=== PATIENT | male | born 1955 | race Caucasian/White ===

== ENCOUNTER → 2016-07-23 | Outpatient (CLI) | payer MEDICARE, BC ==
[2016-07-15 13:25] VITALS: BMI 35.9
[2016-07-23 11:18] VITALS: BP 139/81; PULSE 76; RESP 16; TEMP 97.8
--- NOTE | 2016-07-23 11:35 | P.HPIM ---
History of Present Illness H&P Date: 07/23/16 Chief Complaint: low back pain and leg pain This is a 61-year-old patient referred by Dr. Kohler's office for chronic pain in low back with radiation to both legs, with low back of a dull and achy quality and numbness/tingling in bilateral lower extremities all the way to toes. Pain is rated 9/10 today, goes down to 7/10 with medications. Patient has history of three back surgeries but pain worsened in last six months with twinge in his right lower extremity and then pain in his low back. Patient has a history of rheumatoid arthritis and gets Remicade infusions and methotrexate. He has been taking medications from senior mechanical project engineer Dr. Mascorro including [place] 7.5/325 #90, Flexeril, Neurontin (started recently), medications with some relief. Patient denies adverse drug effects from medications. Patient also denies new-onset weakness, bowel/bladder incontinence, or any other signs or symptoms of cauda equina syndrome. There are no signs of acute intoxication, and no indications of medication diversion or overuse. Patient notes that pain worsens significantly with lying down, and improves with lying on right side, sitting, and medication. Patient has used several types of medications for pain, including NSAIDS, OPIOIDS, TRAMADOL, ANTIDEPRESSANTS, and BENZODIAZEPINES. Patient HAS had surgery in his low back, specifically a decompressive laminectomy. Patient HAS/HAS NOT had injections previously. Patient HAS/HAS NOT had physical therapy recently. In addition to above, 13-point review of systems is also negative for chest pain , shortness of breath, changes in vision, changes in hearing, new onset weakness , abdominal pain, diarrhea, extreme fatigue, malaise, fever, skin changes, homicidal or suicidal ideation, or bowel or bladder incontinence. Vital Signs: Reviewed in EMR Gen: WDWN, AAOx3, NAD HEENT: NCAT, EOMI, hearing grossly normal Pulm: resp unlabored Abd: soft, NT, ND Neck: supple, trachea midline ROM in flexion lumbar spine: reduced ROM in extension lumbar spine: reduced Lumbar paravertebral tenderness: ++ Facet loading: ++ bilateral, R > L SI joint tenderness: neg Jordin's test: + bilateral, R > L Straight leg raise: neg bilateral Lower extremity: decreased hip flexion/extension and knee flexion/extension secondary to pain Neuro: CN II-XII grossly intact, decreased sensation to pinprick bilateral lower extremities, with greater loss on right side Past Medical History Past Medical History: Asthma, Rheumatoid Arthritis (RA) Additional Past Medical History / Comment(s): GLAUCOMA, PAIN LOWER LEFT BACK History of Any Multi-Drug Resistant Organisms: None Reported Past Surgical History: Appendectomy, Back Surgery, Cholecystectomy, Orthopedic Surgery Additional Past Surgical History / Comment(s): RT ROTATOR CUFF/DISC SURG X3/ TITANIUM PLATE IN NECK /left rotator cuff repair may 2015, arthroscopy rt knee Past Anesthesia/Blood Transfusion Reactions: No Reported Reaction Past Psychological History: No Psychological Hx Reported Smoking Status: Former smoker Past Alcohol Use History: Rare Additional Past Alcohol Use History / Comment(s): smoker 3 years quit 1974 1 pack/wk Past Drug Use History: None Reported - Past Family History Mother Family Medical History: No Reported History Medications and Allergies Home Medications Medication Instructions Recorded Confirmed Type Methotrexate Sodium [Methotrexate] 12.5 mg PO MO 11/11/13 07/15/16 History Folic Acid 1 mg PO DAILY 11/12/13 07/15/16 History Timolol 0.5% Ophth Soln [Timoptic] 1 drop BOTH EYES BID 11/12/13 07/15/16 History inFLIXimab [Remicade] 500 mg IVPB Q42D 04/29/14 07/15/16 History Albuterol Inhaler [Ventolin Hfa 1 - 2 puff INHALATION Q6HR PRN 12/22/15 History Inhaler] Cyclobenzaprine [Flexeril] 10 mg PO BID 02/09/16 07/15/16 History Ibuprofen [Motrin] 800 mg PO Q8HR PRN 02/09/16 07/15/16 History Furosemide [Lasix] 20 mg PO DAILY PRN 03/25/16 07/15/16 History Gabapentin [Neurontin] 100 mg PO DAILY 06/28/16 07/15/16 History Terbinafine [LamISIL] 250 mg PO DAILY 06/28/16 07/15/16 History Gabapentin [Neurontin] 100 mg PO DAILY 07/23/16 07/23/16 History Allergies Allergy/AdvReac Type Severity Reaction Status Date / Time cephalexin monohydrate Allergy Rash/Hives Verified 07/23/16 10:51 [From Keflex] Results Comments: Computed tomography scan of lumbar spine without contrast dated 05/29/2016 demonstrates decompressive laminectomy changes the L2-L3, L3-L4, L4-L5, and L5- S1 levels. There is severe degenerative disc disease at the L2 through S1 levels with vacuum disc phenomenon. There are also moderate to severe circumferential disc bulges at all these levels as well with effacement of the thecal sac at all levels. At the L1-L2 level there is a circumferential disc bulge greatest posteriorly with the focal posterior central component as well as herniation and resultant spinal stenosis. Assessment and Plan (1) Lumbar postlaminectomy syndrome Status: Chronic (2) Lumbar disc herniation Status: Chronic (3) Lumbar degenerative disc disease Status: Chronic (4) Lumbar spinal stenosis Status: Acute (5) Spondylosis without myelopathy or radiculopathy, lumbar region Status: Acute Plan: 1. Explanation: Opioid and psychological risk scores were reviewed. Diagnoses , prognoses, and multiple treatment options including but not limited to physical therapy, interventional therapies, adjuvant medical therapies, narcotic medication therapies, and surgery were discussed with the patient and all questions were answered to the patient's satisfaction. 2. Opioid agreement: no opioids prescribed today 3. Counseling: The patient was counseled extensively on BODY MASS INDEX, EXERCISE. Specifically, the patient was instructed regarding the importance of weight loss, and exercise in the context of both chronic pain and overall health. 4. Procedures: bilateral lumbar MBB, can consider caudal BREONNA with Racz if little relief 5. Consultations: none 6. Investigations: none 7. Medications: none prescribed, told patient that Neurontin can be increased as 300 TID is a small dose 8. Disposition: f/u for procedure as scheduled PQRS measures: 1-Patient's medications are documented in the chart. 2-Tobacco use is negative 3-Patient has not had a pneumococcal vaccine. 4-Advanced care planning discussed, patient unable to give. 5-Opioid contract NOT signed with the patient as no opioids prescribed. 6-Pain positive, follow-up visit or procedure scheduled 7-Patient's blood pressure measured and documented, and patient will follow up with the primary care due to hypertension. 8-Patient's weight was measured, and body mass index ABOVE the normal limits, and counseling was done. Patient instructed to follow up with PCP. 9-Patient WAS NOT identified as an unhealthy alcohol user. Time with Patient: Greater than 30
== END | disposition home or self-care (01) ==
LOC: PNWHC3 10:45
PROVIDERS: ATTEND Anesthesiology
DX: M96.1 Postlaminectomy syndrome, not elsewhere classified (principal); M51.26 Other intervertebral disc displacement, lumbar region; M51.36 Other intervertebral disc degeneration, lumbar region; M48.06 Spinal stenosis, lumbar region; Z87.891 Personal history of nicotine dependence; Z79.899 Other long term (current) drug therapy; Z88.1 Allergy status to other antibiotic agents; I10 Essential (primary) hypertension; J45.909 Unspecified asthma, uncomplicated; M06.9 Rheumatoid arthritis, unspecified; H40.9 Unspecified glaucoma
CPT/HCPCS: 99211

== ENCOUNTER 2016-07-26 12:50 | Emergency (ER) | payer MEDICARE, BC ==
[2016-07-26 13:14] VITALS: TEMP 98.3
--- NOTE | 2016-07-26 13:48 | ED ---
Fall HPI - General Chief Complaint: Fall Stated Complaint: Fall Time Seen by Provider: 07/26/16 13:16 Source: patient, RN notes reviewed Mode of arrival: wheelchair - History of Present Illness Initial Comments: Patient is a 61-year-old male presents to the emergency room for evaluation of left fifth digit dislocation. Patient states he was walking down the steps, tripped over a she caught himself with both of his hands. Patient states he looked down his left pinky did not look right. Patient states he's having mild pain.Patient states he is having some tingling on the tip of his fifth finger. Patient does state that when he fell he did hit the right side of his face. Patient denies loss of consciousness or pain. Patient denies headache or dizziness. Patient also states he noticed a laceration on his pinky finger as well. Patient states his last tetanus vaccine was 3 years ago. - Related Data Home Medications Medication Instructions Recorded Confirmed Methotrexate Sodium [Methotrexate] 12.5 mg PO MO 11/11/13 07/26/16 Folic Acid 1 mg PO DAILY 11/12/13 07/26/16 Timolol 0.5% Ophth Soln [Timoptic] 1 drop BOTH EYES BID 11/12/13 07/26/16 inFLIXimab [Remicade] 500 mg IVPB Q42D 04/29/14 07/26/16 Albuterol Inhaler [Ventolin Hfa 1 - 2 puff INHALATION Q6HR PRN 12/22/15 07/26/16 Inhaler] Cyclobenzaprine [Flexeril] 10 mg PO BID 02/09/16 07/26/16 Ibuprofen [Motrin] 800 mg PO Q8HR PRN 02/09/16 07/26/16 Furosemide [Lasix] 20 mg PO DAILY 03/25/16 07/26/16 Gabapentin [Neurontin] 100 mg PO DAILY 06/28/16 07/26/16 HYDROcodone/APAP 7.5-325MG [[place] 1 - 2 tab PO Q6HR PRN 07/26/16 07/26/16 7.5] Previous Rx's Medication Instructions Recorded Clindamycin HCl [Cleocin] 300 mg PO Q8H 7 Days 07/26/16 HYDROcodone/APAP 5-325MG [[place] 1 tab PO Q6HR PRN #12 tab 01/20/17 5-325] Ibuprofen [Motrin] 600 mg PO Q6HR PRN #20 tab 07/26/16 Allergies Allergy/AdvReac Type Severity Reaction Status Date / Time cephalexin monohydrate Allergy Rash/Hives Verified 07/26/16 13:24 [From Keflex] Review of Systems ROS Statement: Those systems with pertinent positive or pertinent negative responses have been documented in the HPI. ROS Other: All systems not noted in ROS Statement are negative. Past Medical History Past Medical History: Asthma, Rheumatoid Arthritis (RA) Additional Past Medical History / Comment(s): GLAUCOMA History of Any Multi-Drug Resistant Organisms: None Reported Past Surgical History: Appendectomy, Back Surgery, Cholecystectomy, Orthopedic Surgery Additional Past Surgical History / Comment(s): RT ROTATOR CUFF/DISC SURG X3/ TITANIUM PLATE IN NECK /left rotator cuff repair may 2015, arthroscopy rt knee Past Anesthesia/Blood Transfusion Reactions: No Reported Reaction Past Psychological History: No Psychological Hx Reported Smoking Status: Former smoker Past Alcohol Use History: Rare Past Drug Use History: None Reported General Exam - General Exam Comments Initial Comments: Sitting in exam room in no acute distress. Limitations: no limitations General appearance: alert, in no apparent distress Head exam: Present: atraumatic, normocephalic, normal inspection Eye exam: Present: normal appearance ENT exam: Present: normal exam Neck exam: Present: normal inspection Respiratory exam: Present: normal lung sounds bilaterally. Absent: respiratory distress Cardiovascular Exam: Present: regular rate, normal rhythm, normal heart sounds Extremities exam: Present: normal inspection Left Hand Wrist exam: Present: laceration (1cm laceration on the posterior middle phalanx of the fifth digit), deformity (Deformity of the PIP joint of the fifth digit). Absent: normal inspection, full ROM Back exam: Present: normal inspection Neurological exam: Present: alert, oriented X3, CN II-XII intact, normal gait Psychiatric exam: Present: normal affect, normal mood Course Vital Signs 07/26/16 07/26/16 13:10 15:55 Temperature 98.3 F Pulse Rate 94 89 Respiratory 18 20 Rate Blood Pressure 128/72 129/79 O2 Sat by Pulse 96 96 Oximetry Procedures - Nerve Block Consent Obtained: verbal consent Local Anesthetic Used: Lidocaine 1% Amount of anesthesia used: 5 Nerve Blocks: digital (left fifth digit) Procedure Successful: Yes Complications: none Patient Tolerated Procedure: well, no complications Medical Decision Making - Medical Decision Making Patient is 61-year-old male presents to the emergency room for evaluation of left fifth digit dislocation and laceration. Patient appears to have an open fracture. Patient will be started on antibiotics. Case discussed with on-call orthopedic Shad DEL RIO. Orthopedic Shad DEL RIO evaluated patient, reduced dislocation and sutured the laceration. Patient was placed in an ulnar gutter splint. Patient was started on PO antibiotics and advised to follow-up in the office next week. Patient states he understands everything that was discussed with him. Return parameters discussed. Case discussed with Dr. Morales. Patient declined any pain medications while he was here. - Radiology Data Radiology results: report reviewed, image reviewed Disposition Clinical Impression: Open dislocation of finger, Finger laceration Disposition: HOME SELF-CARE Condition: Good Instructions: Finger Dislocation (ED), Laceration (ED) Additional Instructions: Take antibiotics as directed. Take ibuprofen as needed for pain. Take [place] as needed for severe pain. Please follow-up with electronic warfare specialist for reevaluation. If any new symptom arises, symptoms worsen or fever develops, return to ER as soon as possible. Prescriptions: HYDROcodone/APAP 5-325MG [[place] 5-325] 1 tab PO Q6HR PRN #12 tab PRN Reason: Pain Ibuprofen [Motrin] 600 mg PO Q6HR PRN #20 tab PRN Reason: Pain Clindamycin HCl [Cleocin] 300 mg PO Q8H 7 Days Referrals: Noel Liao DO [Primary Care Provider] - 1-2 days Alhaji Diana MD [STAFF PHYSICIAN] - 1-2 days Time of Disposition: 16:01
[2016-07-26] MEDS ORDERED: AMPICILLIN-SULBACTAM 3 GM in SODIUM CHLORIDE 0.9% 100 ML IVPB STA (13:56)
--- NOTE | 2016-07-26 14:07 | XR ---
Fifth digit left hand HISTORY: Trauma and pain 3 views of the fifth digit of the left hand There is a posterior fracture dislocation at the proximal interphalangeal joint of the fifth digit of the left hand. Small fracture fragments are noted at the volar aspect of the distal dislocated segme nt. See present in the soft tissues. Bandage apposition. Osteoarthritic change present in the first d igit. Question ligamentous injury to the second third and fourth digits, there is some questionable h yperextension at the proximal interphalangeal joints of the digits. IMPRESSION: Findings described above, fracture or dislocation fifth digit
--- NOTE | 2016-07-26 15:45 | P.CNOR ---
History of Present Illness - [facility] Consult date: 07/26/16 History of present illness: This is a 61-year-old male who was seen today and examined in the ER Richelle Welch. Patient reported this afternoon after falling at home. Patient describes walking up some steps when he tripped, falling onto his left upper extremity. Patient noticed that his pinkie looked funny after he got up, he also noticed a laceration on the inside of his left pinky. He immediately report to the hospital, imaging test were done which demonstrated a dislocated PIP joint of the fifth digit. There was questions regarding a open dislocation of the fifth digit on the left hand, I was contacted by the emergency room physician railway yard assistant. I was able to review the images and discuss the case my attending Dr. Diana. It was determined that we would relocate the finger in the emergency room after proper anesthesia and prepping. I then reported to the Emergency room to discuss the case further with the patient and his . Patient denies any other problems involving the left upper extremity, including hand wrist, elbow, shoulder. He admits to be previous carpal tunnel surgery on the left side many years ago. Patient denies hitting his head during this occasion. Patient has a rather healthy 61-year-old gentleman with no significant medical history. Patient denies headaches, lightheadedness, chest pain, shortness of breath, fever chills. Review of Systems Constitutional: Reports as per HPI Past Medical History Past Medical History: Asthma, Rheumatoid Arthritis (RA) Additional Past Medical History / Comment(s): GLAUCOMA History of Any Multi-Drug Resistant Organisms: None Reported Past Surgical History: Appendectomy, Back Surgery, Cholecystectomy, Orthopedic Surgery Additional Past Surgical History / Comment(s): RT ROTATOR CUFF/DISC SURG X3/ TITANIUM PLATE IN NECK /left rotator cuff repair may 2015, arthroscopy rt knee Past Anesthesia/Blood Transfusion Reactions: No Reported Reaction Past Psychological History: No Psychological Hx Reported Smoking Status: Former smoker Past Alcohol Use History: Rare Past Drug Use History: None Reported Medications and Allergies Home Medications Medication Instructions Recorded Confirmed Type Methotrexate Sodium [Methotrexate] 12.5 mg PO MO 11/11/13 07/26/16 History Folic Acid 1 mg PO DAILY 11/12/13 07/26/16 History Timolol 0.5% Ophth Soln [Timoptic] 1 drop BOTH EYES BID 11/12/13 07/26/16 History inFLIXimab [Remicade] 500 mg IVPB Q42D 04/29/14 07/26/16 History Albuterol Inhaler [Ventolin Hfa 1 - 2 puff INHALATION Q6HR PRN 12/22/15 History Inhaler] Cyclobenzaprine [Flexeril] 10 mg PO BID 02/09/16 07/26/16 History Ibuprofen [Motrin] 800 mg PO Q8HR PRN 02/09/16 07/26/16 History Furosemide [Lasix] 20 mg PO DAILY 03/25/16 07/26/16 History Gabapentin [Neurontin] 100 mg PO DAILY 06/28/16 07/26/16 History HYDROcodone/APAP 7.5-325MG [[place] 1 - 2 tab PO Q6HR PRN 07/26/16 07/26/16 History 7.5] Allergies Allergy/AdvReac Type Severity Reaction Status Date / Time cephalexin monohydrate Allergy Rash/Hives Verified 07/26/16 13:24 [From Keflex] Physical Examination Left upper extremity: Obvious deformity present of the left fifth digit. There is a laceration noted on the medial aspects at the PIP joint of the left fifth digit. I was able to visualize bone through the laceration, likely the proximal phalanx. No other abnormalities present throughout the left hand and wrist Patient had already been given a digital block by the emergency room staff, so sensation throughout the left fifth digit is altered. He was able to move the finger at the MCP joint Patient was able to move all the remaining fingers and no difficulty. Extension and flexion are present at the wrist Radial pulses 2+ Results - Diagnostic results Wrist/Hand x-ray: report reviewed, image reviewed Assessment and Plan Plan: Imaging: Initial images of the left hand demonstrated a posterior dislocation of the fifth PIP joint of the left hand. No other acute fractures or dislocations are present Postreduction films were then taken, this demonstrated a relocated left fifth PIP joint Assessment: 1. Open dislocation of the PIP joint left fifth digit 2. Laceration digit 2. Status post relocation PIP joint left fifth digit and laceration repair Plan: 1. I did discuss the case with the patient and his at bedside today, we will like to proceed with a relocation and laceration repair at bedside today. Anesthesia has already been done by the emergency room staff. The patient and are in good understanding and would like to proceed. See procedure note for further detail 2. Utilize ulnar gutter splint, fifth digit will remain in flexion at the PIP joint at all times 3. Pain control 4. Wound care was discussed with patient 5. Oral antibiotics will be given for outpatient use 6. Patient will follow-up in the outpatient setting in 2 weeks for recheck of hand Time with Patient: Less than 30
--- NOTE | 2016-07-26 15:55 | XR ---
Third digit left hand HISTORY: Post reduction 2 views of the fifth digit of the left hand correlated to previous exam same date earlier time There is interval reduction. Fracture fragments present about the proximal interphalangeal joint. The re is overlying dressing. Underlying arthropathy changes present. IMPRESSION: Interval reduction. Additional findings above.
[2016-07-26 15:56] VITALS: BP 129/79; PULSE 89; RESP 20
--- NOTE | 2016-07-26 15:56 | P.PCN ---
Date of Procedure: 07/26/16 Preoperative Diagnosis: Open dislocation left PIP joint of fifth digit Postoperative Diagnosis: Relocation PIP joint of left fifth digit and laceration repair Procedure(s) Performed: Relocation left PIP joint fifth digit and laceration repair Implants: None Anesthesia: regional Surgeon: Prince Kraft Estimated Blood Loss (ml): 5 Pathology: none sent Condition: stable Disposition: same day Indications for Procedure: This is a 61-year-old male who fell today at home landing on his left hand. He was noted to have a open dislocation involving the PIP joint of the left fifth digit. Description of Procedure: The risk and benefits of the procedure were discussed with the patient is today at bedside, they are in good understanding would like to proceed. Risks to include but not exclude infection, blood loss, neurovascular injury, and adequate reduction of joint, pain and stiffness, need for subsequent procedures. After local anesthesia was provided by the emergency room physician assistant at surgery, I used 245 mL of normal saline to clean the wound. I then used about 10 mL of hydrogen peroxide. I was able to visualize bony structure on the medial laceration of the fifth digit, this is likely the proximal phalanx. Simple reduction maneuver was then done to relocate the PIP joint. I then placed #3 3-0 nylon sutures along the medial laceration, which measured about 1 cm. I then bandaged the laceration and placed the patient in an ulnar gutter splint with a orthoglass material and Joe bandage. Postreduction films were then taken which showed an adequate reduction of the PIP joint at the fifth digit of left hand. Patient will continue to utilize ulnar gutter splint at this time, he'll be discharged home on oral medication and antibiotics. He was instructed to follow -up in the outpatient setting next week
== END 2016-07-26 16:11 | disposition home or self-care (01) ==
LOC: EC 12:50
DX: S62.607B Fracture of unspecified phalanx of left little finger, initial encounter for open fracture (principal); W01.0XXA Fall on same level from slipping, tripping and stumbling without subsequent striking against object, initial encounter; M06.9 Rheumatoid arthritis, unspecified; H40.9 Unspecified glaucoma; Z87.891 Personal history of nicotine dependence; Z79.899 Other long term (current) drug therapy; Z88.1 Allergy status to other antibiotic agents; Y93.01 Activity, walking, marching and hiking
CPT/HCPCS: 73140; 26742; 99284; 96365; J0295

== ENCOUNTER → 2016-08-09 | Outpatient (CLI) | payer MEDICARE, BC ==
[~2016-08-09] MED LIST: SODIUM CHLORIDE 0.9% 250 ML in EMPTY BAG 1 BAG IV PRN; SODIUM CHLORIDE 0.9% 500 ML in EMPTY BAG 1 BAG IV PRN; diphenhydrAMINE 50 MG/ML 1 ML VIAL IVP ONE; methylPREDNISolone SOD SUCCI 125 MG/2 ML VIAL IV ONE
[2016-08-09 07:54] VITALS: RESP 16; TEMP 97.8
[2016-08-09 08:51] VITALS: BP 139/80; PULSE 72
== END | disposition home or self-care (01) ==
LOC: PROCWHC3 07:08
PROVIDERS: ATTEND Internal Medicine Rheumatology
DX: M06.89 Other specified rheumatoid arthritis, multiple sites (principal)
CPT/HCPCS: 96361; 96375; 96413; 96415; J2930; J1745

== ENCOUNTER → 2016-08-14 | Outpatient (CLI) | payer MEDICARE, BC ==
--- NOTE | 2016-08-14 15:31 | BD ---
EXAMINATION TYPE: MG DEXA axial skeleton. DATE OF EXAM: 08/14/2016 9:17 AM CLINICAL HISTORY: 61-year-old male osteoporosis Height: 69.5 Weight: 250 FRAX RISK QUESTIONS: Alcohol (3 or more units per day): no Family History (Parent hip fracture): no Glucocorticoids (More than 3mos): occasionally a rescue inhaler (Ex: prednisone, prednisolone, methylprednisolone, dexamethasone, and hydrocortisone). History of Fracture in Adulthood: fingers Secondary Osteoporosis: 1. Type 1 Diabetes: no 2. Hyperthyroidism: no 3. Menopause before 45: n/a 4. Malnutrition: no 5. Chronic liver disease: no Rheumatoid Arthritis: yes Current Tobacco Use: no RISK FACTORS HISTORY OF: History of Fracture: yes, fingers When: several weeks ago Surgery to Spine: yes When: about 1999 Other Fractures since Age 51: yes, fingers When: several weeks ago Family History of Osteoporosis: no Smoke tobacco: not now Drink Alcohol: very very rarely Active: somewhat Diet low in dairy products/other sources of calcium: no Postmenopausal woman: n/a Take estrogen and/or progesterone medications: n/a Lost more than 2 inches in height since high school: no Frequent falls: no Poor Health: no Hyperparathyroidism: no Adrenal Insufficiency: no MEDICATIONS: Prednisone or other steroids: rescue inhaler only occasionally as needed Thyroid Medications: no Osteoporosis Medications: no Additional Medications: meds for Rheumatoid arthritis Additional History: diagnosed with rheumatoid arthritis age 40, also one leg has been decreasing in l ength through the years EXAM MEASUREMENTS: Bone mineral densitometry was performed using the VIR[employer] System. Bone mineral density as measured about the Lumbar spine is: ----- L1-L4(G/cm2): 1.066 T Score Values are as follows: ----- L2: -0.9 ----- L3: -1.9 ----- L4: -0.8 ----- L1-L4: -1.0 Bone mineral density has: Decreased -6.5% since study of: 08/06/2006 Bone mineral density about the R hip (g/cm2): 0.873 Bone mineral density about the L hip (g/cm2): 0.974 T Score values are as follows: -----R Neck: -1.2 -----L Neck: -0.5 -----R Intertrochanter: 0.1 -----L Intertrochanter: 0.5 Bone mineral density has: Increased 7.3% since study of: 08/06/2006 IMPRESSION: Normal bone mineral density as indicated by Z score values in the lumbar spine and both hips. Note th at the Z score values are bordering on a low value within the L3 vertebral body (Z score -1.9). NOTE: T-SCORE=SD OF THE YOUNG ADULT MEAN.
== END | disposition home or self-care (01) ==
LOC: RADBDWWP 08:43
PROVIDERS: ATTEND Internal Medicine Rheumatology
DX: M81.0 Age-related osteoporosis without current pathological fracture (principal); M06.9 Rheumatoid arthritis, unspecified; Z98.890 Other specified postprocedural states
CPT/HCPCS: 77080

== ENCOUNTER 2016-09-10 06:16 | Day surgery (SDC) | payer MEDICARE, BC ==
[2016-09-06 09:21] VITALS: BMI 35.9
[2016-09-10 07:01] VITALS: RESP 16; TEMP 98.3
[2016-09-10] MEDS ORDERED: LACTATED RINGERS 1,000 ML IV ONE (07:01)
[2016-09-10] MEDS ORDERED: MIDAZOLAM 2 MG/2 ML VIAL ONE (07:06)
[2016-09-10] MEDS ORDERED: fentaNYL (PF) 50 MCG/ML 2 ML AMP ONE (07:06)
[2016-09-10] MEDS ORDERED: BUPIVACAINE (PF) 0.5% 30 ML VIAL ONE (07:06)
[2016-09-10] MEDS ORDERED: TRIAMCINOLONE ACETONIDE 40 MG/ML 1 ML VIAL ONE (07:06)
[2016-09-10] MEDS ORDERED: LACTATED RINGERS 1,000 ML IV SCH (07:15)
[2016-09-10] MEDS ORDERED: IV FLUID CONTINUATION 1,000 ML IV ONE ×2 (07:40)
[2016-09-10 07:58] VITALS: BP 130/72; PULSE 76
--- NOTE | 2016-09-10 09:18 | FL ---
EXAMINATION TYPE: FL guided pain mgmt... statistic DATE OF EXAM: 09/10/2016 7:37 AM HISTORY: Flouroscopy time 38 seconds of fluoroscopy provided. IMPRESSION: 1. Fluoroscopy time.
--- NOTE | 2016-09-10 10:34 | P.PCN ---
Date of Procedure: 09/10/16 Surgeon: Frankie Figueroa Pathology: none sent Condition: stable Disposition: PACU Description of Procedure: PREOPERATIVE DIAGNOSIS: L3-L4, L4-L5, and L5-S1 spondylosis without myelopathy and facet arthropathy; lumbar PLPS POSTOPERATIVE DIAGNOSIS: L3-L4, L4-L5, and L5-S1 spondylosis without myelopathy and facet arthropathy; lumbar PLPS PROCEDURE DESCRIPTION: Patient presents for L3, L4 and L5 diagnostic medial branch blocks under fluoroscopic guidance. The procedure is performed using fluoroscopic guidance during needle placement to assure proper position and maximize safety. ANESTHESIA: Local with 1% lidocaine; conscious sedation EBL: Minimal PROCEDURE INDICATION: Patient with PLPS and lumbar facet arthropathy signs and symptoms, here for diagnostic medial branch block #1. Pt does not take any blood thinning medications. PROCEDURE DESCRIPTION: The patient was seen and identified in the preoperative area. Risks, benefits, complications, and alternatives were discussed with the patient (including but not limited to incomplete pain relief, bleeding, infection, nerve damage, and allergies to medications), the patient agreed to proceed with the procedure and signed the consent after all questions were answered. Patient was taken to the OR and time out was completed to verify proper patient, position, laterality of pain, and allergies. Pt was placed in the prone position and a pillow was placed under the abdomen to reduce lumbar lordosis. The lumbosacral area was prepped and draped in the usual sterile fashion. Using oblique fluoroscopy, the eye of the "Alireza dog" of right L4 vertebral body, which corresponds to the path of the medial branch originating from the level above, which is L3 in this case, was identified. Subsequently, a 22-gauge 3.5-inch spinal needle was inserted under fluoroscopic guidance toward the eye of the "Alireza dog" of the right L4 vertebral body, corresponding to the junction of the superior articular process and the transverse process of the pedicle of the same level. After needle tip confirmation on lateral view and after negative aspiration for CSF and blood and without paresthesias, 1 mL of a 6 ml solution of 0.5% preservative-free bupivacaine and 40 mg Kenalog was injected. Subsequently the needle was withdrawn intact and the same procedure was repeated for the right L4, right L5, left L3, left L4, and left L5 medial branches which together with right L3 medial branch correspond to the sensory innervation of the bilateral L3-L4, L4-L5, and L5-S1 facet joints. Needle was withdrawn intact after each injection. At the end of the procedure, the skin was cleansed and bandages were applied. COMPLICATIONS: None. DISPOSITION/PLAN: The patient taken to the recovery area after the procedure in a stable condition for observation. Patient was reexamined prior to discharge and there were no issues. Patient was discharged home, accompanied by an adult, after meeting discharged criteria. Discharge instructions were give to the patient by the staff. Patient was specifically instructed not to drive today and to rest for the rest of the day. If he gets relief, we will repeat this procedure in 4- 6 weeks.
== END 2016-09-10 08:12 | disposition home or self-care (01) ==
LOC: ORPAIN 06:16
PROVIDERS: ATTEND Anesthesiology
DX: G89.29 Other chronic pain (principal); M47.817 Spondylosis without myelopathy or radiculopathy, lumbosacral region; M46.96 Unspecified inflammatory spondylopathy, lumbar region; M96.1 Postlaminectomy syndrome, not elsewhere classified; Z88.1 Allergy status to other antibiotic agents; Z79.1 Long term (current) use of non-steroidal anti-inflammatories (NSAID); Z79.891 Long term (current) use of opiate analgesic; Z79.899 Other long term (current) drug therapy
CPT/HCPCS: 99152; 64493; 64494; 64495; J2250; J3301; J3010

== ENCOUNTER → 2016-09-23 | Outpatient (CLI) | payer MEDICARE, BC ==
[~2016-09-23] MED LIST changes: +diphenhydrAMINE 50 MG/ML 1 ML VIAL IVP NR; -diphenhydrAMINE 50 MG/ML 1 ML VIAL IVP ONE; -methylPREDNISolone SOD SUCCI 125 MG/2 ML VIAL IV ONE; +methylPREDNISolone SOD SUCCI 125 MG/2 ML VIAL IVP NR
[2016-09-23 07:27] VITALS: TEMP 98.5
[2016-09-23 09:20] VITALS: BP 142/73; PULSE 62; RESP 18
== END | disposition home or self-care (01) ==
LOC: PROCWHC3 07:06
PROVIDERS: ATTEND Internal Medicine Rheumatology
DX: M06.89 Other specified rheumatoid arthritis, multiple sites (principal); M06.9 Rheumatoid arthritis, unspecified
CPT/HCPCS: 96375; 96413; 96415; J2930; J1745; 96361

== ENCOUNTER 2016-09-24 09:00 | Day surgery (SDC) | payer MEDICARE, BC ==
[2016-09-20 15:39] VITALS: BMI 35.3
[~2016-09-24 09:00] MED LIST changes: +LACTATED RINGERS 1,000 ML IV SCH; -SODIUM CHLORIDE 0.9% 250 ML in EMPTY BAG 1 BAG IV PRN; -SODIUM CHLORIDE 0.9% 500 ML in EMPTY BAG 1 BAG IV PRN; -diphenhydrAMINE 50 MG/ML 1 ML VIAL IVP NR; -methylPREDNISolone SOD SUCCI 125 MG/2 ML VIAL IVP NR
[2016-09-24 09:32] VITALS: TEMP 97.8
[2016-09-24] MEDS ORDERED: fentaNYL (PF) 50 MCG/ML 2 ML AMP ONE (10:10)
[2016-09-24] MEDS ORDERED: TRIAMCINOLONE ACETONIDE 40 MG/ML 1 ML VIAL ONE (10:10)
[2016-09-24] MEDS ORDERED: BUPIVACAINE (PF) 0.5% 30 ML VIAL ONE (10:10)
[2016-09-24] MEDS ORDERED: MIDAZOLAM 2 MG/2 ML VIAL ONE (10:10)
--- NOTE | 2016-09-24 10:37 | P.PCN ---
Date of Procedure: 09/24/16 Procedure(s) Performed: PREOPERATIVE DIAGNOSIS : 1- Lumbar spondylosis with Facet Arthropathy without myelopathy . 2-failed back surgery syndrome lumbar area POSTOPERATIVE DIAGNOSIS: 1- Lumbar spondylosis with Facet Arthropathy without myelopathy . 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 EBL: Minimal COMPLICATION: None. IV FLUIDS: 100 mL of normal saline. PROCEDURE INDICATION: Chronic low back pain secondary to Facet arthropathy unresponsive to conservative treatment. PROCEDURE DESCRIPTION: the patient was seen and identified in the preop holding area , risks and benefits and possible complications of the procedure and alternative were discussed with the patient, and the patient agreed to proceed with the procedure and signed the consent IV was started and vital signs monitored during the procedure and fluoroscopy was used to maximize the benefit and accuracy of the needle placement, and sedation was given to decrease patient anxiety, patient was taken to the procedure room and placed in prone position vital signs monitored in the back prepped with chlorhexidine X3 then under strict sterile technique using a right oblique fluoroscopy ,the junction of the transverse process and the superior articulating process of the right L3- 4 , L4- 5, and L5-S1 vertebra which corresponding to the fluoroscopy image of the eye of the Alireza dog on the block side for the medial branches and subsequently , after local infiltration of skin and subcu tissuies with lidocaine 1% one mL at each level ,then 22- gauge Quincke-type needles , 3 needle was used , each one of them placed at the junction of the base of the transverse process and the superior articular process at the appropriate level, and the needle was advanced until the periosteum contacted, needle placement confirmed with AP oblique and lateral view and after appropriate needle placement confirmed, and after negative aspiration for heme and CSF and there was no paresthesia 1-1/2 mL of Marcaine 0.5% mixed with 40 mg Kenalog , then half mL injected at each level after negative aspiration the needle subsequently removed and the same procedure repeated for the left side at left side at L3-4, L4- 5 and L5-S1 levels. At the end of the procedure and the needles removed and a bandage applied after the skin was cleaned the cleaning solution patient taken to recovery room in stable condition and monitors in the recovery room for 20-30 minutes and discharged home in stable condition after discharge criteria met and patient will follow up with the pain clinic in 2-4 weeks
[2016-09-24] MEDS ORDERED: LACTATED RINGERS 1,000 ML IV ONE ×2 (10:40)
[2016-09-24 10:47] VITALS: RESP 18
--- NOTE | 2016-09-24 10:48 | FL ---
EXAMINATION TYPE: FL guided pain mgmt statistic DATE OF EXAM: 09/24/2016 10:41 AM HISTORY: Flouroscopy time 22 seconds of fluoroscopy provided. IMPRESSION: 1. Fluoroscopy time.
[2016-09-24 11:01] VITALS: BP 135/85; PULSE 78
[2016-09-24] MEDS ORDERED: IV FLUID CONTINUATION 1,000 ML IV ONE (11:05)
== END 2016-09-24 11:16 | disposition home or self-care (01) ==
LOC: ORPAIN 09:00
PROVIDERS: ATTEND Specialist
DX: G89.29 Other chronic pain (principal); M47.816 Spondylosis without myelopathy or radiculopathy, lumbar region; M46.96 Unspecified inflammatory spondylopathy, lumbar region; M96.1 Postlaminectomy syndrome, not elsewhere classified; Z88.1 Allergy status to other antibiotic agents
CPT/HCPCS: 64493; 64494; 64495; 99152; J2250; J3301; J3010

== ENCOUNTER 2016-10-29 06:21 | Day surgery (SDC) | payer MEDICARE, BC ==
[2016-10-25 16:14] VITALS: BMI 35.0
[2016-10-29 06:46] VITALS: TEMP 97.4
[2016-10-29] MEDS ORDERED: LACTATED RINGERS 1,000 ML IV ONE ×2 (06:57)
[2016-10-29] MEDS ORDERED: fentaNYL (PF) 50 MCG/ML 2 ML AMP ONE (07:15)
[2016-10-29] MEDS ORDERED: TRIAMCINOLONE ACETONIDE 40 MG/ML 1 ML VIAL ONE (07:15)
[2016-10-29] MEDS ORDERED: MIDAZOLAM 2 MG/2 ML VIAL ONE (07:15)
[2016-10-29] MEDS ORDERED: LACTATED RINGERS 1,000 ML IV SCH (07:15)
[2016-10-29 07:57] VITALS: RESP 20
[2016-10-29 08:16] VITALS: BP 134/93; PULSE 68
[2016-10-29] MEDS ORDERED: IV FLUID CONTINUATION 1,000 ML IV ONE (08:16)
--- NOTE | 2016-10-29 09:09 | FL ---
EXAMINATION TYPE: FL guided pain mgmt statistic DATE OF EXAM: 10/29/2016 7:46 AM HISTORY: Fluoroscopy time 29 seconds of fluoroscopy provided. IMPRESSION: 1. Fluoroscopy time.
--- NOTE | 2016-10-29 09:43 | P.PCN ---
Date of Procedure: 10/29/16 Surgeon: Frankie Figueroa Pathology: none sent Condition: stable Disposition: PACU Description of Procedure: PREOPERATIVE DIAGNOSIS: Lumbar spondylosis without myelopathy and facet arthropathy POSTOPERATIVE DIAGNOSIS: Lumbar spondylosis without myelopathy and facet arthropathy PROCEDURES: Left Radiofrequency thermocoagulation, L3, L4, and L5 medial branch , with fluoroscopic guidance. ANESTHESIA: 1% lidocaine plain; Conscious sedation with versed/fentanyl EBL: Minimal PROCEDURE INDICATION: The patient with low back pain secondary to lumbar arthropathy who had more than 50% relief of pain with previous diagnostic lumbar medial branch block with bupivacaine. Patient presents for RFA today; no use of blood thinners. PROCEDURE DESCRIPTION / TECHNIQUE: The patient was seen and identified in the preoperative area. Risks, benefits, complications, and alternatives were discussed with the patient (including but not limited to incomplete pain relief , bleeding, infection, nerve damage, and allergies to medications), the patient agreed to proceed with the procedure and signed the consent after all questions were answered. Patient was taken to the OR and time out was completed to verify proper patient , position, laterality of pain, and allergies. Pt was placed in the prone position. IV was started. Vital signs remained stable throughout the procedure. A pillow was placed under the patients chest to decrease lordosis. The lumbosacral area was prepped and draped in the usual sterile fashion. Vital signs were closely monitored during the procedure. Conscious sedation was used during the procedure to decrease patients anxiety. Using AP and then oblique fluoroscopy, the eye of the Alireza dog corresponding to the connection between the superior and transverse articular processes of left L4, L5 and top of the sacrum were identified, marked, and localized with 1% lidocaine. Subsequently, a 20 gauge, 100-mm radiofrequency cannula with a 10-mm active tip was advanced guided by fluoroscopy to each of the eyes of the Alireza dog at left L3, L4, and L5 medial branches. Each site then underwent sensory testing at 50 Hz and 0 to 1 volt and motor testing at 2 Hz and 0 to 3 volt with local stimulation, but no radicular symptoms down the legs. Thereafter the left L3, L4, and L5 medial branch sites underwent radiofrequency thermocoagulation at 80 degrees Celsius for 90 seconds after injecting 0.5 ml of PF lidocaine 1%. After thermocoagulation, 1 ml of the block solution containing Kenalog 40 mg and 2 mL of preservative-free normal saline was injected at the left L3, L4, and L5 medial branch levels after negative aspiration of CSF and blood and with no paresthesias. Cannulas were retracted while injecting lidocaine 1% until the needles were removed. At the end of the procedure, the skin was cleansed and bandages were applied. COMPLICATIONS: No acute complications. DISPOSITION / PLANS: The patient was placed in a supine position and transferred to the recovery area in a stable condition for observation and was discharged from the recovery room after meeting discharge criteria. Home discharge instructions given to the patient by the staff. The patient was reexamined prior to discharge. The patient will schedule a right lumbar RFA in 2 -4 weeks.
== END 2016-10-29 08:21 | disposition home or self-care (01) ==
LOC: ORPAIN 06:21
PROVIDERS: ATTEND Anesthesiology
DX: M46.96 Unspecified inflammatory spondylopathy, lumbar region (principal); M47.816 Spondylosis without myelopathy or radiculopathy, lumbar region; Z88.1 Allergy status to other antibiotic agents; Z98.1 Arthrodesis status
CPT/HCPCS: 64635; 64636 ×2; 99152; J2250; J3301; J3010

== ENCOUNTER → 2016-11-04 | Outpatient (CLI) | payer MEDICARE, BC ==
[~2016-11-04] MED LIST changes: -LACTATED RINGERS 1,000 ML IV SCH; +SODIUM CHLORIDE 0.9% 250 ML in EMPTY BAG 1 BAG IV PRN; +SODIUM CHLORIDE 0.9% 500 ML in EMPTY BAG 1 BAG IV PRN; +diphenhydrAMINE 50 MG/ML 1 ML VIAL IVP ONE; +methylPREDNISolone SOD SUCCI 125 MG/2 ML VIAL IV ONE
[2016-11-04 07:40] VITALS: TEMP 97.9
[2016-11-04 08:14] LABS: Basophils % (A) 0 %; CH 35.3; CHCM 34.6; Eosinophils % (A) 1 %; HCT 35.6 % (39.0-53.0); HGB 12.1 gm/dL (13.0-17.5); Luc # (Auto) 0.26; Luc % (Auto) 3; Lymphocytes % (A) 34 %; MCH 34.9 pg (25.0-35.0); MCV 102.7 fL (80.0-100.0); Macrocytosis Slight; Mean Platelet Volume 6.4; Monocytes # (A) 0.6 k/uL (0-1.0); Monocytes % (A) 7 %; Neutrophils # (A) 4.8 k/uL (1.3-7.7); Neutrophils % (A) 55 %; RBC 3.47 m/uL (4.30-5.90); RDW 15.1 % (11.5-15.5); WBC 8.7 k/uL (3.8-10.6)
[2016-11-04 08:56] LABS: ALT 34 U/L (21-72); AST 22 U/L (17-59); C Reactive Protein 8.8 mg/L (<10.0); Non-African American GFR(MDRD) >60 (>60 ml/min/1.73 sqM)
[2016-11-04 09:55] VITALS: BP 138/83; PULSE 65; RESP 20
[2016-11-04 12:07] LABS: Erythrocyte Sedimentation Rate 37 mm/hr (0-15)
== END | disposition home or self-care (01) ==
LOC: PROCWHC3 07:02
PROVIDERS: ATTEND Internal Medicine Rheumatology
DX: M06.89 Other specified rheumatoid arthritis, multiple sites (principal)
CPT/HCPCS: 85652; 82565; 84450; 84460; 85025; 86140; 96375; 96413; 96415; 36415; J2930; J1745

== ENCOUNTER 2016-12-05 06:23 | Day surgery (SDC) | payer MEDICARE, BC ==
[2016-11-29 12:23] VITALS: BMI 35.0
[2016-12-05 07:15] VITALS: RESP 16; TEMP 97.6
[2016-12-05] MEDS ORDERED: LACTATED RINGERS 1,000 ML IV ONE (07:21)
[2016-12-05] MEDS ORDERED: LACTATED RINGERS 1,000 ML IV SCH (07:45)
[2016-12-05] MEDS ORDERED: TRIAMCINOLONE ACETONIDE 40 MG/ML 1 ML VIAL ONE (07:54)
[2016-12-05] MEDS ORDERED: fentaNYL (PF) 50 MCG/ML 2 ML AMP ONE (07:54)
[2016-12-05] MEDS ORDERED: MIDAZOLAM 2 MG/2 ML VIAL ONE (07:54)
--- NOTE | 2016-12-05 08:39 | P.PCN ---
Date of Procedure: 12/05/16 Preoperative Diagnosis: Postoperative Diagnosis: Procedure(s) Performed: Implants: Surgeon: Frankie Figueroa Pathology: none sent Condition: stable Disposition: PACU Indications for Procedure: Operative Findings: Description of Procedure: PREOPERATIVE DIAGNOSIS: Lumbar spondylosis without myelopathy and facet arthropathy POSTOPERATIVE DIAGNOSIS: Lumbar spondylosis without myelopathy and facet arthropathy PROCEDURES: Right Radiofrequency thermocoagulation, L3, L4, and L5 medial branch , with fluoroscopic guidance. ANESTHESIA: 1% lidocaine plain; Conscious sedation with versed/fentanyl EBL: Minimal PROCEDURE INDICATION: The patient with low back pain secondary to lumbar arthropathy who had more than 50% relief of pain with previous diagnostic lumbar medial branch block with bupivacaine. Patient presents for RFA today; no use of blood thinners. Good relief from left lumbar RFA last visit. PROCEDURE DESCRIPTION / TECHNIQUE: The patient was seen and identified in the preoperative area. Risks, benefits, complications, and alternatives were discussed with the patient (including but not limited to incomplete pain relief , bleeding, infection, nerve damage, and allergies to medications), the patient agreed to proceed with the procedure and signed the consent after all questions were answered. Patient was taken to the OR and time out was completed to verify proper patient , position, laterality of pain, and allergies. Pt was placed in the prone position. IV was started. Vital signs remained stable throughout the procedure. A pillow was placed under the patients chest to decrease lordosis. The lumbosacral area was prepped and draped in the usual sterile fashion. Vital signs were closely monitored during the procedure. Conscious sedation was used during the procedure to decrease patients anxiety. Using AP and then oblique fluoroscopy, the eye of the Alireza dog corresponding to the connection between the superior and transverse articular processes of right L4, L5 and top of the sacrum were identified, marked, and localized with 1% lidocaine. Subsequently, a 20 gauge, 100-mm radiofrequency cannula with a 10-mm active tip was advanced guided by fluoroscopy to each of the eyes of the Alireza dog at right L3, L4, and L5 medial branches. Each site then underwent sensory testing at 50 Hz and 0 to 1 volt and motor testing at 2 Hz and 0 to 3 volt with local stimulation, but no radicular symptoms down the legs. Thereafter the right L3, L4, and L5 medial branch sites underwent radiofrequency thermocoagulation at 80 degrees Celsius for 90 seconds after injecting 0.5 ml of PF lidocaine 1%. After thermocoagulation, 1 ml of the block solution containing Kenalog 40 mg and 2 mL of preservative-free normal saline was injected at the right L3, L4, and L5 medial branch levels after negative aspiration of CSF and blood and with no paresthesias. Cannulas were retracted while injecting lidocaine 1% until the needles were removed. At the end of the procedure, the skin was cleansed and bandages were applied. COMPLICATIONS: No acute complications. DISPOSITION / PLANS: The patient was placed in a supine position and transferred to the recovery area in a stable condition for observation and was discharged from the recovery room after meeting discharge criteria. Home discharge instructions given to the patient by the staff. The patient was reexamined prior to discharge. The patient will schedule a follow-up in the clinic in 4-6 weeks.
[2016-12-05 08:49] VITALS: BP 133/82; PULSE 73
[2016-12-05] MEDS ORDERED: IV FLUID CONTINUATION 1,000 ML IV ONE (09:09)
--- NOTE | 2016-12-05 09:29 | FL ---
FLUOROSCOPY 12 seconds of fluoroscopy time were utilized during radiofrequency ablation in the right lumbar regio n. 3 images document the procedure.
== END 2016-12-05 09:09 | disposition home or self-care (01) ==
LOC: ORPAIN 06:23
PROVIDERS: ATTEND Anesthesiology
DX: G89.29 Other chronic pain (principal); M47.816 Spondylosis without myelopathy or radiculopathy, lumbar region; M46.96 Unspecified inflammatory spondylopathy, lumbar region; M06.9 Rheumatoid arthritis, unspecified; Z79.891 Long term (current) use of opiate analgesic; Z79.899 Other long term (current) drug therapy; Z88.1 Allergy status to other antibiotic agents
CPT/HCPCS: 64635; 64636 ×2; 99152; J2250; J3301; J3010

== ENCOUNTER → 2016-12-16 | Outpatient (CLI) | payer MEDICARE, BC ==
[2016-12-16 07:50] VITALS: RESP 16; TEMP 97.7
[2016-12-16 09:21] VITALS: BP 115/66; PULSE 68
== END ==
LOC: PROCWHC3 07:25
PROVIDERS: ATTEND Internal Medicine Rheumatology
DX: Z51.11 Encounter for antineoplastic chemotherapy (principal); M06.89 Other specified rheumatoid arthritis, multiple sites
CPT/HCPCS: 96375; 96413; 96415; J2930; J1745

== ENCOUNTER 2017-01-13 06:46 | Observation (INO) | payer MEDICARE, BC ==
[2017-01-13] MEDS ORDERED: SODIUM CHLORIDE 0.9% 500 ML IV ONE (07:22)
[2017-01-13 08:08] LABS: Basophils % (A) 0 %; CH 37.1; CHCM 36.2; Eosinophils # (A) 0.1 k/uL (0-0.7); Eosinophils % (A) 2 %; HCT 35.9 % (39.0-53.0); HDW 3.48; HGB 12.5 gm/dL (13.0-17.5); Luc # (Auto) 0.24; Luc % (Auto) 4; Lymphocytes # (A) 2.3 k/uL (1.0-4.8); Lymphocytes % (A) 34 %; MCH 35.9 pg (25.0-35.0); MCHC 34.7 g/dL (31.0-37.0); MCV 103.3 fL (80.0-100.0); Macrocytosis Slight; Mean Platelet Volume 7.7; Monocytes # (A) 0.7 k/uL (0-1.0); Monocytes % (A) 11 %; Neutrophils # (A) 3.3 k/uL (1.3-7.7); Neutrophils % (A) 50 %; Poikilocytosis Slight; RBC 3.48 m/uL (4.30-5.90); RDW 14.6 % (11.5-15.5); WBC 6.7 k/uL (3.8-10.6); WBC (Perox) 6.58
[2017-01-13 08:16] LABS: Prothrombin Time 10.1 sec (9.0-12.0)
[2017-01-13 08:18] LABS: ALT 32 U/L (21-72); AST 26 U/L (17-59); Alkaline Phosphatase 80 U/L (38-126); Anion Gap 10 mmol/L; Blood Urea Nitrogen 14 mg/dL (9-20); Calcium 8.9 mg/dL (8.4-10.2); Carbon Dioxide 26 mmol/L (22-30); Chloride 108 mmol/L (98-107); Glucose 95 mg/dL (74-99); Magnesium 2.1 mg/dL (1.6-2.3); Non-African American GFR(MDRD) >60 (>60 ml/min/1.73 sqM); Sodium 144 mmol/L (137-145); Total Bilirubin 0.9 mg/dL (0.2-1.3); Total Protein 7.3 g/dL (6.3-8.2)
--- NOTE | 2017-01-13 08:31 | XR ---
EXAMINATION TYPE: XR chest 2V DATE OF EXAM: 01/13/2017 COMPARISON: Prior chest x-ray 04/10/2014 HISTORY: Chest pain TECHNIQUE: Frontal and lateral views of the chest are obtained. FINDINGS: There is no focal air space opacity, pleural effusion, or pneumothorax seen. The cardiac silhouette size is stable. There are overlying cardiac leads. Postop changes are noted in the cervi zeenat spine. The patient is rotated. The osseous structures are intact. IMPRESSION: No acute cardiopulmonary process.
[2017-01-13 08:33] LABS: Creatine Kinase 104 U/L (55-170)
[2017-01-13 08:46] LABS: Creatine Kinase MB 2.2 ng/mL (0.0-2.4); Troponin I <0.012 ng/mL (0.000-0.034)
[2017-01-13] MEDS ORDERED: ASPIRIN 325 MG TAB PO STA (09:28)
[2017-01-13] MEDS ORDERED: ACETAMINOPHEN TAB 325 MG TAB PO PRN (10:01)
[2017-01-13] MEDS ORDERED: ONDANSETRON 4 MG/2 ML VIAL IVP PRN (10:01)
[2017-01-13] MEDS ORDERED: NALOXONE 0.4 MG/ML 1 ML VIAL IV PRN (10:01)
--- NOTE | 2017-01-13 10:01 | ED ---
General Adult HPI - General Chief complaint: Chest Pain Stated complaint: Dizzy, Chest pain Time Seen by Provider: 01/13/17 07:03 Source: patient, RN notes reviewed Mode of arrival: wheelchair Limitations: no limitations - History of Present Illness Initial comments: 61-year-old male presenting with near syncope and chest pain. 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 Pain is just did not radiate. It was associated with some nausea but no vomiting. Patient denies cough, denies shortness of breath. Pain is currently resolved. Patient states he feels thickly normal. There is no associated palpitations. Patient did have a stress test proximal 0.3 years ago which was normal according to the patient. He has past medical history of rheumatoid arthritis. Patient also reports some dysuria and hematuria approximately one week ago. Is also currently resolved. - Related Data Home Medications Medication Instructions Recorded Confirmed Methotrexate Sodium [Methotrexate] 12.5 mg PO MO 11/11/13 01/13/17 Folic Acid 1 mg PO DAILY 11/12/13 01/13/17 Timolol 0.5% Ophth Soln [Timoptic] 1 drop BOTH EYES BID 11/12/13 01/13/17 Albuterol Inhaler [Ventolin Hfa 1 - 2 puff INHALATION RT-Q6H PRN 12/22/15 Inhaler] Ibuprofen [Motrin] 800 mg PO Q8HR PRN 02/09/16 01/13/17 Furosemide [Lasix] 20 mg PO DAILY 03/25/16 01/13/17 HYDROcodone/APAP 7.5-325MG [Holley 1 - 2 tab PO Q6HR PRN 07/26/16 01/13/17 7.5] Azithromycin [Zithromax Z-pack] See Taper PO DIRECTED 01/13/17 01/13/17 Allergies Allergy/AdvReac Type Severity Reaction Status Date / Time cephalexin monohydrate Allergy Rash/Hives Verified 01/13/17 08:23 [From [employer]] Review of Systems ROS Statement: Those systems with pertinent positive or pertinent negative responses have been documented in the HPI. ROS Other: All systems not noted in ROS Statement are negative. Respiratory: Denies: cough Cardiovascular: Reports: chest pain. Denies: palpitations Gastrointestinal: Reports: nausea. Denies: abdominal pain, vomiting Past Medical History Past Medical History: Asthma, Rheumatoid Arthritis (RA) Additional Past Medical History / Comment(s): GLAUCOMA History of Any Multi-Drug Resistant Organisms: None Reported Past Surgical History: Appendectomy, Back Surgery, Cholecystectomy, Orthopedic Surgery Additional Past Surgical History / Comment(s): RT ROTATOR CUFF/DISC SURG X3/ TITANIUM PLATE IN NECK /left rotator cuff repair may 2015 Past Anesthesia/Blood Transfusion Reactions: No Reported Reaction Past Psychological History: No Psychological Hx Reported Smoking Status: Former smoker Past Alcohol Use History: None Reported Past Drug Use History: None Reported - Past Family History Mother Family Medical History: No Reported History General Exam Limitations: no limitations General appearance: alert, in no apparent distress Head exam: Present: atraumatic, normocephalic Eye exam: Present: normal appearance, PERRL ENT exam: Present: normal exam, mucous membranes moist Neck exam: Present: full ROM. Absent: tenderness Respiratory exam: Present: normal lung sounds bilaterally. Absent: respiratory distress, wheezes Cardiovascular Exam: Present: regular rate, normal rhythm GI/Abdominal exam: Present: soft. Absent: distended, tenderness, guarding Extremities exam: Present: normal capillary refill. Absent: pedal edema Back exam: Present: normal inspection, full ROM Neurological exam: Present: alert, oriented X3 Psychiatric exam: Present: normal affect, normal mood Skin exam: Present: warm, dry. Absent: diaphoretic Course Vital Signs 01/13/17 01/13/17 01/13/17 06:55 07:38 08:00 Temperature 97 F L Pulse Rate 85 72 66 Pulse Rate [ Sitting] Pulse Rate [ Standing] Pulse Rate [ Supine] Respiratory 18 16 16 Rate Blood Pressure 127/93 138/78 117/76 Blood Pressure [Sitting] Blood Pressure [Standing] Blood Pressure [Supine] O2 Sat by Pulse 97 95 97 Oximetry 01/13/17 09:21 Temperature Pulse Rate Pulse Rate [ 61 Sitting] Pulse Rate [ 71 Standing] Pulse Rate [ 62 Supine] Respiratory Rate Blood Pressure Blood Pressure 143/87 [Sitting] Blood Pressure 143/83 [Standing] Blood Pressure 142/86 [Supine] O2 Sat by Pulse Oximetry - Reevaluation(s) Reevaluation #1: 01/13/17 10:12 Patient is reevaluated, he remains asymptomatic. No complaints at this time. EKG Findings - EKG Comments: EKG Findings:: EKG shows normal sinus rhythm with a ventricular rate of 70, ND interval 172, QRS duration is 86. QTC is 408. There is no ST segment elevation or depression, no T-wave abnormalities. No signs of ischemia. Medical Decision Making - Medical Decision Making 7-year-old male presenting with near syncopal episode and chest pain. Symptoms are resolved at the time of evaluation. Workup including CBC, electrolytes and cardiac enzymes all unremarkable. Chest x-ray shows no acute processes. EKG is normal sinus rhythm with no signs of ischemia. Orthostatic vital signs are normal. Case is discussed with the patient's primary care physician who be brought in for telemetry, serial cardiac enzymes and cardiology evaluation. - Lab Data Result diagrams: 01/13/17 07:57 01/13/17 07:57 Lab Results 01/13/17 01/13/17 01/13/17 Range/Units 07:57 07:57 07:57 WBC 6.7 (3.8-10.6) k/uL RBC 3.48 L (4.30-5.90) m/uL Hgb 12.5 L (13.0-17.5) gm/dL Hct 35.9 L (39.0-53.0) % MCV 103.3 H (80.0-100.0) fL MCH 35.9 H (25.0-35.0) pg MCHC 34.7 (31.0-37.0) g/dL RDW 14.6 (11.5-15.5) % Plt Count 139 L (150-450) k/uL Neutrophils % 50 % Lymphocytes % 34 % Monocytes % 11 % Eosinophils % 2 % Basophils % 0 % Neutrophils # 3.3 (1.3-7.7) k/uL Lymphocytes # 2.3 (1.0-4.8) k/uL Monocytes # 0.7 (0-1.0) k/uL Eosinophils # 0.1 (0-0.7) k/uL Basophils # 0.0 (0-0.2) k/uL Poikilocytosis Slight Macrocytosis Slight PT (9.0-12.0) sec INR (<1.1) APTT (22.0-30.0) sec D-Dimer (<0.60) mg/L FEU Sodium 144 (137-145) mmol/L Potassium 4.0 (3.5-5.1) mmol/L Chloride 108 H (98-107) mmol/L Carbon Dioxide 26 (22-30) mmol/L Anion Gap 10 mmol/L BUN 14 (9-20) mg/dL Creatinine 0.73 (0.66-1.25) mg/dL Est GFR (MDRD) Af Amer >60 (>60 ml/min/1.73 sqM) Est GFR (MDRD) Non-Af >60 (>60 ml/min/1.73 sqM) Glucose 95 (74-99) mg/dL Calcium 8.9 (8.4-10.2) mg/dL Magnesium 2.1 (1.6-2.3) mg/dL Total Bilirubin 0.9 (0.2-1.3) mg/dL AST 26 (17-59) U/L ALT 32 (21-72) U/L Alkaline Phosphatase 80 (38-126) U/L Total Creatine Kinase 104 (55-170) U/L CK-MB (CK-2) 2.2 (0.0-2.4) ng/mL CK-MB (CK-2) Rel Index 2.1 Troponin I <0.012 (0.000-0.034) ng/mL NT-Pro-B Natriuret Pep pg/mL Total Protein 7.3 (6.3-8.2) g/dL Albumin 4.0 (3.5-5.0) g/dL 01/13/17 01/13/17 Range/Units 07:57 07:57 WBC (3.8-10.6) k/uL RBC (4.30-5.90) m/uL Hgb (13.0-17.5) gm/dL Hct (39.0-53.0) % MCV (80.0-100.0) fL MCH (25.0-35.0) pg MCHC (31.0-37.0) g/dL RDW (11.5-15.5) % Plt Count (150-450) k/uL Neutrophils % % Lymphocytes % % Monocytes % % Eosinophils % % Basophils % % Neutrophils # (1.3-7.7) k/uL Lymphocytes # (1.0-4.8) k/uL Monocytes # (0-1.0) k/uL Eosinophils # (0-0.7) k/uL Basophils # (0-0.2) k/uL Poikilocytosis Macrocytosis PT 10.1 (9.0-12.0) sec INR 1.0 (<1.1) APTT 25.0 (22.0-30.0) sec D-Dimer 0.49 (<0.60) mg/L FEU Sodium (137-145) mmol/L Potassium (3.5-5.1) mmol/L Chloride (98-107) mmol/L Carbon Dioxide (22-30) mmol/L Anion Gap mmol/L BUN (9-20) mg/dL Creatinine (0.66-1.25) mg/dL Est GFR (MDRD) Af Amer (>60 ml/min/1.73 sqM) Est GFR (MDRD) Non-Af (>60 ml/min/1.73 sqM) Glucose (74-99) mg/dL Calcium (8.4-10.2) mg/dL Magnesium (1.6-2.3) mg/dL Total Bilirubin (0.2-1.3) mg/dL AST (17-59) U/L ALT (21-72) U/L Alkaline Phosphatase (38-126) U/L Total Creatine Kinase (55-170) U/L CK-MB (CK-2) (0.0-2.4) ng/mL CK-MB (CK-2) Rel Index Troponin I (0.000-0.034) ng/mL NT-Pro-B Natriuret Pep 149 pg/mL Total Protein (6.3-8.2) g/dL Albumin (3.5-5.0) g/dL Disposition Clinical Impression: Chest pain, Syncope Disposition: ADMITTED IP TO THIS HOSP Referrals: Noel Liao DO [Primary Care Provider] - 1-2 days Decision to Admit Reason: Admit from EC Decision Date: 01/13/17 Decision Time: 09:30
[2017-01-13 10:59] LABS: Appearance,Urine Clear (Clear); Bilirubin,Urine Negative (Negative); Glucose,Urine (UA) Negative (Negative); Ketones,Urine Negative (Negative); Leukocyte Esterase,Urine Negative (Negative); Nitrite,Urine Negative (Negative); PH, Urine 6.5 (5.0-8.0); Protein,Urine Negative (Negative); Specific Gravity,Urine 1.009 (1.001-1.035); UA Billing (MACRO vs. MICRO) CHEM; Urobilinogen,Urine <2.0 mg/dL (<2.0)
[2017-01-13 15:06] LABS: Creatine Kinase 90 U/L (55-170)
[2017-01-13 15:19] LABS: Creatine Kinase MB 2.1 ng/mL (0.0-2.4); Troponin I <0.012 ng/mL (0.000-0.034)
[2017-01-13] MEDS ORDERED: IBUPROFEN 800 MG TAB PO PRN (19:26)
[2017-01-13] MEDS ORDERED: AZITHROMYCIN 250 MG TAB PO SCH (20:00)
[2017-01-13 20:47] LABS: Creatine Kinase 91 U/L (55-170)
[2017-01-13] MEDS: TIMOLOL 0.5% OPHTH DROPS 5 ML BTL BOTH EYES SCH (20:49)
[2017-01-13 20:59] LABS: Creatine Kinase MB 1.8 ng/mL (0.0-2.4); Troponin I <0.012 ng/mL (0.000-0.034)
[2017-01-13] MEDS ORDERED: METHOTREXATE SODIUM 2.5 MG TAB PO SCH (21:00)
[2017-01-14] MEDS: ALBUTEROL NEBULIZED 2.5 MG/3 ML INHALATION PRN ×2 (03:32→21:09)
[2017-01-14] MEDS: HYDROcodone/APAP 7.5-325MG 1 EACH TAB PO PRN ×2 (03:50→23:21)
[2017-01-14] MEDS ORDERED: REGADENOSON 0.4 MG/5 ML SYRINGE IV ONE (06:00)
[2017-01-14] MEDS ORDERED: AMINOPHYLLINE 500 MG/20 ML VIAL IV PRN (06:00)
[2017-01-14] MEDS ORDERED: FUROSEMIDE 20 MG TAB PO SCH (09:00)
--- NOTE | 2017-01-14 09:52 | ECHOF ---
Referral Reason:cp MEASUREMENTS -------- HEIGHT: 177.8 cm WEIGHT: 113.4 kg BP: 148/96 RVIDd: 3.3 cm (< 3.3) IVSd: 1.2 cm (0.6 - 1.1) LVIDd: 3.8 cm (3.9 - 5.3) LVPWd: 1.3 cm (0.6 - 1.1) IVSs: 1.6 cm LVIDs: 2.8 cm LVPWs: 1.6 cm LA Diam: 3.3 cm (2.7 - 3.8) LAESV Index (A-L): 14.06 ml/m Ao Diam: 3.2 cm (2.0 - 3.7) AV Cusp: 2.2 cm (1.5 - 2.6) MV EXCURSION: 15.618 mm (> 18.000) MV EF SLOPE: 48 mm/s (70 - 150) EPSS: 0.3 cm MV E Mukund: 0.85 m/s MV DecT: 202 ms MV A Mukund: 0.77 m/s MV E/A Ratio: 1.11 FINDINGS -------- Sinus rhythm. This was a technically adequate study. The left ventricular size is normal. There is mild concentric left ventricular hypertrophy. Overall left ventricular systolic function is normal with, an EF between 55 - 60 %. The right ventricle is mildly enlarged. Normal LA size by volume 22+/-6 ml/m2. The right atrium is normal in size. The aortic valve was not well visualized. The mitral valve is normal. Mild mitral regurgitation is present. The tricuspid valve appears structurally normal. The pulmonic valve was not well visualized. There is no pulmonic regurgitation present. The aortic root size is normal. There is no pericardial effusion. CONCLUSIONS -------- 1. Sinus rhythm. 2. The pulmonic valve was not well visualized. 3. There is no pulmonic regurgitation present. 4. The aortic root size is normal. 5. There is no pericardial effusion. 6. This was a technically adequate study. 7. There is mild concentric left ventricular hypertrophy. 8. Overall left ventricular systolic function is normal with, an EF between 55 - 60 %. 9. The right ventricle is mildly enlarged. 10. Normal LA size by volume 22+/-6 ml/m2. 11. The aortic valve was not well visualized. 12. The mitral valve is normal. 13. The tricuspid valve appears structurally normal. SENIOR SCIENCE CONSULTANT: Nimco Leung RDCS
[2017-01-14] MEDS: TIMOLOL 0.5% OPHTH DROPS 5 ML BTL BOTH EYES SCH ×2 (11:17→20:20)
--- NOTE | 2017-01-14 11:28 | NM ---
EXAMINATION TYPE: NM stress lexiscan cardiolite DATE OF EXAM: 01/14/2017 COMPARISON: NONE HISTORY: Chest pain TECHNIQUE: After the intravenous administration of 10.8 mCi Tc 99m Sestamibi - Cardiolite resting SP ECT images acquired 45 minutes post injection. The patient received 0.4mg Lexiscan, 27.1 mCi Tc 99m Sestamibi - Stress images obtained [address] injection FINDINGS: Review of stress and rest SPECT images demonstrates decreased radiopharmaceutical uptake along the an terior wall of the left ventricle on stress images as compared to rest images. Gated analysis shows normal wall motion with an estimated left ventricular ejection fraction of 68 %. IMPRESSION: Findings compatible with a pharmacologically induced left ventricular myocardial ischemia. Consider e chocardiography correlation for elevated ejection fraction.
--- NOTE | 2017-01-14 11:33 | CONS ---
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 He came into the hospital with an episode of what he describes as a sensation of light- headedness when he bent down to potato picker some trash. He first had pain in his back then felt a sharp pain in his chest and he felt dizzy, but did not quite pass out. He did not have any chest discomfort to suggest angina. He is known to have history of degenerative disease of the spine involving the cervical and lumbar spines as well. He has no chest pain or shortness of breath. He is resting comfortably without symptoms. He had a stress Cardiolite scan, Lexiscan scan in 2010 and a dobutamine echo in 2014, which was normal. He is asymptomatic at the time of my evaluation. His 2 sets of troponins are normal. The EKG revealed sinus mechanism, no acute changes. Past medical history is remarkable for bronchial asthma, rheumatoid arthritis, glaucoma. He is status post appendectomy, back surgery, orthopedic surgery, cholecystectomy and rotator cuff operation. ALLERGIES: He is allergic to CEPHALEXIN, KEFLEX. MEDICATIONS: He on [place], Zithromax, Timolol, inhaler, methotrexate, albuterol inhaler and ibuprofen. On examination, blood pressure is 138/70, pulse rate 74 per minute and regular. HEENT: Unremarkable. Fundus was not examined by me. Neck is supple. No JVD. I do not hear any carotid bruit. There is no thyromegaly. Heart exam reveals S1, S2 heard normally without any significant murmur, rub or gallop. Lungs are clear. Abdomen is soft, nontender. Lower extremities reveal diminished pulses. Central nervous system is normal. EKG revealed sinus mechanism, no acute changes. IMPRESSION: 1. Atypical back and chest pain. 2. History of rheumatoid arthritis. 3. Hypertension. 4. History of a negative dobutamine echo in 2014. RECOMMENDATIONS: I am recommending that we will perform an echocardiogram and Lexiscan stress test and continue his current medical regimen, but will add Lopressor 12.5 mg daily and see how he does. He will have a stress test and echo performed tomorrow, but if he has any symptoms I will consider intervention. I discussed my thoughts in detail with the patient. Thank you very much for the consult. SADIE
--- NOTE | 2017-01-14 11:53 | P.STRESS ---
- Stress Test Note Stress Test Results/Findings: Exam Performed: NM stress lexiscan cardiolite Exam Date: 01/14/17 Height: 5 ft 10 in Weight: 113.398 kg Protocol: Stage: N/A Duration of Exercise: 3:00 Resting Heart Rate: 67 Resting Blood Pressure: 169/97 Maximum Achieved Heart Rate: 98 Maximum Achieved Blood Pressure: 190/78 85% PMHR: 136 100% PMHR: 160 METS: N/A Technologist Comment: Stress Test Results/Findings: Baseline rhythm is sinus mechanism. Normal axis and intervals. Patient received injection of Lexiscan, EKG changes shows no acute changes. Cardiolite was injected per protocol. Impression: 1. Nondiagnostic EKG stress test. 2. Nuclear images will be reported separately.
[2017-01-14] MEDS: FOLIC ACID 1 MG TAB PO SCH (12:46)
--- NOTE | 2017-01-14 15:10 | PN ---
This gentleman has history of rheumatoid arthritis, hypertension, hyperlipidemia , came in with chest discomfort, seemed atypical, also had mild hypertension. I am recommending that we continue current medication including beta elyssa, increase activity and he will have a Lexiscan stress test and echocardiogram and once these tests are normal, he can be discharged and I will see him in the office. He has not had any recurrence of pain and he has not had any elevation of enzymes. Plan is to increase activity. Lexiscan stress test done. Echo today and discharge if normal. SADIE
[2017-01-14] MEDS ORDERED: ATORVASTATIN 80 MG TAB PO STA (15:40)
[2017-01-14] MEDS ORDERED: SODIUM CHLORIDE 0.9% 1,000 ML in EMPTY BAG 1 BAG IV ONE (15:40)
[2017-01-14] MEDS ORDERED: ALPRAZolam 0.5 MG TAB PO PRN (15:40)
[2017-01-14] MEDS ORDERED: ALPRAZolam 0.25 MG TAB PO PRN (15:40)
[2017-01-14] MEDS ORDERED: ASPIRIN 325 MG TAB PO STA (15:40)
[2017-01-14] MEDS ORDERED: NITROGLYCERIN SL TABS 0.4 MG TAB SUBLINGUAL PRN (15:40)
[2017-01-15] MEDS: TIMOLOL 0.5% OPHTH DROPS 5 ML BTL BOTH EYES SCH (06:57)
[2017-01-15] MEDS: ALBUTEROL NEBULIZED 2.5 MG/3 ML INHALATION PRN (07:36)
[2017-01-15] MEDS ORDERED: LIDOCAINE 2% INJ 20 MG/ML (20 ML MDV) ONE (07:43)
[2017-01-15] MEDS ORDERED: diphenhydrAMINE 50 MG/ML 1 ML VIAL ONE (08:34)
[2017-01-15] MEDS ORDERED: MIDAZOLAM 2 MG/2 ML VIAL ONE (08:34)
[2017-01-15] MEDS ORDERED: LIDOCAINE 2% INJ 20 MG/ML SQ ONE ×2 (08:59→09:00)
[2017-01-15] MEDS ORDERED: METOPROLOL TARTRATE 12.5 MG TAB PO SCH (09:00)
[2017-01-15] MEDS ORDERED: MIDAZOLAM 2 MG/2 ML VIAL IV ONE (09:00)
[2017-01-15] MEDS ORDERED: diphenhydrAMINE 50 MG/ML 1 ML VIAL IVP ONE (09:00)
[2017-01-15] MEDS ORDERED: NITROGLYCERIN SL TABS 0.4 MG TAB SUBLINGUAL ONE ×2 (09:17)
[2017-01-15] MEDS ORDERED: IOHEXOL 350 MG/ML 100 ML BOTTLE INJ ONE (09:18)
[2017-01-15] MEDS ORDERED: SODIUM CHLORIDE 0.9% 1,000 ML IV ONE (09:19)
[2017-01-15] MEDS ORDERED: RX INFO: IV CONTRAST WAS GIVEN 1 EACH MISC MISCELLANE PRN (09:30)
[2017-01-15] MEDS ORDERED: SODIUM CHLORIDE 0.9% 1,000 ML IV SCH (09:30)
--- NOTE | 2017-01-15 10:14 | PN ---
This is a 61-year-old gentleman who came into the hospital yesterday and because of presentation with chest pain and risk factors, I recommended a stress test. Lexiscan stress test suggest antral wall reversible defect suggestive of ischemia and therefore, I am recommending coronary angiography. The rationale, risks, benefits and options were carefully explained to the patient. He understands all details and wishes to proceed with the procedure. I will perform coronary angiography and if indicated PCI tomorrow. Patient understands and wishes to proceed with the procedure. SADIE
[2017-01-15] MEDS: FOLIC ACID 1 MG TAB PO SCH (12:52)
[2017-01-15 16:15] VITALS: BP 145/74; PULSE 72; RESP 18; TEMP 97.8
--- NOTE | 2017-01-15 16:54 | PN ---
Mr. Garrett is stable, doing well. He had abnormal stress test and is going to go for a cardiac cath. Risks, benefits and options and ratioinale ewere discussed. Vital signs were stable. S1, S2 heard normally. Lungs are clear. Abdomen and lower extremities exam is unchanged. MTDD
--- NOTE | 2017-01-16 00:20 | CC ---
DATE OF PROCEDURE: 01/15/2017 PROCEDURE: Left heart catheterization and coronary angiography. PERFORMED BY: Dr. Bal Sanchez CLINICAL INFORMATION: Mr. Eder Garrett is a 61-year-old gentleman with a history of rheumatoid arthritis, hypertension, hypercholesterolemia, who came into the hospital with an episode of chest pain, had an abnormal stress test, was advised cardiac catheterization. Risks, benefits, options and rationale were explained to the patient and his family. PROCEDURE NOTE: Under local anesthesia and strict aseptic precautions, a 6 Frisian introducer was placed in the right femoral artery. Using standard Judkin catheters, I performed coronary angiography, and a pigtail catheter was used to check LV pressures. LV gram was not performed. The sheath was taken out and Angioseal device used to secure hemostasis. He was sent to the room in stable condition. CARDIAC CATHETERIZATION FINDINGS The left ventricular end-diastolic pressure was 12 mmHg without any gradient across the aortic valve. CORONARY ANGIOGRAPHY FINDINGS RIGHT CORONARY ARTERY: Large dominant vessel gives off a large acute marginal branch, distally bifurcates into PDA and PLV, both of which supply a sizeable amount of myocardium. There is no significant disease in the RCA system, which is a dominant system. LEFT MAIN CORONARY ARTERY: Short, patent, disease-free vessel that trifurcates into LAD, circumflex and ramus intermedius. Left main is free of significant disease. LEFT ANTERIOR DESCENDING CORONARY ARTERY: Good-caliber vessels that extends along the anterior wall, gives off a small septal branch, then there is a smooth 35% to 40% narrowing, after which the caliber of the vessel improves. There is calcification of a mild degree. It gives off 2 more diagonal branches, then another septal branch and runs all the way to the apex, supplying a sizeable amount of myocardium. Technically mid LAD after a small septal branch has a smooth 35% to 40% narrowing with some calcification which is not critical but moderate. RAMUS INTERMEDIUS: This is a fair-caliber vessel that immediately bifurcates into 2 branches, runs laterally, supplies a fair amount of myocardium, has minor irregularities, but no significant disease is noted. LEFT POSTERIOR CIRCUMFLEX CORONARY ARTERY: Technically a non-dominant vessel, gives off a left ( ) circumflex branch and then runs laterally, supplying a limited amount of myocardium. No significant disease is noted in the circumflex. LEFT VENTRICULOGRAM: This was not performed. FINAL IMPRESSION: This patient has a right-dominant system. No significant disease in the RCA. LAD has a 35% smooth narrowing in the mid portion after a small septal branch with calcification. The ramus intermedius as well as circumflex are free of significant disease and filling pressures are normal. LV gram was not performed. RECOMMENDATIONS: Findings were discussed with the patient and family. I am recommending aggressive medical therapy with risk factor modification, including good blood pressure control. Findings were discussed at length with the patient as well as his and two sisters. Patient will be discharged later on today if he remains stable. I will see him in the office in the next 3 to 4 days. This patient received moderate conscious sedation for a total duration of 30 minutes. He was given Benadryl and Versed for moderate conscious sedation. SADIE
[2017-01-16] MEDS ORDERED: ATORVASTATIN 40 MG TAB PO SCH (09:00)
[2017-01-16] MEDS ORDERED: ASPIRIN 81 MG CHEW PO SCH (09:00)
== END 2017-01-15 17:52 | disposition home or self-care (01) ==
LOC: EC 06:46 → 3OBS 10:07
PROVIDERS: ADMIT Family Medicine; ATTEND Family Medicine
DX: I25.10 Atherosclerotic heart disease of native coronary artery without angina pectoris (principal); R94.39 Abnormal result of other cardiovascular function study; M06.9 Rheumatoid arthritis, unspecified; I10 Essential (primary) hypertension; R55 Syncope and collapse; J45.909 Unspecified asthma, uncomplicated; H40.9 Unspecified glaucoma; M50.30 Other cervical disc degeneration, unspecified cervical region; M51.36 Other intervertebral disc degeneration, lumbar region; R42 Dizziness and giddiness; M54.9 Dorsalgia, unspecified; E78.5 Hyperlipidemia, unspecified; Z79.899 Other long term (current) drug therapy; Z88.1 Allergy status to other antibiotic agents; Z87.891 Personal history of nicotine dependence
CPT/HCPCS: 99152; 99153; 99285 ×2; 96361 ×2; 96375; 96376 ×3; 36415; 94640 ×3; 93005; 93017; 93306; 93458; 85379; 83880; 80053; 82550; 82553; 83735; 84484; 85025; 85610; 85730; 81003; 71020; 78452; G0378 ×3; C1760; C1894; C1769 ×2; A9500; J2001; J2250; J1200; Q9967; J2785

== ENCOUNTER → 2017-01-22 | Outpatient (CLI) | payer MEDICARE, BC ==
[2017-01-22 14:10] VITALS: BP 158/83; PULSE 78; RESP 18; TEMP 98
--- NOTE | 2017-01-22 14:19 | P.PN ---
Progress Note - Text Patient returns for followup for chronic back pain without significant radiation. Patient recently underwent bilateral lumbar RFA, which has provided excellent relief for interval since procedures. Patient gets [facility] medications for pain from PCP with good relief. Patient denies adverse drug effects from medications. Today, pt denies new-onset weakness, bowel/bladder incontinence, or any other signs or symptoms of cauda equina syndrome. There are no signs of acute intoxication, and no indications of medication diversion or overuse. In addition to above, 13-point review of systems is also negative for chest pain , shortness of breath, changes in vision, changes in hearing, new onset weakness , abdominal pain, diarrhea, extreme fatigue, malaise, fever, skin changes, homicidal or suicidal ideation, or bowel or bladder incontinence. Vital Signs: Reviewed in EMR Gen: WDWN, AAOx3, NAD, uses cane for walking HEENT: NCAT, EOMI, hearing grossly normal Pulm: resp unlabored Abd: soft, NT, ND Neck: supple, trachea midline ROM in flexion lumbar spine: reduced ROM in extension lumbar spine: reduced Lumbar paravertebral tenderness: + Facet loading: + bilateral, R > L SI joint tenderness: + R > L Jordin's test: neg Straight leg raise: neg Lower extremity: decreased ROM dorsiflexion/plantarflexion strength, hip flexion/extension, and knee flexion/extension secondary to pain Neuro: CN II-XII grossly intact, muscle strength lower extremities PRESERVED Imaging: Reviewed in EMR Assessment: 1. lumbar spondylosis without myelopathy 2. RA 3. chronic pain syndrome Plan: 1. Explanation: Opioid and psychological risk scores were reviewed. Diagnoses , prognoses, and multiple treatment options including but not limited to physical therapy, interventional therapies, adjuvant medical therapies, narcotic medication therapies, and surgery were discussed with the patient and all questions were answered to the patient's satisfaction. 2. Opioid agreement: no opioids prescribed today 3. Counseling: The patient was counseled extensively on BODY MASS INDEX, EXERCISE. Specifically, the patient was instructed regarding the importance of weight control, and exercise in the context of both chronic pain and overall health. 4. Procedures: none for now 5. Consultations: None 6. Investigations: None 7. Medications: none prescribed 8. Disposition: f/u as needed, patient can call to schedule next lumbar RFA when pain returns PQRS measures: 1-Patient's medications are documented in the chart. 2-Tobacco use is negative 3-Patient has not had a pneumococcal vaccine. 4-Advanced care planning discussed, patient unable to give. 5-Opioid contract NOT signed with the patient. 6-Pain positive, follow-up visit or procedure scheduled 7-Patient's blood pressure measured and documented, and patient will follow up with the primary care due to hypertension. 8-Patient's weight was measured, and body mass index ABOVE the normal limits, and counseling was done. Patient instructed to follow up with PCP. 9-Patient WAS NOT identified as an unhealthy alcohol user.
== END | disposition home or self-care (01) ==
LOC: PNWHC3 13:40
PROVIDERS: ATTEND Anesthesiology
DX: M47.816 Spondylosis without myelopathy or radiculopathy, lumbar region (principal); M06.9 Rheumatoid arthritis, unspecified; G89.4 Chronic pain syndrome
CPT/HCPCS: 99211

== ENCOUNTER → 2017-01-27 | Outpatient (CLI) | payer MEDICARE, BC ==
[2017-01-27 07:27] VITALS: TEMP 98.2
[2017-01-27 09:17] VITALS: BP 131/68; PULSE 57; RESP 16
[2017-01-27 11:46] LABS: C Reactive Protein 10.4 mg/L (<10.0)
== END | disposition home or self-care (01) ==
LOC: PROCWHC3 07:01
PROVIDERS: ATTEND Internal Medicine Rheumatology
DX: M06.89 Other specified rheumatoid arthritis, multiple sites (principal)
CPT/HCPCS: 84450; 84460; 86140; 96375; 96413; 96415; 36415; J2930; J1745

== ENCOUNTER → 2017-02-13 | Outpatient (CLI) | payer MEDICARE, BC ==
[2017-02-13 07:28] LABS: Anion Gap 10 mmol/L; Blood Urea Nitrogen 14 mg/dL (9-20); Calcium 9.1 mg/dL (8.4-10.2); Carbon Dioxide 29 mmol/L (22-30); Chloride 104 mmol/L (98-107); Glucose 93 mg/dL (74-99); Non-African American GFR(MDRD) >60 (>60 ml/min/1.73 sqM); Potassium 4.1 mmol/L (3.5-5.1); Sodium 143 mmol/L (137-145)
== END | disposition home or self-care (01) ==
LOC: LABWHC1 07:00
PROVIDERS: ATTEND Nurse Practitioner Adult Health
DX: I10 Essential (primary) hypertension (principal); R60.0 Localized edema
CPT/HCPCS: 36415; 80048

== ENCOUNTER → 2017-03-17 | Outpatient (CLI) | payer MEDICARE, BC ==
[~2017-03-17] MED LIST changes: +INFLIXIMAB-DYYB 500 MG in SODIUM CHLORIDE 0.9% 250 ML IV ONE; -SODIUM CHLORIDE 0.9% 250 ML in EMPTY BAG 1 BAG IV PRN
[2017-03-17 07:32] VITALS: RESP 18; TEMP 98.2
[2017-03-17 08:03] LABS: Basophils % (A) 1 %; CH 35.5; Eosinophils # (A) 0.1 k/uL (0-0.7); Eosinophils % (A) 2 %; HCT 32.7 % (39.0-53.0); HDW 3.45; Luc # (Auto) 0.18; Luc % (Auto) 3; Lymphocytes # (A) 2.3 k/uL (1.0-4.8); Lymphocytes % (A) 35 %; MCH 34.3 pg (25.0-35.0); MCHC 33.6 g/dL (31.0-37.0); Macrocytosis Slight; Mean Platelet Volume 7.2; Monocytes # (A) 0.6 k/uL (0-1.0); Monocytes % (A) 9 %; Neutrophils # (A) 3.4 k/uL (1.3-7.7); Neutrophils % (A) 51 %; Poikilocytosis Slight; RDW 14.9 % (11.5-15.5); WBC 6.6 k/uL (3.8-10.6); WBC (Perox) 6.69
[2017-03-17 08:29] LABS: ALT 33 U/L (21-72); AST 25 U/L (17-59); Non-African American GFR(MDRD) >60 (>60 ml/min/1.73 sqM)
[2017-03-17 09:05] VITALS: BP 103/62; PULSE 49
[2017-03-17 10:47] LABS: C Reactive Protein 11.5 mg/L (<10.0)
[2017-03-17 11:05] LABS: Erythrocyte Sedimentation Rate 33 mm/hr (0-15)
== END | disposition home or self-care (01) ==
LOC: PROCWHC3 07:07
PROVIDERS: ATTEND Internal Medicine Rheumatology
DX: Z51.11 Encounter for antineoplastic chemotherapy (principal); M06.89 Other specified rheumatoid arthritis, multiple sites
CPT/HCPCS: 85652; 82565; 84450; 84460; 85025; 86140; 96375; 96413; 96415; 36415; J2930; Q5102

== ENCOUNTER → 2017-03-25 | Outpatient (CLI) | payer MEDICARE, BC ==
[2017-03-25 11:39] VITALS: BP 117/73; PULSE 69; RESP 18; TEMP 97.9
--- NOTE | 2017-03-25 11:49 | P.PN ---
Progress Note - Text Patient returns for followup for chronic back pain without significant radiation. Patient recently underwent bilateral lumbar RFA, which has provided excellent relief but pain is beginning to return, and particularly so in low back and hip area. Patient gets [facility] medications for pain from PCP with good relief. Patient denies adverse drug effects from medications. Today, pt denies new-onset weakness, bowel/bladder incontinence, or any other signs or symptoms of cauda equina syndrome. There are no signs of acute intoxication, and no indications of medication diversion or overuse. In addition to above, 13-point review of systems is also negative for chest pain , shortness of breath, changes in vision, changes in hearing, new onset weakness , abdominal pain, diarrhea, extreme fatigue, malaise, fever, skin changes, homicidal or suicidal ideation, or bowel or bladder incontinence. Vital Signs: Reviewed in EMR Gen: WDWN, AAOx3, NAD, uses cane for walking HEENT: NCAT, EOMI, hearing grossly normal Pulm: resp unlabored Abd: soft, NT, ND Neck: supple, trachea midline ROM in flexion lumbar spine: reduced ROM in extension lumbar spine: reduced Lumbar paravertebral tenderness: + Facet loading: + bilateral SI joint tenderness: + bilateral, R > L Jordin's test: + R > L Straight leg raise: neg Lower extremity: decreased ROM dorsiflexion/plantarflexion strength, hip flexion/extension, and knee flexion/extension secondary to pain Neuro: CN II-XII grossly intact, muscle strength lower extremities PRESERVED Imaging: Reviewed in EMR Assessment: 1. lumbar spondylosis without myelopathy 2. RA 3. chronic pain syndrome 4. SIJ dysfunction Plan: 1. Explanation: Opioid and psychological risk scores were reviewed. Diagnoses , prognoses, and multiple treatment options including but not limited to physical therapy, interventional therapies, adjuvant medical therapies, narcotic medication therapies, and surgery were discussed with the patient and all questions were answered to the patient's satisfaction. 2. Opioid agreement: no opioids prescribed today 3. Counseling: The patient was counseled extensively on BODY MASS INDEX, EXERCISE. Specifically, the patient was instructed regarding the importance of weight control, and exercise in the context of both chronic pain and overall health. 4. Procedures: bilateral SIJ injection 5. Consultations: None 6. Investigations: None 7. Medications: none prescribed 8. Disposition: f/u for procedure as scheduled PQRS measures: 1-Patient's medications are documented in the chart. 2-Tobacco use is negative 3-Patient has not had a pneumococcal vaccine. 4-Advanced care planning discussed, patient unable to give. 5-Opioid contract NOT signed with the patient. 6-Pain positive, follow-up visit or procedure scheduled 7-Patient's blood pressure measured and documented, and patient will follow up with the primary care due to hypertension. 8-Patient's weight was measured, and body mass index ABOVE the normal limits, and counseling was done. Patient instructed to follow up with PCP. 9-Patient WAS NOT identified as an unhealthy alcohol user.
== END ==
LOC: PNWHC3 11:22
PROVIDERS: ATTEND Anesthesiology
DX: M47.816 Spondylosis without myelopathy or radiculopathy, lumbar region (principal); M53.3 Sacrococcygeal disorders, not elsewhere classified; M06.9 Rheumatoid arthritis, unspecified; Z79.891 Long term (current) use of opiate analgesic
CPT/HCPCS: 99211

== ENCOUNTER 2017-03-31 07:52 | Day surgery (SDC) | payer MEDICARE, BC ==
[2017-03-28 09:01] VITALS: BMI 34.2
[2017-03-31 08:08] VITALS: RESP 18; TEMP 98.2
[2017-03-31] MEDS ORDERED: LACTATED RINGERS 1,000 ML IV ONE (08:15)
[2017-03-31] MEDS ORDERED: LIDOCAINE 1% 20 ML VIAL (10MG/ML) FOR IV START INTRADERMA ONE (08:15)
[2017-03-31] MEDS ORDERED: LACTATED RINGERS 1,000 ML IV SCH (08:30)
--- NOTE | 2017-03-31 09:03 | P.PCN ---
Date of Procedure: 03/31/17 Surgeon: Frankie Figueroa Pathology: none sent Condition: stable Disposition: PACU Description of Procedure: PREOPERATIVE DIAGNOSIS: 1-Bilateral sacroiliitis. 2 Lumbar DDD POSTOPERATIVE DIAGNOSIS:. 1-Bilateral sacroiliitis. 2 Lumbar DDD PROCEDURES: Bilateral Sacroiliac joint steroid injection with fluoroscopic guidance ANESTHESIA: Local with 1% lidocaine; conscious sedation EBL: Minimal. PROCEDURE INDICATIONS: This patient with a history of low back pain secondary to sacroiliitis and lumbar DDD unresponsive to conservative management. No use of blood thinners except ASA 81 mg (stopped six days ago). PROCEDURE DESCRIPTION: The patient was seen and identified in the preoperative area. Risks, benefits, complications, and alternatives were discussed with the patient (including but not limited to incomplete pain relief, bleeding, infection, nerve damage, and allergies to medications), the patient agreed to proceed with the procedure and signed the consent after all questions were answered. Patient was taken to the OR and time out was completed to verify proper patient , position, laterality of pain, and allergies. Pt was placed in the prone position and a pillow was placed under the abdomen to reduce lumbar lordosis. The lumbosacral area was prepped and draped in the usual sterile fashion. Critical pause was taken. Vital signs were closely monitored during the procedure. The fluoroscopic camera was placed in contralateral oblique view and right sacroiliiac joint lower pole was identified. After local infiltration with 1% lidocaine 2 ml, Subsequently, a 22-gauge 3.5 inch spinal needle was introduced into the posteroinferior aspect of the right sacroiliac joint under direct fluoroscopic visualization. Subsequently, 3 ml of a solution of a total of 6 ml solution containing total 4 mL of 0.5% preservative-free bupivacaine mixed with 40 mg of Kenalog was injected after negative aspiration for CSF, blood, and air and negative for paresthesia. The entire procedure was repeated on the left side as above. Needle was withdrawn intact. Skin was cleansed, and bandages were applied. COMPLICATIONS: None. COMMENTS: DISPOSITION / PLANS: The patient was placed in a supine position and transferred to the recovery area in a stable condition for observation and was discharged from the recovery room after meeting discharge criteria. Home discharge instructions given to the patient by the staff. The patient was reexamined prior to discharge. The patient will schedule a follow up procedure in 6-8 weeks.
[2017-03-31 09:24] VITALS: BP 123/57; PULSE 64
[2017-03-31] MEDS ORDERED: IV FLUID CONTINUATION 1,000 ML IV ONE (09:24)
--- NOTE | 2017-03-31 11:37 | FL ---
EXAMINATION TYPE: FL guidance operating room DATE OF EXAM: 03/31/2017 HISTORY: Flouroscopy time 25 seconds of fluoroscopy provided. IMPRESSION: 1. Fluoroscopy time.
== END 2017-03-31 09:40 | disposition home or self-care (01) ==
LOC: ORPAIN 07:52
PROVIDERS: ATTEND Anesthesiology
DX: M46.1 Sacroiliitis, not elsewhere classified (principal); M51.36 Other intervertebral disc degeneration, lumbar region; M47.816 Spondylosis without myelopathy or radiculopathy, lumbar region; M06.9 Rheumatoid arthritis, unspecified; G89.4 Chronic pain syndrome; Z88.1 Allergy status to other antibiotic agents
CPT/HCPCS: J2250; J3301; Q9965; J3010; G0260; 99152

== ENCOUNTER → 2017-05-28 | Outpatient (CLI) | payer MEDICARE, BC ==
[2017-05-28 13:15] VITALS: BP 146/80; PULSE 79; RESP 18
--- NOTE | 2017-05-28 13:34 | P.PN ---
Progress Note - Text Progress Note Date: 05/28/17 This is a 7-year-old male with history of lower back pain with radiation to the right lower extremity down to the right foot. The patient states that when he sits or stands for too long he feels numbness in his right leg. He denies any bowel or bladder dysfunction. He gets Remicade infusion for treatment for his carotid arthritis. He also has mild hypertension. 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 He is morbidly obese alert oriented 3 in no apparent distress. He has antalgic gait. The patient uses [facility] from time to time This Pain and He Gets That from His Primary Care Physician. He does not show any drug-seeking behavior and he denies any suicidal thoughts. He did have sacroiliac joint steroid injection and also RFA on the lumbar medial branches however the cause of his pain that radiates down his right leg I think he might benefit from getting caudal epidural steroid injection with lysis of adhesions. For now we will hold off on these injections but if his pain starts to get out control he then will call us and we'll schedule him for caudal epidural steroid injection at that point.
== END | disposition home or self-care (01) ==
LOC: PNWHC3 12:37
PROVIDERS: ATTEND Anesthesiology
DX: M54.5 Low back pain (principal)
CPT/HCPCS: 99211

== ENCOUNTER 2017-06-16 07:50 | Day surgery (SDC) | payer MEDICARE, BC ==
[2017-06-12 15:32] VITALS: BMI 34.2
[~2017-06-16 07:50] MED LIST changes: -INFLIXIMAB-DYYB 500 MG in SODIUM CHLORIDE 0.9% 250 ML IV ONE; +LACTATED RINGERS 1,000 ML IV SCH; -SODIUM CHLORIDE 0.9% 500 ML in EMPTY BAG 1 BAG IV PRN; -diphenhydrAMINE 50 MG/ML 1 ML VIAL IVP ONE; -methylPREDNISolone SOD SUCCI 125 MG/2 ML VIAL IV ONE
[2017-06-16 08:29] VITALS: RESP 18; TEMP 97.9
[2017-06-16] MEDS ORDERED: LIDOCAINE 1% 20 ML VIAL (10MG/ML) FOR IV START INTRADERMA ONE (08:31)
[2017-06-16] MEDS ORDERED: IV FLUID CONTINUATION 1,000 ML IV ONE (09:31)
--- NOTE | 2017-06-16 09:34 | FL ---
EXAMINATION TYPE: FL guided pain mgmt statistic DATE OF EXAM: 06/16/2017 HISTORY: Flouroscopy time 19 seconds of fluoroscopy provided. IMPRESSION: 1. Fluoroscopy time.
[2017-06-16 09:42] VITALS: BP 123/67; PULSE 61
--- NOTE | 2017-06-16 09:51 | P.PCN ---
Date of Procedure: 06/16/17 Surgeon: Frankie Figueroa Pathology: none sent Condition: stable Disposition: PACU Description of Procedure: PREOP DIAGNOSIS: Lumbar postlaminectomy syndrome POSTOP DIAGNOSIS: Lumbar postlaminectomy syndrome PROCEDURE: Caudal epidural steroid injection with epidurolysis and epidurogram under fluoroscopic guidance ANESTHESIA: Local with 1% lidocaine; conscious sedation EBL: Minimal. PROCEDURE INDICATION: The patient with post-laminectomy syndrome with low back pain and radiculopathy radiating down in both legs, here for a caudal epidural steroid injection with epidurolysis, #3 in series. Patient does not use any blood thinning medications. PROCEDURE DESCRIPTION: The patient was seen and identified in the preoperative area. Risks, benefits, complications, and alternatives were discussed with the patient including but not limited to bleeding, infection, nerve damage, incomplete pain relief, and allergic reactions to medications. The patient agreed to proceed with the procedure and signed the consent after all questions were answered. IV was started, and vital signs were stable. Patient was taken to the OR and time out was completed to verify proper patient , procedure, laterality of pain, and allergies. The patient was placed in the prone position on procedure table and a pillow was placed under the abdomen to reduce lumbar lordosis. The lumbosacral area was prepped and draped in the usual sterile fashion. Critical pause was taken. Vital signs were closely monitored during the procedure. Fluoroscopic camera was placed in the lateral view and the anterior-posterior plates of the sacrum were identified with infiltration of the area overlying the sacral hiatus with 1% lidocaine .A 16 gauge RK epidural needle was used to advance through the sacral hiatus into the caudal epidural space. Omnipaque 300 dye 2cc was injected and the position of the needle was verified to be in the midline. A Racz catheter was introduced into the epidural space and was advanced towards the L5-S1 interspace under direct fluoroscopic guidance. Multiple passes were made with the catheter for lysis of epidural adhesions. Decadron 20 mg with 3ml of preservative free Lidocaine 1% and 6 ml of preservative free normal saline was injected slowly. Additional spread was seen to L4 under fluoroscopy. The needle and the catheter were withdrawn intact. EPIDUROGRAM: Omnipaque 300 dye 2 ml was injected with spread of the dye into the caudal epidural space and with spread cutoff at L4 prior to epidurolysis. Post epidurolysis dye 2 ml was injected and spread was seen to top of L4.There was further spread of the solution together with the dye above the L4. COMPLICATIONS: None. DISPOSITION / PLANS: The patient was placed in a supine position and transferred to the recovery area in a stable condition for observation and was discharged from the recovery room after meeting discharge criteria. Home discharge instructions given to the patient by the staff. The patient was reexamined prior to discharge and there were no issues. The patient will schedule a follow up in the clinic in 2-4 weeks.
--- NOTE | 2017-07-01 09:53 | CDI ---
Outpatient Documentation Clarification Form Date: 07/01/17 CDS/[facility] Maker Name: Kavitha Chavez Phone: If you have question, contact Kari Brown Side Seam Tender at M-F 8:30 am to 6pm. Patient Name: Eder Garrett Admit Date: 06/16/17 Discharge Date: 06/16/17 ATTENTION: The Clinical Documentation Specialists (CDI) and [facility] Coding Staff appreciate your assistance in clarifying documentation. Please respond to the clarification below the line at the bottom and electronically sign. The CDI & [facility] Coding staff will review the response and follow-up if needed. Please note: Queries are made part of the Legal Health Record. If you have any questions, please contact the author of this message via ITS or call the Side Seam Tender. Dr. Figueroa Please provide an updated H&P or comments on the current H&P (progress note) to meet the following guidelines. Also, please provide clarification of the statement on the current H&P: "Her gets Remicade infusion for treatment of his carotid arthritis." H&P Exams performed within 30 days prior to admission may be used if the following requirements are met: Physician writes an update note which is written on or attached to the H&P. The words re-examined the patient must be present. Required by [facility]. The H&P and any updates/assessments must be included in the medical record within 24 hrs of admission, but prior to surgery or other procedures whichever comes first. Thank you for your assistance. MTDD
--- NOTE | 2017-07-08 09:55 | P.PN ---
Progress Note - Text Progress Note Date: 06/16/17 Previous clinic note from 05/28/17 was reviewed, patient was re-examined, and there are no relevant changes to H&P prior to procedure today. In addition, there is one clarification, namely that patient does receive Remicade infusions for rheumatoid arthritis.
== END 2017-06-16 10:07 | disposition home or self-care (01) ==
LOC: ORPAIN 07:50
PROVIDERS: ATTEND Anesthesiology
DX: M96.1 Postlaminectomy syndrome, not elsewhere classified (principal); M54.16 Radiculopathy, lumbar region; I10 Essential (primary) hypertension; M06.9 Rheumatoid arthritis, unspecified; E66.01 Morbid (severe) obesity due to excess calories; Z68.34 Body mass index [BMI] 34.0-34.9, adult; Z88.1 Allergy status to other antibiotic agents; Z79.899 Other long term (current) drug therapy
CPT/HCPCS: 62264; J2250; J1100; Q9965; J3010; C1894; 99152

== ENCOUNTER 2017-07-24 00:58 | Emergency (ER) | payer MEDICARE, BC ==
[2017-07-24 01:05] VITALS: BP 156/81; PULSE 84; RESP 18; TEMP 98
--- NOTE | 2017-07-24 01:13 | ED ---
General Adult HPI - General Chief complaint: Abdominal Pain Stated complaint: rt rib pain Time Seen by Provider: 07/24/17 01:06 Source: patient, RN notes reviewed Mode of arrival: ambulatory Limitations: no limitations - History of Present Illness Initial comments: 62-year-old male presents emergency department she went right rib pain. Patient states he had an injury yesterday morning. He states that he was leaving to more intense and states that he forgot his cough he was on the opposite seat states he leaned over quickly and hit his right lower ribs on the center console. He states he had some discomfort but he had no issues getting around the pain seemed to worsen. States he has no abdominal pain denies any nausea, vomiting, fever, chills, bruising, diarrhea, constipation, melena or hematochezia. Patient states he does take normally take pain medications but has not been taking it because he's been trying to stay away from it. Patient states he has pain when he takes a deep inspiration feels pain along his ribs he has complained that he felt short of breath because of the pain. - Related Data Home Medications Medication Instructions Recorded Confirmed Methotrexate Sodium [Methotrexate] 12.5 mg PO Q42D 11/11/13 07/24/17 Timolol 0.5% Ophth Soln [Timoptic 1 drop BOTH EYES BID 11/12/13 07/24/17 0.5% Ophth Soln] Albuterol Inhaler [Ventolin Hfa 1 - 2 puff INHALATION RT-Q6H PRN 12/22/15 Inhaler] HYDROcodone/APAP 7.5-325MG [[place] 2 tab PO Q6HR PRN 07/26/16 07/24/17 7.5-325] Furosemide [Lasix] 20 mg PO DAILY 01/27/17 07/24/17 Metoprolol Tartrate [Lopressor] 25 mg PO DAILY 01/27/17 07/24/17 Losartan-Hctz 50-12.5 mg [Hyzaar 1 each PO DAILY 03/17/17 07/24/17 50-12.5] Ibuprofen [Motrin] 800 mg PO DAILY PRN 03/25/17 07/24/17 Infliximab-Dyyb [Inflectra] 500 mg IV DIRECTED 06/20/17 07/24/17 Previous Rx's Medication Instructions Recorded Aspirin 81 mg PO DAILY #90 01/15/17 Atorvastatin [Lipitor] 40 mg PO DAILY #90 tab 01/15/17 Folic Acid 1 mg PO 1200 tab 01/15/17 Allergies Allergy/AdvReac Type Severity Reaction Status Date / Time cephalexin monohydrate Allergy Rash/Hives Verified 07/24/17 01:04 [From [employer]] Review of Systems ROS Statement: Those systems with pertinent positive or pertinent negative responses have been documented in the HPI. ROS Other: All systems not noted in ROS Statement are negative. Past Medical History Past Medical History: Asthma, Rheumatoid Arthritis (RA) Additional Past Medical History / Comment(s): GLAUCOMA History of Any Multi-Drug Resistant Organisms: None Reported Past Surgical History: Appendectomy, Back Surgery, Cholecystectomy, Orthopedic Surgery Additional Past Surgical History / Comment(s): RT ROTATOR CUFF/DISC SURG X3/ TITANIUM PLATE IN NECK /left rotator cuff repair may 2015 Past Anesthesia/Blood Transfusion Reactions: No Reported Reaction Past Psychological History: No Psychological Hx Reported Smoking Status: Never smoker Past Alcohol Use History: Rare Past Drug Use History: None Reported - Past Family History Mother Family Medical History: No Reported History Father Family Medical History: Coronary Artery Disease (CAD) Additional Family Medical History / Comment(s): FATHER HAD 3 VESSEL CABG-HAD POST OP INFECTION AND PNEUMONIA AND AT THE AGE OF 80YRS. General Exam Limitations: no limitations General appearance: alert, in no apparent distress Head exam: Present: atraumatic, normocephalic, normal inspection Neck exam: Present: full ROM Respiratory exam: Present: normal lung sounds bilaterally, chest wall tenderness (Monitor right anterior to lateral mid to lower ribs). Absent: respiratory distress, wheezes, rales, rhonchi, stridor Cardiovascular Exam: Present: regular rate, normal rhythm, normal heart sounds. Absent: systolic murmur, diastolic murmur, rubs, gallop, clicks GI/Abdominal exam: Present: soft, normal bowel sounds, other (Old midline surgical scar noted). Absent: distended, tenderness, guarding, rebound, rigid Back exam: Present: full ROM. Absent: tenderness, CVA tenderness (R), CVA tenderness (L), paraspinal tenderness, vertebral tenderness Skin exam: Present: warm, dry, intact, normal color. Absent: rash Course Vital Signs 07/24/17 01:01 Temperature 98 F Pulse Rate 84 Respiratory 18 Rate Blood Pressure 156/81 O2 Sat by Pulse 100 Oximetry Medical Decision Making - Medical Decision Making 62-year-old male present emergency Department chief complaint of right rib pain. Patient had a known injury reproducible pain. Chest x-ray, rib series shows no pneumothorax or notable rib fracture we discussed this is rib contusion versus a nondisplaced unnoticed rib fracture. Patient takes pain medication at home advised to take this as directed, we discussed deep inspiration to limit chances of pneumonia and return for any worsening symptoms. Disposition Clinical Impression: Contusion of rib on right side Disposition: HOME SELF-CARE Condition: Stable Instructions: Rib Contusion (ED) Additional Instructions: Please return to the Emergency Department if symptoms worsen or any other concerns. Referrals: Noel Liao DO [Primary Care Provider] - 1-2 days Time of Disposition: 01:51
--- NOTE | 2017-07-24 01:34 | XR ---
EXAMINATION TYPE: XR ribs RT w pa chest xray DATE OF EXAM: 07/24/2017 COMPARISON: NONE HISTORY: Pain TECHNIQUE: 6 views FINDINGS: Heart is normal. Lungs are clear of consolidation. There is no sign of pleural effusion or pneumothorax. There is no sign of a rib fracture. IMPRESSION: Negative right rib exam. No active cardiopulmonary disease.
== END 2017-07-24 01:58 | disposition home or self-care (01) ==
LOC: EC 00:58
DX: S20.211A Contusion of right front wall of thorax, initial encounter (principal); R06.02 Shortness of breath; Z79.899 Other long term (current) drug therapy; Z88.1 Allergy status to other antibiotic agents; W22.8XXA Striking against or struck by other objects, initial encounter
CPT/HCPCS: 99284

== ENCOUNTER → 2017-07-28 | Outpatient (CLI) | payer MEDICARE, BC ==
[2017-07-28 13:44] VITALS: BP 160/83; PULSE 81; RESP 18
--- NOTE | 2017-07-28 18:43 | P.PN ---
Subjective Progress Note Date: 07/28/17 This is follow-up visit for this patient with a history of severe and chronic low back pain secondary to lumbar failed back surgery syndrome, lumbar facet arthropathy,sacroi ileitis ,we have done radiofrequency ablation of the median branch in october 2016 , then later on May and June 2017 done caudal epidural steroid injection with lysis of epidural adhesions and we done bilateral sacroiliac joint steroid injection patient currently on magnesium oxide 400 mg daily , and he is getting good [place] prescription from his primary care Patient denies any side effects of the medication, denies excessive drowsiness or sleepiness, denies suicidal ideation, and reports that the current pain medication is NOT helping To control the pain and improve activity of daily living . Patient denies any motor or sensory deficit, denies change in bowel movement or urination, patient denies any fever or night sweats and that his pain currently increased and he is complaining of numbness and tingling in his lower extremities the right side more than the left side, he had MRI done recently but we don't have any report Objective - Vital Signs Vital signs: Vital Signs Temp Pulse 81 07/28/17 13:32 Resp 18 07/28/17 13:32 BP 160/83 07/28/17 13:32 Pulse Ox 94 L 07/28/17 13:32 Intake & Output 07/27/17 07/28/17 07/28/17 18:59 06:59 18:59 Weight 113.398 kg - Exam Physical Examinations : 1-Constitutiona : Cooperative , not in acute distress . 2-HEENT : nech ; supple , no Lymphadenopathy , normal thyroid size . eyes : no ptosis , no icterus, no photophobia . ENT : normal of hearing , normal oropharynx , no Thrush . 3- Respiratory : Chest clear to auscultations Bilaterally , no wheezing , no Rhonchi . 4- Cardiovascular : regular rate and rhythem , S1 , S2 , no S3 , no S4. 5- Gastrointestinal : abdomen soft no tenderness , bowel sounds positive all four quadrents , no organomegally . 6- Genitourinary : Defferred . 7- neurologic : Cranial nerve II to XII intact , no focal neurological deffecit . 8-psychatric : alert , oriented X 3 , appropriate affect , intact judgment and insight . 9-Lymphatic : no Lymphadenopathy . 10- musculoskeltal : , Lumber spine = normal moter stegnth lower extremities ,thigh and legs .4/5 deep tendon reflexes : normal Knee Jerk , normal ankle Jerk . lumber facet Loading Test positive strait leg raising test positive at 30 degree Right , positve at 30 degree Left Fabere test positive Right and positive Left Sever tenderness over the Sacroiliac joint on the Right , and Left side Assessment and Plan Plan: Assessment and plan= chronic low back pain secondary to sacroiliitis , lumbar spondylosis with lumbar facet arthropathy , failed back surgery syndrome and lumbar area New MRI done for the lumbar spine with have any report, I will refill the magnesium oxide 400 mg daily dispense 30 with 1 refill and patient could benefit from the Neurontin 100 mg 3 times a day, because patient complaining of severe numbness and tingling sensation in his lower extremity, we'll review the MRI report available next visit patient will follow up in the pain clinic in 2- 3 weeks, to discuss the results of the MRI finding Time with Patient: Less than 30
== END | disposition home or self-care (01) ==
LOC: PNWHC3 13:26
PROVIDERS: ATTEND Specialist
DX: G89.29 Other chronic pain (principal); M54.5 Low back pain; M43.06 Spondylolysis, lumbar region; M46.86 Other specified inflammatory spondylopathies, lumbar region; M46.1 Sacroiliitis, not elsewhere classified; M96.1 Postlaminectomy syndrome, not elsewhere classified; Z79.899 Other long term (current) drug therapy
CPT/HCPCS: 99211

== ENCOUNTER → 2017-08-04 | Outpatient (CLI) | payer MEDICARE, BC ==
[~2017-08-04] MED LIST changes: +INFLIXIMAB-DYYB 500 MG in SODIUM CHLORIDE 0.9% 250 ML IV ONE; -LACTATED RINGERS 1,000 ML IV SCH; +SODIUM CHLORIDE 0.9% 500 ML in EMPTY BAG 1 BAG IV PRN; +diphenhydrAMINE 25 MG CAP PO ONE; +methylPREDNISolone SOD SUCCI 125 MG/2 ML VIAL IV ONE
[2017-08-04 07:38] VITALS: TEMP 98.2
[2017-08-04 09:28] VITALS: BP 116/55; PULSE 64; RESP 20
== END | disposition home or self-care (01) ==
LOC: PROCWHC3 07:11
PROVIDERS: ATTEND Internal Medicine Rheumatology
DX: M06.89 Other specified rheumatoid arthritis, multiple sites (principal)
CPT/HCPCS: 96375; 96413; 96415; 36415; J2930; Q5102

== ENCOUNTER 2017-08-11 18:11 | Emergency (ER) | payer MEDICARE, BC ==
[2017-08-11] MEDS ORDERED: IPRATROPIUM-ALBUTEROL 3 ML NEB INHALATION STA (19:52)
[2017-08-11] MEDS ORDERED: SODIUM CHLORIDE 0.9% 1,000 ML IV STA (19:52)
[2017-08-11] MEDS ORDERED: ACETAMINOPHEN TAB 500 MG TAB PO STA (19:54)
[2017-08-11] MEDS ORDERED: ONDANSETRON 4 MG/2 ML VIAL IVP STA (19:54)
[2017-08-11] MEDS ORDERED: PANTOPRAZOLE 40 MG/10 ML VIAL IVP STA (19:56)
[2017-08-11 20:28] LABS: Appearance,Urine Clear (Clear); Bilirubin,Urine Negative (Negative); Blood,Urine Negative (Negative); Color,Urine Yellow; Glucose,Urine (UA) Negative (Negative); Ketones,Urine Negative (Negative); Leukocyte Esterase,Urine Negative (Negative); Nitrite,Urine Negative (Negative); Protein,Urine Trace (Negative); Specific Gravity,Urine 1.013 (1.001-1.035); Urobilinogen,Urine <2.0 mg/dL (<2.0)
[2017-08-11 20:29] LABS: HCT 36.8 % (39.0-53.0); HGB 12.5 gm/dL (13.0-17.5); MCH 34.9 pg (25.0-35.0); MCHC 34.1 g/dL (31.0-37.0); MCV 102.3 fL (80.0-100.0); Macrocytosis Slight; Mean Platelet Volume 7.3; Platelet Count 174 k/uL (150-450); Poikilocytosis Slight; RDW 13.9 % (11.5-15.5); WBC 6.5 k/uL (3.8-10.6)
[2017-08-11 20:39] LABS: ALT 35 U/L (21-72); AST 32 U/L (17-59); Albumin 4.4 g/dL (3.5-5.0); Alkaline Phosphatase 123 U/L (38-126); Amylase 46 U/L (30-110); Anion Gap 12 mmol/L; Blood Urea Nitrogen 16 mg/dL (9-20); Calcium 9.4 mg/dL (8.4-10.2); Carbon Dioxide 29 mmol/L (22-30); Chloride 96 mmol/L (98-107); Glucose 113 mg/dL (74-99); Lipase 89 U/L (23-300); Partial Thromboplastin Time 26.6 sec (22.0-30.0); Potassium 3.6 mmol/L (3.5-5.1); Prothrombin Time 9.9 sec (9.0-12.0); Sodium 137 mmol/L (137-145); Total Protein 7.9 g/dL (6.3-8.2)
--- NOTE | 2017-08-11 20:46 | XR ---
EXAMINATION TYPE: XR abdomen 2V DATE OF EXAM: 08/11/2017 8:40 PM CLINICAL HISTORY: Right-sided abdominal pain and hematemesis. TECHNIQUE: Upright and supine images of the abdomen were obtained. COMPARISON: None. FINDINGS: Scattered gas is seen in non-distended small bowel loops. Gas and fecal material is seen in non-distended colon. There is no visceromegaly, pneumoperitoneum, or abnormal calcification apprecia carmina. Cholecystectomy clips are seen within the right upper quadrant. The lung bases are clear and the osseous structures are intact. Extensive degenerative changes are noted of the lumbosacral spine. Si ngle surgical clip is seen above the left pubic symphysis. Bilateral femoral acetabular arthropathy i s mild. IMPRESSION: Nonobstructive bowel gas pattern. No evidence of pneumoperitoneum.
--- NOTE | 2017-08-11 20:47 | XR ---
EXAMINATION TYPE: XR chest 2V DATE OF EXAM: 08/11/2017 COMPARISON: 07/24/2017 HISTORY: Right-sided rib pain after fall one week ago TECHNIQUE: Frontal and lateral views of the chest are obtained. FINDINGS: There is no focal air space opacity, pleural effusion, or pneumothorax seen. The cardiac silhouette size is within normal limits. No displaced rib fracture is identified. Partial visualizati on of a cervical fusion device is seen. IMPRESSION: No acute cardiopulmonary process. No displaced rib fractures are seen.
[2017-08-11 20:49] LABS: Creatine Kinase 63 U/L (55-170)
[2017-08-11 21:02] LABS: Basophils # (M) 0.07 k/uL (0-0.2); Creatine Kinase MB 0.7 ng/mL (0.0-2.4); Lymphocytes # (M) 2.02 k/uL (1.0-4.8); Monocytes # (M) 1.76 k/uL (0-1.0); Neutrophils # (M) 2.67 k/uL (1.3-7.7); Neutrophils % (M) 41 %; Nucleated Red Blood Cells 0 /100 WBC (0-0); Total Cells Counted 100; Troponin I <0.012 ng/mL (0.000-0.034)
--- NOTE | 2017-08-11 22:02 | ED ---
General Adult HPI - General Chief complaint: GI Bleed Stated complaint: Cough Time Seen by Provider: 08/11/17 19:45 Source: patient, family Mode of arrival: ambulatory Limitations: no limitations - History of Present Illness Initial comments: This 62-year-old male presents with a complaint of some cough as well as some difficulty in breathing. This is been present for the past 3 days. He also has had some nausea and vomited twice. He states that he vomited fairly rigorously the first time and then had some blood in his vomit on the second time. He states that there is a moderate amount of blood present. He's had some mild midepigastric abdominal pain. He does present with a fever as well. He denies any chest pain. He denies any previous similar incidents. He denies any urinary symptomatology. The abdominal pain is minimal. No other complaints or modifying factors. - Related Data Home Medications Medication Instructions Recorded Confirmed Methotrexate Sodium [Methotrexate] 12.5 mg PO MO 11/11/13 08/11/17 Timolol 0.5% Ophth Soln [Timoptic 1 drop BOTH EYES BID 11/12/13 08/11/17 0.5% Ophth Soln] Albuterol Inhaler [Ventolin Hfa 1 - 2 puff INHALATION RT-Q6H PRN 12/22/15 Inhaler] HYDROcodone/APAP 7.5-325MG [[place] 2 tab PO Q6HR PRN 07/26/16 08/11/17 7.5-325] Metoprolol Tartrate [Lopressor] 25 mg PO DAILY 01/27/17 08/11/17 Losartan-Hctz 50-12.5 mg [Hyzaar 1 tab PO DAILY 03/17/17 08/11/17 50-12.5] Cyclobenzaprine [Flexeril] 10 mg PO BID 08/11/17 08/11/17 Folic Acid 1 mg PO DAILY 08/11/17 08/11/17 Furosemide [Lasix] 40 mg PO DAILY 08/11/17 08/11/17 Gabapentin [Neurontin] 300 mg PO TID 08/11/17 08/11/17 Magnesium Oxide [Magox 400] 400 mg PO HS 08/11/17 08/11/17 Potassium Chloride [Klor-Con 10] 10 meq PO DAILY 08/11/17 08/11/17 Previous Rx's Medication Instructions Recorded Aspirin 81 mg PO DAILY #90 01/15/17 Atorvastatin [Lipitor] 40 mg PO DAILY #90 tab 01/15/17 Azithromycin [Zithromax Z-pack] 0 mg PO DIRECTED #6 tab 08/11/17 Omeprazole [PriLOSEC] 40 mg PO DAILY #30 capsule. 08/11/17 Ondansetron [Zofran ODT] 8 mg PO Q8HR PRN #12 tab 08/11/17 Allergies Allergy/AdvReac Type Severity Reaction Status Date / Time cephalexin monohydrate Allergy Rash/Hives Verified 08/11/17 20:14 [From [facility]] Review of Systems ROS Statement: Those systems with pertinent positive or pertinent negative responses have been documented in the HPI. ROS Other: All systems not noted in ROS Statement are negative. Past Medical History Past Medical History: Asthma, Rheumatoid Arthritis (RA) Additional Past Medical History / Comment(s): GLAUCOMA History of Any Multi-Drug Resistant Organisms: None Reported Past Surgical History: Appendectomy, Back Surgery, Cholecystectomy, Orthopedic Surgery Additional Past Surgical History / Comment(s): RT ROTATOR CUFF/DISC SURG X3/ TITANIUM PLATE IN NECK /left rotator cuff repair may 2015 Past Anesthesia/Blood Transfusion Reactions: No Reported Reaction Past Psychological History: No Psychological Hx Reported Smoking Status: Never smoker Past Alcohol Use History: None Reported Past Drug Use History: None Reported - Past Family History Mother Family Medical History: No Reported History Father Family Medical History: Coronary Artery Disease (CAD) Additional Family Medical History / Comment(s): FATHER HAD 3 VESSEL CABG-HAD POST OP INFECTION AND PNEUMONIA AND AT THE AGE OF 80YRS. General Exam - General Exam Comments Initial Comments: GENERAL: The patient is well nourished and well hydrated. VITAL SIGNS: Heart rate, blood pressure, respiratory rate reviewed as recorded in nurse's notes. EYES: Pupils are round and reactive. Extraocular movements are intact. No conjunctival / lid redness or swelling. ENT: No external evidence of injury, swelling, or ecchymosis. Airway is patent. Throat is clear. NECK: Nontender. No swelling or evidence of injury. No subcutaneous emphysema. Trachea is midline. No thyroid mass. HEART: Regular rate and rhythm. Good peripheral pulses. LUNGS/CHEST: Breath sounds clear and equal bilaterally. No rales, rhonchi, or wheezes. No ecchymosis, subcutaneous emphysema, or tenderness. ABDOMEN: There is minimal tenderness in the midepigastric region. No palpable masses or organomegaly. No peritoneal signs. No abdominal wall swelling or ecchymosis. EXTREMITIES: No extremity tenderness. Normal muscle tone and function. No thoracolumbar tenderness. NEUROLOGIC: Sensation is grossly intact. Cranial nerve exam reveals face is symmetrical, tongue is midline, speech is clear. SKIN: No abrasions or ecchymosis is noted. No induration or masses noted. PSYCHIATRIC: Alert and oriented. Appropriate behavior and judgment. Limitations: no limitations Course Vital Signs 08/11/17 08/11/17 08/11/17 19:29 20:51 21:03 Temperature 101.8 F H Pulse Rate 92 86 88 Respiratory 20 Rate Blood Pressure 105/60 O2 Sat by Pulse 95 Oximetry Medical Decision Making - Medical Decision Making The patient was seen and examined. All diagnostics were reviewed. The patient had a EKG done which shows a normal sinus rhythm at a rate of 79. There is no acute ST-T wave changes identified. The TN intervals 172, QRS duration is 86, and the QTC intervals 454. The EKG does not show any acute ST-T wave changes noted. The patient also had acute abdominal series and chest x-ray which does not show any acute processes. The laboratory shows a mild anemia with hemoglobin of 12.5 but this is compared to previous labs from January 2017 and the hemoglobin is 12.5 at that time as well. The remainder of the labs are all essentially within normal limits. It is felt as though he likely does have a Trista-Carlson tear causing the hematemesis. He does receive some IV fluids as well as some Zofran. He also receives some Protonix intravenously. He is feeling improved on recheck. It is also felt as though he likely does have a bronchitis and will be treated for this. It is felt as though he stable for discharge and leaves in no identifiable distress. - Lab Data Result diagrams: 08/11/17 20:05 08/11/17 20:05 Lab Results 08/11/17 08/11/17 08/11/17 Range/Units 20:05 20:05 20:05 WBC 6.5 (3.8-10.6) k/uL RBC 3.60 L (4.30-5.90) m/uL Hgb 12.5 L (13.0-17.5) gm/dL Hct 36.8 L (39.0-53.0) % MCV 102.3 H (80.0-100.0) fL MCH 34.9 (25.0-35.0) pg MCHC 34.1 (31.0-37.0) g/dL RDW 13.9 (11.5-15.5) % Plt Count 174 (150-450) k/uL Neutrophils % (Manual) 41 % Lymphocytes % (Manual) 31 % Monocytes % (Manual) 27 % Basophils % (Manual) 1 % Neutrophils # (Manual) 2.67 (1.3-7.7) k/uL Lymphocytes # (Manual) 2.02 (1.0-4.8) k/uL Monocytes # (Manual) 1.76 H (0-1.0) k/uL Basophils # (Manual) 0.07 (0-0.2) k/uL Nucleated RBCs 0 (0-0) /100 WBC Manual Slide Review Performed Poikilocytosis Slight Macrocytosis Slight PT (9.0-12.0) sec INR (<1.2) APTT (22.0-30.0) sec Sodium 137 (137-145) mmol/L Potassium 3.6 (3.5-5.1) mmol/L Chloride 96 L (98-107) mmol/L Carbon Dioxide 29 (22-30) mmol/L Anion Gap 12 mmol/L BUN 16 (9-20) mg/dL Creatinine 1.10 (0.66-1.25) mg/dL Est GFR (MDRD) Af Amer >60 (>60 ml/min/1.73 sqM) Est GFR (MDRD) Non-Af >60 (>60 ml/min/1.73 sqM) Glucose 113 H (74-99) mg/dL Calcium 9.4 (8.4-10.2) mg/dL Total Bilirubin 1.0 (0.2-1.3) mg/dL AST 32 (17-59) U/L ALT 35 (21-72) U/L Alkaline Phosphatase 123 (38-126) U/L Total Creatine Kinase 63 (55-170) U/L CK-MB (CK-2) 0.7 (0.0-2.4) ng/mL CK-MB (CK-2) Rel Index 1.1 Troponin I <0.012 (0.000-0.034) ng/mL NT-Pro-B Natriuret Pep pg/mL Total Protein 7.9 (6.3-8.2) g/dL Albumin 4.4 (3.5-5.0) g/dL Amylase 46 (30-110) U/L Lipase 89 (23-300) U/L Urine Color Urine Appearance (Clear) Urine pH (5.0-8.0) Ur Specific [place] (1.001-1.035) Urine Protein (Negative) Urine Glucose (UA) (Negative) Urine Ketones (Negative) Urine Blood (Negative) Urine Nitrite (Negative) Urine Bilirubin (Negative) Urine Urobilinogen (<2.0) mg/dL Ur Leukocyte Esterase (Negative) Influenza Type A RNA (Not Detectd) Influenza Type B (PCR) (Not Detectd) 08/11/17 08/11/17 08/11/17 Range/Units 20:05 20:05 20:05 WBC (3.8-10.6) k/uL RBC (4.30-5.90) m/uL Hgb (13.0-17.5) gm/dL Hct (39.0-53.0) % MCV (80.0-100.0) fL MCH (25.0-35.0) pg MCHC (31.0-37.0) g/dL RDW (11.5-15.5) % Plt Count (150-450) k/uL Neutrophils % (Manual) % Lymphocytes % (Manual) % Monocytes % (Manual) % Basophils % (Manual) % Neutrophils # (Manual) (1.3-7.7) k/uL Lymphocytes # (Manual) (1.0-4.8) k/uL Monocytes # (Manual) (0-1.0) k/uL Basophils # (Manual) (0-0.2) k/uL Nucleated RBCs (0-0) /100 WBC Manual Slide Review Poikilocytosis Macrocytosis PT 9.9 (9.0-12.0) sec INR 1.0 (<1.2) APTT 26.6 (22.0-30.0) sec Sodium (137-145) mmol/L Potassium (3.5-5.1) mmol/L Chloride (98-107) mmol/L Carbon Dioxide (22-30) mmol/L Anion Gap mmol/L BUN (9-20) mg/dL Creatinine (0.66-1.25) mg/dL Est GFR (MDRD) Af Amer (>60 ml/min/1.73 sqM) Est GFR (MDRD) Non-Af (>60 ml/min/1.73 sqM) Glucose (74-99) mg/dL Calcium (8.4-10.2) mg/dL Total Bilirubin (0.2-1.3) mg/dL AST (17-59) U/L ALT (21-72) U/L Alkaline Phosphatase (38-126) U/L Total Creatine Kinase (55-170) U/L CK-MB (CK-2) (0.0-2.4) ng/mL CK-MB (CK-2) Rel Index Troponin I (0.000-0.034) ng/mL NT-Pro-B Natriuret Pep 150 pg/mL Total Protein (6.3-8.2) g/dL Albumin (3.5-5.0) g/dL Amylase (30-110) U/L Lipase (23-300) U/L Urine Color Yellow Urine Appearance Clear (Clear) Urine pH 6.0 (5.0-8.0) Ur Specific [place] 1.013 (1.001-1.035) Urine Protein Trace H (Negative) Urine Glucose (UA) Negative (Negative) Urine Ketones Negative (Negative) Urine Blood Negative (Negative) Urine Nitrite Negative (Negative) Urine Bilirubin Negative (Negative) Urine Urobilinogen <2.0 (<2.0) mg/dL Ur Leukocyte Esterase Negative (Negative) Influenza Type A RNA (Not Detectd) Influenza Type B (PCR) (Not Detectd) 08/11/17 Range/Units 20:05 WBC (3.8-10.6) k/uL RBC (4.30-5.90) m/uL Hgb (13.0-17.5) gm/dL Hct (39.0-53.0) % MCV (80.0-100.0) fL MCH (25.0-35.0) pg MCHC (31.0-37.0) g/dL RDW (11.5-15.5) % Plt Count (150-450) k/uL Neutrophils % (Manual) % Lymphocytes % (Manual) % Monocytes % (Manual) % Basophils % (Manual) % Neutrophils # (Manual) (1.3-7.7) k/uL Lymphocytes # (Manual) (1.0-4.8) k/uL Monocytes # (Manual) (0-1.0) k/uL Basophils # (Manual) (0-0.2) k/uL Nucleated RBCs (0-0) /100 WBC Manual Slide Review Poikilocytosis Macrocytosis PT (9.0-12.0) sec INR (<1.2) APTT (22.0-30.0) sec Sodium (137-145) mmol/L Potassium (3.5-5.1) mmol/L Chloride (98-107) mmol/L Carbon Dioxide (22-30) mmol/L Anion Gap mmol/L BUN (9-20) mg/dL Creatinine (0.66-1.25) mg/dL Est GFR (MDRD) Af Amer (>60 ml/min/1.73 sqM) Est GFR (MDRD) Non-Af (>60 ml/min/1.73 sqM) Glucose (74-99) mg/dL Calcium (8.4-10.2) mg/dL Total Bilirubin (0.2-1.3) mg/dL AST (17-59) U/L ALT (21-72) U/L Alkaline Phosphatase (38-126) U/L Total Creatine Kinase (55-170) U/L CK-MB (CK-2) (0.0-2.4) ng/mL CK-MB (CK-2) Rel Index Troponin I (0.000-0.034) ng/mL NT-Pro-B Natriuret Pep pg/mL Total Protein (6.3-8.2) g/dL Albumin (3.5-5.0) g/dL Amylase (30-110) U/L Lipase (23-300) U/L Urine Color Urine Appearance (Clear) Urine pH (5.0-8.0) Ur Specific [place] (1.001-1.035) Urine Protein (Negative) Urine Glucose (UA) (Negative) Urine Ketones (Negative) Urine Blood (Negative) Urine Nitrite (Negative) Urine Bilirubin (Negative) Urine Urobilinogen (<2.0) mg/dL Ur Leukocyte Esterase (Negative) Influenza Type A RNA Not Detected (Not Detectd) Influenza Type B (PCR) Not Detected (Not Detectd) Disposition Clinical Impression: Trista-Carlson tear, Hematochezia, Gastritis, Bronchitis, Fever, Nausea & vomiting, Abdominal pain Disposition: HOME SELF-CARE Condition: Fair Instructions: Gastritis (ED), Acute Nausea and Vomiting (ED), Acute Abdominal Pain (ED), Trista-Carlson Syndrome (ED), Acute Bronchitis (ED) Additional Instructions: Please take Tylenol if needed for any fevers or chills. Please continue with her home albuterol inhaler as well as a cough medication. Prescriptions: Azithromycin [Zithromax Z-pack] 0 mg PO DIRECTED #6 tab Omeprazole [PriLOSEC] 40 mg PO DAILY #30 capsule. Ondansetron [Zofran ODT] 8 mg PO Q8HR PRN #12 tab PRN Reason: Nausea Referrals: Noel Liao DO [Primary Care Provider] - 1-2 days Time of Disposition: 22:12
[2017-08-11 22:26] VITALS: BP 117/75; PULSE 72; RESP 16; TEMP 98.8
== END 2017-08-11 22:26 | disposition home or self-care (01) ==
LOC: EC 18:11
DX: K29.70 Gastritis, unspecified, without bleeding (principal); K22.6 Gastro-esophageal laceration-hemorrhage syndrome; J40 Bronchitis, not specified as acute or chronic; Z90.49 Acquired absence of other specified parts of digestive tract; Z79.899 Other long term (current) drug therapy; Z88.1 Allergy status to other antibiotic agents
CPT/HCPCS: 36415; 94640; 93005; 83880; 80053; 82150; 82550; 82553; 83690; 84484; 85025; 85610; 85730; 81003; 87040; 87086; 87502; 71046; 74019; 99285; 96374; 96375; 96361; J2405; C9113

== ENCOUNTER → 2017-08-21 | Outpatient (CLI) | payer MEDICARE, BC ==
[2017-08-21 12:10] VITALS: BP 136/87; PULSE 70; RESP 16; TEMP 97.8
--- NOTE | 2017-08-21 12:44 | P.PN ---
Subjective Progress Note Date: 08/21/17 This is follow-up visit for this patient with a history of severe and chronic low back pain secondary to lumbar degenerative disc diseases , lumbar spondylosis with facet arthropathy, And he had lumbar laminectomy surgery done several years ago ,we have done interventional pain management procedure , he continued to have severe low back Patient denies any side effects of the medication, denies excessive drowsiness or sleepiness, denies suicidal ideation, and reports that the current pain medication is NOT helping To control the pain, and improve activity of daily living Patient denies any motor or sensory deficit , patient denies any fever or night sweats, denies any change in the bowel movements or urination Physical Examinations : 1-Constitutiona : Cooperative , not in acute distress . 2-HEENT : nech ; supple , no Lymphadenopathy , no Thyromegaly , normal thyroid size . eyes : no ptosis , no icterus, no photophobia . ENT : normal of hearing , normal oropharynx , no Thrush . 3- Respiratory : Chest clear to auscultations Bilaterally , no wheezing , no Rhonchi . 4- Cardiovascular : regular rate and rhythem , S1 , S2 , no S3 , no S4. 5- Gastrointestinal : abdomen soft no tenderness , bowel sounds positive all four quadrents , no organomegally . 6- Genitourinary : Defferred . 7- neurologic : Cranial nerve II to XII intact , no focal neurological deffecit . 8-psychatric : alert , oriented X 3 , appropriate affect , intact judgment and insight . 9-Lymphatic : no Lymphadenopathy . 10- musculoskeltal : exams of the cervical spine = motor strength normal bilateral upper extremities facet loading test cervical area positive. exams of the Lumber spine = motor strength lower extremities ,thigh and legs .5/5 deep tendon reflexes : normal Knee Jerk , normal ankle Jerk . lumber facet Loading Test positive strait leg raising test positive at 30 degree , RT ,LT , Fabere test positive RT and positive LT . Range of motion: Range of motion in flexion of the lumbar spine 30 degrees Range of motion range of motion of extension of the lumbar spine 10 Sever tenderness over the Sacroiliac joint on the Right , and Left side MRI of the lumbar spine done and fascial diagnostic= showed lumbar spinal stenosis and epidural fibrosis and multilevel lumbar facet arthropathy Assessment and plan = Chronic low back pain secondary to lumbar degenerative disc disease , lumbar spondylosis with facet arthropathy without myelopathy , lumbar spinal stenosis Postlaminectomy pain syndrome , Patient given prescription refill for Neurontin and magnesium oxide Plan he will follow-up with Dr. Kohler for evaluation Objective - Vital Signs Vital signs: Vital Signs Temp 97.8 F 08/21/17 12:07 Pulse 70 08/21/17 12:07 Resp 16 08/21/17 12:07 BP 136/87 08/21/17 12:07 Pulse Ox 97 08/21/17 12:07 Intake & Output 08/20/17 08/21/17 08/21/17 18:59 06:59 18:59 Weight 114.305 kg
== END | disposition home or self-care (01) ==
LOC: PNWHC3 11:28
PROVIDERS: ATTEND Specialist
DX: G89.29 Other chronic pain (principal); M54.5 Low back pain; M48.061 Spinal stenosis, lumbar region without neurogenic claudication; M51.36 Other intervertebral disc degeneration, lumbar region; M96.1 Postlaminectomy syndrome, not elsewhere classified; M47.816 Spondylosis without myelopathy or radiculopathy, lumbar region; M46.86 Other specified inflammatory spondylopathies, lumbar region; Z98.1 Arthrodesis status; Z79.899 Other long term (current) drug therapy; Z76.0 Encounter for issue of repeat prescription
CPT/HCPCS: 99211

== ENCOUNTER → 2017-09-15 | Outpatient (CLI) | payer MEDICARE, BC ==
[2017-09-15 07:42] VITALS: TEMP 98.2
[2017-09-15 09:33] VITALS: BP 108/60; PULSE 68; RESP 14
== END | disposition home or self-care (01) ==
LOC: PROCWHC3 07:15
PROVIDERS: ATTEND Internal Medicine Rheumatology
DX: M06.89 Other specified rheumatoid arthritis, multiple sites (principal)
CPT/HCPCS: 96375; 96413; 96415; J2930; Q5102

== ENCOUNTER → 2017-12-24 | Outpatient (CLI) | payer MEDICARE, BC ==
[2017-12-24 12:26] VITALS: BP 145/84; PULSE 70; RESP 20
--- NOTE | 2017-12-24 13:23 | P.PAINPG ---
Subjective Progress Note Date: 12/24/17 This is a very pleasant 62-year-old gentleman with a history of intractable low back pain. He recently underwent his fourth or spine surgery. This was a fusion from L3 to S1. He had a complication after surgery in which she was unable to use his legs. We'll was supposed to be a 4 day admission turn into a rehabilitation admission for nearly one month after surgery. He is now at home and doing rehabilitation exercises at home. He reports his pain is quite bad in his back. He previously was on Percocet every 4 hours which was helpful for him. He is now taking Tofte every 8 hours and says that he has substantial pain in between his doses of Tofte. He cannot take any anti-inflammatory medications due to their concerns regarding his healing of his fusion. Objective - Vital Signs Vital signs: Vital Signs Temp Pulse 70 12/24/17 12:18 Resp 20 12/24/17 12:18 BP 145/84 12/24/17 12:18 Pulse Ox 70 L 12/24/17 12:18 Intake & Output 12/23/17 12/24/17 12/24/17 18:59 06:59 18:59 Weight 111.13 kg - Exam General: The patient is alert and oriented. Patient is not sedateded Patient answers all question appropriately. Cardiac: Heart is regular in rate and rhythm Respiratory: Clear to auscultation. No audible wheezes. Abdomen: Soft nontender nondistended. Lower extremities: Strength is normal on the left, decreased strength with quadriceps function on the right. Sensation is normal bilaterally. Reflexes are preserved and symmetric bilaterally. Straight leg raise is negative bilaterally. Evidence of vascular insufficiency is present bilaterally in the lower extremities. Assessment and Plan (1) Lumbar spinal stenosis Narrative/Plan: Plan of Care 1. Medications: Patient will continue to take Tofte 10/325 at his previous dosage. He will alternate this with Tylenol 500 mg. This will keep his daily dose of Tylenol at less than 3 g daily. I have reviewed the patient's MAPS report and it reveals expected results. Patient has signed an opiate agreement as well as opiate consent for treatment in our clinic. They understand the risks and benefits of opiate medications. They are aware of the potential for addiction. 2. Interventions: no Interventions are indicated this time. 3. Referrals: None 4. Testing: None 5. Psychological: None Current Visit: No Status: Acute Code(s): M48.06 - SPINAL STENOSIS, LUMBAR REGION * DO NOT USE * SNOMED Code(s): 08573900 (2) Spondylosis without myelopathy or radiculopathy, lumbar region Current Visit: No Status: Acute Code(s): M47.816 - SPONDYLOSIS W/O MYELOPATHY OR RADICULOPATHY, LUMBAR REGION SNOMED Code(s): 47433708 (3) Lumbar degenerative disc disease Current Visit: No Status: Chronic Code(s): M51.36 - OTHER INTERVERTEBRAL DISC DEGENERATION, LUMBAR REGION SNOMED Code(s): 45398337 (4) Lumbar disc herniation Current Visit: No Status: Chronic Code(s): M51.26 - OTHER INTERVERTEBRAL DISC DISPLACEMENT, LUMBAR REGION SNOMED Code(s): 216723588 PQRS Measure Charge Sheet Measure #130: Documentation of Current Meds in Medical Chart: Patient's medications documented in chart Measure #226: Tobacco Use: Screen & Cessation Intervention: Pt not a tobacco user Measure #111: Pneumonia Vaccination: Pneumococcal vaccine NOT administered or previously given Measure #47: Advance Care Plan: Advance care planning discussed & documented, pt chose/unable to give Measure #412: Opioid Treatment Agreement: Documented signed opioid trtmnt agreemnt min once during opioid trtmnt Measure #408: Opioid Therapy Follow-up Evaluation: Patient had f/u eval minimum every 3 months during opioid therapy Measure #317: Preventitive Care & Scrn High Bld Press & F/U: Normal blood pressure, f/u not required Measure #128: Body Mass Index (BMI) Screening & Follow-up: BMI documented ABOVE normal parameters - f/u documented Measure #131: Pain Assessment & Follow-up: Pain positive & plan documented Measure #431: Unhealthy Alcohol Use Preventative Care & Scrn: Patient not identified as an unhealthy alcohol user PQRS Narrative: Smoking Status Never smoker Do You Want the Pneumonia Yes Vaccine AT THIS TIME? Blood Pressure 145/84 Pain Intensity [Right Lower 7 Back] Scale Used Numeric (1 - 10) Hx Alcohol Use (MH) No Home Medications: Ambulatory Orders Methotrexate Sodium [Methotrexate] 12.5 mg PO MO 11/11/13 Timolol 0.5% Ophth Soln [Timoptic 0.5% Ophth Soln] 1 drop BOTH EYES BID Albuterol Inhaler [Ventolin Hfa Inhaler] 1 - 2 puff INHALATION RT-Q6H PRN HYDROcodone/APAP 7.5-325MG [Tofte 7.5-325] 2 tab PO Q6HR PRN 07/26/16 Aspirin 81 mg PO DAILY #90 01/15/17 Atorvastatin [Lipitor] 40 mg PO DAILY #90 tab 01/15/17 Metoprolol Tartrate [Lopressor] 25 mg PO DAILY 01/27/17 Losartan-Hctz 50-12.5 mg [Hyzaar 50-12.5] 1 tab PO DAILY 03/17/17 Cyclobenzaprine [Flexeril] 10 mg PO BID 08/11/17 Folic Acid 1 mg PO DAILY 08/11/17 Furosemide [Lasix] 40 mg PO DAILY 08/11/17 Omeprazole [PriLOSEC] 40 mg PO DAILY #30 capsule. 08/11/17 Ondansetron [Zofran ODT] 8 mg PO Q8HR PRN #12 tab 08/11/17 Potassium Chloride [Klor-Con 10] 10 meq PO DAILY 08/11/17 Gabapentin [Neurontin] 300 mg PO TID #90 cap 08/21/17 Magnesium Oxide [Magox 400] 400 mg PO HS #30 tablet 08/21/17 HYDROcodone/APAP 10-325MG [Tofte 10-325] 1 tab PO Q8HR PRN 3 Days #90 tab HYDROcodone/APAP 10-325MG [Tofte 10-325] 1 tab PO Q8HR PRN 3 Days #90 tab Controlled Substance Measures - Controlled Substance Measures Is patient prescribed a controlled substance at discharge?: Yes When asked, does pt state using other controlled substances?: No If prescribed controlled substance>3 days was MAPS reviewed?: Yes If Rx opioid, was Start Talking consent form obtained?: Yes If opioid is for acute pain is fill amount 7 days or less?: No Was information provided regarding opioid addiction?: Yes
--- NOTE | 2017-12-24 13:36 | P.PAINPG ---
Subjective Progress Note Date: 12/24/17 Principal diagnosis: Bilateral sacroiliitis This is a very pleasant 62-year-old man with a history of bilateral sacroiliac pain. He is undergone bilateral sacroiliac joint injections and these afforded him very good relief of his lower back pain. The pain was reduced greater than 50% for over a week. He presents today requesting further instruction how to manage his pain as his symptoms have returned in the previous character and distribution. He denies any lumbar radicular symptoms at this time. He denies any weakness. He denies bowel or bladder dysfunction. Objective - Vital Signs Vital signs: Vital Signs Temp Pulse 70 12/24/17 12:18 Resp 20 12/24/17 12:18 BP 145/84 12/24/17 12:18 Pulse Ox 70 L 12/24/17 12:18 Intake & Output 12/23/17 12/24/17 12/24/17 18:59 06:59 18:59 Weight 111.13 kg - Exam General: The patient is alert and oriented. Patient is not sedateded . Patient answers all question appropriately. Cardiac: Heart is regular in rate and rhythm Respiratory: Clear to auscultation. No audible wheezes. Abdomen: Soft nontender nondistended. Lower extremities: Strength is normal bilaterally. Sensation is normal bilaterally. Reflexes are preserved and symmetric bilaterally. Straight leg raise is negative bilaterally. He does walk with an antalgic gait. He is tender to palpation over his sacroiliac joints bilaterally. Pedro Luis's maneuver is positive bilaterally. Assessment and Plan (1) Lumbar spinal stenosis Current Visit: No Status: Acute Code(s): M48.06 - SPINAL STENOSIS, LUMBAR REGION * DO NOT USE * SNOMED Code(s): 73273613 (2) Spondylosis without myelopathy or radiculopathy, lumbar region Current Visit: No Status: Acute Code(s): M47.816 - SPONDYLOSIS W/O MYELOPATHY OR RADICULOPATHY, LUMBAR REGION SNOMED Code(s): 70388453 (3) Lumbar degenerative disc disease Current Visit: No Status: Chronic Code(s): M51.36 - OTHER INTERVERTEBRAL DISC DEGENERATION, LUMBAR REGION SNOMED Code(s): 40589174 (4) Lumbar disc herniation Current Visit: No Status: Chronic Code(s): M51.26 - OTHER INTERVERTEBRAL DISC DISPLACEMENT, LUMBAR REGION SNOMED Code(s): 271321691 (5) Sacroiliac joint pain Narrative/Plan: Plan of Care 1. Medications: Patient is currently being prescribed medications by his primary care physician. He should continue on those medications as instructed by his physician. I have reviewed the patient's MAPS report and it reveals expected results. Patient has signed an opiate agreement as well as opiate consent for treatment in our clinic. They understand the risks and benefits of opiate medications. They are aware of the potential for addiction. 2. Interventions: I believe the patient would benefit from radiofrequency ablation of the lateral sacral branches at S1, S2 and S3. This should be done bilaterally. 3. Referrals: None 4. Testing: None 5. Psychological: No referrals were given at this appointment. Current Visit: Yes Status: Acute Code(s): M53.3 - SACROCOCCYGEAL DISORDERS, NOT ELSEWHERE CLASSIFIED SNOMED Code(s): 069364594 (6) Sacroiliac joint disease Current Visit: Yes Status: Acute Code(s): M53.3 - SACROCOCCYGEAL DISORDERS, NOT ELSEWHERE CLASSIFIED SNOMED Code(s): 790425166 PQRS Measure Charge Sheet Measure #226: Tobacco Use: Screen & Cessation Intervention: Pt screened for tobacco use AND intervention given Measure #111: Pneumonia Vaccination: Pneumococcal vaccine NOT administered or previously given Measure #47: Advance Care Plan: Advance care planning discussed & documented, pt chose/unable to give Measure #412: Opioid Treatment Agreement: Documented signed opioid trtmnt agreemnt min once during opioid trtmnt Measure #408: Opioid Therapy Follow-up Evaluation: Patient had f/u eval minimum every 3 months during opioid therapy Measure #317: Preventitive Care & Scrn High Bld Press & F/U: Normal blood pressure, f/u not required Measure #128: Body Mass Index (BMI) Screening & Follow-up: BMI documented within normal parameters Measure #131: Pain Assessment & Follow-up: Pain positive & plan documented Measure #431: Unhealthy Alcohol Use Preventative Care & Scrn: Patient not identified as an unhealthy alcohol user PQRS Narrative: Smoking Status Never smoker Do You Want the Pneumonia Yes Vaccine AT THIS TIME? Blood Pressure 145/84 Pain Intensity [Right Lower 7 Back] Scale Used Numeric (1 - 10) Hx Alcohol Use (MH) No Home Medications: Ambulatory Orders Methotrexate Sodium [Methotrexate] 12.5 mg PO MO 11/11/13 Timolol 0.5% Ophth Soln [Timoptic 0.5% Ophth Soln] 1 drop BOTH EYES BID Albuterol Inhaler [Ventolin Hfa Inhaler] 1 - 2 puff INHALATION RT-Q6H PRN HYDROcodone/APAP 7.5-325MG [[place] 7.5-325] 2 tab PO Q6HR PRN 07/26/16 Aspirin 81 mg PO DAILY #90 01/15/17 Atorvastatin [Lipitor] 40 mg PO DAILY #90 tab 01/15/17 Metoprolol Tartrate [Lopressor] 25 mg PO DAILY 01/27/17 Losartan-Hctz 50-12.5 mg [Hyzaar 50-12.5] 1 tab PO DAILY 03/17/17 Cyclobenzaprine [Flexeril] 10 mg PO BID 08/11/17 Folic Acid 1 mg PO DAILY 08/11/17 Furosemide [Lasix] 40 mg PO DAILY 08/11/17 Omeprazole [PriLOSEC] 40 mg PO DAILY #30 capsule. 08/11/17 Ondansetron [Zofran ODT] 8 mg PO Q8HR PRN #12 tab 08/11/17 Potassium Chloride [Klor-Con 10] 10 meq PO DAILY 08/11/17 Gabapentin [Neurontin] 300 mg PO TID #90 cap 08/21/17 Magnesium Oxide [Magox 400] 400 mg PO HS #30 tablet 08/21/17 HYDROcodone/APAP 10-325MG [[place] 10-325] 1 tab PO Q8HR PRN 3 Days #90 tab HYDROcodone/APAP 10-325MG [[place] 10-325] 1 tab PO Q8HR PRN 3 Days #90 tab Controlled Substance Measures - Controlled Substance Measures Is patient prescribed a controlled substance at discharge?: No
== END | disposition home or self-care (01) ==
LOC: PNWHC3 12:02
PROVIDERS: ATTEND Pain Medicine Pain Medicine
DX: M48.061 Spinal stenosis, lumbar region without neurogenic claudication (principal); M51.26 Other intervertebral disc displacement, lumbar region; M51.36 Other intervertebral disc degeneration, lumbar region; M47.816 Spondylosis without myelopathy or radiculopathy, lumbar region; M46.1 Sacroiliitis, not elsewhere classified; M53.3 Sacrococcygeal disorders, not elsewhere classified; Z79.899 Other long term (current) drug therapy; Z79.891 Long term (current) use of opiate analgesic; Z79.82 Long term (current) use of aspirin
CPT/HCPCS: 99211

== ENCOUNTER → 2018-02-18 | Outpatient (CLI) | payer MEDICARE, BC ==
[2018-02-18 13:21] VITALS: BP 137/81; PULSE 69; RESP 20
--- NOTE | 2018-02-18 14:09 | P.PAINPG ---
Subjective Progress Note Date: 02/18/18 This is follow-up visit for this patient with a history of severe and chronic low back pain secondary to , lumbar spondylosis with facet arthropathy, post laminectomy pain syndrome lumbar area, October 2017 patient had another fusion surgery, and he continued to have severe low back pain, currently is wheelchair bound, and he is having some cellulitis in his lower extremity We have done interventional pain management June 2017, Patients currently on norco 10/325 every 8 hours , Neurontin 300 mg 3 times a day and Flexeril 10 mg twice a day Patient denies any side effects of the medication, denies excessive drowsiness or sleepiness, denies suicidal ideation, and reports that the current pain medication is helping to control the pain , he reported his pain level increased since the last surgery especially he cannot use his rheumatid arthritis medications Humira (the neurosurgeon doesn't want to start on it until the bone healed completely, and his currently having flareup of rheumatoid arthritis is having upper and lower extremity pain ,secondary to rheumatoid arthritis Patient denies any motor or sensory deficit , patient denies any fever or night sweats, denies any change in the bowel movements or urination Physical Examinations : 1-Constitutional : Cooperative , not in acute distress . 2-HEENT : nech ; supple , no Lymphadenopathy , no Thyromegaly , normal thyroid size . eyes : no ptosis , no icterus, no photophobia . ENT : normal of hearing , normal oropharynx , no Thrush . 3- Respiratory : Chest clear to auscultations Bilaterally , no wheezing , no Rhonchi . 4- Cardiovascular : regular rate and rhythem , S1 , S2 , no S3 , no S4. 5- Gastrointestinal : abdomen soft no tenderness , bowel sounds positive all four quadrents , no organomegally . 6- Genitourinary : Defferred . 7- neurologic: Cranial nerve II to XII intact , no focal neurological deffecit . 8- Psychatric: alert , oriented X 3 , appropriate affect , intact judgment and insight . 9- Lymphatic : no Lymphadenopathy . 10- Musculoskeltal : . exams of the Lumber spine =motor strength lower extremities ,thigh and legs .5/5 deep tendon reflexes : normal Knee Jerk , normal ankle Jerk . lumber facet Loading Test positive strait leg raising test positive at 30 degree , RT ,LT , Fabere test positive RT and positive LT . 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 The patient was counseled about risk of opioid use, psychological risk associated with opioids and was orally counseled to not overuse , divert,or sell dictations to take medications as prescribed only , and to restore medication in safe location , the patient counseled against driving while using narcotic medications , and also not to use alcohol or any illicit recreational drugs, patient's verbalized understanding that the lack of compliance will result in failure to renew narcotic prescription and possible discharge from the clinic - diagnoses, prognosis, and treatment options including but not limited to physical therapy, surgical interventions, interventional therapies , and medication management including narcotics and adjuvant medication were discussed with the patient and all the questions answered Will increase [place] to 10/325 every 6 hours dispensed 120 with one refill , continue Neurontin 300 mg 3 times a day dispensed 90 with 1 refill, and flexor tendon Gram-positive dispensed 60 with 1 refill , patient will follow up with his primary care regarding the cellulitis in his right lower extremity, I explained to the patient that the increase [place] tablets from 90-120 would be temporary until it starts on his rheumatid arthritis medication, then once he started on Humira we can cut back on [place] again MAPS reviewed and it was appropriate Objective - Vital Signs Vital signs: Vital Signs Temp Pulse 69 02/18/18 13:14 Resp 20 02/18/18 13:14 BP 137/81 02/18/18 13:14 Pulse Ox 95 02/18/18 13:14 Intake & Output 02/17/18 02/18/18 02/18/18 18:59 06:59 18:59 Weight 111.13 kg PQRS Measure Charge Sheet Measure #130: Documentation of Current Meds in Medical Chart: Patient's medications documented in chart Measure #226: Tobacco Use: Screen & Cessation Intervention: Pt not a tobacco user Measure #111: Pneumonia Vaccination: Pneumococcal vaccine administered or previously received Measure #47: Advance Care Plan: Advance care planning discussed & documented, pt chose/unable to give Measure #412: Opioid Treatment Agreement: Documented signed opioid trtmnt agreemnt min once during opioid trtmnt Measure #408: Opioid Therapy Follow-up Evaluation: Patient had f/u eval minimum every 3 months during opioid therapy Measure #317: Preventitive Care & Scrn High Bld Press & F/U: Normal blood pressure, f/u not required Measure #128: Body Mass Index (BMI) Screening & Follow-up: BMI documented ABOVE normal parameters - f/u documented Measure #131: Pain Assessment & Follow-up: Pain positive & plan documented, Follow-up scheduled Measure #431: Unhealthy Alcohol Use Preventative Care & Scrn: Patient not identified as an unhealthy alcohol user PQRS Narrative: Smoking Status Never smoker Do You Want the Pneumonia Yes Vaccine AT THIS TIME? Blood Pressure 137/81 Pain Intensity [Generalized] 7 Scale Used Numeric (1 - 10) Hx Alcohol Use (MH) No Home Medications: Ambulatory Orders Methotrexate Sodium [Methotrexate] 12.5 mg PO MO 11/11/13 Timolol 0.5% Ophth Soln [Timoptic 0.5% Ophth Soln] 1 drop BOTH EYES BID Albuterol Inhaler [Ventolin Hfa Inhaler] 1 - 2 puff INHALATION RT-Q6H PRN Aspirin 81 mg PO DAILY #90 01/15/17 Atorvastatin [Lipitor] 40 mg PO DAILY #90 tab 01/15/17 Metoprolol Tartrate [Lopressor] 25 mg PO DAILY 01/27/17 Losartan-Hctz 50-12.5 mg [Hyzaar 50-12.5] 1 tab PO DAILY 03/17/17 Folic Acid 1 mg PO DAILY 08/11/17 Furosemide [Lasix] 40 mg PO DAILY 08/11/17 Omeprazole [PriLOSEC] 40 mg PO DAILY #30 capsule. 08/11/17 Ondansetron [Zofran ODT] 8 mg PO Q8HR PRN #12 tab 08/11/17 Potassium Chloride [Klor-Con 10] 10 meq PO DAILY 08/11/17 Magnesium Oxide [Magox 400] 400 mg PO HS #30 tablet 08/21/17 Cyclobenzaprine [Flexeril] 10 mg PO BID #60 tab 02/18/18 Gabapentin [Neurontin] 300 mg PO TID #90 cap 02/18/18 HYDROcodone/APAP 10-325MG [[place] 10-325] 1 tab PO Q6HR PRN 30 Days #120 tab HYDROcodone/APAP 10-325MG [[place] 10-325] 1 tab PO Q6HR PRN 30 Days #120 tab Controlled Substance Measures - Controlled Substance Measures Is patient prescribed a controlled substance at discharge?: Yes When asked, does pt state using other controlled substances?: No If prescribed controlled substance>3 days was MAPS reviewed?: Yes If Rx opioid, was Start Talking consent form obtained?: Yes If opioid is for acute pain is fill amount 7 days or less?: No Was information provided regarding opioid addiction?: Yes
== END | disposition home or self-care (01) ==
LOC: PNWHC3 12:52
PROVIDERS: ATTEND Specialist
DX: G89.29 Other chronic pain (principal); M54.5 Low back pain; M47.816 Spondylosis without myelopathy or radiculopathy, lumbar region; M46.86 Other specified inflammatory spondylopathies, lumbar region; M96.1 Postlaminectomy syndrome, not elsewhere classified; Z98.1 Arthrodesis status; Z79.891 Long term (current) use of opiate analgesic; Z79.899 Other long term (current) drug therapy
CPT/HCPCS: 99211

== ENCOUNTER → 2018-04-15 | Outpatient (CLI) | payer MEDICARE, BC ==
[2018-04-15 12:19] VITALS: RESP 18
--- NOTE | 2018-04-15 12:22 | P.PAINPG ---
Subjective Progress Note Date: 04/15/18 This is follow-up visit for this patient with a history of severe and chronic low back pain secondary to , lumbar spondylosis with facet arthropathy, post laminectomy pain syndrome lumbar area, October 2017 patient had another fusion surgery, and he continued to have severe low back pain, currently he is ambulating using cane, and the cellulitis in his lower extremity improved with antibiotics, patient is supposed to be started on Humira to treat his rheumatid arthritis, but it was not started by his manager battery because the neurosurgeon recommended delay treatment with a Humira , because the neurosurgeon concerned about the fusion in the lumbar spine, and he wanted to be started only after he is sure that the bone is healing appropriately We have done interventional pain management June 2017, Patients currently on norco 10/325 every 8 hours , Neurontin 300 mg 3 times a day and Flexeril 10 mg twice a day Patient denies any side effects of the medication, denies excessive drowsiness or sleepiness, denies suicidal ideation, and reports that the current pain medication is helping to control the pain , he reported his pain level increased since the last surgery especially he cannot use his rheumatid arthritis medications Humira (the neurosurgeon doesn't want to start on it until the bone healed completely, and his currently having flareup of rheumatoid arthritis is having upper and lower extremity pain ,secondary to rheumatoid arthritis Patient denies any motor or sensory deficit , patient denies any fever or night sweats, denies any change in the bowel movements or urination Physical Examinations : 1-Constitutional : Cooperative , not in acute distress . 2-HEENT : nech ; supple , no Lymphadenopathy , no Thyromegaly , normal thyroid size . eyes : no ptosis , no icterus, no photophobia . ENT : normal of hearing , normal oropharynx , no Thrush . 3- Respiratory : Chest clear to auscultations Bilaterally , no wheezing , no Rhonchi . 4- Cardiovascular : regular rate and rhythem , S1 , S2 , no S3 , no S4. 5- Gastrointestinal : abdomen soft no tenderness , bowel sounds positive all four quadrents , no organomegally . 6- Genitourinary : Defferred . 7- neurologic: Cranial nerve II to XII intact , no focal neurological deffecit . 8- Psychatric: alert , oriented X 3 , appropriate affect , intact judgment and insight . 9- Lymphatic : no Lymphadenopathy . 10- Musculoskeltal : . exams of the Lumber spine =motor strength lower extremities ,thigh and legs .5/5 deep tendon reflexes : normal Knee Jerk , normal ankle Jerk . lumber facet Loading Test positive strait leg raising test positive at 30 degree , RT ,LT , Fabere test positive RT and positive LT . Range of motion: Range of motion in flexion of the lumbar spine 30 degrees Range of motion range of motion of extension of the lumbar spine 10 Sever tenderness over the Sacroiliac joint on the Right , and Left side Assessment and plan = Chronic low back pain secondary to lumbar spondylosis with facet arthropathy, status post lumbar fusion surgery lumbar area chronic and current use of high-risk medication (Opioids). The patient was counseled about risk of opioid use, psychological risk associated with opioids and was orally counseled to not overuse , divert,or sell dictations to take medications as prescribed only , and to restore medication in safe location , the patient counseled against driving while using narcotic medications , and also not to use alcohol or any illicit recreational drugs, patient's verbalized understanding that the lack of compliance will result in failure to renew narcotic prescription and possible discharge from the clinic - diagnoses, prognosis, and treatment options including but not limited to physical therapy, surgical interventions, interventional therapies , and medication management including narcotics and adjuvant medication were discussed with the patient and all the questions answered Will increase [place] to 10/325 every 6 hours dispensed 120 with one refill , continue Neurontin 300 mg 3 times a day dispensed 90 with 1 refill, and flexor tendon Gram-positive dispensed 60 with 1 refill , patient will follow up with his primary care regarding the cellulitis in his right lower extremity, I explained to the patient that the increase [place] tablets from 90-120 would be temporary until it starts on his rheumatid arthritis medication, then once he started on Humira we can cut back on [place] again MAPS reviewed and it was appropriate , next visit we will do urine drug screen Objective - Vital Signs Vital signs: Intake & Output 04/14/18 04/15/18 04/15/18 18:59 06:59 18:59 Weight 109.769 kg PQRS Measure Charge Sheet Measure #130: Documentation of Current Meds in Medical Chart: Patient's medications documented in chart Measure #226: Tobacco Use: Screen & Cessation Intervention: Pt not a tobacco user Measure #111: Pneumonia Vaccination: Pneumococcal vaccine NOT administered or previously given Measure #47: Advance Care Plan: Advance care planning discussed & documented, pt chose/unable to give Measure #412: Opioid Treatment Agreement: Documented signed opioid trtmnt agreemnt min once during opioid trtmnt Measure #408: Opioid Therapy Follow-up Evaluation: Patient had f/u eval minimum every 3 months during opioid therapy Measure #317: Preventitive Care & Scrn High Bld Press & F/U: Pre-hypertensive or hypertensive BP documented, pt will f/u with PCP Measure #128: Body Mass Index (BMI) Screening & Follow-up: BMI documented ABOVE normal parameters - f/u documented Measure #131: Pain Assessment & Follow-up: Pain positive & plan documented, Follow-up scheduled Measure #431: Unhealthy Alcohol Use Preventative Care & Scrn: Patient not identified as an unhealthy alcohol user PQRS Narrative: Smoking Status Never smoker Hx Alcohol Use (MH) No Home Medications: Ambulatory Orders Timolol 0.5% Ophth Soln [Timoptic 0.5% Ophth Soln] 1 drop BOTH EYES BID Albuterol Inhaler [Ventolin Hfa Inhaler] 1 - 2 puff INHALATION RT-Q6H PRN Atorvastatin [Lipitor] 40 mg PO DAILY #90 tab 01/15/17 Metoprolol Tartrate [Lopressor] 25 mg PO DAILY 01/27/17 Losartan-Hctz 50-12.5 mg [Hyzaar 50-12.5] 1 tab PO DAILY 03/17/17 Furosemide [Lasix] 40 mg PO DAILY 08/11/17 Omeprazole [PriLOSEC] 40 mg PO DAILY #30 capsule. 08/11/17 Ondansetron [Zofran ODT] 8 mg PO Q8HR PRN #12 tab 08/11/17 Potassium Chloride [Klor-Con 10] 10 meq PO DAILY 08/11/17 Gabapentin [Neurontin] 300 mg PO TID #90 cap 02/18/18 HYDROcodone/APAP 10-325MG [[place] 10-325] 1 tab PO Q6HR PRN 30 Days #120 tab Controlled Substance Measures - Controlled Substance Measures Is patient prescribed a controlled substance at discharge?: Yes When asked, does pt state using other controlled substances?: No If prescribed controlled substance>3 days was MAPS reviewed?: Yes If Rx opioid, was Start Talking consent form obtained?: Yes If opioid is for acute pain is fill amount 7 days or less?: No Was information provided regarding opioid addiction?: Yes
[2018-04-15 12:32] VITALS: BP 139/67; PULSE 71
== END ==
LOC: PNWHC3 11:53
PROVIDERS: ATTEND Specialist
DX: G89.29 Other chronic pain (principal); M47.816 Spondylosis without myelopathy or radiculopathy, lumbar region; M46.96 Unspecified inflammatory spondylopathy, lumbar region; Z98.890 Other specified postprocedural states; Z79.891 Long term (current) use of opiate analgesic; Z79.899 Other long term (current) drug therapy
CPT/HCPCS: 99211

== ENCOUNTER → 2018-05-07 | Outpatient (CLI) | payer MEDICARE, BC ==
--- NOTE | 2018-05-07 15:32 | XR ---
EXAM TYPE: LUMBAR SPINE X RAY SERIES COMPARISON: NONE HISTORY: Post surgery TECHNIQUE: 3 views are submitted. FINDINGS: Postsurgical changes are seen involving the lower lumbosacral spine. There is a minimal anterolisthes is of L5 on S1. Mild to moderate degenerative disc disease L2-L3. Remaining pedicles are intact. IMPRESSION: 1. Postsurgical changes
--- NOTE | 2018-05-07 17:01 | CT ---
EXAMINATION TYPE: CT lumbar spine wo con DATE OF EXAM: 05/07/2018 COMPARISON: 05/29/2016 HISTORY: f/u lumbar surgery CT DLP: 1654.4 mGycm CONTRAST: None TECHNIQUE: CT of the lumbar spine is performed on a spiral scan at 3 mm thick sections. Reconstructed images are performed in the coronal and sagittal planes. FINDINGS: T10-T11: No focal disc herniation or significant disc bulge is evident. Mild endplate spurr ing may be present. No spinal canal stenosis present. Neural foramen are patent. T11-12: Mild disc bulging is anterior thecal sac contact. No AP spinal canal stenosis present. Facet hypertrophy and vacuum phenomenon is present. T12-L1: No focal disc herniation or significant disc bulge is evident. No spinal canal stenosis is evident. Facet hypertrophy is present. Neural foramen are patent. L1-L2: Broad-based disc bulge has moderate anterior thecal sac compression. Spinal canal stenosis is present measuring 1.0 cm at the superior L2 endplate. Facet hypertrophy is present. L2-L3: Broad-based disc bulge has moderate anterior thecal sac compression. Facet hypertrophy has lat eral canal narrowing. Posterior longitudinal ligament calcification is present. Moderate bilateral fo raminal narrowing is present. L3-L4: Beam hardening artifact limits evaluation to this level. Pedicle screws are present. Laminecto mies been performed. Foramen cannot be well evaluated. Spinal canal has very limited evaluation. Face t hypertrophy and endplate changes suggest some canal narrowing may be present. L4-L5: There is loss of disc height through this level. Obvious disc herniations are identified. Beam hardening artifact from fixation rods limit the evaluation to this level. There is been a prior lami nectomy through here. There is at least Moderate foraminal stenosis evident. L5-S1: Superior L5 endplate changes are present. L5-S1 disc spacers present. Fixation rods and pedicl e screws cause beam hardening artifact limiting the evaluation to this level. Right foraminal narrowi ng appears severe in the sagittal plane. Moderate to severe foraminal narrowing on the left is presen t. There is a subtle kyphosis at the L2 level. IMPRESSION: 1. Postsurgical changes including fixation rods and pedicle screws which causes beam hardening artifa ct limits evaluation through the lower lumbar spine levels. 2. Foraminal stenosis is noted especially L5-S1 are present at multiple levels. 3. Disc bulging and facet hypertrophy are likely contributing to spinal canal narrowing at L1-L2. Wyatt rowing is suspected but cannot be well documented L2-3, L3-4 and possibly L4-5.
== END | disposition home or self-care (01) ==
LOC: RADCTMAIN 14:57
PROVIDERS: ATTEND Neurological Surgery
DX: Z47.89 Encounter for other orthopedic aftercare (principal); M99.73 Connective tissue and disc stenosis of intervertebral foramina of lumbar region; M99.74 Connective tissue and disc stenosis of intervertebral foramina of sacral region; M51.26 Other intervertebral disc displacement, lumbar region; Z98.1 Arthrodesis status
CPT/HCPCS: 72100; 72131

== ENCOUNTER → 2018-06-10 | Outpatient (CLI) | payer MEDICARE, BC ==
[2018-06-10 12:13] VITALS: BP 166/78; PULSE 64; RESP 16
--- NOTE | 2018-06-10 13:24 | P.PAINPG ---
Subjective Progress Note Date: 06/10/18 Principal diagnosis: postlaminectomy syndrome, rheumatoid arthritis this a very pleasant 62-year-old gentleman who presents today for medication management and refill. He reports that he has been doing better since his last appointment. He did at lumbar spine surgery in October of this year. He is seeing his surgeon and the thought is that he is healing well. He is no longer walking with a walker but he is using a cane. He denies bowel or bladder dysfunction. His pain is in his back and radiates into his legs. He also has rheumatologic symptoms in multiple joints. Objective - Vital Signs Vital signs: Vital Signs Temp Pulse 64 06/10/18 12:07 Resp 16 06/10/18 12:07 BP 166/78 06/10/18 12:07 Pulse Ox 98 06/10/18 12:07 Intake & Output 06/09/18 06/10/18 06/10/18 18:59 06:59 18:59 Weight 111.13 kg - Exam General: The patient is alert and oriented. Patient is not sedated Patient answers all question appropriately.He walks with a cane. He has an antalgic gait Cardiac: Heart is regular in rate and rhythm Respiratory: Clear to auscultation. No audible wheezes. Abdomen: Soft nontender nondistended. Lower extremities: Strength is normal bilaterally. Sensation is normal bilaterally. Reflexes are preserved and symmetric bilaterally. Straight leg raise is negative bilaterally.range of motion for back flexion and extension is significantly limited. Assessment and Plan (1) Lumbar post-laminectomy syndrome Narrative/Plan: Plan of Care 1. Medications:I will refill the patient's [place] or him today. I will get also give him one refill prescription. A new urine drug screen was obtained today. I have reviewed the patient's MAPS report and it reveals expected results. Patient has signed an opiate agreement as well as opiate consent for treatment in our clinic. They understand the risks and benefits of opiate medications. They are aware of the potential for addiction. 2. Interventions:none indicated at this time 3. Referrals:none 4. Testing:none 5. Follow-up: patient will continue to follow-up in 2 months. Current Visit: Yes Status: Acute Code(s): M96.1 - POSTLAMINECTOMY SYNDROME, NOT ELSEWHERE CLASSIFIED SNOMED Code(s): 260170583 (2) Rheumatoid arthritis Current Visit: Yes Status: Acute Code(s): M06.9 - RHEUMATOID ARTHRITIS, UNSPECIFIED SNOMED Code(s): 20137735 (3) Lumbar spinal stenosis Current Visit: No Status: Acute Code(s): M48.06 - SPINAL STENOSIS, LUMBAR REGION * DO NOT USE * SNOMED Code(s): 01928931 (4) Sacroiliac joint disease Current Visit: No Status: Acute Code(s): M53.3 - SACROCOCCYGEAL DISORDERS, NOT ELSEWHERE CLASSIFIED SNOMED Code(s): 151930899 (5) Spondylosis without myelopathy or radiculopathy, lumbar region Current Visit: No Status: Acute Code(s): M47.816 - SPONDYLOSIS W/O MYELOPATHY OR RADICULOPATHY, LUMBAR REGION SNOMED Code(s): 86405182 PQRS Measure Charge Sheet Measure #130: Documentation of Current Meds in Medical Chart: Patient's medications documented in chart Measure #226: Tobacco Use: Screen & Cessation Intervention: Pt not a tobacco user Measure #111: Pneumonia Vaccination: Pneumococcal vaccine NOT administered or previously given Measure #47: Advance Care Plan: Advance care planning discussed & documented, pt chose/unable to give Measure #412: Opioid Treatment Agreement: Documented signed opioid trtmnt agreemnt min once during opioid trtmnt Measure #408: Opioid Therapy Follow-up Evaluation: Patient had f/u eval minimum every 3 months during opioid therapy Measure #317: Preventitive Care & Scrn High Bld Press & F/U: Pre-hypertensive or hypertensive BP documented, pt will f/u with PCP Measure #128: Body Mass Index (BMI) Screening & Follow-up: BMI documented ABOVE normal parameters - f/u documented Measure #131: Pain Assessment & Follow-up: Pain positive & plan documented Measure #431: Unhealthy Alcohol Use Preventative Care & Scrn: Patient not identified as an unhealthy alcohol user PQRS Narrative: Smoking Status Never smoker Do You Want the Pneumonia Vaccine Up to Date Vaccine AT THIS TIME? Blood Pressure 166/78 Pain Intensity [Bilateral 5 Lower Back] Scale Used Numeric (1 - 10) Hx Alcohol Use (MH) No Home Medications: Ambulatory Orders Timolol 0.5% Ophth Soln [Timoptic 0.5% Ophth Soln] 1 drop BOTH EYES BID Albuterol Inhaler [Ventolin Hfa Inhaler] 1 - 2 puff INHALATION RT-Q6H PRN Atorvastatin [Lipitor] 40 mg PO DAILY #90 tab 01/15/17 Metoprolol Tartrate [Lopressor] 25 mg PO DAILY 01/27/17 Losartan-Hctz 50-12.5 mg [Hyzaar 50-12.5] 1 tab PO DAILY 03/17/17 Furosemide [Lasix] 40 mg PO DAILY 08/11/17 Omeprazole [PriLOSEC] 40 mg PO DAILY #30 capsule. 08/11/17 Ondansetron [Zofran ODT] 8 mg PO Q8HR PRN #12 tab 08/11/17 Potassium Chloride [Klor-Con 10] 10 meq PO DAILY 08/11/17 Gabapentin [Neurontin] 300 mg PO TID #90 cap 04/15/18 HYDROcodone/APAP 10-325MG [[place] 10-325] 1 tab PO Q6HR PRN 30 Days #120 tab 04/23 HYDROcodone/APAP 10-325MG [[place] 10-325] 1 tab PO Q6HR PRN 30 Days #120 tab 04/23 Controlled Substance Measures - Controlled Substance Measures Is patient prescribed a controlled substance at discharge?: Yes When asked, does pt state using other controlled substances?: No If prescribed controlled substance>3 days was MAPS reviewed?: Yes If Rx opioid, was Start Talking consent form obtained?: Yes If opioid is for acute pain is fill amount 7 days or less?: No
== END | disposition home or self-care (01) ==
LOC: PNWHC3 12:02
PROVIDERS: ATTEND Pain Medicine Pain Medicine
DX: M96.1 Postlaminectomy syndrome, not elsewhere classified (principal); M06.9 Rheumatoid arthritis, unspecified; M48.061 Spinal stenosis, lumbar region without neurogenic claudication; M53.3 Sacrococcygeal disorders, not elsewhere classified; M47.816 Spondylosis without myelopathy or radiculopathy, lumbar region; Z79.899 Other long term (current) drug therapy
CPT/HCPCS: 80307; G0482; G0463; 99211

== ENCOUNTER → 2018-07-08 | Outpatient (CLI) | payer MEDICARE, BC ==
[2018-07-08 19:21] LABS: Hepatitis C IgG Antibody Non-Reactive (Non-Reactive)
== END ==
LOC: LABWHC1 12:29
PROVIDERS: ATTEND Internal Medicine Rheumatology
DX: M06.9 Rheumatoid arthritis, unspecified (principal)
CPT/HCPCS: 36415; 86803; 87340

== ENCOUNTER → 2018-08-05 | Outpatient (CLI) | payer MEDICARE, BC ==
[2018-08-05 13:56] VITALS: BP 135/80; PULSE 67; RESP 16
--- NOTE | 2018-08-05 14:32 | P.PN ---
Subjective Progress Note Date: 08/05/18 This is follow-up visit for this patient with a history of severe and chronic low back pain secondary to , lumbar spondylosis with facet arthropathy, post laminectomy pain syndrome lumbar area, October 2017 patient had another fusion surgery, and he continued to have severe low back pain. We have done interventional pain management June 2017, Patients currently on norco 10/325 every 6 hours , Neurontin 300 mg 3 times a day Patient denies any side effects of the medication, denies excessive drowsiness or sleepiness, denies suicidal ideation, and reports that the current pain medication is helping to control the pain , and his currently having flareup of rheumatoid arthritis is having upper and lower extremity pain ,secondary to rheumatoid arthritis Patient denies any motor or sensory deficit , patient denies any fever or night sweats, denies any change in the bowel movements or urination Physical Examinations : 1-Constitutional : Cooperative , not in acute distress . 2-HEENT : nech ; supple , no Lymphadenopathy , no Thyromegaly , normal thyroid size . eyes : no ptosis , no icterus, no photophobia . ENT : normal of hearing , normal oropharynx , no Thrush . 3- Respiratory : Chest clear to auscultations Bilaterally , no wheezing , no Rhonchi . 4- Cardiovascular : regular rate and rhythem , S1 , S2 , no S3 , no S4. 5- Gastrointestinal : abdomen soft no tenderness , bowel sounds positive all four quadrents , no organomegally . 6- Genitourinary : Defferred . 7- neurologic: Cranial nerve II to XII intact , no focal neurological deffecit . 8- Psychatric: alert , oriented X 3 , appropriate affect , intact judgment and insight . 9- Lymphatic : no Lymphadenopathy . 10- Musculoskeltal : . exams of the Lumber spine = motor strength lower extremities ,thigh and legs .5/5 deep tendon reflexes : normal Knee Jerk , normal ankle Jerk . lumber facet Loading Test positive strait leg raising test positive at 30 degree , RT ,LT , Fabere test positive RT and positive LT . 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 The patient was counseled about risk of opioid use, psychological risk associated with opioids and was orally counseled to not overuse , divert,or sell dictations to take medications as prescribed only , and to restore medication in safe location , the patient counseled against driving while using narcotic medications , and also not to use alcohol or any illicit recreational drugs, patient's verbalized understanding that the lack of compliance will result in failure to renew narcotic prescription and possible discharge from the clinic - diagnoses, prognosis, and treatment options including but not limited to physical therapy, surgical interventions, interventional therapies , and medication management including narcotics and adjuvant medication were discussed with the patient and all the questions answered Will increase [place] to 10/325 every 6 hours dispensed 120 with one refill , continue Neurontin 300 mg 3 times a day dispensed 90 with 1 refile MAPS reviewed and it was appropriate , UDS done 06/10/2018 reviewed and it was okay PQRS Measure Charge Sheet Measure #130: Documentation of Current Meds in Medical Chart: Patient's medications documented in chart Measure #226: Tobacco Use: Screen & Cessation Intervention: Pt not a tobacco user Measure #111: Pneumonia Vaccination: Pneumococcal vaccine administered or previously received Measure #47: Advance Care Plan: Advance care planning discussed & documented, pt chose/unable to give Measure #412: Opioid Treatment Agreement: Documented signed opioid trtmnt agreemnt min once during opioid trtmnt Measure #408: Opioid Therapy Follow-up Evaluation: Patient had f/u eval minimum every 3 months during opioid therapy Measure #317: Preventitive Care & Scrn High Bld Press & F/U: Normal blood pressure, f/u not required Measure #128: Body Mass Index (BMI) Screening & Follow-up: BMI documented ABOVE normal parameters - f/u documented Measure #131: Pain Assessment & Follow-up: Pain positive & plan documented, Follow-up scheduled Measure #431: Unhealthy Alcohol Use Preventative Care & Scrn: Patient not identified as an unhealthy alcohol user PQRS Narrative: - Controlled Substance Measures Is patient prescribed a controlled substance at discharge?: Yes When asked, does pt state using other controlled substances?: No If prescribed controlled substance>3 days was MAPS reviewed?: Yes If Rx opioid, was Start Talking consent form obtained?: Yes If opioid is for acute pain is fill amount 7 days or less?: No Was information provided regarding opioid addiction?: Yes Objective - Vital Signs Vital signs: Vital Signs Temp Pulse 67 08/05/18 13:45 Resp 16 08/05/18 13:45 BP 135/80 08/05/18 13:45 Pulse Ox 98 08/05/18 13:45 Intake & Output 08/04/18 08/05/18 08/05/18 18:59 06:59 18:59 Weight 113.398 kg
== END ==
LOC: PNWHC3 13:07
PROVIDERS: ATTEND Specialist
DX: G89.29 Other chronic pain (principal); M47.816 Spondylosis without myelopathy or radiculopathy, lumbar region; M46.96 Unspecified inflammatory spondylopathy, lumbar region; M96.1 Postlaminectomy syndrome, not elsewhere classified; Z79.891 Long term (current) use of opiate analgesic; Z79.899 Other long term (current) drug therapy
CPT/HCPCS: 99211

== ENCOUNTER → 2018-09-30 | Outpatient (CLI) | payer MEDICARE, BC ==
[2018-09-30 12:13] VITALS: BP 170/83; PULSE 63; RESP 18
--- NOTE | 2018-09-30 12:22 | P.PN ---
Subjective Progress Note Date: 09/30/18 This is a 64-year-old gentleman with chronic neck and lower back pain status post 4 back surgeries and one cervical fusion. The patient's pain has been relatively controlled with a combination of oral opioids and interventional pain procedures. The patient feels weakness in his right leg that did not improve after his last back surgery which was done about one year ago. The patient denies using any tobacco and denies any history of diabetes. Today, pt denies new-onset weakness, bowel/bladder incontinence, or any other signs or symptoms of cauda equina syndrome. There are no signs of acute intoxication, and no indications of medication diversion or overuse. In addition to above, 13-point review of systems is also negative for chest pain, shortness of breath, changes in vision, changes in hearing, new onset weakness, abdominal pain, diarrhea, extreme fatigue, malaise, fever, skin changes, homicidal or suicidal ideation, or bowel or bladder incontinence. Vital Signs: Reviewed in EMR Gen: AAOx3, NAD HEENT: PERRLA,hearing grossly normal Pulm: resp unlabored,CTA Heart:S1,S2, No Mur The patient has antalgic gait and he uses cane for ambulation Neck: supple, trachea midline Neuro exam of the lower extremities: Decreased but symmetrical muscle strength to 4 out of 5 bilaterally. Hyperreactive knee reflexes bilaterally but absent ankle reflexes bilaterally Straight leg raising test: Negative bilaterally Jordin's test: Range of motion of the lumbar spine: Facet loading test: Tenderness in the paravertebral musculature: In the lumbar paravertebral musculature with well-healed scars from previous previous back surgeries Neuro: CN II-XII grossly intact, Imaging: Reviewed in EMR/chart Assessment: Lumbar and cervical postlaminectomy pain syndrome Opioid dependence Plan: 1. Explanation: Opioid and psychological risk scores were reviewed. Diagnoses, prognoses, and multiple treatment options including but not limited to physical therapy, interventional therapies, adjuvant medical therapies, narcotic medication therapies, and surgery were discussed with the patient and all questions were answered to the patient's satisfaction. 2. Opioid agreement: Signed with the patient and the patient is warned not to use opioids while driving or before driving and not to combine opioids with benzodiazepines or alcohol. 3. Counseling: The patient was counseled extensively on SMOKING CESSATION, BODY MASS INDEX, EXERCISE. Specifically, the patient was instructed regarding the importance of smoking cessation, obesity, and exercise in the context of both chronic pain and overall health. 4. Procedures: None at this point 5. Consultations: None 6. Investigations: None 7. Medications: Continue [place] 10 mg 4 times a day and Neurontin 300 mg 3 times a day 8. Disposition: Return to clinic in 8 weeks 9. Maps were reviewed and were appropriate. PQRS measures: 1-Patient's medications are documented in the chart. 2-Tobacco use is negative, counseling given 3-Patient has had a pneumococcal vaccine. 4-Advanced care planning discussed, patient unable to give 5-Opioid contract signed with the patient. 6-Pain positive, follow-up visit or procedure scheduled 7-Patient's blood pressure measured and documented above normal limits. Patient will follow up with his primary care physician. 8-Patient's weight was measured, and body mass index ABOVE the normal limits, and counseling was done. Patient instructed to follow up with PCP. 9-Patient WAS NOT identified as an unhealthy alcohol user. Controlled Substance Measures Is patient prescribed a controlled substance at discharge?: Yes When asked, does pt state using other controlled substances?: No If prescribed controlled substance>3 days was MAPS reviewed?: Yes If Rx opioid, was Start Talking consent form obtained?: Yes If opioid is for acute pain is fill amount 7 days or less?: No Was information provided regarding opioid addiction?: Yes Objective - Vital Signs Vital signs: Vital Signs Temp Pulse 63 09/30/18 12:05 Resp 18 09/30/18 12:05 BP 170/83 09/30/18 12:05 Pulse Ox 97 09/30/18 12:05 Intake & Output 09/29/18 09/30/18 09/30/18 18:59 06:59 18:59 Weight 111.13 kg
== END | disposition home or self-care (01) ==
LOC: PNWHC3 11:44
PROVIDERS: ATTEND Anesthesiology
DX: G89.29 Other chronic pain (principal); M96.1 Postlaminectomy syndrome, not elsewhere classified; Z98.1 Arthrodesis status; Z98.890 Other specified postprocedural states; Z79.891 Long term (current) use of opiate analgesic
CPT/HCPCS: 99211

== ENCOUNTER → 2018-11-13 | Outpatient (CLI) | payer MEDICARE, BC ==
[2018-11-13 08:54] LABS: Basophils % (A) 0 %; Eosinophils # (A) 0.1 k/uL (0-0.7); Eosinophils % (A) 1 %; HCT 33.4 % (39.0-53.0); HGB 11.2 gm/dL (13.0-17.5); Lymphocytes # (A) 2.2 k/uL (1.0-4.8); Lymphocytes % (A) 30 %; MCH 34.6 pg (25.0-35.0); MCHC 33.6 g/dL (31.0-37.0); Macrocytosis Slight; Mean Platelet Volume 7.9; Monocytes # (A) 0.6 k/uL (0-1.0); Monocytes % (A) 8 %; Neutrophils # (A) 4.3 k/uL (1.3-7.7); Neutrophils % (A) 58 %; Platelet Count 134 k/uL (150-450); RBC 3.24 m/uL (4.30-5.90); RDW 14.2 % (11.5-15.5); WBC 7.3 k/uL (3.8-10.6)
[2018-11-13 12:21] LABS: Erythrocyte Sedimentation Rate 39 mm/hr (0-15)
[2018-11-13 19:08] LABS: ALT 26 U/L (10-49); AST 28 U/L (14-35); C Reactive Protein <0.4 mg/dL (0.0-0.8)
== END | disposition home or self-care (01) ==
LOC: LABWHC1 07:59
PROVIDERS: ATTEND Internal Medicine Rheumatology
DX: M06.9 Rheumatoid arthritis, unspecified (principal)
CPT/HCPCS: 36415; 82565; 84450; 84460; 85025; 85652; 86140

== ENCOUNTER → 2018-11-25 | Outpatient (CLI) | payer MEDICARE, BC ==
[2018-11-25 12:30] VITALS: BP 147/87; PULSE 70; RESP 18
--- NOTE | 2018-11-25 12:47 | P.PN ---
Subjective Progress Note Date: 11/25/18 This is follow-up visit for this patient with a history of severe and chronic low back pain secondary to , lumbar spondylosis with facet arthropathy, post laminectomy pain syndrome lumbar area, October 2017 patient had another fusion surgery, and he continued to have severe low back pain. We have done interventional pain management June 2017 radiofrequency ablation of the medial branch lumbar area, Patients currently on norco 10/325 every 6 hours , Neurontin 300 mg 3 times a day Patient denies any side effects of the medication, denies excessive drowsiness or sleepiness, denies suicidal ideation, and reports that the current pain medication is helping to control the pain , and his currently having flareup of rheumatoid arthritis is having upper and lower extremity pain ,secondary to rheumatoid arthritis Patient denies any motor or sensory deficit , patient denies any fever or night sweats, denies any change in the bowel movements or urination Physical Examinations : 1-Constitutional : Cooperative , not in acute distress . 2-HEENT : nech ; supple , no Lymphadenopathy , no Thyromegaly , normal thyroid size . eyes : no ptosis , no icterus, no photophobia . ENT : normal of hearing , normal oropharynx , no Thrush . 3- Respiratory : Chest clear to auscultations Bilaterally , no wheezing , no Rhonchi . 4- Cardiovascular : regular rate and rhythem , S1 , S2 , no S3 , no S4. 5- Gastrointestinal : abdomen soft no tenderness , bowel sounds positive all four quadrents , no organomegally . 6- Genitourinary : Defferred . 7- neurologic: Cranial nerve II to XII intact , no focal neurological deffecit . 8- Psychatric: alert , oriented X 3 , appropriate affect , intact judgment and insight . 9- Lymphatic : no Lymphadenopathy . 10- Musculoskeltal : . exams of the Lumber spine = motor strength lower extremities ,thigh and legs .5/5 deep tendon reflexes : normal Knee Jerk , normal ankle Jerk . lumber facet Loading Test positive strait leg raising test positive at 30 degree , RT ,LT , Fabere test positive RT and positive LT . 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 The patient was counseled about risk of opioid use, psychological risk associated with opioids and was orally counseled to not overuse , divert,or sell dictations to take medications as prescribed only , and to restore medication in safe location , the patient counseled against driving while using narcotic medications, and also not to use alcohol or any illicit recreational drugs, patient's verbalized understanding that the lack of compliance will result in failure to renew narcotic prescription and possible discharge from the clinic - diagnoses, prognosis, and treatment options including but not limited to physical therapy, surgical interventions, interventional therapies , and medication management including narcotics and adjuvant medication were discussed with the patient and all the questions answered Will increase [place] to 10/325 every 6 hours dispensed 120 with one refill , continue Neurontin 300 mg 3 times a day dispensed 90 with 1 refile MAPS reviewed and it was appropriate . Patient could benefit from caudal epidural steroid injection with lysis of epidural adhesions. - PQRS measures = - Patient's medications are documented in the chart. -Tobacco use is negative and counseling.Given. -Patient's has received pneumococcal vaccine. -Advanced care planning discussed, patient not eligible. -Opiate contract signed. -Pain positive and follow-up visit/procedure is scheduled. -Patient's blood pressure measured [147/87 ] , and documented in the record ,and patient will follow up with the primary care. -Patient's weight was measured and body mass index above the normal limits and counseling was done. and patient instructed to follow-up with the primary care physician. -Patient was not identified as an unhealthy alcohol user - Controlled Substance Measures Is patient prescribed a controlled substance at discharge?: Yes When asked, does pt state using other controlled substances?: No If prescribed controlled substance>3 days was MAPS reviewed?: Yes If Rx opioid, was Start Talking consent form obtained?: Yes If opioid is for acute pain is fill amount 7 days or less?: No Was information provided regarding opioid addiction?: Yes Objective - Vital Signs Vital signs: Vital Signs Temp Pulse 70 11/25/18 12:26 Resp 18 11/25/18 12:26 BP 147/87 11/25/18 12:26 Pulse Ox 98 11/25/18 12:26 Intake & Output 11/24/18 11/25/18 11/25/18 18:59 06:59 18:59 Weight 111.13 kg
== END | disposition home or self-care (01) ==
LOC: PNWHC3 12:20
PROVIDERS: ATTEND Specialist
DX: G89.29 Other chronic pain (principal); M96.1 Postlaminectomy syndrome, not elsewhere classified; M47.816 Spondylosis without myelopathy or radiculopathy, lumbar region; M46.86 Other specified inflammatory spondylopathies, lumbar region; F11.20 Opioid dependence, uncomplicated; Z71.89 Other specified counseling; Z79.899 Other long term (current) drug therapy; Z98.1 Arthrodesis status
CPT/HCPCS: 99211

== ENCOUNTER 2018-12-07 08:52 | Day surgery (SDC) | payer MEDICARE, BC ==
[2018-12-03 11:16] VITALS: BMI 34.2
[2018-12-07] MEDS ORDERED: LACTATED RINGERS 1,000 ML IV ONE (09:14)
[2018-12-07 09:21] VITALS: RESP 18; TEMP 97.4
--- NOTE | 2018-12-07 09:36 | P.PCN ---
Date of Procedure: 12/07/18 Description of Procedure: PREOP DIAGNOSIS: Lumbar postlaminectomy syndrome POSTOP DIAGNOSIS: Lumbar postlaminectomy syndrome PROCEDURE: Caudal epidural steroid injection with epidurolysis and epidurogram under fluoroscopic guidance ANESTHESIA: Local with 1% lidocaine 5 ml ; IV sedation with versed and fentanyl PROCEDURE INDICATION: The patient with post-laminectomy syndrome with low back pain and radiculopathy radiating down in both legs, here for a caudal epidural steroid injection with epidurolysis. PROCEDURE DESCRIPTION: The patient was seen and identified in the preoperative area. Risks, benefits, complications, and alternatives were discussed with the patient. The patient agreed to proceed with the procedure and signed the consent. IV was started, and vital signs were stable. Patient was taken to the OR and time out was completed. The patient was placed in the prone position on procedure table and a pillow was placed under the abdomen to reduce lumbar lordosis. The lumbosacral area was prepped and draped in the usual sterile fashion. Vital signs were closely monitored during the procedure. Lateral view and the anterior-posterior plates of the sacrum were identified with infiltration of the area overlying the sacral hiatus with 1% lidocaine. A 17 gauge epidural needle was used to advance through the sacral hiatus into the caudal epidural space. Omnipaque 180 dye 2cc was injected and the position of the needle was verified to be in the midline. A Racz catheter was introduced into the epidural space and was advanced towards the L5-S1 interspace under direct fluoroscopic guidance. Multiple passes were made with the catheter for lysis of epidural adhesions avoiding parasthesia and significant resistance. After epidurolysis was complete, 2cc of contrast dye was again used to evaluate spread of contrast. Contrast was spreading beyond the original level prior to epidurolysis to the level of L3 and L4 After negative aspiration, I injected a solution consisting of 40mg of Depo- Medrol, 1ml of Preservative free normal saline and 3 ML's of 1% lidocaine for a total of 5ml. Additional spread was seen to L3 under fluoroscopy. The needle and the catheter were withdrawn intact. Epidurogram findings: Omnipaque 180 mg dye 2 ml was injected with spread of the dye into the caudal epidural space and with spread cutoff at L5 prior to epidurolysis mostly on the left side. Post epidurolysis dye 2 ml was injected and spread was seen to L3 bilateral COMPLICATIONS: None. DISPOSITION / PLANS: The patient was placed in a supine position and transferred to the recovery area in a stable condition for observation and was discharged from the recovery room after meeting discharge criteria. Home discharge instructions given to the patient by the staff. The patient was reexamined prior to discharge. The patient will schedule a follow up as directed
[2018-12-07 09:55] VITALS: BP 111/66; PULSE 59
--- NOTE | 2018-12-07 10:04 | FL ---
EXAMINATION TYPE: FL guided pain mgmt statistic DATE OF EXAM: 12/07/2018 CLINICAL HISTORY: Low back pain. TECHNIQUE: Fluoroscopy. COMPARISON: None. FINDINGS: Fluoroscopic guidance was provided during pain relief procedure performed by Dr. Arias . A total of 13 seconds of fluoroscopic time was utilized during the procedure and 3 spot images are acquired. Images acquired shows needle localization of the sacrum and lumbar spine. IMPRESSION: As Above.
== END 2018-12-07 10:05 | disposition home or self-care (01) ==
LOC: ORPAIN 08:52
PROVIDERS: ATTEND Hospitalist
DX: G89.29 Other chronic pain (principal); M96.1 Postlaminectomy syndrome, not elsewhere classified
CPT/HCPCS: 62264; J2250; J1030; J3010; Q9966; 99152

== ENCOUNTER → 2019-01-20 | Outpatient (CLI) | payer MEDICARE, BC ==
[2019-01-20 12:48] VITALS: BP 138/84; PULSE 65; RESP 16
--- NOTE | 2019-01-20 19:06 | P.PAINPG ---
Subjective Progress Note Date: 01/20/19 This is follow-up visit for this patient with a history of severe and chronic low back pain secondary to , lumbar spondylosis with facet arthropathy, post laminectomy pain syndrome lumbar area, and he continued to have severe low back pain, currently he is ambulating using cane, patient had similar episode of falling and he had hard time walking We have done caudal Epidural steroid injection with lysis of epidural adhesions Patients currently on norco 10/325 every 6 hours , Neurontin 300 mg 3 times a day . Patient denies any side effects of the medication, denies excessive drowsiness or sleepiness, denies suicidal ideation, and reports that the current pain medication is helping to control the pain , he reported his pain level increased since the last surgery especially he cannot use his rheumatid arthritis medications Humira (the neurosurgeon doesn't want to start on it until the bone healed completely, and his currently having flareup of rheumatoid arthritis is having upper and lower extremity pain ,secondary to rheumatoid arthritis Patient denies any motor or sensory deficit , patient denies any fever or night sweats, denies any change in the bowel movements or urination Assessment and plan = Chronic low back pain secondary to lumbar spondylosis with facet arthro yelena, status post lumbar fusion surgery lumbar area chronic and current use of high-risk medication (Opioids). The patient was counseled about risk of opioid use, psychological risk as sociated with opioids and was orally counseled to not overuse , divert,or sell dictations to take medications as prescribed only , and to restore medication in safe location , the patient counseled against driving while using narcotic medications, and also not to use alcohol or any illicit recreational drugs, patient's verbalized understanding that the lack of compliance will result in failure to renew narcotic prescription and possible discharge from the clinic - diagnoses, prognosis, and treatment options including but not limited to physical therapy, surgical interventions, interventional therapies , and medication management including narcotics and adjuvant medication were discussed with the patient and all the questions answered Will increase [place] to 10/325 every 6 hours dispensed 120 with one refill , continue Neurontin 300 mg 3 times a day dispensed 90 with 1 refill, and flexor tendon Gram-positive dispensed 60 with 1 refill , patient will follow up with his primary care regarding the cellulitis in his right lower extremity, I explained to the patient that the increase [place] tablets from 90-120 would be temporary until it starts on his rheumatid arthritis medication, then once he started on Humira we can cut back on [place] again MAPS reviewed and it was appropriate , next visit we will do urine drug screen Objective - Vital Signs Vital signs: Vital Signs Temp Pulse 65 01/20/19 12:42 Resp 16 01/20/19 12:42 BP 138/84 01/20/19 12:42 Pulse Ox 97 01/20/19 12:42 Intake & Output 01/19/19 01/20/19 01/20/19 18:59 06:59 18:59 Weight 111.13 kg - Exam Physical Examinations : -Constitutiona : Cooperative , not in acute distress . -HEENT : nech : supple , no Lymphadenopathy , normal thyroid size . eyes : no ptosis , no icterus, no photophobia . - neurologic : Cranial nerve II to XII intact , no focal neurological deffecit . -psychatric : alert , oriented X 3 , appropriate affect , intact judgment and insight . -Lymphatic : no Lymphadenopathy . - musculoskeltal : Lumber spine moter stegnth lower extremities ,thigh and legs 5/5 Right side , 5/5 Left side deep tendon reflexes : normal Knee Jerk , normal ankle Jerk positive lumber facet Loading Test Range of motion of the lumbar spine Flexion 30 degrees, extension 10 degrees strait leg raising test , positive at 30 degree Fabere test positive RT and positive LT . Sever tenderness over the Sacroiliac joint on the R and L sides Assessment and Plan Plan: Assessment and plan = Chronic low back pain secondary to lumbar spondylosis with facet arthropathy, failed back surgery syndrome lumbar area chronic and current use of high-risk medication (Opioids). The patient was counseled about risk of opioid use, psychological risk associated with opioids and was orally counseled to not overuse , divert,or sell dictations to take medications as prescribed only , and to restore medication in safe location , the patient counseled against driving while using narcotic medications, and also not to use alcohol or any illicit recreational drugs, patient's verbalized understanding that the lack of compliance will result in failure to renew narcotic prescription and possible discharge from the clinic - diagnoses, prognosis, and treatment options including but not limited to physical therapy, surgical interventions, interventional therapies , and medication management including narcotics and adjuvant medication were discussed with the patient and all the questions answered Will increase [place] to 10/325 every 6 hours dispensed 120 with one refill , continue Neurontin 300 mg 3 times a day dispensed 90 with 1 refil MAPS reviewed and it was appropriate , Interventions= patient could benefit from repeat caudal epidural steroid injection with lysis of epidural adhesions under fluoroscopy guidance Time with Patient: Less than 30 PQRS Measure Charge Sheet Measure #130: Documentation of Current Meds in Medical Chart: Patient's medications documented in chart Measure #226: Tobacco Use: Screen & Cessation Intervention: Pt not a tobacco us er Measure #111: Pneumonia Vaccination: Pneumococcal vaccine administered or previously received Measure #47: Advance Care Plan: Advance care planning discussed & documented, pt chose/unable to give Measure #412: Opioid Treatment Agreement: Documented signed opioid trtmnt agreemnt min once during opioid trtmnt Measure #408: Opioid Therapy Follow-up Evaluation: Patient had f/u eval minimum every 3 months during opioid therapy Measure #317: Preventitive Care & Scrn High Bld Press & F/U: Normal blood pressure, f/u not required Measure #128: Body Mass Index (BMI) Screening & Follow-up: BMI documented ABOVE normal parameters - f/u documented Measure #131: Pain Assessment & Follow-up: Pain positive & plan documented, Follow-up scheduled Measure #431: Unhealthy Alcohol Use Preventative Care & Scrn: Patient not identified as an unhealthy alcohol user PQRS Narrative: Smoking Status Former smoker Narcotic Agreement Date Signed 11/25/18 Blood Pressure 138/84 Pain Intensity [Bilateral 7 Lower Back] Scale Used Numeric (1 - 10) Hx Alcohol Use (MH) No Home Medications: Ambulatory Orders Timolol 0.5% Ophth Soln [Timoptic 0.5% Ophth Soln] 1 drop BOTH EYES BID 11/12/13 Albuterol Inhaler [Ventolin Hfa Inhaler] 1 - 2 puff INHALATION RT-Q6H PRN 12/22/15 Atorvastatin [Lipitor] 40 mg PO DAILY #90 tab 01/15/17 Metoprolol Tartrate [Lopressor] 25 mg PO DAILY 01/27/17 Losartan-Hctz 50-12.5 mg [Hyzaar 50-12.5] 1 tab PO DAILY 03/17/17 Furosemide [Lasix] 40 mg PO DAILY 08/11/17 Omeprazole [PriLOSEC] 40 mg PO DAILY #30 capsule. 08/11/17 Ondansetron [Zofran ODT] 8 mg PO Q8HR PRN #12 tab 08/11/17 Potassium Chloride [Klor-Con 10] 10 meq PO DAILY 08/11/17 HYDROcodone/APAP 10-325MG [[place] 10-325] 1 tab PO Q6HR PRN 30 Days #120 tab 08/05/18 Tofacitinib Citrate [Xeljanz] 11 mg PO DAILY 11/25/18 Aspirin [Adult Low Dose Aspirin EC] 81 mg PO DAILY 12/07/18 Gabapentin [Neurontin] 400 mg PO 01/20/19 Controlled Substance Measures - Controlled Substance Measures Is patient prescribed a controlled substance at discharge?: Yes When asked, does pt state using other controlled substances?: No If prescribed controlled substance>3 days was MAPS reviewed?: Yes If Rx opioid, was Start Talking consent form obtained?: Yes If opioid is for acute pain is fill amount 7 days or less?: No Was information provided regarding opioid addiction?: Yes
== END | disposition home or self-care (01) ==
LOC: PNWHC3 12:32
PROVIDERS: ATTEND Specialist
DX: G89.29 Other chronic pain (principal); M47.816 Spondylosis without myelopathy or radiculopathy, lumbar region; M46.96 Unspecified inflammatory spondylopathy, lumbar region; M96.1 Postlaminectomy syndrome, not elsewhere classified; Z87.891 Personal history of nicotine dependence; Z98.890 Other specified postprocedural states; Z79.891 Long term (current) use of opiate analgesic; Z79.82 Long term (current) use of aspirin; Z79.899 Other long term (current) drug therapy
CPT/HCPCS: 99211

== ENCOUNTER 2019-02-01 06:08 | Day surgery (SDC) | payer MEDICARE, BC ==
[2019-01-28 10:38] VITALS: BMI 34.2
[2019-02-01 06:38] VITALS: RESP 16; TEMP 97.3
[2019-02-01] MEDS ORDERED: LACTATED RINGERS 1,000 ML IV ONE (06:38)
[2019-02-01] MEDS ORDERED: IV FLUID CONTINUATION 1,000 ML IV ONE (07:25)
[2019-02-01 07:43] VITALS: BP 115/46; PULSE 68
--- NOTE | 2019-02-01 08:03 | P.PCN ---
Date of Procedure: 02/01/19 Procedure(s) Performed: Procedure= caudal epidural steroid injection with lysis of epidural adhesions under fluoroscopy guidance. Preoperative diagnosis=1-failed back surgery syndrome lumbar area. 2 lumbar degenerative disc disease 3-lumbar radiculopathy Postoperative diagnosis= same Fluoroscopy was used for the procedure and fluoroscopic images were saved to the patient's chart Anesthesia= IV sedation with Versed and fentanyl , and local infiltration with lidocaine 1% 3 mL for skin and subcutaneous tissue infiltrations. Description of the procedure= procedure risk and benefits discussed with the patient, including but not limited to risk of infection and bleeding and ALLERGIC reaction to the medication and no complete pain relief, paralysis discussed with the patient and the patient agreed with proceeding. patient taken to the operating room, placed in prone position, standard monitors applied, then after induction of anesthesia the lumbar and the caudal Area prepped with chlorhexidine , then under fluoroscopy guidance, local infiltration of the skin and subcutaneous tissue at the caudal hiatus area, then a 17-gauge Touhy needle advanced slowly under fluoroscopy and passed through the cauda hiatus and advanced to the epidural space up to the S3 level. Aspiration revealed no heme, no paresthesia, no cerebrospinal fluid, then Isovue 200 2mls was injected under live fluoroscopy that showed good spread in the epidural space, no intrathecal spread, then 22 cheryl Racz catheter advanced slowly through the needle up to L5 level, and I was able to break the scar tissue by advancing and withdrawing the catheter multiple times. I was unable to advance it further due to scar tissue. Once lysis of adhesion was completed, a mixture of lidocaine 1% 1 mL +5 mL of preservative-free normal saline +80 mg of depomedrol was mixed together , and injected epidurally through the Racz catheter after negative aspiration. Patient tolerated the procedure well without any complication and will follow up with up in the pain clinic in 4 weeks.
--- NOTE | 2019-02-01 09:59 | FL ---
EXAMINATION TYPE: FL guided pain mgmt statistic DATE OF EXAM: 02/01/2019 HISTORY: Flouroscopy time 9 seconds of fluoroscopy provided. IMPRESSION: 1. Fluoroscopy time.
== END 2019-02-01 08:11 | disposition home or self-care (01) ==
LOC: ORPAIN 06:08
PROVIDERS: ATTEND Anesthesiology
DX: M96.1 Postlaminectomy syndrome, not elsewhere classified (principal); M51.16 Intervertebral disc disorders with radiculopathy, lumbar region; G89.29 Other chronic pain; M47.26 Other spondylosis with radiculopathy, lumbar region; Z79.891 Long term (current) use of opiate analgesic; Z79.899 Other long term (current) drug therapy; Z98.1 Arthrodesis status; Z87.891 Personal history of nicotine dependence; Z79.82 Long term (current) use of aspirin
CPT/HCPCS: 62264; J2250; J1030; J3010; Q9966; C1894; 99152

== ENCOUNTER → 2019-03-02 | Outpatient (CLI) | payer MEDICARE, BC ==
[2019-03-02 13:16] VITALS: BP 157/82; PULSE 66; RESP 16
--- NOTE | 2019-03-02 15:53 | P.PAINPG ---
Subjective Progress Note Date: 03/02/19 Mr. Fernandez is a 63-year-old male with failed back surgery syndrome, who presents for follow-up after a Racz catheter for caudal. He states that he did have significant postprocedural pain, however after a few days she did notice a significant relief in pain specifically in his legs. Thus he was first upset about the procedure but at this time is happier. Of note we did previously increase his opiates, our goal was to decrease it once he went on his biologic for rheumatoid arthritis. He has been put on xeljanz recently. Otherwise no new complaints. He continues to have residual right lower extremity weakness. Objective - Vital Signs Vital signs: Vital Signs Temp Pulse 66 03/02/19 13:11 Resp 16 03/02/19 13:11 BP 157/82 03/02/19 13:11 Pulse Ox 96 03/02/19 13:11 Intake & Output 03/01/19 03/02/19 03/02/19 18:59 06:59 18:59 Weight 111.13 kg - Exam Vital Signs: Reviewed in EMR GENERAL: Well appearing, in no acute distress, PSYCH: Mood and affect is appropriate. Awake, alert, and oriented SKIN: Skin color, texture, turgor normal, no rashes or lesions HEENT: Normocephalic, atraumatic. EOM intact CV: No pedal edema RESP: Respirations are unlabored, no audible wheezing GI: Abdomen non-distended MUSCULOSKELETAL: He does have decreased strength in the right lower extremity. Lumbar spine: Some pain to palpation over the lumbar spine and paraspinous muscles. . Extremities: Peripheral joint ROM is full and pain free without obvious instability or laxity in all four extremities. No edema or skin discolorations noted. Gait: Gait is unsteady NEUR: Bilateral upper and lower extremity coordination and muscle stretch reflexes are physiologic. No loss of sensation is noted. Cranial nerves are grossly intact. Assessment and Plan Assessment: Assessment: 1. Failed back syndrome 2. Lumbar spondylosis 3. Chronic opiate use 4. Rheumatoid arthritis Plan: 1. Explanation: Opioid and psychological risk scores were reviewed. Diagnoses, prognoses, and multiple treatment options including but not limited to physical therapy, interventional therapies, adjuvant medical therapies, narcotic medication therapies, and surgery were discussed with the patient and all questions were answered to the patient's satisfaction. 2. Opioid agreement: In place 3. Counseling: The patient was counseled extensively on BODY MASS INDEX, EXERCISE. Specifically, the patient was instructed regarding the importance of weight control, and exercise in the context of both chronic pain and overall health. 4. Procedures: He will have a repeat caudal injection 3 months from his last caudal. 5. Consultations: None 6. Investigations: None 7. Medications: Since he is now on his biologic medication I reduced his [place] dose from 10/325 QID prn to [place] 10/325 TID prn. Gabapentin was also refilled. 8. Disposition: For medication check in 8 weeks and for his Racz procedure. , PQRS Measure Charge Sheet Measure #47: Advance Care Plan: Advance care planning discussed & documented, pt chose/unable to give Measure #412: Opioid Treatment Agreement: Documented signed opioid trtmnt agreemnt min once during opioid trtmnt Measure #408: Opioid Therapy Follow-up Evaluation: Patient had f/u eval minimum every 3 months during opioid therapy Measure #131: Pain Assessment & Follow-up: Pain positive & plan documented, Follow-up scheduled Measure #431: Unhealthy Alcohol Use Preventative Care & Scrn: Patient not identified as an unhealthy alcohol user PQRS Narrative: Smoking Status Former smoker Narcotic Agreement Date Signed 11/25/18 Blood Pressure 157/82 Pain Intensity [Bilateral 8 Lower Back] Scale Used Numeric (1 - 10) Hx Alcohol Use (MH) No Home Medications: Ambulatory Orders Timolol 0.5% Ophth Soln [Timoptic 0.5% Ophth Soln] 1 drop BOTH EYES BID 11/12/13 Albuterol Inhaler [Ventolin Hfa Inhaler] 1 - 2 puff INHALATION RT-Q6H PRN 12/22/15 Atorvastatin [Lipitor] 40 mg PO DAILY #90 tab 01/15/17 Metoprolol Tartrate [Lopressor] 25 mg PO DAILY 01/27/17 Losartan-Hctz 50-12.5 mg [Hyzaar 50-12.5] 1 tab PO DAILY 03/17/17 Furosemide [Lasix] 40 mg PO DAILY 08/11/17 Omeprazole [PriLOSEC] 40 mg PO DAILY #30 capsule. 08/11/17 Ondansetron [Zofran ODT] 8 mg PO Q8HR PRN #12 tab 08/11/17 Potassium Chloride [Klor-Con 10] 10 meq PO DAILY 08/11/17 Tofacitinib Citrate [Xeljanz] 11 mg PO DAILY 11/25/18 Aspirin [Adult Low Dose Aspirin EC] 81 mg PO DAILY 12/07/18 Gabapentin [Neurontin] 400 mg PO TID #90 cap 03/02/19 HYDROcodone/APAP 10-325MG [[place] 10-325] 1 tab PO Q8HR PRN #90 tab 03/02/19 Controlled Substance Measures - Controlled Substance Measures Is patient prescribed a controlled substance at discharge?: Yes When asked, does pt state using other controlled substances?: No If prescribed controlled substance>3 days was MAPS reviewed?: Yes If Rx opioid, was Start Talking consent form obtained?: Yes If opioid is for acute pain is fill amount 7 days or less?: Yes Was information provided regarding opioid addiction?: Yes
== END | disposition home or self-care (01) ==
LOC: PNWHC3 12:55
PROVIDERS: ATTEND Student in an Organized Health Care Education/Training Program
DX: M96.1 Postlaminectomy syndrome, not elsewhere classified (principal); M47.816 Spondylosis without myelopathy or radiculopathy, lumbar region; F11.20 Opioid dependence, uncomplicated; M06.9 Rheumatoid arthritis, unspecified; Z87.891 Personal history of nicotine dependence; Z79.82 Long term (current) use of aspirin; Z79.899 Other long term (current) drug therapy
CPT/HCPCS: 80307; G0482; G0463; 99211

== ENCOUNTER → 2019-03-20 | Outpatient (CLI) | payer MEDICARE, BC ==
[2019-03-20 08:59] LABS: Basophils # (A) 0.1 k/uL (0-0.2); Basophils % (A) 1 %; Eosinophils # (A) 0.1 k/uL (0-0.7); Eosinophils % (A) 1 %; HCT 33.1 % (39.0-53.0); HGB 10.9 gm/dL (13.0-17.5); Lymphocytes # (A) 2.2 k/uL (1.0-4.8); Lymphocytes % (A) 31 %; MCH 33.4 pg (25.0-35.0); MCV 101.4 fL (80.0-100.0); Macrocytosis Slight; Mean Platelet Volume 8.8; Monocytes # (A) 0.5 k/uL (0-1.0); Monocytes % (A) 7 %; Neutrophils % (A) 58 %; Platelet Count 126 k/uL (150-450); RBC 3.27 m/uL (4.30-5.90); RDW 14.3 % (11.5-15.5); WBC 6.9 k/uL (3.8-10.6)
[2019-03-20 10:49] LABS: Erythrocyte Sedimentation Rate 37 mm/hr (0-15)
[2019-03-20 17:23] LABS: ALT 33 U/L (10-49); AST 30 U/L (14-35); African American GFR (CKD) 105.7 (60.0-200.0); C Reactive Protein <0.4 mg/dL (0.0-0.8); Chol/HDL Ratio 2.79; Cholesterol 109 mg/dL (0-200); LDL Cholesterol,Calculated 50.8 mg/dL (0.0-131.0); Non-African American GFR(CKD) 91.2 (60.0-200.0)
== END | disposition home or self-care (01) ==
LOC: LABWHC1 08:34
PROVIDERS: ATTEND Internal Medicine Rheumatology
DX: E78.5 Hyperlipidemia, unspecified (principal); M06.9 Rheumatoid arthritis, unspecified
CPT/HCPCS: 36415; 80061; 82565; 84450; 84460; 85025; 85652; 86140

== ENCOUNTER → 2019-04-27 | Outpatient (CLI) | payer MEDICARE, BC ==
[2019-04-27 12:37] VITALS: BP 137/89; PULSE 69; RESP 16
--- NOTE | 2019-04-28 10:40 | P.PAINPG ---
Subjective Progress Note Date: 04/27/19 This is follow-up visit for this patient with a history of severe and chronic low back pain secondary to , lumbar spondylosis with facet arthropathy, post laminectomy pain syndrome lumbar area, and he continued to have severe low back pain, We have done caudal Epidural steroid injection with lysis of epidural adhesions Patients currently on norco 10/325 every 8 hours , Neurontin 400 mg 3 times a day .(It was increased last visit from 300 mg TID ) Patient denies any side effects of the medication, denies excessive drowsiness or sleepiness, denies suicidal ideation, and reports that the Neurontin 400 mg, caused him to pimples in his forehead, he reported his pain level increased since the last surgery especially he cannot use his rheumatid arthritis medications Humira (the neurosurgeon doesn't want to start on it until the bone healed completely, and his currently having flareup of rheumatoid arthritis is having upper and lower extremity pain ,secondary to rheumatoid arthritis Patient denies any motor or sensory deficit , patient denies any fever or night sweats, denies any change in the bowel movements or urination Objective - Vital Signs Vital signs: Vital Signs Temp Pulse 69 04/27/19 12:29 Resp 16 04/27/19 12:29 BP 137/89 04/27/19 12:29 Pulse Ox 95 04/27/19 12:29 - Exam Physical Examinations : -Constitutional : Cooperative , not in acute distress . -HEENT : nech ; supple , no Lymphadenopathy , no Thyromegaly , normal thyroid size . eyes : no ptosis , no icterus, no photophobia . ENT : normal of hearing , normal oropharynx , no Thrush . . - neurologic: Cranial nerve II to XII intact , no focal neurological deffecit . - Psychatric: alert , oriented X 3 , appropriate affect , intact judgment and insight . - Lymphatic : no Lymphadenopathy . - Musculoskeltal : . exams of the Lumber spine = motor strength lower extremities ,thigh and legs .5/5 deep tendon reflexes : normal Knee Jerk , normal ankle Jerk . lumber facet Loading Test positive strait leg raising test positive at 30 degree , RT ,LT , Fabere test positive RT and positive LT . Range of motion: Range of motion in flexion of the lumbar spine 30 degrees Range of motion range of motion of extension of the lumbar spine 10 Sever tenderness over the Sacroiliac joint on the Right , and Left side Assessment and Plan Plan: Assessment and plan= chronic low back pain secondary to lumbar postlaminectomy pain syndrome , lumbar spondylosis with lumbar facet arthropathy . chronic and current use of high-risk medication (opioids) Patient denies any side effects of the current pain medication and the current treatment/medication helping the patient to do activity of daily living , Diagnoses, prognosis, treatment options, including but not limited to p hysical therapy, medication management, interventional therapies, and surgery, were discussed with the patient All the questions answered The narcotic consent was signed and patient agreed and understood the side effects and complications of opioid treatment. Patient signed the narcotic agreement, and was orally counseled, not to overuse, not to abuse, not to Divert , not tp sell pain medication, and to take it as prescribed only, Patient was counseled not to drive or operate heavy equipment while using narcotic medication, and advised not to use alcohol or any Illicit drugs while using the narcotis. understanding that lack of compliance with any of the above instructions, will likely to cause discharge from, the pain service, not to renew his narcotic prescriptions MAPS Reviwed and it was apropriate . Medication managements= patient reported that he had side effects from the Neurontin 400 mg he did not feel any significant benefit from, for this reason I will change the dose of Neurontin to 300 mg 3 times a day. Continue [place] 10/325 every 6 hours dispense 120 with one refill. Interventions= patient could benefit from caudal epidural steroid injection with lysis of epidural adhesions under fluoroscopy guidance , Time with Patient: Less than 30 PQRS Measure Charge Sheet Measure #130: Documentation of Current Meds in Medical Chart: Patient's medications documented in chart Measure #226: Tobacco Use: Screen & Cessation Intervention: Pt not a tobacco user Measure #111: Pneumonia Vaccination: Pneumococcal vaccine administered or previously received Measure #47: Advance Care Plan: Advance care planning discussed & documented, pt chose/unable to give Measure #412: Opioid Treatment Agreement: Documented signed opioid trtmnt agr eemnt min once during opioid trtmnt Measure #408: Opioid Therapy Follow-up Evaluation: Patient had f/u eval minimum every 3 months during opioid therapy Measure #317: Preventitive Care & Scrn High Bld Press & F/U: Normal blood pressure, f/u not required Measure #128: Body Mass Index (BMI) Screening & Follow-up: BMI documented ABOVE normal parameters - f/u documented Measure #131: Pain Assessment & Follow-up: Pain positive & plan documented, Follow-up scheduled Measure #431: Unhealthy Alcohol Use Preventative Care & Scrn: Patient not identified as an unhealthy alcohol user PQRS Narrative: Smoking Status Former smoker Narcotic Agreement Date Signed 11/25/18 Blood Pressure 137/89 Pain Intensity [Lower Back] 7 Scale Used Numeric (1 - 10) Hx Alcohol Use (MH) No Home Medications: Ambulatory Orders Timolol 0.5% Ophth Soln [Timoptic 0.5% Ophth Soln] 1 drop BOTH EYES BID 11/12/13 Albuterol Inhaler [Ventolin Hfa Inhaler] 1 - 2 puff INHALATION RT-Q6H PRN 12/22/15 Atorvastatin [Lipitor] 40 mg PO DAILY #90 tab 01/15/17 Metoprolol Tartrate [Lopressor] 25 mg PO DAILY 01/27/17 Losartan-Hctz 50-12.5 mg [Hyzaar 50-12.5] 1 tab PO DAILY 03/17/17 Furosemide [Lasix] 40 mg PO DAILY 08/11/17 Omeprazole [PriLOSEC] 40 mg PO DAILY #30 capsule. 08/11/17 Ondansetron [Zofran ODT] 8 mg PO Q8HR PRN #12 tab 08/11/17 Potassium Chloride [Klor-Con 10] 10 meq PO DAILY 08/11/17 Tofacitinib Citrate [Xeljanz] 11 mg PO DAILY 11/25/18 Aspirin [Adult Low Dose Aspirin EC] 81 mg PO DAILY 12/07/18 Gabapentin [Neurontin] 300 mg PO TID #90 cap 04/27/19 HYDROcodone/APAP 10-325MG [[place] 10-325] 1 tab PO Q6HR PRN #120 tab 04/27/19 HYDROcodone/APAP 10-325MG [[place] 10-325] 1 tab PO Q6HR PRN 30 Days #120 tab 04/27/19 Controlled Substance Measures - Controlled Substance Measures Is patient prescribed a controlled substance at discharge?: Yes When asked, does pt state using other controlled substances?: No If prescribed controlled substance>3 days was MAPS reviewed?: Yes If Rx opioid, was Start Talking consent form obtained?: Yes If opioid is for acute pain is fill amount 7 days or less?: No Was information provided regarding opioid addiction?: Yes
== END ==
LOC: PNWHC3 11:52
PROVIDERS: ATTEND Specialist
DX: G89.29 Other chronic pain (principal); M96.1 Postlaminectomy syndrome, not elsewhere classified; M47.816 Spondylosis without myelopathy or radiculopathy, lumbar region; M46.96 Unspecified inflammatory spondylopathy, lumbar region; Z79.891 Long term (current) use of opiate analgesic; Z87.891 Personal history of nicotine dependence; Z79.899 Other long term (current) drug therapy; Z79.82 Long term (current) use of aspirin
CPT/HCPCS: 99211

== ENCOUNTER 2019-05-10 05:59 | Day surgery (SDC) | payer MEDICARE, BC ==
[2019-05-06 09:57] VITALS: BMI 34.2
[2019-05-10] MEDS ORDERED: LACTATED RINGERS 1,000 ML IV SCH (06:08)
[2019-05-10 07:16] VITALS: TEMP 97.3
[2019-05-10] MEDS ORDERED: LIDOCAINE 1% 20 ML VIAL (10MG/ML) FOR IV START INTRADERMA ONE (07:19)
--- NOTE | 2019-05-10 08:43 | P.PCN ---
Date of Procedure: 05/10/19 Procedure(s) Performed: Procedure= caudal epidural steroid injection with lysis of epidural adhesions under fluoroscopy guidance. Preoperative diagnosis=1-failed back surgery syndrome lumbar area. 2 lumbar degenerative disc disease 3-lumbar radiculopathy Postoperative diagnosis= same Fluoroscopy was used for the procedure and fluoroscopic images were saved to the patient's chart Anesthesia= IV sedation with Versed and fentanyl , and local infiltration with lidocaine 1% 3 mL for skin and subcutaneous tissue infiltrations. Sedation time 13 minutes Description of the procedure= procedure risk and benefits discussed with the patient, including but not limited to risk of infection and bleeding and ALLERGIC reaction to the medication and no complete pain relief, paralysis discussed with the patient and the patient agreed with proceeding. The patient was taken to the operating room, placed in prone position, standard monitors applied, then after induction of anesthesia the lumbar and the caudal Area prepped with chlorhexidine , then under fluoroscopy guidance, local infiltration of the skin and subcutaneous tissue at the caudal hiatus area, then a 17-gauge Touhy needle advanced slowly under fluoroscopy and passed through the caudal hiatus and advanced to the epidural space upto the S3 level. Aspiration revealed no heme, no paresthesia, no cerebrospinal fluid, then Isovue 200 2mls was injected under live fluoroscopy that showed good spread in the epidural space, no intrathecal spread, then a 22 cheryl Racz catheter was advanced slowly through the needle up to the 5 level and I was able to break the scar tissue by advancing and withdrawing the catheter multiple times. Once lysis of adhesion was completed, a mixture of lidocaine 1% 1 mL +5 mL of preservative-free normal saline +80 mg of depomedrol was mixed together , and injected epidurally after negative aspiration. Patient tolerated the procedure well without any complication and will follow up with up in the pain clinic in 4 weeks.
[2019-05-10] MEDS ORDERED: IV FLUID CONTINUATION 1,000 ML IV ONE (08:45)
[2019-05-10 09:02] VITALS: BP 121/71; PULSE 64; RESP 17
--- NOTE | 2019-05-12 10:55 | FL ---
Fluoroscopy HISTORY: Pain 8 seconds fluoroscopy time supplied to the referring clinician. 6 intraoperative C-arm images docume nt the procedure. See dictated report from anesthesia.
== END 2019-05-10 09:15 | disposition home or self-care (01) ==
LOC: ORPAIN 05:59
PROVIDERS: ATTEND Anesthesiology
DX: G89.29 Other chronic pain (principal); M96.1 Postlaminectomy syndrome, not elsewhere classified; M51.16 Intervertebral disc disorders with radiculopathy, lumbar region; M47.896 Other spondylosis, lumbar region; Z87.891 Personal history of nicotine dependence; Z79.82 Long term (current) use of aspirin; Z79.899 Other long term (current) drug therapy
CPT/HCPCS: 62264; J2250; J1030; J3010; Q9966; 99152

== ENCOUNTER 2019-06-14 20:27 | Observation (INO) | payer MEDICARE, BC ==
--- NOTE | 2019-06-14 21:13 | ED ---
Skin/Abscess/FB HPI - General Chief complaint: Skin/Abscess/Foreign Body Stated complaint: infection Time Seen by Provider: 06/14/19 21:02 Source: patient, RN notes reviewed, old records reviewed Mode of arrival: ambulatory Limitations: no limitations - History of Present Illness Initial comments: this is a 63-year-old male here for evaluation of significant rash rest uneffaced rash on body worsening rash history of arthritis and anemia modifiers unsure cause of breath and progressive and worsening is his family doctor with no significant improvement in symptoms. Patient is also not fever. No other complaints. No pain or shortness of breath no nausea vomiting or diarrhea. MD complaint: rash -: hour(s) Tetanus Up to Date: yes Location: head, face Severity: moderate Severity scale (1-10): 7 Consistency: constant Improves with: none Worsens with: none Context: none Associated symptoms: fever, chills, rigors Treatments Prior to Arrival: none - Related Data Home Medications Medication Instructions Recorded Confirmed Timolol 0.5% Ophth Soln [Timoptic 1 drop BOTH EYES BID 11/12/13 06/21/19 0.5% Ophth Soln] Albuterol Inhaler [Ventolin Hfa 1 - 2 puff INHALATION RT-Q6H PRN 12/22/15 06/21/19 Inhaler] Potassium Chloride [Klor-Con 10] 10 meq PO DAILY 08/11/17 06/21/19 Aspirin [Adult Low Dose Aspirin EC] 81 mg PO DAILY 12/07/18 06/21/19 Cyclobenzaprine [Flexeril] 10 mg PO BID PRN 06/14/19 06/21/19 Folic Acid 1 mg PO DAILY 06/14/19 06/21/19 Furosemide [Lasix] 40 mg PO DAILY 06/14/19 06/21/19 Hydrochlorothiazide 12.5 mg PO DAILY 06/14/19 06/21/19 Losartan Potassium 50 mg PO DAILY 06/14/19 06/21/19 Magnesium Oxide 400 mg PO DAILY 06/14/19 06/21/19 Methotrexate Sodium [Methotrexate] 12.5 mg PO MO 06/14/19 06/21/19 valACYclovir HCL [Valacyclovir] 1 gm PO DAILY 06/17/19 06/21/19 HYDROcodone/APAP 10-325MG [[place] 1 tab PO Q8H PRN 06/21/19 06/21/19 [id number]] Previous Rx's Medication Instructions Recorded Atorvastatin [Lipitor] 40 mg PO DAILY #90 tab 01/15/17 Gabapentin [Neurontin] 300 mg PO TID #90 cap 04/27/19 Allergies Allergy/AdvReac Type Severity Reaction Status Date / Time cephalexin monohydrate Allergy Rash/Hives Verified 06/21/19 13:30 [From Keflex] Review of Systems ROS Statement: Those systems with pertinent positive or pertinent negative responses have been documented in the HPI. ROS Other: All systems not noted in ROS Statement are negative. Past Medical History Past Medical History: Rheumatoid Arthritis (RA) Additional Past Medical History / Comment(s): GLAUCOMA, BLE, ALSO HAS OPEN SORES TO [facility]LE-[facility] AWARE ON 01/20/19 History of Any Multi-Drug Resistant Organisms: None Reported Past Surgical History: Appendectomy, Back Surgery, Cholecystectomy, Orthopedic Surgery Additional Past Surgical History / Comment(s): RT ROTATOR CUFF/DISC SURG X3/JEMIMA NIUM PLATE IN NECK /left rotator cuff repair may 2015-fusion of S1-4 10/2017, PAIN CLINIC PROCEDURE Past Anesthesia/Blood Transfusion Reactions: No Reported Reaction Past Psychological History: No Psychological Hx Reported Smoking Status: Former smoker Past Alcohol Use History: None Reported Past Drug Use History: None Reported - Past Family History Mother Family Medical History: No Reported History Father Family Medical History: Coronary Artery Disease (CAD) Additional Family Medical History / Comment(s): FATHER HAD 3 VESSEL CABG-HAD POST OP INFECTION AND PNEUMONIA AND AT THE AGE OF 80YRS. General Exam Limitations: no limitations General appearance: alert, in no apparent distress Head exam: Present: atraumatic, normocephalic, normal inspection Eye exam: Present: normal appearance, PERRL, EOMI. Absent: scleral icterus, conjunctival injection, periorbital swelling ENT exam: Present: normal exam, mucous membranes moist Neck exam: Present: normal inspection. Absent: tenderness, meningismus, lymphadenopathy Respiratory exam: Present: normal lung sounds bilaterally. Absent: respiratory distress, wheezes, rales, rhonchi, stridor Cardiovascular Exam: Present: regular rate, normal rhythm, normal heart sounds. Absent: systolic murmur, diastolic murmur, rubs, gallop, clicks GI/Abdominal exam: Present: soft, normal bowel sounds. Absent: distended, tenderness, guarding, rebound, rigid Extremities exam: Present: normal inspection, full ROM, normal capillary refill. Absent: tenderness, pedal edema, joint swelling, calf tenderness Back exam: Present: normal inspection Neurological exam: Present: alert, oriented X3, CN II-XII intact Psychiatric exam: Present: normal affect, normal mood Skin exam: Present: warm, dry, intact, normal color, other (facial rash erythema redness maculopapular rash). Absent: rash Course Vital Signs 06/14/19 06/14/19 06/14/19 20:31 22:52 23:24 Temperature 98.7 F 100.2 F H Pulse Rate 89 83 87 Respiratory 16 18 16 Rate Blood Pressure 176/83 176/98 176/98 O2 Sat by Pulse 95 96 95 Oximetry - Consultations Consultation #1: spoke with Dr. Liao is aware of patient's rash and condition, will admit for observation Medical Decision Making - Medical Decision Making C63 male with rash that has failed as got outpatient treatment will admit for further evaluation. Possible further testing of rash causes - Lab Data Result diagrams: 06/14/19 22:10 06/16/19 05:36 Lab Results 06/14/19 06/14/19 Range/Units 22:10 22:10 WBC 3.5 L (3.8-10.6) k/uL RBC 3.42 L (4.30-5.90) m/uL Hgb 11.9 L (13.0-17.5) gm/dL Hct 33.5 L (39.0-53.0) % MCV 98.0 (80.0-100.0) fL MCH 34.7 (25.0-35.0) pg MCHC 35.4 (31.0-37.0) g/dL RDW 13.5 (11.5-15.5) % Plt Count 82 L (150-450) k/uL Neutrophils % (Manual) 38 % Band Neutrophils % 1 % Lymphocytes % (Manual) 47 % Monocytes % (Manual) 14 % Neutrophils # (Manual) 1.30 (1.3-7.7) k/uL Lymphocytes # (Manual) 1.65 (1.0-4.8) k/uL Monocytes # (Manual) 0.49 (0-1.0) k/uL Nucleated RBCs 0 (0-0) /100 WBC Manual Slide Review Performed Poikilocytosis Slight Sodium 135 L (137-145) mmol/L Potassium 3.5 (3.5-5.1) mmol/L Chloride 96 L (98-107) mmol/L Carbon Dioxide 30 (22-30) mmol/L Anion Gap 9 mmol/L BUN 19 (9-20) mg/dL Creatinine 0.78 (0.66-1.25) mg/dL Est GFR (CKD-EPI)AfAm >90 (>60 ml/min/1.73 sqM) Est GFR (CKD-EPI)NonAf >90 (>60 ml/min/1.73 sqM) Glucose 104 H (74-99) mg/dL Calcium 8.9 (8.4-10.2) mg/dL Phosphorus 3.8 (2.5-4.5) mg/dL Magnesium 1.8 (1.6-2.3) mg/dL Total Bilirubin 1.2 (0.2-1.3) mg/dL AST 54 (17-59) U/L ALT 50 (21-72) U/L Alkaline Phosphatase 108 (38-126) U/L Total Protein 8.2 (6.3-8.2) g/dL Albumin 4.5 (3.5-5.0) g/dL Disposition Clinical Impression: Fever, Rash, Cellulitis Disposition: ADMITTED IP TO THIS [facility] Condition: Stable Is patient prescribed a controlled substance at d/c from ED?: No
[2019-06-14] MEDS ORDERED: DEXAMETHASONE SOD PHOSPHATE 10 MG/ML 1 ML VIAL IV STA (21:30)
[2019-06-14] MEDS ORDERED: SODIUM CHLORIDE 0.9% 500 ML 500 ML IV STA (21:30)
[2019-06-14] MEDS ORDERED: SODIUM CHLORIDE 0.9% 1,000 ML IV STA (21:30)
[2019-06-14] MEDS ORDERED: FAMOTIDINE 20 MG/2 ML VIAL IV STA (21:30)
[2019-06-14 22:26] LABS: HCT 33.5 % (39.0-53.0); HGB 11.9 gm/dL (13.0-17.5); MCH 34.7 pg (25.0-35.0); MCHC 35.4 g/dL (31.0-37.0); Mean Platelet Volume 8.1; Poikilocytosis Slight; RBC 3.42 m/uL (4.30-5.90); RDW 13.5 % (11.5-15.5); WBC 3.5 k/uL (3.8-10.6)
[2019-06-14 22:36] LABS: ALT 50 U/L (21-72); AST 54 U/L (17-59); African American GFR (CKD) >90 (>60 ml/min/1.73 sqM); Albumin 4.5 g/dL (3.5-5.0); Alkaline Phosphatase 108 U/L (38-126); Anion Gap 9 mmol/L; Blood Urea Nitrogen 19 mg/dL (9-20); Calcium 8.9 mg/dL (8.4-10.2); Carbon Dioxide 30 mmol/L (22-30); Chloride 96 mmol/L (98-107); Glucose 104 mg/dL (74-99); Magnesium 1.8 mg/dL (1.6-2.3); Non-African American GFR(CKD) >90 (>60 ml/min/1.73 sqM); Phosphorus 3.8 mg/dL (2.5-4.5); Potassium 3.5 mmol/L (3.5-5.1); Sodium 135 mmol/L (137-145); Total Bilirubin 1.2 mg/dL (0.2-1.3); Total Protein 8.2 g/dL (6.3-8.2)
[2019-06-14 22:49] LABS: Band Neutrophils % 1 %; Lymphocytes # (M) 1.65 k/uL (1.0-4.8); Monocytes # (M) 0.49 k/uL (0-1.0); Neutrophils % (M) 38 %; Nucleated Red Blood Cells 0 /100 WBC (0-0); Total Cells Counted 100
[2019-06-14 22:50] LABS: Platelet Count 82 k/uL (150-450)
[2019-06-14] MEDS ORDERED: VANCOMYCIN IV PER PHARMACY 1 EACH MISC MISCELLANE PRN (23:04)
[2019-06-14] MEDS ORDERED: AMPICILLIN-SULBACTAM 3 GM in SODIUM CHLORIDE 0.9% 100 ML IVPB STA (23:04)
[2019-06-15] MEDS ORDERED: VANCOMYCIN 2,000 MG in SODIUM CHLORIDE 0.9% 500 ML 500 ML IVPB ONE ×2
[2019-06-15] MEDS ORDERED: ALBUTEROL NEBULIZED 2.5 MG/3 ML INHALATION PRN (00:24)
[2019-06-15] MEDS ORDERED: CYCLOBENZAPRINE 10 MG TAB PO PRN (00:24)
[2019-06-15] MEDS: HYDROcodone/APAP 10-325MG 1 EACH TAB PO PRN ×4 (00:39→18:52)
[2019-06-15] MEDS: AMPICILLIN-SULBACTAM 3 GM in SODIUM CHLORIDE 0.9% 100 ML IVPB SCH ×2 (09:06→15:45)
[2019-06-15] MEDS: FOLIC ACID 1 MG TAB PO SCH (09:07)
[2019-06-15] MEDS: HYDROCHLOROTHIAZIDE 12.5 MG CAP PO SCH (09:07)
[2019-06-15] MEDS: ATORVASTATIN 40 MG TAB PO SCH (09:07)
[2019-06-15] MEDS: LOSARTAN 50 MG TAB PO SCH (09:07)
[2019-06-15] MEDS: FUROSEMIDE 40 MG TAB PO SCH (09:07)
[2019-06-15] MEDS: GABAPENTIN 300 MG CAP PO SCH ×3 (09:07→21:06)
[2019-06-15] MEDS: POTASSIUM CHLORIDE ER 10 MEQ TAB.ER.PRT PO SCH (09:07)
[2019-06-15] MEDS: MAGNESIUM OXIDE 400 MG TAB PO SCH (09:07)
[2019-06-15] MEDS: ASPIRIN 81 MG PO SCH (09:07)
[2019-06-15] MEDS: TIMOLOL 0.5% OPHTH DROPS 5 ML BTL BOTH EYES SCH ×2 (09:07→21:01)
[2019-06-15] MEDS: valACYclovir 500 MG TAB PO SCH ×2 (11:05→17:38)
[2019-06-15] MEDS: VANCOMYCIN 2,000 MG in SODIUM CHLORIDE 0.9% 500 ML 500 ML IVPB SCH ×2 (12:14→23:08)
[2019-06-15] MEDS: TOFACITINIB CITRATE 10 MG PO SCH (15:10)
[2019-06-16] MEDS: HYDROcodone/APAP 10-325MG 1 EACH TAB PO PRN ×4 (00:18→17:59)
[2019-06-16] MEDS: valACYclovir 500 MG TAB PO SCH ×2 (02:11→08:38)
[2019-06-16] MEDS: AMPICILLIN-SULBACTAM 3 GM in SODIUM CHLORIDE 0.9% 100 ML IVPB SCH ×3 (02:12→17:07)
[2019-06-16 06:23] LABS: African American GFR (CKD) >90 (>60 ml/min/1.73 sqM); Non-African American GFR(CKD) >90 (>60 ml/min/1.73 sqM)
[2019-06-16] MEDS: MAGNESIUM OXIDE 400 MG TAB PO SCH (08:38)
[2019-06-16] MEDS: POTASSIUM CHLORIDE ER 10 MEQ TAB.ER.PRT PO SCH (08:38)
[2019-06-16] MEDS: HYDROCHLOROTHIAZIDE 12.5 MG CAP PO SCH (08:38)
[2019-06-16] MEDS: ATORVASTATIN 40 MG TAB PO SCH (08:38)
[2019-06-16] MEDS: FUROSEMIDE 40 MG TAB PO SCH (08:38)
[2019-06-16] MEDS: GABAPENTIN 300 MG CAP PO SCH ×2 (08:38→17:09)
[2019-06-16] MEDS: FOLIC ACID 1 MG TAB PO SCH (08:38)
[2019-06-16] MEDS: ASPIRIN 81 MG PO SCH (08:38)
[2019-06-16] MEDS: LOSARTAN 50 MG TAB PO SCH (08:38)
[2019-06-16] MEDS: TIMOLOL 0.5% OPHTH DROPS 5 ML BTL BOTH EYES SCH (08:39)
[2019-06-16] MEDS: TOFACITINIB CITRATE 10 MG PO SCH (12:01)
[2019-06-16] MEDS: VANCOMYCIN 2,000 MG in SODIUM CHLORIDE 0.9% 500 ML 500 ML IVPB SCH (12:15)
--- NOTE | 2019-06-16 14:34 | P.DS ---
Providers Date of admission: 06/14/19 23:03 Expected date of discharge: 06/16/19 Attending physician: Noel Liao Consults: 06/14/19 23:03 Consult Physician Routine Consulting Provider: Tameka Day Consult Reason/Comments: skin lesion Do you want consulting provider notified?: Yes Primary care physician: Noel Liao [facility] Hospital Course: Final Diagnoses: Acute cellulitis, possible shingles, pending dermatology evaluation. Please obtain specifics and full list of final diagnoses from H&P. Patient Condition at Discharge: Stable Plan - Discharge Summary Discharge Rx Participant: Yes New Discharge Prescriptions: Continue Timolol 0.5% Ophth Soln [Timoptic 0.5% Ophth Soln] 1 drop BOTH EYES BID Albuterol Inhaler [Ventolin Hfa Inhaler] 1 - 2 puff INHALATION RT-Q6H PRN PRN Reason: Shortness Of Breath Atorvastatin [Lipitor] 40 mg PO DAILY #90 tab Potassium Chloride [Klor-Con 10] 10 meq PO DAILY Tofacitinib Citrate [Xeljanz] 10 mg PO DAILY Aspirin [Adult Low Dose Aspirin EC] 81 mg PO DAILY Gabapentin [Neurontin] 300 mg PO TID #90 cap HYDROcodone/APAP 10-325MG [[place] 10-325] 1 tab PO Q6HR PRN #120 tab PRN Reason: Pain Hydrochlorothiazide 12.5 mg PO DAILY Methotrexate Sodium [Methotrexate] 12.5 mg PO MO Losartan Potassium 50 mg PO DAILY Folic Acid 1 mg PO DAILY Magnesium Oxide 400 mg PO DAILY Furosemide [Lasix] 40 mg PO DAILY Cyclobenzaprine [Flexeril] 10 mg PO BID PRN PRN Reason: Muscle Spasm Discontinued Amoxicillin 500 mg PO TID Discharge Medication List Timolol 0.5% Ophth Soln [Timoptic 0.5% Ophth Soln] 1 drop BOTH EYES BID 11/12/13 [History] Albuterol Inhaler [Ventolin Hfa Inhaler] 1 - 2 puff INHALATION RT-Q6H PRN 12/22/15 [History] Atorvastatin [Lipitor] 40 mg PO DAILY #90 tab 01/15/17 [Rx] Potassium Chloride [Klor-Con 10] 10 meq PO DAILY 08/11/17 [History] Tofacitinib Citrate [Xeljanz] 10 mg PO DAILY 11/25/18 [History] Aspirin [Adult Low Dose Aspirin EC] 81 mg PO DAILY 12/07/18 [History] Gabapentin [Neurontin] 300 mg PO TID #90 cap 04/27/19 [Rx] HYDROcodone/APAP 10-325MG [[place] 10-325] 1 tab PO Q6HR PRN #120 tab 04/27/19 [Rx] Cyclobenzaprine [Flexeril] 10 mg PO BID PRN 06/14/19 [History] Folic Acid 1 mg PO DAILY 06/14/19 [History] Furosemide [Lasix] 40 mg PO DAILY 06/14/19 [History] Hydrochlorothiazide 12.5 mg PO DAILY 06/14/19 [History] Losartan Potassium 50 mg PO DAILY 06/14/19 [History] Magnesium Oxide 400 mg PO DAILY 06/14/19 [History] Methotrexate Sodium [Methotrexate] 12.5 mg PO MO 06/14/19 [History] Follow up Appointment(s)/Referral(s): Kimmy Day MD [STAFF PHYSICIAN] - 1 Week Noel Liao DO [Primary Care Provider] - 3 Days Activity/Diet/Wound Care/Special Instructions: Pending Final DC recommendations including Antibiotics, and clearance from dermatology.
[2019-06-16 15:47] VITALS: BP 118/57; PULSE 88; RESP 19; TEMP 97.6
--- NOTE | 2019-06-16 15:47 | P.HPIM ---
History of Present Illness H&P Date: 06/16/19 This a pleasant 63-year-old white male who was admitted to the hospital emergency department with acute rash mostly confined to his face and left side of the scalp. Patient has known rheumatoid arthritis who is taken multiple immune modification medications in the past 10 years. He states he's never had a rash like this before since his shingles that he had a few years prior on the right side of his head. Condition feels similar to that. He admits to itching erythema and denies any fever. He denies any nausea vomiting diarrhea constipation. Past Medical History Past Medical History: Rheumatoid Arthritis (RA) Additional Past Medical History / Comment(s): GLAUCOMA, BLE, ALSO HAS OPEN SORES TO [facility] AWARE ON 01/20/19. bumps on back of head, taking antibiotics History of Any Multi-Drug Resistant Organisms: None Reported Past Surgical History: Appendectomy, Back Surgery, Cholecystectomy, Orthopedic Surgery Additional Past Surgical History / Comment(s): RT ROTATOR CUFF/DISC SURG X3/TITANIUM PLATE IN NECK /left rotator cuff repair may 2015-fusion of S1-4 10/2017, PAIN CLINIC PROCEDURE Past Anesthesia/Blood Transfusion Reactions: No Reported Reaction Past Psychological History: No Psychological Hx Reported Additional Psychological History / Comment(s): PT RESIDES WITH HIS SPOUSE. HE HAS A CANE AND MOTORIZED SCOOTER. HE DRIVES. Smoking Status: Former smoker Past Alcohol Use History: None Reported Additional Past Alcohol Use History / Comment(s): STARTED SMOKING AT AGE 17 QUIT AT AGE 20 SMOKED 1/2PPD Past Drug Use History: None Reported - Past Family History Mother Family Medical History: No Reported History Father Family Medical History: Coronary Artery Disease (CAD) Additional Family Medical History / Comment(s): FATHER HAD 3 VESSEL CABG-HAD POST OP INFECTION AND PNEUMONIA AND AT THE AGE OF 80YRS. Medications and Allergies Home Medications Medication Instructions Recorded Confirmed Type Timolol 0.5% Ophth Soln [Timoptic 1 drop BOTH EYES BID 11/12/13 06/14/19 History 0.5% Ophth Soln] Albuterol Inhaler [Ventolin Hfa 1 - 2 puff INHALATION RT-Q6H PRN 12/22/15 History Inhaler] Atorvastatin [Lipitor] 40 mg PO DAILY #90 tab 01/15/17 06/14/19 Rx Potassium Chloride [Klor-Con 10] 10 meq PO DAILY 08/11/17 06/14/19 History Tofacitinib Citrate [Xeljanz] 10 mg PO DAILY 11/25/18 06/14/19 History Aspirin [Adult Low Dose Aspirin EC] 81 mg PO DAILY 12/07/18 06/14/19 History Gabapentin [Neurontin] 300 mg PO TID #90 cap 04/27/19 06/14/19 Rx HYDROcodone/APAP 10-325MG [[place] 1 tab PO Q6HR PRN #120 tab 04/27/19 06/14/19 Rx 10-325] Cyclobenzaprine [Flexeril] 10 mg PO BID PRN 06/14/19 06/14/19 History Folic Acid 1 mg PO DAILY 06/14/19 06/14/19 History Furosemide [Lasix] 40 mg PO DAILY 06/14/19 06/14/19 History Hydrochlorothiazide 12.5 mg PO DAILY 06/14/19 06/14/19 History Losartan Potassium 50 mg PO DAILY 06/14/19 06/14/19 History Magnesium Oxide 400 mg PO DAILY 06/14/19 06/14/19 History Methotrexate Sodium [Methotrexate] 12.5 mg PO MO 06/14/19 06/14/19 History Allergies Allergy/AdvReac Type Severity Reaction Status Date / Time cephalexin monohydrate Allergy Rash/Hives Verified 06/14/19 23:04 [From Keflex] Physical Exam Osteopathic Statement: *. No significant issues noted on an osteopathic structural exam other than those noted in the History and Physical/Consult. Vitals: Vital Signs Temp Pulse Resp BP Pulse Ox 06/16/19 08:00 98 F 69 18 125/76 96 06/16/19 03:35 70 16 06/16/19 00:00 98.1 F 70 16 109/59 98 06/15/19 23:20 70 16 06/15/19 19:43 98 F 68 18 125/62 95 06/15/19 19:25 68 18 06/15/19 18:54 98.0 F 67 16 126/76 98 06/15/19 16:13 18 06/15/19 15:46 97.7 F 69 18 112/59 94 L Intake and Output 06/15/19 06/16/19 06/16/19 22:59 06:59 14:59 Output Total 2 Balance -2 Output: Urine 2 Other: Voiding Method Toilet Toilet Toilet # Voids 1 1 1 GENERAL: This is a -63 year old in no apparent distress at the time of examination. Pleasant and cooperative. HEENT: Head is atraumatic, normocephalic. Pupils are equal, round, and reactive to light. Sclerae anicteric. Conjunctivae are clear. Mucus membranes of the mouth are moist. Neck is supple. RESPIRATORY: Clear to auscultation. No wheezes, rales, or rhonchi. No use of accessory muscles. Patient maintaining oxygen saturation greater than 92%. No chest wall tenderness is noted on palpation or with deep breathing. CARDIOVASCULAR: Regular rate and rhythm. S1 and S2 noted. No systolic or diastolic murmur auscultated. No JVD noted. No S3 or S4 noted. GASTROINTESTINAL: No distention noted. Abdomen soft and round. Normal active bowel sounds auscultated x 4 quadrants. No pain or tenderness noted upon palpation. INTEGUMENTARY: No cyanosis. No jaundice.multiple rashes noted particular on his left scalp parietal area with excoriation blistering rash consistent with shingles herpetic type rash. He also has rash with macular lesions on his face in anterior neck. No cellulitis noted. EXTREMITIES: 2+ peripheral pulses. No evidence of peripheral edema. No calf tenderness noted. NEUROLOGIC: Cranial nerves II-XII intact. PSYCHIATRIC: Awake, alert, and oriented X 3. Appropriate affect. Intact judgement and insight. Results CBC & Chem 7: 06/14/19 22:10 06/16/19 05:36 Labs: Abnormal Lab Results - Last 24 Hours (Table) 06/16/19 Range/Units 05:36 Creatinine 0.65 L (0.66-1.25) mg/dL Microbiology - Last 24 Hours (Table) 06/14/19 22:10 Blood Culture - Preliminary Blood No Growth after 24 hours Thrombosis Risk Factor Assmnt - Choose All That Apply Any of the Below Risk Factors Present?: Yes Each Factor Represents 1 point: Obesity (BMI >25) Other Risk Factors: Yes Each Risk Factor Represents 2 Points: Age 61-74 years Thrombosis Risk Factor Assessment Total Risk Factor Score: 3 Thrombosis Risk Factor Assessment Level: Moderate Risk Assessment and Plan (1) Cellulitis Current Visit: Yes Status: Acute Code(s): L03.90 - CELLULITIS, UNSPECIFIED SNOMED Code(s): 014587997 (2) Fever Current Visit: Yes Status: Acute Code(s): R50.9 - FEVER, UNSPECIFIED SNOMED Code(s): 957325549 (3) Rash Current Visit: Yes Status: Acute Code(s): R21 - RASH AND OTHER NONSPECIFIC SKIN ERUPTION SNOMED Code(s): 788067790 (4) Shingles Current Visit: Yes Status: Acute Code(s): B02.9 - ZOSTER WITHOUT COMPLICATIONS SNOMED Code(s): 8042601 Plan: Plan is to continue medications were added Valtrex 1 g every 8 hours to already 2 IVs for staph protection. We'll hydrate patient will continue to follow patient's rash and asked dermatology for consultation. End
--- NOTE | 2019-06-16 21:52 | CONS ---
CONSULTATION Thank you for asking me to evaluate your patient. He is a 63-year-old male admitted for a rash on the left side of the face and neck and scalp, which we were consulted to evaluate. Patient states the rash has been present for 4 days. He states it is painful at times. The patient states he takes Scotia for back pain and states that the Scotia has helped with the discomfort from the rash. The patient also states he is on methotrexate and Xeljanz and is immunocompromised due to this. PAST MEDICAL HISTORY: Rheumatoid arthritis and glaucoma. PAST SURGICAL HISTORY: Appendectomy, cholecystectomy, multiple orthopedic surgeries. FAMILY MEDICAL HISTORY: Noncontributory. SOCIAL: Former smoker. MEDICATIONS: See chart. ALLERGIES: KEFLEX. PHYSICAL EXAMINATION: On examination, there are multiple erythematous, intact vesicles and crusted papules on the left side of the scalp, a few on the left side of the face, multiple on the left side of the neck, and one papule present on the tip of the nose. ASSESSMENT AND PLAN: DIAGNOSIS: Herpes zoster. TREATMENT: 1. Valtrex 1 gram tablets. Take one pill 3 times a day for 7 days. 2. Fluocinonide ointment. Apply b.i.d. to affected areas on neck. 3. Clobetasol solution. Apply to scalp at bedtime. 4. Due to lesion on nose and positive Mejia's sign, we do recommend an ophthalmology consult. 5. Advised the patient to follow up in our office on 06/18/2019 for a B12 injection. If you have any questions, please call our office at . MMODL / IJN: [id number] /
[2019-06-16] MEDS ORDERED: VANCOMYCIN TROUGH DUE 1 EACH MISC MISCELLANE ONE (23:00)
[2019-06-21] MEDS ORDERED: METHOTREXATE SODIUM 2.5 MG TAB PO SCH (09:00)
== END 2019-06-16 18:32 | disposition home or self-care (01) ==
LOC: EC 20:27 → 1SOBS 23:03
PROVIDERS: ADMIT Family Medicine; ATTEND Family Medicine
DX: B02.9 Zoster without complications (principal); M19.90 Unspecified osteoarthritis, unspecified site; D64.9 Anemia, unspecified; M06.9 Rheumatoid arthritis, unspecified; H40.9 Unspecified glaucoma; M54.9 Dorsalgia, unspecified; E66.9 Obesity, unspecified; Z68.35 Body mass index [BMI] 35.0-35.9, adult; Z79.899 Other long term (current) drug therapy; Z79.82 Long term (current) use of aspirin; Z79.891 Long term (current) use of opiate analgesic; Z88.1 Allergy status to other antibiotic agents; Z90.49 Acquired absence of other specified parts of digestive tract; Z98.890 Other specified postprocedural states; Z87.39 Personal history of other diseases of the musculoskeletal system and connective tissue; Z98.1 Arthrodesis status; Z87.891 Personal history of nicotine dependence; Z86.19 Personal history of other infectious and parasitic diseases; Z82.49 Family history of ischemic heart disease and other diseases of the circulatory system; Z83.1 Family history of other infectious and parasitic diseases; Z82.5 Family history of asthma and other chronic lower respiratory diseases
CPT/HCPCS: 96361 ×2; 96366 ×2; 96367; 96365; 96375; 99284; 36415; 80053; 82565; 83735; 84100; 85025; 87040; G0378 ×3; J3370 ×2; J1100; J0295 ×3; 84450; 84460; 85652; 86140

== ENCOUNTER → 2019-06-14 | Outpatient (CLI) | payer MEDICARE, BC ==
[2019-06-14 08:51] LABS: HCT 33.8 % (39.0-53.0); HGB 11.9 gm/dL (13.0-17.5); MCH 35.3 pg (25.0-35.0); MCHC 35.3 g/dL (31.0-37.0); Mean Platelet Volume 7.4; Poikilocytosis Slight; RBC 3.38 m/uL (4.30-5.90); RDW 13.9 % (11.5-15.5); WBC 3.9 k/uL (3.8-10.6)
[2019-06-14 09:39] LABS: Erythrocyte Sedimentation Rate 31 mm/hr (0-15)
[2019-06-14 10:22] LABS: Lymphocytes # (M) 0.51 k/uL (1.0-4.8); Monocytes # (M) 0.23 k/uL (0-1.0); Neutrophils # (M) 3.16 k/uL (1.3-7.7); Neutrophils % (M) 81 %; Nucleated Red Blood Cells 0 /100 WBC (0-0); Total Cells Counted 100
[2019-06-14 10:24] LABS: Platelet Count 89 k/uL (150-450)
[2019-06-14 10:25] LABS: Anisocytosis (M) Present; Poikilocytosis (M) Present; Polychromasia Present
[2019-06-14 17:52] LABS: African American GFR (CKD) 93.1 (60.0-200.0); C Reactive Protein 2.6 mg/dL (0.0-0.8); Non-African American GFR(CKD) 80.3 (60.0-200.0)
== END | disposition home or self-care (01) ==
LOC: LABWHC1 08:06
PROVIDERS: ATTEND Internal Medicine Rheumatology
DX: M06.9 Rheumatoid arthritis, unspecified (principal)
CPT/HCPCS: 36415; 82565; 84450; 84460; 85025; 85652; 86140

== ENCOUNTER → 2019-06-21 | Outpatient (CLI) | payer MEDICARE, BC ==
[2019-06-21 13:40] VITALS: PULSE 66; RESP 16
[2019-06-21 13:50] VITALS: BP 146/61
--- NOTE | 2019-06-23 15:17 | P.PAINPG ---
Subjective Progress Note Date: 06/21/19 This is follow-up visit for this patient with a history of severe and chronic low back pain secondary to , lumbar spondylosis with facet arthropathy, post laminectomy pain syndrome lumbar area, and he continued to have severe low back pain, pain is rated as 5-8/10. Pain is worse with standing, bending, walking and better with medications, injections. We have done caudal Epidural steroid injection with lysis of epidural adhesions, he reports good benefit from this, lasting about 1.5 months. This was last done in May 2019. Patients currently on norco 10/325 every 8 hours , Neurontin .300 mg 3 times a day (he was tried on Neurontin 400 mg 3 times a day, however he had side effects in the form of blisters on his forehead.) Patient denies any side effects of the medication, denies excessive drowsiness or sleepiness, denies suicidal ideation.of note, he was recently admitted in the hospital for shingles flare. He reports that this is resolved. Patient denies any motor or sensory deficit, patient denies any fever or night sweats, denies any change in the bowel movements or urination Review of systems is negative for chest pain, shortness of breath, new onset weakness, numbness/tingling, abdominal pain, malaise, fever, night sweats, chills, homicidal or suicidal ideation, or bowel or bladder incontinence. Objective Physical exam: Vitals: Reviewed in EMR GENERAL: Well appearing, in no acute distress, cane present by side PSYCH: Mood and affect is appropriate. Awake, alert, and oriented SKIN: Skin color, texture, turgor normal, no rashes or lesions HEENT: Normocephalic, atraumatic. EOM intact CV: No pedal edema RESP: Respirations are unlabored, no audible wheezing GI: Abdomen non-distended MUSCULOSKELETAL: lright leg is weaker than left leg, diffusely 4/5 throughout. lumbar scar is visible. No atrophy or tone abnormalities are noted. Lumbar spine: Straight leg raising in the sitting position is negative for radicular pain. tenderness to palpation over the lumbar spine and paraspinous muscles bilaterally. Extremities: Peripheral joint ROM is full and pain free without obvious instability or laxity in all four extremities. No edema or skin discolorations noted. NEUR: Bilateral lower extremity coordination and muscle stretch reflexes are physiologic and symmetric. Negative clonus bilaterally. No loss of sensation is noted. Assessment and Plan Plan: Assessment and plan= chronic low back pain secondary to lumbar postlaminectomy pain syndrome , lumbar spondylosis with lumbar facet arthropathy . chronic and current use of high-risk medication (opioids) Patient denies any side effects of the current pain medication and the current treatment/medication helping the patient to do activity of daily living , Diagnoses, prognosis, treatment options, including but not limited to physical therapy, medication management, interventional therapies, and surgery, were discussed with the patient All the questions answered The narcotic consent was signed and patient agreed and understood the side effects and complications of opioid treatment. today, we had a lengthy discussion regarding dose reduction of opioids, patient is amenable to this plan. MAPS Reviewed and it was appropriate . Medication managements= refills given for Neurontin 300 mg 3 times a day. [place] 10/325 will be reduced from #1 2o to #100 for the next month and #90 for the following month. we will plan on continuing to wean narcotics. I also gave him prescription for Flexeril 5 mg 3 times a day when necessary for muscle spasms. Interventions= in the future, patient could benefit from repeat caudal epidural steroid injection with lysis of epidural adhesions under fluoroscopy guidance , Time with Patient: Less than 30 PQRS Measure Charge Sheet Measure #130: Documentation of Current Meds in Medical Chart: Patient's medications documented in chart Measure #226: Tobacco Use: Screen & Cessation Intervention: Pt not a tobacco user Measure #111: Pneumonia Vaccination: Pneumococcal vaccine administered or previously received Measure #47: Advance Care Plan: Advance care planning discussed & documented, pt chose/unable to give Measure #412: Opioid Treatment Agreement: Documented signed opioid trtmnt agreemnt min once during opioid trtmnt Measure #408: Opioid Therapy Follow-up Evaluation: Patient had f/u eval minimum every 3 months during opioid therapy Measure #317: Preventitive Care & Scrn High Bld Press & F/U: Normal blood pressure, f/u not required Measure #128: Body Mass Index (BMI) Screening & Follow-up: BMI documented ABOVE normal parameters - f/u documented Measure #131: Pain Assessment & Follow-up: Pain positive & plan documented, Follow-up scheduled Measure #431: Unhealthy Alcohol Use Preventative Care & Scrn: Patient not iden tified as an unhealthy alcohol user Objective - Vital Signs Vital signs: Vital Signs Temp Pulse 66 06/21/19 13:37 Resp 16 06/21/19 13:37 BP 146/61 06/21/19 13:37 Pulse Ox 97 06/21/19 13:37 PQRS Measure Charge Sheet PQRS Narrative: Smoking Status Former smoker Narcotic Agreement Date Signed 11/25/18 Blood Pressure 146/61 Pain Intensity [Lower Back] 8 Scale Used Numeric (1 - 10) Hx Alcohol Use (MH) No Home Medications: Ambulatory Orders Timolol 0.5% Ophth Soln [Timoptic 0.5% Ophth Soln] 1 drop BOTH EYES BID 11/12/13 Albuterol Inhaler [Ventolin Hfa Inhaler] 1 - 2 puff INHALATION RT-Q6H PRN 12/22/15 Atorvastatin [Lipitor] 40 mg PO DAILY #90 tab 01/15/17 Potassium Chloride [Klor-Con 10] 10 meq PO DAILY 08/11/17 Aspirin [Adult Low Dose Aspirin EC] 81 mg PO DAILY 12/07/18 Gabapentin [Neurontin] 300 mg PO TID #90 cap 04/27/19 Cyclobenzaprine [Flexeril] 10 mg PO BID PRN 06/14/19 Folic Acid 1 mg PO DAILY 06/14/19 Furosemide [Lasix] 40 mg PO DAILY 06/14/19 Hydrochlorothiazide 12.5 mg PO DAILY 06/14/19 Losartan Potassium 50 mg PO DAILY 06/14/19 Magnesium Oxide 400 mg PO DAILY 06/14/19 Methotrexate Sodium [Methotrexate] 12.5 mg PO MO 06/14/19 valACYclovir HCL [Valacyclovir] 1 gm PO DAILY 06/17/19 HYDROcodone/APAP 10-325MG [[place] 10-325] 1 tab PO Q8H PRN 06/21/19 Controlled Substance Measures - Controlled Substance Measures Is patient prescribed a controlled substance at discharge?: Yes When asked, does pt state using other controlled substances?: No If prescribed controlled substance>3 days was MAPS reviewed?: Yes If Rx opioid, was Start Talking consent form obtained?: Yes If opioid is for acute pain is fill amount 7 days or less?: No Was information provided regarding opioid addiction?: Yes
== END | disposition home or self-care (01) ==
LOC: PNWHC3 12:32
PROVIDERS: ATTEND Anesthesiology
DX: G89.29 Other chronic pain (principal); M47.816 Spondylosis without myelopathy or radiculopathy, lumbar region; M46.96 Unspecified inflammatory spondylopathy, lumbar region; M96.1 Postlaminectomy syndrome, not elsewhere classified; Z79.899 Other long term (current) drug therapy; Z79.891 Long term (current) use of opiate analgesic; Z87.891 Personal history of nicotine dependence; Z79.82 Long term (current) use of aspirin
CPT/HCPCS: 99211

== ENCOUNTER → 2019-08-16 | Outpatient (CLI) | payer MEDICARE, BC ==
[2019-08-16 11:59] VITALS: BP 143/79; PULSE 64; RESP 16
--- NOTE | 2019-08-16 18:16 | P.PAINPG ---
Subjective Progress Note Date: 08/16/19 This is follow-up visit for this patient with a history of severe and chronic low back pain secondary to , lumbar spondylosis with facet arthropathy, post laminectomy pain syndrome lumbar area, and he continued to have severe low back pain ,Pain is worse with standing, bending, walking and better with medications, previously we have done caudal Epidural steroid injection with lysis of epidural adhesions, he reports good benefit from interventional pain management Patients currently on norco 10/325 every 8 hours , Neurontin .300 mg 3 times a day (he was tried on Neurontin 400 mg 3 times a day, however he had side effects in the form of blisters on his forehead.) Patient denies any side effects of the medication, denies excessive drowsiness or sleepiness, denies suicidal ideation. Patient denies any new onset of motor or sensory deficit, patient denies any fever or night sweats, denies any change in the bowel movements or urination, patient ambulates using a cane, he reported that the intensity of the pain interfering with his quality of life and in the pain increases during the cold weather, and he had a flareup of osteoarthritis and rheumatoid arthritis. Objective - Vital Signs Vital signs: Vital Signs Temp Pulse 64 08/16/19 11:55 Resp 16 08/16/19 11:55 BP 143/79 08/16/19 11:55 Pulse Ox 96 08/16/19 11:55 - Exam Physical Examinations : -Constitutional : Cooperative , not in acute distress . -HEENT : nech ; supple , no Lymphadenopathy , no Thyromegaly , normal thyroid size . eyes : no ptosis , no icterus, no photophobia . ENT : normal of hearing , normal oropharynx , no Thrush . . - neurologic: Cranial nerve II to XII intact , no focal neurological deffecit . - Psychatric: alert , oriented X 3 , appropriate affect , intact judgment and insight . - Lymphati : no Lymphadenopathy . - Musculoskeltal : . exams of the Lumber spine = motor strength lower extremities ,thigh and legs 4-5/5 deep tendon reflexes : normal Knee Jerk , normal ankle Jerk . lumber facet Loading Test positive strait leg raising test positive at 30 degree , RT ,LT , Fabere test positive RT and positive LT . Range of motion: Range of motion in flexion of the lumbar spine 30 degrees Range of motion range of motion of extension of the lumbar spine 10 Sever tenderness over the Sacroiliac joint on the Right , and Left side Assessment and Plan Plan: chronic low back pain secondary to lumbar postlaminectomy pain syndrome , lumbar spondylosis with lumbar facet arthropathy . chronic and current use of high-risk medication (opioids) Patient denies any side effects of the current pain medication and the current treatment/medication helping the patient to do activity of daily living , Diagnoses, prognosis, treatment options, including but not limited to physical therapy, medication management, interventional therapies, and surgery, were discussed with the patient All the questions answered The narcotic consent was signed and patient agreed and understood the side effects and complications of opioid treatment. Patient signed the narcotic agreement, and was orally counseled, not to overuse, not to abuse, not to Divert , not tp sell pain medication, and to take it as prescribed only, Patient was counseled not to drive or operate heavy equipment while using narcotic medication, and advised not to use alcohol or any Illicit drugs while using the narcotis. understanding that lack of compliance with any of the above instructions, will likely to cause discharge from, the pain service, not to renew his narcotic prescriptions MAPS Reviwed and it was apropriate . Medication managements= continue Neurontin 300 mg 3 times a day, continue Flexeril 5 mg 3 times a day, patient reported that he had increased intensity of the pain over the last few weeks, and the current medication is not helping enough to control the pain, any activity exacerbates his pain, and will increase the frequency of [place] 10/325 2 every 6 hours Dispense 120 with one refill, and patient will follow up in the pain clinic in 2 months Time with Patient: Less than 30 PQRS Measure Charge Sheet Measure #130: Documentation of Current Meds in Medical Chart: Patient's medications documented in chart Measure #226: Tobacco Use: Screen & Cessation Intervention: Pt not a tobacco user Measure #111: Pneumonia Vaccination: Pneumococcal vaccine administered or previously received Measure #47: Advance Care Plan: Advance care planning discussed & documented, pt chose/unable to give Measure #412: Opioid Treatment Agreement: Documented signed opioid trtmnt agreemnt min once during opioid trtmnt Measure #408: Opioid Therapy Follow-up Evaluation: Patient had f/u eval minimum every 3 months during opioid therapy Measure #317: Preventitive Care & Scrn High Bld Press & F/U: Pre-hypertensive or hypertensive BP documented, pt will f/u with PCP Measure #128: Body Mass Index (BMI) Screening & Follow-up: BMI documented ABOVE normal parameters - f/u documented Measure #131: Pain Assessment & Follow-up: Pain positive & plan documented, Follow-up scheduled Measure #431: Unhealthy Alcohol Use Preventative Care & Scrn: Patient not identified as an unhealthy alcohol user PQRS Narrative: Smoking Status Former smoker Narcotic Agreement Date Signed 11/25/18 Blood Pressure 143/79 Pain Intensity [Lower Back] 8 Scale Used Numeric (1 - 10) Hx Alcohol Use (MH) No Home Medications: Ambulatory Orders Timolol 0.5% Ophth Soln [Timoptic 0.5% Ophth Soln] 1 drop BOTH EYES BID 11/12/13 Albuterol Inhaler [Ventolin Hfa Inhaler] 2 puff INHALATION RT-Q6H PRN 12/22/15 Aspirin [Adult Low Dose Aspirin EC] 81 mg PO DAILY 12/07/18 Folic Acid 1 mg PO DAILY 06/14/19 Furosemide [Lasix] 40 mg PO DAILY 06/14/19 Hydrochlorothiazide 12.5 mg PO DAILY 06/14/19 Losartan Potassium 50 mg PO DAILY 06/14/19 Methotrexate Sodium [Methotrexate] 4 tab PO MO 06/14/19 Atorvastatin [Lipitor] 40 mg PO DAILY 08/10/19 Tofacitinib Citrate [Xeljanz] 11 mg PO DAILY 08/10/19 Cyclobenzaprine [Flexeril] 5 mg PO TID PRN #90 tab 08/16/19 Gabapentin [Neurontin] 300 mg PO TID #90 cap 08/16/19 HYDROcodone/APAP 10-325MG [[place] 10-325] 1 tab PO Q6H PRN #120 tab 08/16/19 HYDROcodone/APAP 10-325MG [[place] 10-325] 1 tab PO Q6HR PRN 30 Days #120 tab 08/16/19 Controlled Substance Measures - Controlled Substance Measures Is patient prescribed a controlled substance at discharge?: Yes When asked, does pt state using other controlled substances?: No If prescribed controlled substance>3 days was MAPS reviewed?: Yes If Rx opioid, was Start Talking consent form obtained?: Yes If opioid is for acute pain is fill amount 7 days or less?: No Was information provided regarding opioid addiction?: Yes
== END | disposition home or self-care (01) ==
LOC: PNWHC3 11:35
PROVIDERS: ATTEND Specialist
DX: G89.29 Other chronic pain (principal); M96.1 Postlaminectomy syndrome, not elsewhere classified; M47.816 Spondylosis without myelopathy or radiculopathy, lumbar region; M46.96 Unspecified inflammatory spondylopathy, lumbar region; Z87.891 Personal history of nicotine dependence; Z79.82 Long term (current) use of aspirin
CPT/HCPCS: 99211

== ENCOUNTER → 2019-11-15 | Outpatient (CLI) | payer MEDICARE, BC ==
[2019-11-15 09:05] LABS: HCT 32.9 % (39.0-53.0); HGB 10.9 gm/dL (13.0-17.5); MCH 33.9 pg (25.0-35.0); MCV 102.6 fL (80.0-100.0); Macrocytosis Slight; Platelet Count 150 k/uL (150-450); RBC 3.21 m/uL (4.30-5.90); RDW 14.4 % (11.5-15.5); WBC 4.4 k/uL (3.8-10.6)
[2019-11-15 11:21] LABS: Erythrocyte Sedimentation Rate 35 mm/hr (0-15)
[2019-11-15 16:40] LABS: ALT 27 U/L (10-49); AST 34 U/L (14-35); African American GFR (CKD) 110.2 (60.0-200.0); C Reactive Protein <0.4 mg/dL (0.0-0.8); Chol/HDL Ratio 3.15; Cholesterol 104 mg/dL (0-200); LDL Cholesterol,Calculated 47.6 mg/dL (0.0-131.0); Non-African American GFR(CKD) 95.1 (60.0-200.0)
== END | disposition home or self-care (01) ==
LOC: LABWHC1 08:31
PROVIDERS: ATTEND Internal Medicine Rheumatology
DX: E78.5 Hyperlipidemia, unspecified (principal); N40.0 Benign prostatic hyperplasia without lower urinary tract symptoms; M06.9 Rheumatoid arthritis, unspecified
CPT/HCPCS: 36415; 80061; 82565; 84153; 84450; 84460; 85027; 85652; 86140

== ENCOUNTER → 2019-12-01 | Outpatient (CLI) | payer MEDICARE, BC ==
--- NOTE | 2019-12-01 11:48 | P.PAINPG ---
Subjective Progress Note Date: 12/01/19 THIS ENCOUNTER WAS PERFORMED A TELEMEDICINE VISIT VIA SECURE TWO-WAY AUDIO TO MINIMIZE RISK AND TRANSMISSION OF COVID-19. This is follow-up visit for this patient with a history of severe and chronic low back pain secondary to , lumbar spondylosis with facet arthropathy, post laminectomy pain syndrome lumbar area, and he continued to have severe low back pain, radiating to right lower extremity ,associated with numbness in right lower extremity. He also endorses chronic weakness in RLE and states that right leg is shorter than left. Pain rated as 6-8/10, described as jabbing, achy. Pain is worse with standing >5 mins, bending, walking and better with medications, using cane/walker. Previously we have done caudal Epidural steroid injection with lysis of epidural adhesions, he reports good benefit from interventional pain management Patients currently on norco 10/325 every 6 hours , Neurontin .300 mg 3 times a day (he was tried on Neurontin 400 mg 3 times a day, however he had side effects in the form of blisters on his forehead.) and Flexeril 5 mg 3 times a day Patient denies any side effects of the medication, denies excessive drowsiness or sleepiness, denies suicidal ideation. Patient denies any new onset of motor or sensory deficit, patient denies any fever or night sweats, denies any change in the bowel movements or urination, patient ambulates using a cane Review of systems is negative for chest pain, shortness of breath, new onset weakness, numbness/tingling, abdominal pain, malaise, fever, night sweats, chills, homicidal or suicidal ideation, or bowel or bladder incontinence. He does endorse difficulty swallowing and lower extremity swelling, redness- he is going to have this evaluated by PCP Objective Physical exam was unable to be performed due to audio only telemetry visits Assessment and Plan Plan: chronic low back pain secondary to lumbar postlaminectomy pain syndrome , lumbar spondylosis with lumbar facet arthropathy . chronic and current use of high-risk medication (opioids) Patient denies any side effects of the current pain medication and the current treatment/medication helping the patient to do activity of daily living , The narcotic consent was signed and is on file MAPS Reviewed and it was appropriate . Medication managements= continue Neurontin 300 mg 3 times a day #90 with one refill, continue Flexeril 5 mg 3 times a day #90 with one refill, [place] 10/325 2 every 6 hours Dispense 120 with one refill, Procedure: will schedule caudal with lysis of adhesions after evaluation by PCP for lower extremity swelling/ infection. patient will follow up for above mentioned procedure and in the pain clinic in 2 months PQRS Measure Charge Sheet PQRS Narrative: Smoking Status Former smoker Narcotic Agreement Date Signed 11/25/18 Pain Intensity [Lower Back] 7 Hx Alcohol Use () No Home Medications: Ambulatory Orders Timolol 0.5% Ophth Soln [Timoptic 0.5% Ophth Soln] 1 drop BOTH EYES BID 11/12/13 Albuterol Inhaler (Mhu) [Ventolin Hfa Inhaler (Mhu)] 2 puff INHALATION RT-Q6H PRN 12/22/15 Aspirin [Adult Low Dose Aspirin EC] 81 mg PO DAILY 12/07/18 Folic Acid 1 mg PO DAILY 06/14/19 Furosemide [Lasix] 40 mg PO DAILY 06/14/19 Hydrochlorothiazide 12.5 mg PO DAILY 06/14/19 Losartan Potassium 50 mg PO DAILY 06/14/19 Methotrexate Sodium [Methotrexate] 10 mg PO MO 06/14/19 Atorvastatin [Lipitor] 40 mg PO DAILY 08/10/19 Tofacitinib Citrate [Xeljanz] 10 mg PO DAILY 08/10/19 Cyclobenzaprine [Flexeril] 5 mg PO TID PRN #90 tablet 12/01/19 Gabapentin [Neurontin] 300 mg PO TID #90 cap 12/01/19 HYDROcodone/APAP 10-325MG [[place] 10-325] 1 tab PO Q6HR PRN 30 Days #120 tab 12/01/19 HYDROcodone/APAP 10-325MG [[place] 10-325] 1 tab PO Q6HR PRN 30 Days #120 tab 12/01/19 Controlled Substance Measures - Controlled Substance Measures Is patient prescribed a controlled substance at discharge?: Yes When asked, does pt state using other controlled substances?: No If prescribed controlled substance>3 days was MAPS reviewed?: Yes If Rx opioid, was Start Talking consent form obtained?: Yes If opioid is for acute pain is fill amount 7 days or less?: No Was information provided regarding opioid addiction?: Yes
== END | disposition home or self-care (01) ==
LOC: PNWHC3 07:18
PROVIDERS: ATTEND Anesthesiology
DX: Z53.9 Procedure and treatment not carried out, unspecified reason (principal)

== ENCOUNTER → 2020-01-26 | Outpatient (CLI) | payer MEDICARE, BC ==
[2020-01-26 08:11] VITALS: PULSE 69; RESP 20
[2020-01-26 08:13] VITALS: BP 122/81
--- NOTE | 2020-01-26 08:48 | P.PAINPG ---
Subjective Progress Note Date: 01/26/20 This is follow-up visit for this patient with a history of severe and chronic low back pain secondary to , lumbar spondylosis with facet arthropathy, post laminectomy pain syndrome lumbar area, and he continued to have severe low back pain, radiating to right lower extremity ,associated with numbness in right lower extremity. He also endorses chronic weakness in RLE and states that right leg is shorter than left. Pain rated as 8/10, described as a pinching sharp. Pain is worse with standing >5 mins, bending, walking and better with medications, ice. He continues to use cane/walker. Previously we have done caudal Epidural steroid injection with lysis of epidural adhesions, last done in May 2019 he reports good benefit from interventional pain management Patients currently on norco 10/325 every 6 hours , Neurontin 300 mg 3 times a day (he was tried on Neurontin 400 mg 3 times a day, however he had side effects in the form of blisters on his forehead.) and Flexeril 5 mg 3 times a day Patient denies any side effects of the medication, denies excessive drowsiness or sleepiness, denies suicidal ideation. Patient denies any new onset of motor or sensory deficit, patient denies any fever or night sweats, denies any change in the bowel movements or urination, patient ambulates using a cane Review of systems is negative for chest pain, shortness of breath, new onset weakness, numbness/tingling, abdominal pain, malaise, fever, night sweats, chills, homicidal or suicidal ideation, or bowel or bladder incontinence. He does endorse difficulty swallowing approximately once a month, this is alleviated by drinking some water. I counseled him on having this evaluated with a GI specialist if it were to get worse. He does have lower extremity swelling, redness-which is being followed by PCP Objective Physical exam: Vitals: Reviewed in EMR GENERAL: Well appearing, in no acute distress PSYCH: Mood and affect is appropriate. Awake, alert, and oriented SKIN: Skin color, texture, turgor normal, no rashes or lesions HEENT: Normocephalic, atraumatic. EOM intact CV: 1+ pitting pedal edema, slight redness to bilateral lower extremities, small healed sores visible RESP: Respirations are unlabored, no audible wheezing GI: Abdomen non-distended MUSCULOSKELETAL: Right lower extremityin flexion/5, knee extension and flexion 4/5 ankle dorsi and plantar flexion 4/5 Lumbar spine: Lumbar scar visible, well-healed. Straight leg raising in the sitting position is negative for radicular pain. Tenderness to palpation over the lumbar spine and paraspinous muscles. Positive for pain with facet loading and back extension/rotation. Extremities: Peripheral joint ROM is full and pain free without obvious instability or laxity in all four extremities. 1+ pitting pedal edema bilaterally, slight redness to bilateral lower extremities, small healed sores visible Gait: Gait is slow, favors the left side, ambulates with a cane NEUR: Cranial nerves are grossly intact Negative clonus bilaterally. No loss of sensation is noted. Assessment and Plan Plan: chronic low back pain secondary to lumbar postlaminectomy pain syndrome , lumbar spondylosis with lumbar facet arthropathy . chronic and current use of high-risk medication (opioids) Patient denies any side effects of the current pain medication and the current treatment/medication helping the patient to do activity of daily living , The narcotic consent was signed and is on file MAPS Reviewed and it was appropriate . Urine drug screen sent today Medication managements= continue Neurontin 300 mg 3 times a day #90 with one refill, continue Flexeril 5 mg 3 times a day #90 with one refill, [place] 10/325 2 every 6 hours Dispense 120 with one refill, Procedure: None currently Follow-up: in the pain clinic for medication management in 2 months PQRS Measure Charge Sheet Measure #130: Documentation of Current Meds in Medical Chart: Patient's medications documented in chart Measure #226: Tobacco Use: Screen & Cessation Intervention: Pt not a tobacco user Measure #111: Pneumonia Vaccination: Pneumococcal vaccine NOT administered or previously given Measure #47: Advance Care Plan: Advance care planning discussed & documented, pt chose/unable to give Measure #412: Opioid Treatment Agreement: Documented signed opioid trtmnt agreemnt min once during opioid trtmnt Measure #408: Opioid Therapy Follow-up Evaluation: Patient had f/u eval minimum every 3 months during opioid therapy Measure #317: Preventitive Care & Scrn High Bld Press & F/U: Normal blood pressure, f/u not required Measure #128: Body Mass Index (BMI) Screening & Follow-up: BMI documented ABOVE normal parameters - f/u documented Measure #131: Pain Assessment & Follow-up: Pain positive & plan documented, Follow-up scheduled Measure #431: Unhealthy Alcohol Use Preventative Care & Scrn: Patient not identified as an unhealthy alcohol user PQRS Narrative: Smoking Status Former smoker Narcotic Agreement Date Signed 11/25/18 Pain Intensity [Lower Back] 7 Scale Used Numeric (1 - 10) Hx Alcohol Use (MH) No Home Medications: Ambulatory Orders Timolol 0.5% Ophth Soln [Timoptic 0.5% Ophth Soln] 1 drop BOTH EYES BID 11/12/13 Albuterol Inhaler (Mhu) [Ventolin Hfa Inhaler (Mhu)] 2 puff INHALATION RT-Q6H PRN 12/22/15 Aspirin [Adult Low Dose Aspirin EC] 81 mg PO DAILY 12/07/18 Folic Acid 1 mg PO DAILY 06/14/19 Furosemide [Lasix] 40 mg PO DAILY 06/14/19 Hydrochlorothiazide 12.5 mg PO DAILY 06/14/19 Losartan Potassium 50 mg PO DAILY 06/14/19 metHOTREXate sodium [Methotrexate] 10 mg PO MO 06/14/19 Atorvastatin [Lipitor] 40 mg PO DAILY 08/10/19 Tofacitinib Citrate [Xeljanz] 10 mg PO DAILY 08/10/19 Cyclobenzaprine [Flexeril] 5 mg PO TID PRN #90 tablet 12/01/19 Gabapentin [Neurontin] 300 mg PO TID #90 cap 12/01/19 HYDROcodone/APAP 10-325MG [[place] 10-325] 1 tab PO Q6HR PRN 30 Days #120 tab 12/01/19 Controlled Substance Measures - Controlled Substance Measures Is patient prescribed a controlled substance at discharge?: Yes When asked, does pt state using other controlled substances?: No If prescribed controlled substance>3 days was MAPS reviewed?: Yes If Rx opioid, was Start Talking consent form obtained?: Yes If opioid is for acute pain is fill amount 7 days or less?: No Was information provided regarding opioid addiction?: Yes
== END | disposition home or self-care (01) ==
LOC: PNWHC3 07:55
PROVIDERS: ATTEND Anesthesiology
DX: G89.29 Other chronic pain (principal); M47.816 Spondylosis without myelopathy or radiculopathy, lumbar region; M96.1 Postlaminectomy syndrome, not elsewhere classified; Z87.891 Personal history of nicotine dependence; Z79.82 Long term (current) use of aspirin; Z79.899 Other long term (current) drug therapy
CPT/HCPCS: 80307; G0482; G0463; 99211

== ENCOUNTER → 2020-03-08 | Outpatient (CLI) | payer MEDICARE, BC ==
[2020-03-08 09:12] LABS: Basophils % (A) 0 %; Eosinophils # (A) 0.1 k/uL (0-0.7); Eosinophils % (A) 1 %; HCT 36.9 % (39.0-53.0); HGB 12.3 gm/dL (13.0-17.5); Lymphocytes # (A) 1.9 k/uL (1.0-4.8); Lymphocytes % (A) 28 %; MCH 33.5 pg (25.0-35.0); MCHC 33.2 g/dL (31.0-37.0); MCV 100.8 fL (80.0-100.0); Macrocytosis Slight; Mean Platelet Volume 7.3; Monocytes # (A) 0.5 k/uL (0-1.0); Monocytes % (A) 7 %; Neutrophils # (A) 4.1 k/uL (1.3-7.7); Neutrophils % (A) 61 %; Platelet Count 180 k/uL (150-450); RBC 3.66 m/uL (4.30-5.90); RDW 14.5 % (11.5-15.5); WBC 6.7 k/uL (3.8-10.6)
[2020-03-08 17:25] LABS: ALT 26 U/L (10-49); AST 32 U/L (14-35); C Reactive Protein <0.4 mg/dL (0.0-0.8); Non-African American GFR(CKD) 90.6 (60.0-200.0)
[2020-03-08 19:01] LABS: Erythrocyte Sedimentation Rate 45 mm/Hr (0-20)
== END | disposition home or self-care (01) ==
LOC: LABWHC1 08:12
PROVIDERS: ATTEND Internal Medicine Rheumatology
DX: M06.9 Rheumatoid arthritis, unspecified (principal)
CPT/HCPCS: 36415; 82565; 84450; 84460; 85025; 85652; 86140

== ENCOUNTER → 2020-03-22 | Outpatient (CLI) | payer MEDICARE, BC ==
[2020-03-22 08:08] VITALS: BP 153/89; PULSE 73; RESP 18; TEMP 98.4
--- NOTE | 2020-03-22 08:20 | P.PN ---
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 The patient has been treating his pain with a combination of oral opioids and interventional pain procedures. The last time he had a caudal epidural steroid injections with monet is of adhesion was in May 2019 and it did help him significantly for about 4 months. The patient denies any history of diabetes or taking any anticoagulants. He does have chronic swelling in both legs however for the last week he has some redness in the right lower leg above his ankle and increasing pain to touch in the area. Patient denies new-onset weakness, bowel/bladder incontinence, or any other signs or symptoms of cauda equina syndrome. There are no signs of acute intoxication, and no indications of medication diversion or overuse. In addition to above, 13-point review of systems is also negative for chest pain, shortness of breath, changes in vision, changes in hearing, new onset weakness, abdominal pain, diarrhea, extreme fatigue, malaise, fever, skin changes, homicidal or suicidal ideation, or bowel or bladder incontinence. Vital Signs: Reviewed in EMR Gen: AAOx3, NAD HEENT: PERRLA,hearing grossly normal Pulm: resp unlabored Heart: Regular Neck: supple, trachea midline Neuro exam of the lower extremities: Decreased muscle strength in the right lower extremity to 4 out of 5 compared to the left lower extremity for hip flexion, knee flexion-extension. Positive edema in both legs with erythema in the right lower extremity above the ankle with no wheezing. Positive tenderness in the area. Neuro: CN II-XII grossly intact, Imaging: Reviewed in EMR/chart Assessment: Lumbar post okay pain syndrome Morbid obesity Chronic edema in both legs Skin irritation in the right lower extremity with possible superficial skin infection Plan: 1. Explanation: Opioid and psychological risk scores were reviewed. Diagnoses, prognoses, and multiple treatment options including but not limited to physical therapy, interventional therapies, adjuvant medical therapies, narcotic medication therapies, and surgery were discussed with the patient and all questions were answered to the patient's satisfaction. 2. Opioid agreement: Signed with the patient and the patient is warned not to use opioids while driving or before driving and not to combine opioids with benzodiazepines or alcohol. 3. Counseling: The patient was counseled extensively on SMOKING CESSATION, BODY MASS INDEX, EXERCISE. Specifically, the patient was instructed regarding the importance of smoking cessation, obesity, and exercise in the context of both chronic pain and overall health. 4. Procedures: Schedule for caudal epidural steroid injection with lysis of adhesions 3 5. Consultations: I asked the patient to use antibiotic ointment on the right lower extremity a also asked him to see his primary care physician for this problem as soon as possible. 6. Investigations: None 7. Medications: Continue Shorter 10 mg 4 times a day as needed for pain, Flexeril 5 mg 3 times a day, Neurontin 300 mg 3 times a day. 8. Disposition: Return to clinic in 8 weeks' and to the above-mentioned procedure as soon as possible. 9. Maps were reviewed and were appropriate. Controlled Substance Measures Is patient prescribed a controlled substance at discharge?: Yes When asked, does pt state using other controlled substances?: No If prescribed controlled substance>3 days was MAPS reviewed?: Yes If Rx opioid, was Start Talking consent form obtained?: Yes If opioid is for acute pain is fill amount 7 days or less?: No Was information provided regarding opioid addiction?: Yes Objective - Vital Signs Vital signs: Vital Signs Temp 98.4 F 03/22/20 08:05 Pulse 73 03/22/20 08:05 Resp 18 03/22/20 08:05 BP 153/89 03/22/20 08:05 Pulse Ox
== END | disposition home or self-care (01) ==
LOC: PNWHC3 07:55
PROVIDERS: ATTEND Anesthesiology
DX: G89.4 Chronic pain syndrome (principal); R60.0 Localized edema; L98.8 Other specified disorders of the skin and subcutaneous tissue; E66.01 Morbid (severe) obesity due to excess calories; Z79.899 Other long term (current) drug therapy; Z79.891 Long term (current) use of opiate analgesic
CPT/HCPCS: 99211

== ENCOUNTER 2020-04-06 06:08 | Day surgery (SDC) | payer MEDICARE, BC ==
[2020-04-04 16:04] VITALS: BMI 35.5
[~2020-04-06 06:08] MED LIST changes: -INFLIXIMAB-DYYB 500 MG in SODIUM CHLORIDE 0.9% 250 ML IV ONE; +LACTATED RINGERS 1,000 ML IV SCH; -SODIUM CHLORIDE 0.9% 500 ML in EMPTY BAG 1 BAG IV PRN; -diphenhydrAMINE 25 MG CAP PO ONE; -methylPREDNISolone SOD SUCCI 125 MG/2 ML VIAL IV ONE
[2020-04-06 06:31] VITALS: RESP 16; TEMP 99.1
[2020-04-06] MEDS ORDERED: IOPAMIDOL M200 10 ML VIAL ONE (07:03)
[2020-04-06] MEDS ORDERED: SODIUM CHLORIDE 0.9% (PF) 10 ML VIAL ONE (07:03)
[2020-04-06] MEDS ORDERED: fentaNYL (PF) 50 MCG/ML 2 ML AMP ONE (07:03)
[2020-04-06] MEDS ORDERED: MIDAZOLAM 2 MG/2 ML VIAL ONE (07:03)
[2020-04-06] MEDS ORDERED: methylPREDNISolone ACETATE 40 MG/ML 1 ML VIAL ONE (07:03)
--- NOTE | 2020-04-06 07:30 | P.PCN ---
Date of Procedure: 04/06/20 Procedure(s) Performed: PREOP DIAGNOSIS: 1- Lumbar postlaminectomy syndrome. POSTOP DIAGNOSIS:1- Lumbar postlaminectomy syndrome. PROCEDURE: 1-Caudal epidural steroid injection with epidurolysis and epidurogram under fluoroscopic guidance. (Fluoroscopy images available in the radiology Department ) 2-caudal epidurogram. ANESTHESIA: Local with 1% lidocaine 3 ml ,and moderate sedation, with Versed 2 mg and fentanyl 100 g. EBL: Minimal. PROCEDURE INDICATION: The patient with post-laminectomy syndrome with low back pain and radiculopathy radiating down in both legs, here for a caudal epidural steroid injection with epidurolysis. PROCEDURE DESCRIPTION: The patient was seen and identified in the preoperative area. Risks, benefits, complications, and alternatives were discussed with the patient. The patient agreed to proceed with the procedure and signed the consent. IV was started, and vital signs were stable. Patient was taken to the OR and time out was completed. The patient was placed in the prone position on procedure table and a pillow was placed under the abdomen to reduce lumbar lordosis. The lumbosacral area was prepped and draped in the usual sterile fashion. Vital signs were closely monitored during the procedure. lateral view and the anterior-posterior plates of the sacrum were identified with infiltration of the area overlying the sacral hiatus with 1% lidocaine .A 17 gauge RK epidural needle was used to advance through the sacral hiatus into the caudal epidural space. Omnipaque 180 dye. 2cc was injected and the position of the needle was verified to be in the midline. A Racz catheter was introduced into the epidural space and was advanced towards the L5-S1 interspace under direct fluoroscopic guidance. Multiple passes were made with the catheter for lysis of epidural adhesions. Depo-Medrol 80 mg with 3ml of preservative free Lidocaine 1% and 5 ml of preservative free normal saline was injected slowly. Additional spread was seen to L4 under fluoroscopy. The needle and the catheter were withdrawn intact. EPIDUROGRAM: Omnipaque 180 mg dye 2 ml was injected with spread of the dye into the caudal epidural space and with spread cutoff at L5 prior to epidurolysis. Post epidurolysis dye 2 ml was injected and spread was seen to L4-5.There was further spread of the solution together with the dye above the L3 COMPLICATIONS: None. DISPOSITION / PLANS: The patient was placed in a supine position and transferred to the recovery area in a stable condition for observation and was discharged from the recovery room after meeting discharge criteria. Home discharge instructions given to the patient by the staff. The patient was reexamined prior to discharge. The patient will schedule a follow up in the clinic in 2-4 weeks.
[2020-04-06] MEDS ORDERED: IV FLUID CONTINUATION 650 ML IV ONE (07:34)
[2020-04-06 07:38] VITALS: PULSE 63
[2020-04-06 07:48] VITALS: BP 104/68
--- NOTE | 2020-04-06 09:11 | FL ---
EXAMINATION TYPE: FL guided pain mgmt statistic DATE OF EXAM: 04/06/2020 HISTORY: Fluoroscopy time 4 seconds of fluoroscopy provided. IMPRESSION: 1. Fluoroscopy time.
== END 2020-04-06 07:33 | disposition home or self-care (01) ==
LOC: ORPAIN 06:08
PROVIDERS: ATTEND Specialist
DX: M96.1 Postlaminectomy syndrome, not elsewhere classified (principal); Z88.1 Allergy status to other antibiotic agents
CPT/HCPCS: 62264; J2250; J1030; J3010; Q9966; C1894

== ENCOUNTER → 2020-05-17 | Outpatient (CLI) | payer MEDICARE, BC ==
[2020-05-17 08:19] VITALS: BP 164/81; PULSE 81; RESP 16; TEMP 98.3
--- NOTE | 2020-05-17 10:19 | P.PAINPG ---
Subjective Progress Note Date: 05/17/20 This is follow-up visit for this patient with a history of severe and chronic low back pain secondary to , lumbar spondylosis with facet arthropathy, post laminectomy pain syndrome lumbar area, and he continued to have severe low back pain ,Pain is worse with standing, bending, walking and better with medications, previously we have done caudal Epidural steroid injection with lysis of epidural adhesions, he reports good benefit from interventional pain management Patients currently on norco 10/325 every 6 hours , Neurontin .300 mg 3 times a day (he was tried on Neurontin 400 mg 3 times a day, Flexeril 10 mg 3 times a day Patient denies any side effects of the medication, denies excessive drowsiness or sleepiness, denies suicidal ideation. Patient denies any new onset of motor or sensory deficit, patient denies any fever or night sweats, denies any change in the bowel movements or urination, patient ambulates using a cane, he reported that the intensity of the pain interfering with his quality of life and in the pain increases during the cold weather, and he had a flareup of osteoarthritis and rheumatoid arthritis. Objective - Vital Signs Vital signs: Vital Signs Temp 98.3 F 05/17/20 08:12 Pulse 81 05/17/20 08:12 Resp 16 05/17/20 08:12 BP 164/81 05/17/20 08:12 Pulse Ox 97 05/17/20 08:12 - Exam -Constitutional : Cooperative , not in acute distress . -HEENT : nech ; supple , no Lymphadenopathy , no Thyromegaly , normal thyroid size . eyes : no ptosis , no icterus, no photophobia . ENT : normal of hearing , normal oropharynx , no Thrush . . - neurologic: Cranial nerve II to XII intact , no focal neurological deffecit . - Psychatric: alert , oriented X 3 , appropriate affect , intact judgment and insight . - Lymphati : no Lymphadenopathy . - Musculoskeltal : . exams of the Lumber spine = motor strength lower extremities ,thigh and legs 4-5/5 deep tendon reflexes : normal Knee Jerk , normal ankle Jerk . lumber facet Loading Test positive strait leg raising test positive at 30 degree , RT ,LT , Fabere test positive RT and positive LT . Range of motion: Range of motion in flexion of the lumbar spine 30 degrees Range of motion range of motion of extension of the lumbar spine 10 Sever tenderness over the Sacroiliac joint on the Right , and Left side Assessment and Plan Plan: chronic low back pain secondary to lumbar postlaminectomy pain syndrome , lumbar spondylosis with lumbar facet arthropathy . chronic and current use of high-risk medication (opioids) Patient denies any side effects of the current pain medication and the current treatment/medication helping the patient to do activity of daily living , Diagnoses, prognosis, treatment options, including but not limited to physical therapy, medication management, interventional therapies, and surgery, were discussed with the patient All the questions answered The narcotic consent was signed and patient agreed and understood the side effects and complications of opioid treatment. Patient signed the narcotic agreement, and was orally counseled, not to overuse, not to abuse, not to Divert , not tp sell pain medication, and to take it as prescribed only, Patient was counseled not to drive or operate heavy equipment while using narcotic medication, and advised not to use alcohol or any Illicit drugs while using the narcotis. understanding that lack of compliance with any of the above instructions, will likely to cause discharge from, the pain service, not to renew his narcotic prescriptions MAPS Reviwed and it was apropriate . Medication managements= continue Neurontin 300 mg 3 times a day, continue Flexeril 10 mg 3 times a day, patient reported that he had increased intensity of the pain over the last few weeks, and the current medication is not helping enough to control the pain, any activity exacerbates his pain, and will increase the frequency of Smiley 10/325 2 every 6 hours Dispense 120 with one refill, and patient will follow up in the pain clinic in 2 months interventions= patient could benefit from caudal epidural steroid injection with lysis of epidural adhesions under fluoroscopy guidance Time with Patient: Less than 30 PQRS Measure Charge Sheet Measure #130: Documentation of Current Meds in Medical Chart: Patient's medications documented in chart Measure #226: Tobacco Use: Screen & Cessation Intervention: Pt not a tobacco user Measure #111: Pneumonia Vaccination: Pneumococcal vaccine administered or previously received Measure #47: Advance Care Plan: Advance care planning discussed & documented, pt chose/unable to give Measure #412: Opioid Treatment Agreement: Documented signed opioid trtmnt agreemnt min once during opioid trtmnt Measure #408: Opioid Therapy Follow-up Evaluation: Patient had f/u eval minimum every 3 months during opioid therapy Measure #317: Preventitive Care & Scrn High Bld Press & F/U: Normal blood pressure, f/u not required Measure #128: Body Mass Index (BMI) Screening & Follow-up: BMI documented ABOVE normal parameters - f/u documented Measure #131: Pain Assessment & Follow-up: Pain positive & plan documented, Follow-up scheduled Measure #431: Unhealthy Alcohol Use Preventative Care & Scrn: Patient not identified as an unhealthy alcohol user PQRS Narrative: Smoking Status Former smoker Narcotic Agreement Date Signed 01/26/20 Blood Pressure 164/81 Pain Intensity [Bilateral 7 Lower Leg] Scale Used Numeric (1 - 10) Hx Alcohol Use (MH) No Home Medications: Ambulatory Orders Timolol 0.5% Ophth Soln [Timoptic 0.5% Ophth Soln] 1 drop BOTH EYES BID 11/12/13 Folic Acid 1 mg PO DAILY 06/14/19 Hydrochlorothiazide [hydroCHLOROthiazide] 12.5 mg PO DAILY 06/14/19 Losartan Potassium 50 mg PO 1200 06/14/19 metHOTREXate sodium [Methotrexate] 10 mg PO MO 06/14/19 Atorvastatin [Lipitor] 40 mg PO DAILY 08/10/19 Tofacitinib Citrate [Xeljanz] 10 mg PO DAILY 08/10/19 Gabapentin [Neurontin] 300 mg PO TID #90 cap 01/26/20 Albuterol Sulfate [Ventolin HFA] 1 - 2 puff INHALATION Q6H PRN 03/16/20 Aspirin 81 mg PO DAILY 03/16/20 Furosemide [Lasix] 20 mg PO DAILY 03/16/20 Ibuprofen 200 mg PO Q6H PRN 03/16/20 Cyclobenzaprine [Flexeril] 10 mg PO TID PRN #90 tab 05/17/20 HYDROcodone/APAP 10-325MG [Smiley 10-325] 1 tab PO Q6HR PRN 30 Days #120 tab 05/17/20 HYDROcodone/APAP 10-325MG [Smiley 10-325] 1 tab PO Q6HR PRN 30 Days #120 tab 05/17/20 Controlled Substance Measures - Controlled Substance Measures Is patient prescribed a controlled substance at discharge?: Yes
== END | disposition home or self-care (01) ==
LOC: PNWHC3 07:53
PROVIDERS: ATTEND Specialist
DX: M96.1 Postlaminectomy syndrome, not elsewhere classified (principal); M47.816 Spondylosis without myelopathy or radiculopathy, lumbar region; Z79.899 Other long term (current) drug therapy; Z79.82 Long term (current) use of aspirin; Z79.1 Long term (current) use of non-steroidal anti-inflammatories (NSAID)
CPT/HCPCS: 99211

== ENCOUNTER → 2020-05-24 | Outpatient (CLI) | payer MEDICARE, BC ==
--- NOTE | 2020-05-24 15:50 | XR ---
Right knee Limited HISTORY: Trauma and pain 2 views the right knee The joint spaces and alignment are maintained. Precervical lucency along the patella There may be min imal suprapatellar joint effusion. Soft tissue calcifications may be vascular. There is soft tissue s welling. IMPRESSION: No dislocation. Difficult to exclude patellar fracture, additional imaging may be of bene fit, correlate. A Yellow level critical message alert has been initiated for Noel Liao DO via the [employer] Critical Results System on 05/24/2020 3:47 PM. This message alert has been sent to Noel Liao DO vi a the preferences provided by the clinician for the receipt of Radiology Critical Findings. Message I D [id number].
== END | disposition home or self-care (01) ==
LOC: RADXRMAIN 10:03
PROVIDERS: ATTEND Family Medicine
DX: S89.91XA Unspecified injury of right lower leg, initial encounter (principal)

== ENCOUNTER → 2020-06-14 | Outpatient (CLI) | payer MEDICARE, BC ==
[2020-06-14 11:06] LABS: Basophils % (A) 0 %; Eosinophils % (A) 0 %; HCT 33.9 % (39.0-53.0); HGB 11.6 gm/dL (13.0-17.5); Lymphocytes # (A) 0.6 k/uL (1.0-4.8); Lymphocytes % (A) 5 %; MCH 34.6 pg (25.0-35.0); MCHC 34.3 g/dL (31.0-37.0); Macrocytosis Slight; Mean Platelet Volume 7.5; Monocytes # (A) 0.7 k/uL (0-1.0); Monocytes % (A) 5 %; Neutrophils # (A) 10.8 k/uL (1.3-7.7); Neutrophils % (A) 89 %; Platelet Count 194 k/uL (150-450); RBC 3.35 m/uL (4.30-5.90); WBC 12.2 k/uL (3.8-10.6)
[2020-06-14 12:52] LABS: Erythrocyte Sedimentation Rate 56 mm/hr (0-15)
[2020-06-14 18:55] LABS: C Reactive Protein 0.4 mg/dL (0.0-0.8); Non-African American GFR(CKD) 90.6 (60.0-200.0)
== END | disposition home or self-care (01) ==
LOC: LABWHC1 09:42
PROVIDERS: ATTEND Internal Medicine Rheumatology
DX: M06.9 Rheumatoid arthritis, unspecified (principal)
CPT/HCPCS: 36415; 82565; 84450; 84460; 85025; 85652; 86140

== ENCOUNTER → 2020-07-12 | Outpatient (CLI) | payer MEDICARE, BC ==
[2020-07-12 08:19] VITALS: BP 139/78; PULSE 85; RESP 16; TEMP 97.8
--- NOTE | 2020-07-12 08:27 | P.PN ---
Subjective Progress Note Date: 07/12/20 This is a 64-year-old gentleman with history of chronic neck and lower back pain with radiation to the right lower extremity and numbness and tingling in the right leg down to the right foot status post multiple lumbar surgeries and cervical fusion. He also has a history of rheumatoid arthritis. The patient fell on his right knee about 6 weeks ago but there were no fractures however his orthopedic surgeon had to be drain an infusion from his right knee joint. The patient's back and neck pain is under control with a combination of oral opioids and interventional pain procedures. There are no changes since last time we saw the patient in the clinic. He takes [place] 10 mg 3 times a day and Neurontin 300 mg 3 times a day Patient denies new-onset weakness, bowel/bladder incontinence, or any other signs or symptoms of cauda equina syndrome. There are no signs of acute intoxication, and no indications of medication diversion or overuse. In addition to above, 13-point review of systems is also negative for chest pain, shortness of breath, changes in vision, changes in hearing, new onset weakness, abdominal pain, diarrhea, extreme fatigue, malaise, fever, skin changes, homicidal or suicidal ideation, or bowel or bladder incontinence. Vital Signs: Reviewed in EMR Gen: AAOx3, NAD HEENT: PERRLA,hearing grossly normal Pulm: resp unlabored Neck: supple, trachea midline Neuro exam of the lower extremities: Normal muscle strength in the left lower extremity and slightly decreased in the right lower extremity to 4 out of 5 especially for right knee flexion and extension mostly due to his knee pain from the fall. Straight leg raising test: Normal bilaterally Jordin's test: Range of motion of the lumbar spine: Facet loading test: Tenderness in the paravertebral musculature: The lumbar area Neuro: CN II-XII grossly intact, Imaging: Reviewed in EMR/chart Assessment: Lumbar and cervical post surgery pain syndrome Rheumatoid arthritis Obesity Opioid dependence Plan: 1. Explanation: Opioid and psychological risk scores were reviewed. Diagnoses, prognoses, and multiple treatment options including but not limited to physical therapy, interventional therapies, adjuvant medical therapies, narcotic medication therapies, and surgery were discussed with the patient and all questions were answered to the patient's satisfaction. 2. Opioid agreement: Signed with the patient and the patient is warned not to use opioids while driving or before driving and not to combine opioids with benzodiazepines or alcohol. 3. Counseling: The patient was counseled extensively on SMOKING CESSATION, BODY MASS INDEX, EXERCISE. Specifically, the patient was instructed regarding the importance of smoking cessation, obesity, and exercise in the context of both chronic pain and overall health. 4. Procedures: None for now 5. Consultations: None 6. Investigations: None 7. Medications: Continue [place] and Neurontin 8. Disposition: Return to clinic in 8 weeks 9. Maps were reviewed and were appropriate. Controlled Substance Measures Is patient prescribed a controlled substance at discharge?: Yes When asked, does pt state using other controlled substances?: No If prescribed controlled substance>3 days was MAPS reviewed?: Yes If Rx opioid, was Start Talking consent form obtained?: Yes If opioid is for acute pain is fill amount 7 days or less?: No Was information provided regarding opioid addiction?: Yes Objective - Vital Signs Vital signs: Vital Signs Temp 97.8 F 07/12/20 08:09 Pulse 85 07/12/20 08:09 Resp 16 07/12/20 08:09 BP 139/78 07/12/20 08:09 Pulse Ox 98 07/12/20 08:09
== END | disposition home or self-care (01) ==
LOC: PNWHC3 07:58
PROVIDERS: ATTEND Anesthesiology
DX: M96.1 Postlaminectomy syndrome, not elsewhere classified (principal); F11.20 Opioid dependence, uncomplicated; M06.9 Rheumatoid arthritis, unspecified; E66.9 Obesity, unspecified; Z79.891 Long term (current) use of opiate analgesic; Z79.899 Other long term (current) drug therapy
CPT/HCPCS: 80307; G0482; G0463; 99212

== ENCOUNTER 2020-08-01 06:14 | Day surgery (SDC) | payer MEDICARE, BC ==
[2020-07-28 09:08] VITALS: BMI 36.3
[2020-08-01] MEDS ORDERED: LIDOCAINE 1% (10MG/ML) FOR IV START INTRADERMA ONE (06:24)
[2020-08-01 06:32] VITALS: RESP 16; TEMP 97
[2020-08-01] MEDS ORDERED: SODIUM CHLORIDE 0.9% (PF) 10 ML VIAL ONE (07:01)
[2020-08-01] MEDS ORDERED: ROPIVACAINE 5MG/ML 20ML VIAL ONE (07:01)
[2020-08-01] MEDS ORDERED: methylPREDNISolone ACETATE 40 MG/ML 1 ML VIAL ONE (07:01)
[2020-08-01] MEDS ORDERED: fentaNYL (PF) 50 MCG/ML 2 ML AMP ONE (07:01)
[2020-08-01] MEDS ORDERED: MIDAZOLAM 2 MG/2 ML VIAL ONE (07:01)
[2020-08-01] MEDS ORDERED: IV FLUID CONTINUATION 1,000 ML IV ONE (07:32)
--- NOTE | 2020-08-01 07:34 | P.PCN ---
Date of Procedure: 08/01/20 Procedure(s) Performed: PREOP DIAGNOSIS: 1- Lumbar postlaminectomy syndrome. POSTOP DIAGNOSIS:1- Lumbar postlaminectomy syndrome. PROCEDURE: 1-Caudal epidural steroid injection with epidurolysis , under fluoroscopic guidance. (Fluoroscopy images available in the radiology Department ) ANESTHESIA: moderate sedation, with Versed 2 mg and fentanyl 100 g. EBL: Minimal. PROCEDURE INDICATION: The patient with post-laminectomy syndrome with low back pain and radiculopathy radiating down in both legs, here for a caudal epidural steroid injection with epidurolysis. PROCEDURE DESCRIPTION: The patient was seen and identified in the preoperative area. Risks, benefits, complications, and alternatives were discussed with the patient. The patient agreed to proceed with the procedure and signed the consent. IV was started, and vital signs were stable. Patient was taken to the OR and time out was completed. The patient was placed in the prone position on procedure table and a pillow was placed under the abdomen to reduce lumbar lordosis. The lumbosacral area was prepped and draped in the usual sterile fashion. Vital signs were closely monitored during the procedure. lateral view and the anterior-posterior plates of the sacrum were identified with infiltration of the area overlying the sacral hiatus with 1% lidocaine .A 17 gauge RK epidural needle was used to advance through the sacral hiatus into the caudal epidural space . the position of the needle was verified to be in the midline. A Racz catheter was introduced into the epidural space and was advanced towards the L5-S1 interspace under direct fluoroscopic guidance. Multiple passes were made with the catheter for lysis of epidural adhesions. Depo-Medrol 80 mg with 3ml of preservative free ropivacaine 0.5% 3 ml, and preservative free normal saline was injected slowly. The needle and the cathete r were withdrawn intact. COMPLICATIONS: None. DISPOSITION / PLANS: The patient was placed in a supine position and transferred to the recovery area in a stable condition for observation and was discharged from the recovery room after meeting discharge criteria. Home discharge instructions given to the patient by the staff. The patient was reexamined prior to discharge. The patient will schedule a follow up in the clinic in 2-4 weeks.
[2020-08-01 07:43] VITALS: BP 128/80; PULSE 68
--- NOTE | 2020-08-01 08:14 | FL ---
Fluoroscopy HISTORY: Pain 10 seconds fluoroscopy time supplied to the referring clinician. 2 intraoperative C-arm images docum ent the procedure. See dictated report from anesthesia.
== END 2020-08-01 07:58 | disposition home or self-care (01) ==
LOC: ORPAIN 06:14
PROVIDERS: ATTEND Specialist
DX: M96.1 Postlaminectomy syndrome, not elsewhere classified (principal); Z88.1 Allergy status to other antibiotic agents; Z79.82 Long term (current) use of aspirin
CPT/HCPCS: 62264; J2250; J1030; J3010; J2795; C1894; 99152

== ENCOUNTER → 2020-09-06 | Outpatient (CLI) | payer MEDICARE, BC ==
--- NOTE | 2020-09-06 08:22 | P.PAINPG ---
Subjective Progress Note Date: 09/06/20 This is a 65-year-old gentleman with history of chronic neck and lower back pain with radiation to the right lower extremity and numbness and tingling in the right leg down to the right foot status post multiple lumbar surgeries and cervical fusion. He also has a history of rheumatoid arthritis. The patient's back and neck pain is under control with a combination of oral opioids and interventional pain procedures. Most recently had a caudal BREONNA with MATEO with 50% relief for 1 month. He takes [place] 10 mg 3 times a day and Neurontin 300 mg 3 times a day which is helpful and keeping him functional. He is also noticing that he is having worsening swelling in his bilateral lower extremities from the knee down. He also notes some small blisters or open, not causing him much pain but they do hurt when he takes a shower. He says he thinks this is because of his rheumatoid arthritis. Patient denies new-onset weakness, bowel/bladder incontinence, or any other signs or symptoms of cauda equina syndrome. There are no signs of acute intoxication, and no indications of medication diversion or overuse. In addition to above, 13-point review of systems is also negative for chest pain, shortness of breath, changes in vision, changes in hearing, new onset weakness, abdominal pain, diarrhea, extreme fatigue, malaise, fever, skin changes, homicidal or suicidal ideation, or bowel or bladder incontinence. Vital Signs: Reviewed in EMR Gen: AAOx3, NAD HEENT: PERRLA,hearing grossly normal Pulm: resp unlabored Neck: supple, trachea midline Neuro exam of the lower extremities: Normal muscle strength in the left lower extremity and slightly decreased in the right lower extremity to 4 out of 5 especially for right knee flexion and extension mostly due to his knee pain from the fall. Straight leg raising test: Normal bilaterally Jordin's test: negative Range of motion of the lumbar spine: intact Facet loading test: positive bilaterally Tenderness in the paravertebral musculature: The lumbar area BLE have 2+ pitting edema with various open scabs. 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 Explanation: Opioid and psychological risk scores were reviewed. Diagnoses, prognoses, and multiple treatment options including but not limited to physical therapy, interventional therapies, adjuvant medical therapies, narcotic medication therapies, and surgery were discussed with the patient and all questions were answered to the patient's satisfaction. 2. Opioid agreement: Signed with the patient and the patient is warned not to use opioids while driving or before driving and not to combine opioids with benzodiazepines or alcohol. 3. Counseling: The patient was counseled extensively on SMOKING CESSATION, BODY MASS INDEX, EXERCISE. Specifically, the patient was instructed regarding the importance of smoking cessation, obesity, and exercise in the context of both chronic pain and overall health. 4. Procedures: None for now, can repeat caudal BREONNA in the future as needed 5. Consultations: I encouraged him to follow up with his primary care doctor regarding his bilateral lower extremity edema. He is on Lasix 12.5 mg once a day which is a very low dose, he might need this increased or he might need an ankle brachial index study to evaluate circulation in his legs. I encouraged compression stockings and leg elevation as much as he could. 6. Investigations: None 7. Medications: Continue [place] and Neurontin 8. Disposition: Return to clinic in 8 weeks 9. Maps were reviewed and were appropriate. Spent 35 minutes chart reviewing, talking to the patient, and discussing plan of care Controlled Substance Measures Is patient prescribed a controlled substance at discharge?: Yes When asked, does pt state using other controlled substances?: No If prescribed controlled substance>3 days was MAPS reviewed?: Yes If Rx opioid, was Start Talking consent form obtained?: Yes If opioid is for acute pain is fill amount 7 days or less?: No Was information provided regarding opioid addiction?: Yes PQRS Measure Charge Sheet PQRS Narrative: Smoking Status Former smoker Narcotic Agreement Date Signed 01/26/20 Pain Intensity [Lower Back] 6 Hx Alcohol Use (MH) No Home Medications: Ambulatory Orders Timolol 0.5% Ophth Soln [Timoptic 0.5% Ophth Soln] 1 drop BOTH EYES BID 11/12/13 Folic Acid 1 mg PO DAILY 06/14/19 Hydrochlorothiazide [hydroCHLOROthiazide] 12.5 mg PO DAILY 06/14/19 Losartan Potassium 50 mg PO 1200 06/14/19 metHOTREXate sodium [Methotrexate] 10 mg PO MO 06/14/19 Atorvastatin [Lipitor] 40 mg PO DAILY 08/10/19 Tofacitinib Citrate [Xeljanz] 10 mg PO DAILY 08/10/19 Albuterol Sulfate [Ventolin HFA] 1 - 2 puff INHALATION Q6H PRN 03/16/20 Aspirin 81 mg PO DAILY 03/16/20 Furosemide [Lasix] 20 mg PO DAILY 03/16/20 Ibuprofen 200 mg PO Q6H PRN 03/16/20 Cyclobenzaprine [Flexeril] 10 mg PO TID PRN #90 tab 05/17/20 Gabapentin [Neurontin] 300 mg PO TID #90 cap 09/06/20 HYDROcodone/APAP 10-325MG [[place] 10-325] 1 tab PO Q6HR PRN 30 Days #120 tab 09/06/20 HYDROcodone/APAP 10-325MG [[place] 10-325] 1 tab PO Q6HR PRN 30 Days #120 tab 09/06/20 Controlled Substance Measures - Controlled Substance Measures Is patient prescribed a controlled substance at discharge?: Yes When asked, does pt state using other controlled substances?: No If prescribed controlled substance>3 days was MAPS reviewed?: Yes If Rx opioid, was Start Talking consent form obtained?: Yes If opioid is for acute pain is fill amount 7 days or less?: No Was information provided regarding opioid addiction?: Yes
== END ==
CPT/HCPCS: 99211

== ENCOUNTER 2020-09-07 22:35 | Emergency (ER) | payer MEDICARE, BC ==
[2020-09-07 22:42] VITALS: TEMP 97.9
[2020-09-07] MEDS ORDERED: OXYMETAZOLINE 0.05% NASL SPRAY 1 SPRAY BOTTLE NASAL STA (22:53)
--- NOTE | 2020-09-07 23:00 | ED ---
ENT HPI - General Chief complaint: ENT Stated complaint: Nosebleed Time Seen by Provider: 09/07/20 22:45 Source: patient Mode of arrival: ambulatory Limitations: no limitations - History of Present Illness Initial comments: 65-year-old male presents emergency department with a chief complaint nosebleed. Patient reports for the past several days he said intermittent nosebleeds, particularly from the left nostril. Patient reports typically last less than 30 minutes and resolve spontaneously after holding some pressure. States the most recentstarted today approximately 2 hours prior to arrival, again from the left nostril. Patient also reports having some bleeding from the left eyes while during the same period of the epistaxis. He denies any light headedness, dizziness, headache, chest pain or shortness of breath. Denies any blood thinners. He does take 81 mg aspirin daily along with methotrexate for his room with her arthritis. Denies history of coagulopathy. He has an appointment with Dr. Sosa on Friday. - Related Data Home Medications Medication Instructions Recorded Confirmed Timolol 0.5% Ophth Soln [Timoptic 1 drop BOTH EYES BID 11/12/13 08/31/20 0.5% Ophth Soln] Folic Acid 1 mg PO DAILY 06/14/19 08/31/20 Hydrochlorothiazide 12.5 mg PO DAILY 06/14/19 08/31/20 [hydroCHLOROthiazide] Losartan Potassium 50 mg PO 1200 06/14/19 08/31/20 metHOTREXate sodium [Methotrexate] 10 mg PO MO 06/14/19 08/31/20 Atorvastatin [Lipitor] 40 mg PO DAILY 08/10/19 08/31/20 Tofacitinib Citrate [Xeljanz] 10 mg PO DAILY 08/10/19 08/31/20 Albuterol Sulfate [Ventolin HFA] 1 - 2 puff INHALATION Q6H PRN 03/16/20 08/31/20 Aspirin 81 mg PO DAILY 03/16/20 08/31/20 Furosemide [Lasix] 20 mg PO DAILY 03/16/20 08/31/20 Ibuprofen 200 mg PO Q6H PRN 03/16/20 08/31/20 Previous Rx's Medication Instructions Recorded Cyclobenzaprine [Flexeril] 10 mg PO TID PRN #90 tab 05/17/20 Gabapentin [Neurontin] 300 mg PO TID #90 cap 09/06/20 HYDROcodone/APAP 10-325MG [[place] 1 tab PO Q6HR PRN 30 Days #120 tab 09/06/20 10-325] HYDROcodone/APAP 10-325MG [[place] 1 tab PO Q6HR PRN 30 Days #120 tab 09/06/20 10-325] Allergies Allergy/AdvReac Type Severity Reaction Status Date / Time cephalexin monohydrate Allergy Rash/Hives Verified 09/07/20 22:43 [From Keflex] Review of Systems ROS Statement: Those systems with pertinent positive or pertinent negative responses have been documented in the HPI. ROS Other: All systems not noted in ROS Statement are negative. Past Medical History Past Medical History: Asthma, Eye Disorder, Hypertension, Rheumatoid Arthritis (RA) Additional Past Medical History / Comment(s): GLAUCOMA, shingles on back of head and neck 07/15/19, DDD History of Any Multi-Drug Resistant Organisms: None Reported Past Surgical History: Appendectomy, Back Surgery, Cholecystectomy, Orthopedic Surgery Additional Past Surgical History / Comment(s): NATHANAEL ROTATOR CUFF surgery, DISC SURG X3, TITANIUM PLATE IN NECK, fusion of S1, PAIN CLINIC PROCEDURE, arthroscopy rt knee Past Anesthesia/Blood Transfusion Reactions: No Reported Reaction Past Psychological History: No Psychological Hx Reported Smoking Status: Former smoker Past Alcohol Use History: None Reported Past Drug Use History: None Reported - Past Family History Mother Family Medical History: No Reported History Father Family Medical History: Coronary Artery Disease (CAD) Additional Family Medical History / Comment(s): FATHER HAD 3 VESSEL CABG-HAD POST OP INFECTION AND PNEUMONIA AND AT THE AGE OF 80YRS. General Exam Limitations: no limitations General appearance: alert, in no apparent distress Head exam: Present: atraumatic, normocephalic, normal inspection Eye exam: Present: PERRL, EOMI. Absent: normal appearance (Small amount of bleeding noted near the lacrimal duct in the left eye.) Pupils: Present: normal accommodation ENT exam: Present: normal exam, mucous membranes moist, TM's normal bilaterally, normal external ear exam. Absent: normal oropharynx (Residual blood in posterior pharynx. Epistaxis left nostril. No visible source of bleeding detectable in left nostril.) Neck exam: Present: normal inspection, full ROM. Absent: tenderness Respiratory exam: Present: normal lung sounds bilaterally. Absent: respiratory distress, wheezes, rales, rhonchi, stridor Cardiovascular Exam: Present: regular rate, normal rhythm, normal heart sounds Extremities exam: Present: normal inspection, full ROM, normal capillary refill. Absent: tenderness Back exam: Present: normal inspection, full ROM. Absent: tenderness Neurological exam: Present: alert, oriented X3 Psychiatric exam: Present: normal affect, normal mood Skin exam: Present: warm, dry, intact, normal color Course Vital Signs 09/07/20 09/07/20 09/07/20 22:40 23:40 23:43 Temperature 97.9 F Pulse Rate 46 L 96 Respiratory 16 18 Rate Blood Pressure 185/89 141/81 O2 Sat by Pulse 96 98 Oximetry Medical Decision Making - Medical Decision Making 65-year-old male presents to emergency department with chief complaint of a nosebleed. On physical examination, there is a left-sided epistaxis. Unable to detect a source of bleed. There is also some residual blood in the posterior pharynx. He also had a bleed near the left lacrimal duct. I suspect this is secondary to epistaxis. Labs were obtained. CBC reveals mild anemia at 11.2 but this appears to be his baseline. Patient is chronically anemic. CMP unremarkable. Coags within normal limits. Patient was initially bradycardic in triage but the vitals were reassessed and his vitals had improved. Afrin was applied in bilateral nostrils with a nose clamp. Patient was observed for over an hour to emergency department with resolution of his symptoms. Patient has an appointment with Dr. Sosa on Friday. Patient does sleep close to heavy ventilatory area. Patient was advised to apply Vaseline prior to going to bed and in the morning. Also advised to use [place]. Strict return parameters were thoroughly discussed with patient is a nursing agreeable. Case discussed with - Lab Data Result diagrams: 09/07/20 23:02 09/07/20 23: Lab Results 09/07/20 09/07/20 09/07/20 Range/Units 23:02 23:02 23:02 WBC 8.0 (3.8-10.6) k/uL RBC 3.55 L (4.30-5.90) m/uL Hgb 12.3 L (13.0-17.5) gm/dL Hct 35.5 L (39.0-53.0) % MCV 100.0 (80.0-100.0) fL MCH 34.7 (25.0-35.0) pg MCHC 34.7 (31.0-37.0) g/dL RDW 14.5 (11.5-15.5) % Plt Count 189 (150-450) k/uL MPV 7.1 Neutrophils % 67 % Lymphocytes % 21 % Monocytes % 7 % Eosinophils % 3 % Basophils % 0 % Neutrophils # 5.3 (1.3-7.7) k/uL Lymphocytes # 1.7 (1.0-4.8) k/uL Monocytes # 0.5 (0-1.0) k/uL Eosinophils # 0.2 (0-0.7) k/uL Basophils # 0.0 (0-0.2) k/uL Macrocytosis Slight PT 9.8 (9.0-12.0) sec INR 0.9 (<1.2) APTT 23.5 (22.0-30.0) sec Sodium 141 (137-145) mmol/L Potassium 4.2 (3.5-5.1) mmol/L Chloride 100 (98-107) mmol/L Carbon Dioxide 31 H (22-30) mmol/L Anion Gap 10 mmol/L BUN 17 (9-20) mg/dL Creatinine 0.75 (0.66-1.25) mg/dL Est GFR (CKD-EPI)AfAm >90 (>60 ml/min/1.73 sqM) Est GFR (CKD-EPI)NonAf >90 (>60 ml/min/1.73 sqM) Glucose 138 H (74-99) mg/dL Calcium 9.4 (8.4-10.2) mg/dL Total Bilirubin 0.4 (0.2-1.3) mg/dL AST 39 (17-59) U/L ALT 32 (4-49) U/L Alkaline Phosphatase 113 (38-126) U/L Total Protein 8.0 (6.3-8.2) g/dL Albumin 4.6 (3.5-5.0) g/dL Disposition Clinical Impression: Left-sided epistaxis Disposition: HOME SELF-CARE Condition: Stable Instructions (If sedation given, give patient instructions): Nosebleed (ED) Additional Instructions: Please return to the Emergency Department if symptoms worsen or any other concerns. Is patient prescribed a controlled substance at d/c from ED?: No Referrals: Noel Liao DO [Primary Care Provider] - 1-2 days Time of Disposition: 23:54
[2020-09-07 23:26] LABS: ALT 32 U/L (4-49); AST 39 U/L (17-59); African American GFR (CKD) >90 (>60 ml/min/1.73 sqM); Albumin 4.6 g/dL (3.5-5.0); Alkaline Phosphatase 113 U/L (38-126); Anion Gap 10 mmol/L; Blood Urea Nitrogen 17 mg/dL (9-20); Calcium 9.4 mg/dL (8.4-10.2); Carbon Dioxide 31 mmol/L (22-30); Chloride 100 mmol/L (98-107); Glucose 138 mg/dL (74-99); Non-African American GFR(CKD) >90 (>60 ml/min/1.73 sqM); Potassium 4.2 mmol/L (3.5-5.1); Sodium 141 mmol/L (137-145); Total Bilirubin 0.4 mg/dL (0.2-1.3)
[2020-09-07 23:30] LABS: INR 0.9 (<1.2); Partial Thromboplastin Time 23.5 sec (22.0-30.0); Prothrombin Time 9.8 sec (9.0-12.0)
[2020-09-07 23:41] VITALS: PULSE 96; RESP 18
[2020-09-07 23:43] VITALS: BP 141/81
[2020-09-07 23:44] LABS: Basophils % (A) 0 %; Eosinophils # (A) 0.2 k/uL (0-0.7); Eosinophils % (A) 3 %; HCT 35.5 % (39.0-53.0); HGB 12.3 gm/dL (13.0-17.5); Lymphocytes # (A) 1.7 k/uL (1.0-4.8); Lymphocytes % (A) 21 %; MCH 34.7 pg (25.0-35.0); MCHC 34.7 g/dL (31.0-37.0); Macrocytosis Slight; Mean Platelet Volume 7.1; Monocytes # (A) 0.5 k/uL (0-1.0); Monocytes % (A) 7 %; Neutrophils # (A) 5.3 k/uL (1.3-7.7); Neutrophils % (A) 67 %; Platelet Count 189 k/uL (150-450); RBC 3.55 m/uL (4.30-5.90); RDW 14.5 % (11.5-15.5)
== END 2020-09-08 00:15 | disposition home or self-care (01) ==
LOC: EC 22:35
DX: R04.0 Epistaxis (principal); I10 Essential (primary) hypertension; J45.909 Unspecified asthma, uncomplicated; Z79.82 Long term (current) use of aspirin; Z79.899 Other long term (current) drug therapy; Z87.891 Personal history of nicotine dependence
CPT/HCPCS: 36415; 80053; 85025; 85610; 85730; 99283

== ENCOUNTER → 2020-09-14 | Outpatient (CLI) | payer MEDICARE, BC ==
[2020-09-14 20:24] LABS: HCT 32.4 % (39.6-50.0); HGB 10.4 g/dL (13.0-17.0); MCHC 32.1 g/dL (32.0-37.0); MCV 105.9 fL (80.0-97.0); Mean Platelet Volume 10.2 fL (9.5-12.2); Platelet Count 172 X 10*3/uL (140-440); RBC 3.06 X 10*6/uL (4.40-5.60); RDW 13.9 % (11.5-14.5); WBC 4.75 X 10*3/uL (4.50-10.00)
[2020-09-14 20:48] LABS: ALT 34 U/L (10-49); AST 33 U/L (14-35); African American GFR (CKD) 109.4 (60.0-200.0); C Reactive Protein <0.4 mg/dL (0.0-0.8); Non-African American GFR(CKD) 94.4 (60.0-200.0)
[2020-09-14 21:12] LABS: Basophils # (A) 0.01 X 10*3/uL (0.00-0.10); Basophils % (A) 0.2 %; Eosinophils # (A) 0.03 X 10*3/uL (0.04-0.35); Eosinophils % (A) 0.6 %; Lymphocytes # (A) 1.51 X 10*3/uL (0.90-5.00); Lymphocytes % (A) 31.8 %; Monocytes # (A) 0.56 X 10*3/uL (0.20-1.00); Monocytes % (A) 11.8 %; Neutrophils # (A) 2.63 X 10*3/uL (1.80-7.70); Neutrophils % (A) 55.4 %
[2020-09-15 00:16] LABS: Erythrocyte Sedimentation Rate 39 mm/Hr (0-20)
== END | disposition home or self-care (01) ==
LOC: LABWHC1 08:42
PROVIDERS: ATTEND Internal Medicine Rheumatology
DX: J84.10 Pulmonary fibrosis, unspecified (principal); M06.9 Rheumatoid arthritis, unspecified
CPT/HCPCS: 36415; 82565; 84450; 84460; 85025; 85652; 86140

== ENCOUNTER → 2020-11-01 | Outpatient (CLI) | payer MEDICARE, BC ==
[2020-11-01 08:11] VITALS: BP 161/91; PULSE 97; RESP 16; TEMP 98.1
--- NOTE | 2020-11-01 11:57 | P.PN ---
Subjective Progress Note Date: 11/01/20 This is follow-up visit for this patient with a history of severe and chronic low back pain secondary to , lumbar spondylosis with facet arthropathy, post laminectomy pain syndrome lumbar area, and he continued to have severe low back pain ,Pain is worse with standing, bending, walking and better with medications, previously we have done caudal Epidural steroid injection with lysis of epidural adhesions, he reports good benefit from interventional pain management Patients currently on norco 10/325 every 6 hours , Neurontin .300 mg 3 times a day , Flexeril 10 mg 3 times a day Patient denies any side effects of the medication, denies excessive drowsiness or sleepiness, denies suicidal ideation. Patient denies any new onset of motor or sensory deficit, patient denies any fever or night sweats, denies any change in the bowel movements or urination, patient ambulates using a cane, he reported that the intensity of the pain interfering with his quality of life and in the pain increases during the cold weather, and he had a flareup of osteoarthritis and rheumatoid arthritis Physical Examinations : -Constitutiona : Cooperative , not in acute distress . -HEENT : nech : supple , no Lymphadenopathy , normal thyroid size . : eyes : no ptosis , no icterus, no photophobia . - neurologic : Cranial nerve II to XII intact , no focal neurological deffecit . -psychatric : alert , oriented X 3 , appropriate affect , intact judgment and insight . -Lymphatic : no Lymphadenopathy . - musculoskeltal : Lumber spine moter stegnth lower extremities ,thigh and legs 5/5 Right side , 5/5 Left side deep tendon reflexes : normal Knee Jerk , normal ankle Jerk lumber facet Loading Test =positive Right , positive Left Range of motion of the lumbar spine Flexion 30 degrees, extension 10 degrees strait leg raising test = positive at degree Fabere test= positive Right , and positive LT . tenderness over the Sacroiliac joint on the Right , and Left sides Assessment and Plan= chronic low back pain secondary to lumbar postlaminectomy pain syndrome , lumbar spondylosis with lumbar facet arthropathy . chronic and current use of high-risk medication (opioids) Patient denies any side effects of the current pain medication and the current treatment/medication helping the patient to do activity of daily living , Diagnoses, prognosis, treatment options, including but not limited to physical therapy, medication management, interventional therapies, and surgery, were discussed with the patient All the questions answered The narcotic consent was signed and patient agreed and understood the side effects and complications of opioid treatment. Patient signed the narcotic agreement, and was orally counseled, not to overuse, not to abuse, not to Divert , not tp sell pain medication, and to take it as prescribed only, Patient was counseled not to drive or operate heavy equipment while using narcotic medication, and advised not to use alcohol or any Illicit drugs while using the narcotis. understanding that lack of compliance with any of the above instructions, will likely to cause discharge from, the pain service, not to renew his narcotic prescriptions MAPS Reviwed and it was apropriate . Medication managements= continue Neurontin 300 mg 3 times a day, continue Flexeril 10 mg 3 times a day, [place] 10/325 2 every 6 hours Dispense 120 with 1 refill and patient will follow up in the pain clinic in 2 months Time with Patient: Less than 30 - PQRS measures = - Patient's medications are documented in the chart. -Tobacco use is negative and counseling.Given. -Patient's has not received pneumococcal vaccine. -Advanced care planning discussed, patient not eligible. -Opiate contract signed. -Pain positive and follow-up visit/procedure is scheduled. -Patient's blood pressure measured [161/91 ] , and documented in the record ,and patient will follow up with the primary care. -Patient's weight was measured and body mass index [36.5 ] above the normal limits and counseling was done. and patient instructed to follow-up with the primary care physician. -Patient was not identified as an unhealthy alcohol user Objective - Vital Signs Vital signs: Vital Signs Temp 98.1 F 11/01/20 08:08 Pulse 97 11/01/20 08:08 Resp 16 11/01/20 08:08 BP 161/91 11/01/20 08:08 Pulse Ox 98 11/01/20 08:08
== END ==
LOC: PNWHC3 07:53
PROVIDERS: ATTEND Specialist
DX: M96.1 Postlaminectomy syndrome, not elsewhere classified (principal); M47.816 Spondylosis without myelopathy or radiculopathy, lumbar region; G89.29 Other chronic pain; Z79.891 Long term (current) use of opiate analgesic; Z87.891 Personal history of nicotine dependence
CPT/HCPCS: 99211

== ENCOUNTER → 2020-12-27 | Outpatient (CLI) | payer MEDICARE, BC ==
[2020-12-27 08:12] VITALS: BP 171/100; PULSE 81; RESP 18; TEMP 97.8
--- NOTE | 2020-12-27 08:16 | P.PAINPG ---
Subjective Progress Note Date: 12/27/20 This is follow-up visit for this patient with a history of severe and chronic low back pain secondary to , lumbar spondylosis with facet arthropathy, post laminectomy pain syndrome lumbar area, and he continued to have severe low back pain ,Pain is worse with standing, bending, walking and better with medications, previously we have done caudal Epidural steroid injection with lysis of epidural adhesions, he reports good benefit from interventional pain management. He notes that overall he is doing well, he notes transient swelling in his left lower extremity for which uses a compression stocking for. Occasionally he will get a blister on his leg but I educated him to keep these well cleaned as he does not want to have an infection. His blood pressure was a little high today, he notes that's because he has to walk up a lot of stairs to come see us and overall he is compliant with his blood pressure medications. Patients currently on norco 10/325 every 6 hours , Neurontin .300 mg 3 times a day , Flexeril 10 mg 3 times a day Patient denies any side effects of the medication, denies excessive drowsiness or sleepiness, denies suicidal ideation. Patient denies any new onset of motor or sensory deficit, patient denies any fever or night sweats, denies any change in the bowel movements or urination, patient ambulates using a cane, he reported that the intensity of the pain interfering with his quality of life and in the pain increases during the cold weather, and he had a flareup of osteoarthritis and rheumatoid arthritis Physical Examinations : -Constitutiona : Cooperative , not in acute distress . -HEENT : nech : supple , no Lymphadenopathy , normal thyroid size . : eyes : no ptosis , no icterus, no photophobia . - neurologic : Cranial nerve II to XII intact , no focal neurological deffecit . -psychatric : alert , oriented X 3 , appropriate affect , intact judgment and insight . -Lymphatic : no Lymphadenopathy . - musculoskeltal : Lumber spine moter stegnth lower extremities ,thigh and legs 5/5 Right side , 5/5 Left side deep tendon reflexes : normal Knee Jerk , normal ankle Jerk lumber facet Loading Test =positive Right , positive Left Range of motion of the lumbar spine Flexion 30 degrees, extension 10 degrees strait leg raising test = positive at degree Fabere test= positive Right , and positive LT . tenderness over the Sacroiliac joint on the Right , and Left sides Assessment and Plan= chronic low back pain secondary to lumbar postlaminectomy pain syndrome , lumbar spondylosis with lumbar facet arthropathy . chronic and current use of high-risk medication (opioids) Patient denies any side effects of the current pain medication and the current treatment/medication helping the patient to do activity of daily living , Diagnoses, prognosis, treatment options, including but not limited to physical therapy, medication management, interventional therapies, and surgery, were discussed with the patient All the questions answered The narcotic consent was signed and patient agreed and understood the side effects and complications of opioid treatment. Patient signed the narcotic agreement, and was orally counseled, not to overuse, not to abuse, not to Divert , not tp sell pain medication, and to take it as prescribed only, Patient was counseled not to drive or operate heavy equipment while using narcotic medication, and advised not to use alcohol or any Illicit drugs while using the narcotis. understanding that lack of compliance with any of the above instructions, will likely to cause discharge from, the pain service, not to renew his narcotic prescriptions MAPS Reviwed and it was apropriate . Medication managements= continue Neurontin 300 mg 3 times a day, continue Flexeril 10 mg 3 times a day, [place] 10/325 2 every 6 hours Dispense 120 with 1 refill and patient will follow up in the pain clinic in 2 months. Does not need a procedure as of now. I have spent26 minutes on review of the records, review of the imaging available, [id number] interaction with the patient, medication management, follow-up care coordination and record creation. - PQRS measures = - Patient's medications are documented in the chart. -Tobacco use is negative and counseling.Given. -Patient's has not received pneumococcal vaccine. -Advanced care planning discussed, patient not eligible. -Opiate contract signed. -Pain positive and follow-up visit/procedure is scheduled. -Patient's blood pressure measured [161/91 ] , and documented in the record ,and patient will follow up with the primary care. -Patient's weight was measured and body mass index [36.5 ] above the normal limits and counseling was done. and patient instructed to follow-up with the primary care physician. -Patient was not identified as an unhealthy alcohol user PQRS Measure Charge Sheet PQRS Narrative: Smoking Status Former smoker Narcotic Agreement Date Signed 01/26/20 Pain Intensity [Lower Back] 6 Hx Alcohol Use (MH) No Home Medications: Ambulatory Orders Timolol 0.5% Ophth Soln [Timoptic 0.5% Ophth Soln] 1 drop BOTH EYES BID 11/12/13 Folic Acid 1 mg PO DAILY 06/14/19 Hydrochlorothiazide [hydroCHLOROthiazide] 12.5 mg PO DAILY 06/14/19 Losartan Potassium 50 mg PO 1200 06/14/19 metHOTREXate sodium [Methotrexate] 10 mg PO MO 06/14/19 Atorvastatin [Lipitor] 40 mg PO DAILY 08/10/19 Tofacitinib Citrate [Xeljanz] 10 mg PO DAILY 08/10/19 Albuterol Sulfate [Ventolin HFA] 1 - 2 puff INHALATION Q6H PRN 03/16/20 Aspirin 81 mg PO DAILY 03/16/20 Furosemide [Lasix] 20 mg PO DAILY 03/16/20 Ibuprofen 200 mg PO Q6H PRN 03/16/20 Terbinafine [LamISIL] 250 mg PO DAILY 12/22/20 Cyclobenzaprine [Flexeril] 10 mg PO TID PRN #90 tab 12/27/20 Gabapentin [Neurontin] 300 mg PO TID #90 cap 12/27/20 HYDROcodone/APAP 10-325MG [[place] 10-325] 1 tab PO Q6HR PRN 30 Days #120 tab 12/27/20 HYDROcodone/APAP 10-325MG [[place] 10-325] 1 tab PO Q6HR PRN 30 Days #120 tab 12/27/20 Controlled Substance Measures - Controlled Substance Measures Is patient prescribed a controlled substance at discharge?: Yes When asked, does pt state using other controlled substances?: No If prescribed controlled substance>3 days was MAPS reviewed?: Yes If Rx opioid, was Start Talking consent form obtained?: Yes If opioid is for acute pain is fill amount 7 days or less?: No Was information provided regarding opioid addiction?: Yes
== END | disposition home or self-care (01) ==
LOC: PNWHC3 07:57
PROVIDERS: ATTEND Anesthesiology
DX: M47.816 Spondylosis without myelopathy or radiculopathy, lumbar region (principal); M46.96 Unspecified inflammatory spondylopathy, lumbar region; M96.1 Postlaminectomy syndrome, not elsewhere classified; G89.29 Other chronic pain; Z79.891 Long term (current) use of opiate analgesic; Z79.82 Long term (current) use of aspirin; Z79.899 Other long term (current) drug therapy; Z98.890 Other specified postprocedural states; Z87.891 Personal history of nicotine dependence
CPT/HCPCS: 99211

== ENCOUNTER → 2021-01-10 | Outpatient (CLI) | payer MEDICARE, BC ==
[2021-01-10 12:09] LABS: Basophils # (A) 0.02 X 10*3/uL (0.00-0.10); Basophils % (A) 0.3 %; Eosinophils # (A) 0.04 X 10*3/uL (0.04-0.35); Eosinophils % (A) 0.7 %; HCT 34.6 % (39.6-50.0); HGB 11.6 g/dL (13.0-17.0); Lymphocytes # (A) 1.52 X 10*3/uL (0.90-5.00); Lymphocytes % (A) 25.9 %; MCH 33.9 pg (27.0-32.0); MCHC 33.5 g/dL (32.0-37.0); MCV 101.2 fL (80.0-97.0); Mean Platelet Volume 9.8 fL (9.5-12.2); Monocytes # (A) 0.71 X 10*3/uL (0.20-1.00); Monocytes % (A) 12.1 %; Neutrophils # (A) 3.55 X 10*3/uL (1.80-7.70); Neutrophils % (A) 60.5 %; Platelet Count 205 X 10*3/uL (140-440); RBC 3.42 X 10*6/uL (4.40-5.60); RDW 13.7 % (11.5-14.5); WBC 5.87 X 10*3/uL (4.50-10.00)
[2021-01-10 13:47] LABS: Erythrocyte Sedimentation Rate 42 mm/Hr (0-20)
[2021-01-10 14:41] LABS: African American GFR (CKD) 104.2 (60.0-200.0); C Reactive Protein 0.5 mg/dL (0.0-0.8); Non-African American GFR(CKD) 89.9 (60.0-200.0)
== END | disposition home or self-care (01) ==
LOC: LABWHC1 08:14
PROVIDERS: ATTEND Internal Medicine Rheumatology
DX: M06.9 Rheumatoid arthritis, unspecified (principal)
CPT/HCPCS: 36415; 82565; 84450; 84460; 85025; 85652; 86140

== ENCOUNTER → 2021-02-21 | Outpatient (CLI) | payer MEDICARE, BC ==
[2021-02-21 07:37] VITALS: BP 176/93; PULSE 83; RESP 18
--- NOTE | 2021-02-21 07:44 | P.PAINPG ---
Subjective Progress Note Date: 02/21/21 This is follow-up visit for this patient with a history of severe and chronic low back pain secondary to , lumbar spondylosis with facet arthropathy, post laminectomy pain syndrome lumbar area, and he continued to have severe low back pain ,Pain is worse with standing, bending, walking and better with medications, previously we have done caudal Epidural steroid injection with lysis of epidural adhesions, he reports good benefit from interventional pain management. Overall he is doing the same. He still has left lower extremity swelling below the knee with various scabs and lesions of different ages. He does his best to keep leg elevated to help drain the fluid from that area but otherwise has no signs of any infection. No other changes in his health and the medication is helping him. Patients currently on norco 10/325 every 6 hours , Neurontin .300 mg 3 times a day , Flexeril 10 mg 3 times a day Patient denies any side effects of the medication, denies excessive drowsiness or sleepiness, denies suicidal ideation. Patient denies any new onset of motor or sensory deficit, patient denies any fever or night sweats, denies any change in the bowel movements or urination, patient ambulates using a cane, he reported that the intensity of the pain interfering with his quality of life and in the pain increases during the cold weather, and he had a flareup of osteoarthritis and rheumatoid arthritis Physical Examinations : -Constitutiona : Cooperative , not in acute distress . -HEENT : nech : supple , no Lymphadenopathy , normal thyroid size . : eyes : no ptosis , no icterus, no photophobia . - neurologic : Cranial nerve II to XII intact , no focal neurological deffecit . -psychatric : alert , oriented X 3 , appropriate affect , intact judgment and insight . -Lymphatic : no Lymphadenopathy . - musculoskeltal : Lumber spine moter stegnth lower extremities ,thigh and legs 5/5 Right side , 5/5 Left side deep tendon reflexes : normal Knee Jerk , normal ankle Jerk lumber facet Loading Test =positive Right , positive Left Range of motion of the lumbar spine Flexion 30 degrees, extension 10 degrees strait leg raising test = positive at degree Fabere test= positive Right , and positive LT . tenderness over the Sacroiliac joint on the Right , and Left sides L lower extremity: swollen below the knee (pitting edema 2+), erythematous, lesions of various ages, no signs of infection Assessment and Plan= chronic low back pain secondary to lumbar postlaminectomy pain syndrome , lumbar spondylosis with lumbar facet arthropathy . chronic and current use of high-risk medication (opioids) Patient denies any side effects of the current pain medication and the current treatment/medication helping the patient to do activity of daily living , Diagnoses, prognosis, treatment options, including but not limited to physical therapy, medication management, interventional therapies, and surgery, were discussed with the patient All the questions answered The narcotic consent was signed and patient agreed and understood the side effects and complications of opioid treatment. Patient signed the narcotic agreement, and was orally counseled, not to overuse, not to abuse, not to Divert , not tp sell pain medication, and to take it as prescribed only, Patient was counseled not to drive or operate heavy equipment while using narcotic medication, and advised not to use alcohol or any Illicit drugs while using the narcotis. understanding that lack of compliance with any of the above instructions, will likely to cause discharge from, the pain service, not to renew his narcotic prescriptions MAPS Reviwed and it was apropriate . Medication managements= continue Neurontin 300 mg 3 times a day, continue Flexeril 10 mg 3 times a day, [place] 10/325 2 every 6 hours Dispense 120 with 1 refill and patient will follow up in the pain clinic in 2 months. Does not need a procedure as of now. I have spent26 minutes on review of the records, review of the imaging available, [id number] interaction with the patient, medication management, follow-up care coordination and record creation. - PQRS measures = - Patient's medications are documented in the chart. -Tobacco use is negative and counseling.Given. -Patient's has not received pneumococcal vaccine. -Advanced care planning discussed, patient not eligible. -Opiate contract signed. -Pain positive and follow-up visit/procedure is scheduled. -Patient's blood pressure measured [161/91 ] , and documented in the record ,and patient will follow up with the primary care. -Patient's weight was measured and body mass index [36.5 ] above the normal limits and counseling was done. and patient instructed to follow-up with the primary care physician. -Patient was not identified as an unhealthy alcohol user PQRS Measure Charge Sheet PQRS Narrative: Smoking Status Former smoker Narcotic Agreement Date Signed 01/26/20 Pain Intensity [Lower Back] 7 Scale Used Numeric (1 - 10) Hx Alcohol Use (MH) No Home Medications: Ambulatory Orders Timolol 0.5% Ophth Soln [Timoptic 0.5% Ophth Soln] 1 drop BOTH EYES BID 11/12/13 Folic Acid 1 mg PO DAILY 06/14/19 Hydrochlorothiazide [hydroCHLOROthiazide] 12.5 mg PO DAILY 06/14/19 Losartan Potassium 50 mg PO 1200 06/14/19 metHOTREXate sodium [Methotrexate] 10 mg PO MO 06/14/19 Atorvastatin [Lipitor] 40 mg PO DAILY 08/10/19 Tofacitinib Citrate [Xeljanz] 10 mg PO DAILY 08/10/19 Albuterol Sulfate [Ventolin HFA] 1 - 2 puff INHALATION Q6H PRN 03/16/20 Aspirin 81 mg PO DAILY 03/16/20 Furosemide [Lasix] 20 mg PO DAILY 03/16/20 Ibuprofen 200 mg PO Q6H PRN 03/16/20 Terbinafine [LamISIL] 250 mg PO DAILY 12/22/20 Cyclobenzaprine [Flexeril] 10 mg PO TID PRN #90 tab 02/21/21 Gabapentin 300 mg PO TID 30 Days #90 cap 02/21/21 Gabapentin [Neurontin] 300 mg PO TID #90 cap 02/21/21 HYDROcodone/APAP 10-325MG [[place] 10-325] 1 tab PO Q6HR PRN 30 Days #120 tab 02/21/21 HYDROcodone/APAP 10-325MG [[place] 10-325] 1 tab PO Q6HR PRN 30 Days #120 tab 02/21/21 Controlled Substance Measures - Controlled Substance Measures Is patient prescribed a controlled substance at discharge?: Yes When asked, does pt state using other controlled substances?: No If prescribed controlled substance>3 days was MAPS reviewed?: Yes If Rx opioid, was Start Talking consent form obtained?: Yes If opioid is for acute pain is fill amount 7 days or less?: No Was information provided regarding opioid addiction?: No
== END | disposition home or self-care (01) ==
LOC: PNWHC3 07:26
PROVIDERS: ATTEND Anesthesiology
DX: M47.896 Other spondylosis, lumbar region (principal); M46.96 Unspecified inflammatory spondylopathy, lumbar region
CPT/HCPCS: 80307; G0482; G0463; 99212

== ENCOUNTER → 2021-04-18 | Outpatient (CLI) | payer MEDICARE, BC ==
--- NOTE | 2021-04-18 07:50 | P.PN ---
Subjective Progress Note Date: 04/18/21 This is follow-up visit for this patient with a history of severe and chronic low back pain secondary to , lumbar spondylosis with facet arthropathy, post laminectomy pain syndrome lumbar area, and he continued to have severe low back pain ,Pain is worse with standing, bending, walking and better with medications, previously we have done caudal Epidural steroid injection with lysis of epidural adhesions, he reports good benefit from interventional pain management Patients currently on norco 10/325 every 6 hours , Neurontin .300 mg 3 times a day , Flexeril 10 mg 3 times a day Patient denies any side effects of the medication, denies excessive drowsiness or sleepiness, denies suicidal ideation. Patient denies any new onset of motor or sensory deficit, patient denies any fever or night sweats, denies any change in the bowel movements or urination, patient ambulates using a cane, he reported that the intensity of the pain interfering with his quality of life and in the pain increases during the cold weather, and he had a flareup of osteoarthritis and rheumatoid arthritis, she had difficulty ambulating he ambulates using a cane. Physical Examinations : -Constitutiona : Cooperative , not in acute distress . -HEENT : nech : supple , no Lymphadenopathy , normal thyroid size . : eyes : no ptosis , no icterus, no photophobia . - neurologic : Cranial nerve II to XII intact , no focal neurological deffecit . -psychatric : alert , oriented X 3 , appropriate affect , intact judgment and insight . -Lymphatic : no Lymphadenopathy . - musculoskeltal : Lumber spine moter stegnth lower extremities ,thigh and legs 4/5 Right side , 4/5 Left side deep tendon reflexes : normal Knee Jerk , normal ankle Jerk lumber facet Loading Test =positive Right , positive Left Range of motion of the lumbar spine Flexion 30 degrees, extension 10 degrees strait leg raising test = positive at degree Fabere test= positive Right , and positive LT . tenderness over the Sacroiliac joint on the Right , and Left sides Assessment and Plan= chronic low back pain secondary to lumbar postlaminectomy pain syndrome , lumbar spondylosis with lumbar facet arthropathy . chronic and current use of high-risk medication (opioids) Patient denies any side effects of the current pain medication and the current treatment/medication helping the patient to do activity of daily living , Diagnoses, prognosis, treatment options, including but not limited to physical therapy, medication management, interventional therapies, and surgery, were discussed with the patient All the questions answered The narcotic consent was signed and patient agreed and understood the side effects and complications of opioid treatment. Patient signed the narcotic agreement, and was orally counseled, not to overuse, not to abuse, not to Divert , not tp sell pain medication, and to take it as prescribed only, Patient was counseled not to drive or operate heavy equipment while using narcotic medication, and advised not to use alcohol or any Illicit drugs while using the narcotis. understanding that lack of compliance with any of the above instructions, will likely to cause discharge from, the pain service, not to renew his narcotic prescriptions MAPS Reviwed and it was apropriate . Medication managements= continue Neurontin 300 mg 3 times a day, continue Flexeril 10 mg 3 times a day, [place] 10/325 2 every 6 hours Dispense 120 with 1 refill and patient will follow up in the pain clinic in 2 months UDS done last visit ,it was reviwed today ,and it was appropriate Time with Patient: Less than 30 - PQRS measures = - Patient's medications are documented in the chart. -Tobacco use is negative and counseling.Given. -Patient's has not received pneumococcal vaccine. -Advanced care planning discussed, patient not eligible. -Opiate contract signed. -Pain positive and follow-up visit/procedure is scheduled. -Patient's blood pressure measured [169/61 ] , and documented in the record ,and patient will follow up with the primary care. -Patient's weight was measured and body mass index [37 ] above the normal limits and counseling was done. and patient instructed to follow-up with the primary care physician. -Patient was not identified as an unhealthy alcohol user
[2021-04-18 07:52] VITALS: BP 169/61; PULSE 87; RESP 18; TEMP 98.3
== END | disposition home or self-care (01) ==
LOC: PNWHC3 07:24
PROVIDERS: ATTEND Specialist
DX: M47.816 Spondylosis without myelopathy or radiculopathy, lumbar region (principal); M46.96 Unspecified inflammatory spondylopathy, lumbar region
CPT/HCPCS: 99211

== ENCOUNTER → 2021-05-21 | Outpatient (CLI) | payer MEDICARE, BC ==
[2021-05-21 09:16] LABS: Basophils % (A) 0 %; Eosinophils # (A) 0.1 k/uL (0-0.7); Eosinophils % (A) 2 %; HCT 36.6 % (39.0-53.0); HGB 12.4 gm/dL (13.0-17.5); Lymphocytes # (A) 1.5 k/uL (1.0-4.8); Lymphocytes % (A) 28 %; MCH 34.5 pg (25.0-35.0); MCHC 33.9 g/dL (31.0-37.0); MCV 101.8 fL (80.0-100.0); Macrocytosis Slight; Mean Platelet Volume 7.5; Monocytes # (A) 0.5 k/uL (0-1.0); Monocytes % (A) 8 %; Neutrophils # (A) 3.2 k/uL (1.3-7.7); Neutrophils % (A) 59 %; Platelet Count 234 k/uL (150-450); RDW 14.3 % (11.5-15.5); WBC 5.5 k/uL (3.8-10.6)
[2021-05-21 10:14] LABS: ALT 22 U/L (4-49); AST 30 U/L (17-59); African American GFR (CKD) >90 (>60 ml/min/1.73 sqM); C Reactive Protein 1.4 mg/dL (<1.0); Non-African American GFR(CKD) >90 (>60 ml/min/1.73 sqM)
[2021-05-21 10:47] LABS: Erythrocyte Sedimentation Rate 46 mm/hr (0-15)
== END | disposition home or self-care (01) ==
LOC: LAB 08:20
PROVIDERS: ATTEND Internal Medicine Rheumatology
DX: M06.9 Rheumatoid arthritis, unspecified (principal)
CPT/HCPCS: 82565; 84450; 84460; 85025; 85652; 86140

== ENCOUNTER → 2021-06-13 | Outpatient (CLI) | payer MEDICARE, BC ==
[2021-06-13 07:45] VITALS: BP 153/82; PULSE 77; RESP 18; TEMP 98.1
--- NOTE | 2021-06-13 08:10 | P.PN ---
Subjective Progress Note Date: 06/13/21 This is follow-up visit for this patient with a history of severe and chronic low back pain secondary to , lumbar spondylosis with facet arthropathy, post laminectomy pain syndrome lumbar area, and he continued to have severe low back pain ,Pain is worse with standing, bending, walking and better with medications, previously we have done caudal Epidural steroid injection with lysis of epidural adhesions, he reports good benefit from interventional pain management Patients currently on norco 10/325 every 6 hours , Neurontin .300 mg 3 times a day , Flexeril 10 mg 3 times a day Patient denies any side effects of the medication, denies excessive drowsiness or sleepiness, denies suicidal ideation. Patient denies any new onset of motor or sensory deficit, patient denies any fever or night sweats, denies any change in the bowel movements or urination, patient ambulates using a cane, he reported that the intensity of the pain interfering with his quality of life and in the pain increases during the cold weather, and he had a flareup of osteoarthritis and rheumatoid arthritis, she had difficulty ambulating he ambulates using a cane. Physical Examinations : -Constitutiona : Cooperative , not in acute distress . -HEENT : nech : supple , no Lymphadenopathy , normal thyroid size . : eyes : no ptosis , no icterus, no photophobia . - neurologic : Cranial nerve II to XII intact , no focal neurological deffecit . -psychatric : alert , oriented X 3 , appropriate affect , intact judgment and insight . -Lymphatic : no Lymphadenopathy . - musculoskeltal : Lumber spine moter stegnth lower extremities ,thigh and legs 4/5 Right side , 4/5 Left side deep tendon reflexes : normal Knee Jerk , normal ankle Jerk lumber facet Loading Test =positive Right , positive Left Range of motion of the lumbar spine Flexion 30 degrees, extension 10 degrees strait leg raising test = positive at degree Fabere test= positive Right , and positive LT . tenderness over the Sacroiliac joint on the Right , and Left sides Assessment and Plan= chronic low back pain secondary to lumbar postlaminectomy pain syndrome , lumbar spondylosis with lumbar facet arthropathy . chronic and current use of high-risk medication (opioids) Patient denies any side effects of the current pain medication and the current treatment/medication helping the patient to do activity of daily living , Diagnoses, prognosis, treatment options, including but not limited to physical therapy, medication management, interventional therapies, and surgery, were discussed with the patient All the questions answered The narcotic consent was signed and patient agreed and understood the side effects and complications of opioid treatment. Patient signed the narcotic agreement, and was orally counseled, not to overuse, not to abuse, not to Divert , not tp sell pain medication, and to take it as prescribed only, Patient was counseled not to drive or operate heavy equipment while using narcotic medication, and advised not to use alcohol or any Illicit drugs while using the narcotis. understanding that lack of compliance with any of the above instructions, will likely to cause discharge from, the pain service, not to renew his narcotic prescriptions MAPS Reviwed and it was apropriate . Medication managements= continue Neurontin 300 mg 3 times a day, continue Flexeril 10 mg 3 times a day, [place] 10/325 2 every 6 hours Dispense 120 with 1 refill and patient will follow up in the pain clinic in 2 months UDS done previousley ,it was reviwed today ,and it was appropriate Time with Patient: Less than 30 - PQRS measures = - Patient's medications are documented in the chart. -Tobacco use is negative and counseling.Given. -Patient's has not received pneumococcal vaccine. -Advanced care planning discussed, patient not eligible. -Opiate contract signed. -Pain positive and follow-up visit/procedure is scheduled. -Patient's blood pressure measured [153/82 ] , and documented in the record ,and patient will follow up with the primary care. -Patient's weight was measured and body mass index [37 ] above the normal limits and counseling was done. and patient instructed to follow-up with the primary care physician. -Patient was not identified as an unhealthy alcohol user Objective - Vital Signs Vital signs: Vital Signs Temp 98.1 F 06/13/21 07:41 Pulse 77 06/13/21 07:41 Resp 18 06/13/21 07:41 BP 153/82 06/13/21 07:41 Pulse Ox 97 06/13/21 07:41
== END | disposition home or self-care (01) ==
LOC: PNWHC3 07:29
PROVIDERS: ATTEND Specialist
DX: M47.896 Other spondylosis, lumbar region (principal); M46.96 Unspecified inflammatory spondylopathy, lumbar region
CPT/HCPCS: 99211

== ENCOUNTER → 2021-08-08 | Outpatient (CLI) | payer MEDICARE, BC ==
[2021-08-08 08:08] VITALS: BP 156/75; PULSE 90; RESP 18; TEMP 98.1
== END | disposition home or self-care (01) ==
LOC: PNWHC3 07:22
PROVIDERS: ATTEND Physician Assistant Medical
DX: M51.36 Other intervertebral disc degeneration, lumbar region (principal)
CPT/HCPCS: 99211

== ENCOUNTER → 2021-09-14 | Outpatient (CLI) | payer MEDICARE, BC ==
[2021-09-14 14:44] LABS: Basophils # (A) 0.02 X 10*3/uL (0.00-0.10); Basophils % (A) 0.3 %; Eosinophils # (A) 0.06 X 10*3/uL (0.04-0.35); HCT 34.6 % (39.6-50.0); HGB 11.2 g/dL (13.0-17.0); Immature Grans, Automated 0.5 %; Lymphocytes # (A) 1.42 X 10*3/uL (0.90-5.00); Lymphocytes % (A) 24.4 %; MCH 33.8 pg (27.0-32.0); MCHC 32.4 g/dL (32.0-37.0); MCV 104.5 fL (80.0-97.0); Mean Platelet Volume 9.9 fL (9.5-12.2); Monocytes # (A) 0.72 X 10*3/uL (0.20-1.00); Monocytes % (A) 12.4 %; NRBC Per 100 WBC 0 /100 WBCS (0.0-0.0); Neutrophils # (A) 3.56 X 10*3/uL (1.80-7.70); Neutrophils % (A) 61.4 %; Platelet Count 233 X 10*3/uL (140-440); RBC 3.31 X 10*6/uL (4.40-5.60); RDW 13.6 % (11.5-14.5); WBC 5.81 X 10*3/uL (4.50-10.00)
[2021-09-14 15:28] LABS: Erythrocyte Sedimentation Rate 9 mm/Hr (0-20)
[2021-09-14 16:16] LABS: African American GFR (CKD) 108.6 (60.0-200.0); C Reactive Protein 0.3 mg/dL (0.00-0.80); Non-African American GFR(CKD) 93.7 (60.0-200.0)
== END | disposition home or self-care (01) ==
LOC: LABWHC1 08:19
PROVIDERS: ATTEND Internal Medicine Rheumatology
DX: M06.9 Rheumatoid arthritis, unspecified (principal)
CPT/HCPCS: 36415; 82565; 84450; 84460; 85025; 85652; 86140

== ENCOUNTER → 2021-10-03 | Outpatient (CLI) | payer MEDICARE, BC ==
--- NOTE | 2021-10-03 08:03 | P.PN ---
Subjective Progress Note Date: 10/03/21 Principal diagnosis: A 66 yr old male with a history of severe and chronic low back pain secondary to lumbar degenerative disc diseases and lumbar spondylosis with facet arthropathy presents today for medication refills. Pain level is 8 out of 10 in the lower aspect of his lumbar spine, sharp, tight, achy sensation with radiation of pain down the lower extremities, right greater than left. Pain is provoked by standing or walking for 15 minutes or more or bending. Pain is a lleviated with medications, ice, heat, physical therapy years ago, home based stretching regimen, use of a cane for ambulation, laying supine and rest. Patient is currently on [place] 10/325 #120, Neurontin 300mg #90 and Flexeril prn Patient denies any side effects of the medication(s), denies excessive drowsiness or sleepiness, denies suicidal ideation and reports that the current pain medication is helping to control the pain and improve activities of daily living. Patient denies any motor or sensory deficits. Patient denies any fever or night sweats, denies any change in the bowel movements or urination. Physical Examination: -Constitutional: Cooperative. Not in acute distress . -HEENT: Neck is supple. No lymphadenopathy. No thyromegaly. Normal thyroid size. Eyes: No ptosis , no icterus, no photophobia. ENT: No auditory deficits. Normal oropharynx. No Thrush. - Respiratory: Chest clear to auscultations bilaterally. No wheezing. No rhonchi. - Cardiovascular: Regular rate and rhythm. S1 / S2 , no S3 , no S4. - Gastrointestinal: Abdomen soft no tenderness. Bowel sounds positive in all four quadrants. No organomegaly. - Genitourinary: Deferred. - Neurologic: Cranial nerve II to XII intact. No focal neurological deficits. - Psychatric: Alert & oriented x 3. Matching mood & appropriate affect. Judgment and insight intact. - Lymphatic: No Lymphadenopathy. - Musculoskeletal: Cervical spine: Muscle bulk/ tone/ strength in the bilateral upper extremities normal. Facet loading test cervical area positive. Lumbar spine: Motor bulk/ tone/ strength lower extremities , thigh and legs : 5/5 Deep tendon reflexes : Normal Knee Jerk. Normal Ankle Jerk . Vertebral body tenderness to palpation over L4 Lumbar Facet Loading Test positive Straight Leg Raise: positive at 30 degrees right side/ left side Gaenslen's Test positive Sacral spine : Severe tenderness over the Sacroiliac joint: right side / left side Range of motion: Flexion of the lumbar spine <60 degrees Range of motion: Extension of the lumbar spine <20 degrees Gaenslen's Test positive Pedro Luis test: positive right side / left side Assessment and plan: Chronic low back pain secondary to lumbar degenerative disc disease , lumbar spondylosis with facet arthropathy without myelopathy Chronic and current use of high-risk medication (Opioids). The patient was counseled about risk of opioid use, psychological risk associated with opioids and was orally counseled to not overuse , divert or sell medications. Pt is to store medication in a safe location. The patient is counseled against driving while using narcotic medications and also not to use alcohol or any illicit recreational drugs. Patient verbalized understanding that the lack of compliance will result in failure to renew narcotic prescription(s) as well as possible discharge from the clinic Diagnoses, prognosis and treatment options including but not limited to physical therapy, surgical interventions, interventional therapies and medication management including narcotics and adjuvant medication were discussed. All patient questions answered MAPS reviewed and it was appropriate. UDS collected today, 10/03/21 Prescription refill for [place] 10/325 #120, Neurontin 300mg #90 and Flexeril prn with 1 refill. I have spent 31 minutes on patient care today. Dr Stevenson was available by phone for the evaluation of this patient. The time was used to review the medical records including relevant urine studies and Prescription history (MAPs), review of the available imaging, evaluation and examination of the patient, coordination of care with the medical staff and if applicable referring physicians, as well as creation of the medical record PQRS Measure Charge Sheet PQRS Narrative: Smoking Status Former smoker Narcotic Agreement Date Signed 02/21/21 Scale Used Numeric (1 - 10) Hx Alcohol Use (MH) No Home Medications: Ambulatory Orders Timolol 0.5% Ophth Soln [Timoptic 0.5% Ophth Soln] 1 drop BOTH EYES BID 11/12/13 Folic Acid 1 mg PO DAILY 06/14/19 Hydrochlorothiazide [hydroCHLOROthiazide] 12.5 mg PO DAILY 06/14/19 Losartan Potassium 50 mg PO 1200 06/14/19 metHOTREXate sodium [Methotrexate] 10 mg PO MO 06/14/19 Atorvastatin [Lipitor] 40 mg PO DAILY 02/04/20 Tofacitinib Citrate [Xeljanz] 10 mg PO DAILY 08/10/19 Albuterol Sulfate [Ventolin HFA] 1 - 2 puff INHALATION Q6H PRN 03/16/20 Aspirin 81 mg PO DAILY 03/16/20 Furosemide [Lasix] 20 mg PO DAILY 03/16/20 Ibuprofen 200 mg PO Q6H PRN 03/16/20 Terbinafine [LamISIL] 250 mg PO DAILY 12/22/20 Silver Sulfadiazine [SSD 1% Cream] 1 applic TOPICAL DAILY 06/13/21 Cyclobenzaprine [Flexeril] 10 mg PO TID PRN 30 Days #90 tab 10/03/21 Gabapentin [Neurontin] 300 mg PO TID 30 Days #90 cap 10/03/21 HYDROcodone/APAP 10-325MG [[place] 10-325] 1 tab PO Q6HR PRN 30 Days #120 tab 10/03/21 HYDROcodone/APAP 10-325MG [[place] 10-325] 1 tab PO Q6HR PRN 30 Days #120 tab 10/03/21
[2021-10-03 09:15] VITALS: BP 172/81; PULSE 88; RESP 18; TEMP 98.1
== END | disposition home or self-care (01) ==
LOC: PNWHC3 07:26
PROVIDERS: ATTEND Specialist
DX: M47.896 Other spondylosis, lumbar region (principal); M51.36 Other intervertebral disc degeneration, lumbar region
CPT/HCPCS: 80307; G0482; G0463; 99212

== ENCOUNTER → 2021-11-28 | Outpatient (CLI) | payer MEDICARE, BC ==
--- NOTE | 2021-11-28 08:37 | P.PN ---
Subjective Progress Note Date: 11/28/21 A 66 yr old male with a history of severe and chronic low back pain secondary to lumbar degenerative disc diseases and lumbar spondylosis with facet arthropathy presents today for medication refills. Pain level is currently at 6/10 in intensity, dull, achy constant in character with radiation of pain down the LEs occasionally. Pain is provoked by bending, twisting and lifting. Pain is alleviated with medications, topicals, injections, repositioning, home-based stretching regimen, I'll change heat and ice and rest. Interventional pain procedures completed include Caudal BREONNA with lysis Patient is currently on [place] 10/325, Neurontin 300mg, Flexeril prn. Patient denies any side effects of the medication(s), denies excessive drowsiness or sleepiness, denies suicidal ideation and reports that the current pain medication is helping to control the pain and improve activities of daily living. Patient denies any motor or sensory deficits. Patient denies any fever or night sweats, denies any change in the bowel movements or urination. Physical Examination: -Constitutional: Cooperative. Not in acute distress . -HEENT: Neck is supple. No lymphadenopathy. No thyromegaly. Normal thyroid size. Eyes: No ptosis , no icterus, no photophobia. ENT: No auditory deficits. Normal oropharynx. No Thrush. - Respiratory: Chest clear to auscultations bilaterally. No wheezing. No rhonchi. - Cardiovascular: Regular rate and rhythm. S1 / S2 , no S3 , no S4. - Gastrointestinal: Abdomen soft no tenderness. Bowel sounds positive in all four quadrants. No organomegaly. - Genitourinary: Deferred. - Neurologic: Cranial nerve II to XII intact. No focal neurological deficits. - Psychatric: Alert & oriented x 3. Matching mood & appropriate affect. Judgment and insight intact. - Lymphatic: No Lymphadenopathy. - Musculoskeletal: Cervical spine: Muscle bulk/ tone/ strength in the bilateral upper extremities normal Vertebral body tenderness to palpation over Facet loading test positive Thoracic spine Muscle bulk / tone/ strength in the bilateral paraspinal muscles normal Vertebral body tender to palpation over Facet loading test positive Lumbar spine: Motor bulk/ tone/ strength lower extremities , thigh and legs : 5/5 Deep tendon reflexes : Normal Knee Jerk. Normal Ankle Jerk . Vertebral body tenderness to palpation over L5, S1 Lumbar Facet Loading Test positive L4, L5, S1 Straight Leg Raise: positive at 30 degrees right side/ left side Gaenslen's Test positive Sacral spine : Severe tenderness over the Sacroiliac joint: right side / left side Range of motion: Flexion of the lumbar spine <60 degrees Range of motion: Extension of the lumbar spine <20 degrees Gaenslen's Test positive Jordin's Test positive Pedro Luis test: positive right side / left side Thigh Thrust Test Sacral Thrust Test Assessment and plan: Chronic low back pain secondary to lumbar degenerative disc disease , lumbar spondylosis with facet arthropathy without myelopathy Risks, benefits of procedure discussed and pt verbalized understanding. Denies anticoagulant use or medical history of diabetes. UDS from 10/03/21 reviewed and consistent Chronic and current use of high-risk medication (Opioids). The patient was counseled about risk of opioid use, psychological risk associated with opioids and was orally counseled to not overuse , divert or sell medications. Pt is to store medication in a safe location. The patient is counseled against driving while using narcotic medications and also not to use alcohol or any illicit recreational drugs. Patient verbalized understanding that the lack of compliance will result in failure to renew narcotic prescription(s) as well as possible discharge from the clinic Diagnoses, prognosis and treatment options including but not limited to p hysical therapy, surgical interventions, interventional therapies and medication management including narcotics and adjuvant medication were discussed. All patient questions answered MAPS reviewed and it was appropriate. Prescription refill for [place] 10/325mg & Neurontin 300mg #90 and Flexeril prn w refills I have spent 31 minutes on patient care today. Dr Stevenson was available by phone for the evaluation of this patient. The time was used to review the medical records including relevant urine studies and Prescription history (MAPs), review of the available imaging, evaluation and examination of the patient, coordination of care with the medical staff and if applicable referring physicians, as well as creation of the medical record PQRS Measure Charge Sheet PQRS Narrative: Smoking Status Former smoker Narcotic Agreement Date Signed 02/21/21 Hx Alcohol Use (MH) No Home Medications: Ambulatory Orders Timolol 0.5% Ophth Soln [Timoptic 0.5% Ophth Soln] 1 drop BOTH EYES BID 11/12/13 Folic Acid 1 mg PO DAILY 06/14/19 Hydrochlorothiazide [hydroCHLOROthiazide] 12.5 mg PO DAILY 06/14/19 Losartan Potassium 50 mg PO 1200 06/14/19 metHOTREXate sodium [Methotrexate] 10 mg PO MO 06/14/19 Atorvastatin [Lipitor] 40 mg PO DAILY 08/10/19 Tofacitinib Citrate [Xeljanz] 10 mg PO DAILY 08/10/19 Albuterol Sulfate [Ventolin HFA] 1 - 2 puff INHALATION Q6H PRN 03/16/20 Aspirin 81 mg PO DAILY 03/16/20 Furosemide [Lasix] 20 mg PO DAILY 03/16/20 Ibuprofen 200 mg PO Q6H PRN 03/16/20 Terbinafine [LamISIL] 250 mg PO DAILY 12/22/20 Silver Sulfadiazine [SSD 1% Cream] 1 applic TOPICAL DAILY 06/13/21 Cyclobenzaprine [Flexeril] 10 mg PO TID PRN 30 Days #90 tab 10/03/21 Gabapentin [Neurontin] 300 mg PO TID 30 Days #90 cap 10/03/21 HYDROcodone/APAP 10-325MG [[place] 10-325] 1 tab PO Q6HR PRN 30 Days #120 tab 10/03/21 HYDROcodone/APAP 10-325MG [[place] 10-325] 1 tab PO Q6HR PRN 30 Days #120 tab 10/03/21
[2021-11-28 08:42] VITALS: BP 128/74; PULSE 100; RESP 16; TEMP 98.3
== END | disposition home or self-care (01) ==
LOC: PNWHC3 07:59
PROVIDERS: ATTEND Specialist
DX: M47.896 Other spondylosis, lumbar region (principal); M51.36 Other intervertebral disc degeneration, lumbar region
CPT/HCPCS: 99211

== ENCOUNTER → 2022-01-30 | Outpatient (CLI) | payer MEDICARE, BC ==
[2022-01-30 08:54] VITALS: BP 159/94; PULSE 99; RESP 18; TEMP 98.6
--- NOTE | 2022-01-30 08:58 | P.PN ---
Subjective Progress Note Date: 01/30/22 This is 66 yrs old male with a history of severe and chronic low back pain secondary to lumbar degenerative disc diseases ,and lumbar spondylosis with facet arthropathy presents, today for medication refills. Pain level is currently at 6/10 in intensity, dull, achy constant in character with radiation of pain down the LEs occasionally. Pain is provoked by bending, twisting and lifting. Pain is alleviated with medications, topicals, injections, repositioning, home-based stretching regimen, I'll change heat and ice and rest. Interventional pain procedures completed include Caudal BREONNA with lysis Patient is currently on [place] 10/325, every 6 hours PRN, Neurontin 300mg TID , Flexeril 10 mg TID prn. Patient denies any side effects of the medication(s), denies excessive drowsiness or sleepiness, denies suicidal ideation and reports that the current pain medication is helping to control the pain and improve activities of daily living. Patient denies any motor or sensory deficits. Patient denies any fever or night sweats Patient tried physical therapy in the past, has physical therapy done 3 years ago and he is done chiropractics and he continued to do home exercise Objective - Vital Signs Vital signs: Intake & Output 01/29/22 01/30/22 01/30/22 18:59 06:59 18:59 Weight 120.202 kg - Exam Physical Examinations : -Constitutiona : Cooperative , not in acute distress . -HEENT : nech : supple , no Lymphadenopathy , normal thyroid size . : eyes : no ptosis , no icterus, no photophobia . - neurologic : Cranial nerve II to XII intact , no focal neurological deffecit . -psychatric : alert , oriented X 3 , appropriate affect , intact judgment and insight . -Lymphatic : no Lymphadenopathy . - musculoskeltal : Lumber spine moter stegnth lower extremities ,thigh and legs 4/5 Right side , 4/5 Left side deep tendon reflexes : normal Knee Jerk , normal ankle Jerk lumber facet Loading Test =positive Right , positive Left Range of motion of the lumbar spine Flexion 30 degrees, extension 10 degrees strait leg raising test = positive at 30 degree Fabere test= positive Right , and positive LT . tenderness over the Sacroiliac joint on the Right , and Left sides Assessment and Plan Plan: Assessment and plan: Chronic low back pain secondary to lumbar degenerative disc disease , lumbar spondylosis with facet arthropathy without myelopathy Risks, benefits of procedure discussed and pt verbalized understanding. Denies anticoagulant use or medical history of diabetes. UDS from 10/03/21 reviewed and consistent Chronic and current use of high-risk medication (Opioids). The patient was counseled about risk of opioid use, psychological risk associated with opioids and was orally counseled to not overuse , divert or sell medications. Pt is to store medication in a safe location. The patient is counseled against driving while using narcotic medications and also not to use alcohol or any illicit recreational drugs. Patient verbalized understanding that the lack of compliance will result in failure to renew narcotic prescription(s) as well as possible discharge from the clinic Diagnoses, prognosis and treatment options including but not limited to physical therapy, surgical interventions, interventional therapies and medication management including narcotics and adjuvant medication were discussed. All patient questions answered MAPS reviewed and it was appropriate. Prescription refill for [place] 10/325mg QID & Neurontin 300mg #90 ,and Flexeril 10 mg TID prn ,w 1 refills Time with Patient: Less than 30
== END | disposition home or self-care (01) ==
LOC: PNWHC3 08:01
PROVIDERS: ATTEND Specialist
DX: M47.896 Other spondylosis, lumbar region (principal); M51.36 Other intervertebral disc degeneration, lumbar region
CPT/HCPCS: 99211

== ENCOUNTER → 2022-01-30 | Outpatient (CLI) | payer MEDICARE, BC ==
[2022-01-30 14:58] LABS: ALT 26 U/L (10-49); AST 29 U/L (14-35); African American GFR (CKD) 103.5 (60.0-200.0); C Reactive Protein <0.30 mg/dL (0.00-0.80); Non-African American GFR(CKD) 89.3 (60.0-200.0)
[2022-01-30 15:00] LABS: Basophils # (A) 0.01 X 10*3/uL (0.00-0.10); Basophils % (A) 0.1 %; Eosinophils # (A) 0 X 10*3/uL (0.04-0.35); Eosinophils % (A) 0 %; HCT 34.8 % (39.6-50.0); HGB 11.2 g/dL (13.0-17.0); Immature Grans, Automated 0.5 %; MCH 32.6 pg (27.0-32.0); MCHC 32.2 g/dL (32.0-37.0); MCV 101.2 fL (80.0-97.0); Monocytes # (A) 0.83 X 10*3/uL (0.20-1.00); Monocytes % (A) 6.7 %; NRBC Per 100 WBC 0 /100 WBCS (0.0-0.0); Neutrophils # (A) 11.01 X 10*3/uL (1.80-7.70); Neutrophils % (A) 88.7 %; Platelet Count 247 X 10*3/uL (140-440); RBC 3.44 X 10*6/uL (4.40-5.60); RDW 13.6 % (11.5-14.5); WBC 12.41 X 10*3/uL (4.50-10.00)
[2022-01-30 16:32] LABS: Erythrocyte Sedimentation Rate 24 mm/Hr (0-20)
== END | disposition home or self-care (01) ==
LOC: LABWHC1 09:02
PROVIDERS: ATTEND Internal Medicine Rheumatology
DX: M06.9 Rheumatoid arthritis, unspecified (principal)
CPT/HCPCS: 36415; 82565; 84450; 84460; 85025; 85652; 86140

== ENCOUNTER → 2022-02-20 | Outpatient (CLI) | payer MEDICARE, BC ==
--- NOTE | 2022-02-20 13:42 | XR ---
EXAMINATION TYPE: XR chest 2V DATE OF EXAM: 02/20/2022 COMPARISON: 08/11/2017 TECHNIQUE: PA and lateral views submitted. HISTORY: Pain FINDINGS: The lungs are clear and there is no pneumothorax, pleural effusion, or focal pneumonia. Arthropathy of the shoulder postsurgical changes overlying the cervical spine. Pleural-based thickening. Pleural thickening noted. IMPRESSION: 1. No acute process.
== END | disposition home or self-care (01) ==
LOC: RADXRMAIN 13:22
PROVIDERS: ATTEND Nurse Practitioner Family
DX: S29.8XXA Other specified injuries of thorax, initial encounter (principal); X58.XXXA Exposure to other specified factors, initial encounter
CPT/HCPCS: 71046

== ENCOUNTER → 2022-03-27 | Outpatient (CLI) | payer MEDICARE, BC ==
[2022-03-27 08:10] VITALS: BP 136/89; PULSE 82; RESP 18; TEMP 98.3
--- NOTE | 2022-03-27 15:08 | P.PAINPG ---
PQRS Measure Charge Sheet Comment: A 66 yr old male with a history of severe and chronic low back pain secondary to lumbar degenerative disc diseases and lumbar spondylosis with facet arthropathy without myelopathy presents today for medication refills. Pain level is currently at 6/10 in intensity, constant, localized in mid to lower lumbar spine, sharp in character w shooting towards the BLEs. Pain is provoked by PT in [place] past, activity for periods of 15 min or more. Pain is alleviated with heat, ice, sitting on soft surfaces, repositioning and rest. Interventional pain procedures completed include Caudal w lysis x 3. Patient is currently on [place] 10/325 #120, Neurontin 300mg #90 Patient denies any side effects of the medication(s), denies excessive drowsiness or sleepiness, denies suicidal ideation and reports that the current pain medication is helping to control the pain and improve activities of daily living. Patient denies any motor or sensory deficits. Patient denies any fever or night sweats, denies any change in the bowel movements or urination. Physical Examination: -Constitutional: Cooperative. Not in acute distress . - Neurologic: Cranial nerve II to XII intact. No focal neurological deficits. - Psychatric: Alert & oriented x 3. Matching mood & appropriate affect. Judgment and insight intact. - Musculoskeletal: Cervical spine: Muscle bulk/ tone/ strength in the bilateral upper extremities normal Vertebral body tenderness to palpation over Spurling test positive Distraction test positive Facet loading test positive Thoracic spine Muscle bulk / tone/ strength in the bilateral paraspinal muscles normal Vertebral body tender to palpation over Facet loading test positive Lumbar spine: Motor bulk/ tone/ strength lower extremities , thigh and legs : 5/5 Deep tendon reflexes : Normal Knee Jerk. Normal Ankle Jerk . Vertebral body tenderness to palpation over L5 Lumbar Facet Loading Test positive Straight Leg Raise: positive at 30 degrees right side/ left side Gaenslen's Test positive Sacral spine : Severe tenderness over the Sacroiliac joint: right side / left side Range of motion: Flexion of the lumbar spine <60 degrees Range of motion: Extension of the lumbar spine <20 degrees Gaenslen's Test positive Jordin's Test positive Pedro Luis test: positive right side / left side Thigh Thrust Test Sacral Thrust Test Assessment and plan: Chronic low back pain secondary to lumbar degenerative disc disease , lumbar spondylosis with facet arthropathy without myelopathy Chronic and current use of high-risk medication (Opioids). The patient was counseled about risk of opioid use, psychological risk associated with opioids and was orally counseled to not overuse , divert or sell medications. Pt is to store medication in a safe location. The patient is counseled against driving while using narcotic medications and also not to use alcohol or any illicit recreational drugs. Patient verbalized understanding that the lack of compliance will result in failure to renew narcotic prescription(s) as well as possible discharge from the clinic Diagnoses, prognosis and treatment options including but not limited to physical therapy, surgical interventions, interventional therapies and medication management including narcotics and adjuvant medication were discussed. All patient questions answered MAPS reviewed and it was appropriate. UDS collected today 03/27/22 Prescription refill for [place] 10/325 #120, Neurontin 300mg #90 w 1 RF I have spent less than 30 minutes on patient care today. Dr Stevenson was available by phone for the evaluation of this patient. The time was used to review the medical records including relevant urine studies and Prescription history (MAPs), review of the available imaging, evaluation and examination of the patient, coordination of care with the medical staff and if applicable [facility] physicians, as well as creation of the medical record PQRS Narrative: Smoking Status Former smoker Narcotic Agreement Date Signed 02/21/21 Hx Alcohol Use (MH) No Home Medications: Ambulatory Orders Timolol 0.5% Ophth Soln [Timoptic 0.5% Ophth Soln] 1 drop BOTH EYES BID 11/12/13 Folic Acid 1 mg PO DAILY 06/14/19 Losartan Potassium 50 mg PO 1200 06/14/19 hydroCHLOROthiazide 12.5 mg PO DAILY 06/14/19 metHOTREXate sodium [Methotrexate] 10 mg PO MO 06/14/19 Atorvastatin [Lipitor] 40 mg PO DAILY 08/10/19 Tofacitinib Citrate [Xeljanz] 10 mg PO DAILY 08/10/19 Albuterol Sulfate [Ventolin HFA] 1 - 2 puff INHALATION Q6H PRN 03/16/20 Aspirin 81 mg PO DAILY 03/16/20 Furosemide [Lasix] 20 mg PO DAILY 03/16/20 Ibuprofen 200 mg PO Q6H PRN 03/16/20 Terbinafine [LamISIL] 250 mg PO DAILY 12/22/20 Silver Sulfadiazine [SSD 1% Cream] 1 applic TOPICAL DAILY 06/13/21 Cyclobenzaprine [Flexeril] 10 mg PO TID PRN 30 Days #90 tab 01/30/22 Gabapentin [Neurontin] 300 mg PO TID 30 Days #90 cap 01/30/22 HYDROcodone/APAP 10-325MG [[place] 10-325] 1 tab PO Q6HR PRN 30 Days #120 tab 01/30/22 HYDROcodone/APAP 10-325MG [[place] 10-325] 1 tab PO Q6HR PRN 30 Days #120 tab 01/30/22 Controlled Substance Measures - Controlled Substance Measures Is patient prescribed a controlled substance at discharge?: Yes When asked, does pt state using other controlled substances?: No If prescribed controlled substance>3 days was MAPS reviewed?: Yes If Rx opioid, was Start Talking consent form obtained?: Yes Was information provided regarding opioid addiction?: Yes
== END | disposition home or self-care (01) ==
LOC: PNWHC3 07:34
PROVIDERS: ATTEND Specialist
DX: Z51.81 Encounter for therapeutic drug level monitoring (principal); M47.896 Other spondylosis, lumbar region; M51.36 Other intervertebral disc degeneration, lumbar region
CPT/HCPCS: 80307; G0482; G0463; 99212

== ENCOUNTER → 2022-05-22 | Outpatient (CLI) | payer MEDICARE, BC ==
[2022-05-22 07:56] VITALS: BP 156/92; PULSE 72; RESP 16; TEMP 98.2
--- NOTE | 2022-05-22 14:39 | P.PAINPG ---
PQRS Measure Charge Sheet Comment: A 66 yr old male with a history of severe and chronic low back pain secondary to lumbar DDD and spondylosis with facet arthropathy without myelopathy presents today for medication refills. Pain level is currently at 8 /10 in intensity, constant, localized in the lumbar spine, stabbing in character w shooting towards BL hips. Pain is provoked by bending, twisting, climbing steps. Pain is alleviated with PT which he is currently in, home exercise regimen, heat, medications, laying supine, repositioning and rest. Patient is currently on [place], Neurontin Patient denies any side effects of the medication(s), denies excessive drowsiness or sleepiness, denies suicidal ideation and reports that the current pain medication is helping to control the pain and improve activities of daily living. Patient denies any motor or sensory deficits. Patient denies any fever or night sweats, denies any change in the bowel movements or urination. Physical Examination: -Constitutional: Cooperative. Not in acute distress . - Neurologic: Cranial nerve II to XII intact. No focal neurological deficits. - Psychatric: Alert & oriented x 3. Matching mood & appropriate affect. Judgment and insight intact. - Musculoskeletal: Cervical spine: Muscle bulk/ tone/ strength in the bilateral upper extremities normal Vertebral body tenderness to palpation over Spurling test positive Distraction test positive Facet loading test positive Thoracic spine Muscle bulk / tone/ strength in the bilateral paraspinal muscles normal Vertebral body tender to palpation over Facet loading test positive Lumbar spine: Motor bulk/ tone/ strength lower extremities , thigh and legs : 5/5 Deep tendon reflexes : Normal Knee Jerk. Normal Ankle Jerk . Vertebral body tenderness to palpation over L3, L4, L5 Lumbar Facet Loading Test positive Straight Leg Raise: positive at 30 degrees right side/ left side Gaenslen's Test positive Sacral spine : Severe tenderness over the Sacroiliac joint: right side / left side Range of motion: Flexion of the lumbar spine <60 degrees Range of motion: Extension of the lumbar spine <20 degrees Gaenslen's Test positive Pedro Luis test: positive right side / left side Thigh Thrust Test Sacral Thrust Test Assessment and plan: Chronic low back pain secondary to lumbar degenerative disc disease, sp ondylosis with facet arthropathy without myelopathy Chronic and current use of high-risk medication (Opioids). The patient was counseled about risk of opioid use, psychological risk associated with opioids and was orally counseled to not overuse , divert or sell medications. Pt is to store medication in a safe location. The patient is counseled against driving while using narcotic medications and also not to use alcohol or any illicit recreational drugs. Patient verbalized understanding that the lack of compliance will result in failure to renew narcotic prescription(s) as well as possible discharge from the clinic Diagnoses, prognosis and treatment options including but not limited to physical therapy, surgical interventions, interventional therapies and medication management including narcotics and adjuvant medication were discussed. All patient questions answered MAPS reviewed and it was appropriate. Opiate and Narcotic agreement up to date 05/22/22 Prescription refill for [place] 10/325mg #120, Neurontin 300mg #90 w 1 RF I have spent less than 30 minutes on patient care today. Dr Stevenson was available by phone for the evaluation of this patient. The time was used to review the medical records including relevant urine studies and Prescription history (MAPs), review of the available imaging, evaluation and examination of the patient, coordination of care with the medical staff and if applicable referring physicians, as well as creation of the medical record PQRS Narrative: Smoking Status Former smoker Narcotic Agreement Date Signed 02/21/21 Hx Alcohol Use (MH) No Home Medications: Ambulatory Orders Timolol 0.5% Ophth Soln [Timoptic 0.5% Ophth Soln] 1 drop BOTH EYES BID 11/12/13 Folic Acid 1 mg PO DAILY 06/14/19 Losartan Potassium 50 mg PO 1200 06/14/19 hydroCHLOROthiazide 12.5 mg PO DAILY 06/14/19 metHOTREXate sodium [Methotrexate] 10 mg PO MO 06/14/19 Atorvastatin [Lipitor] 40 mg PO DAILY 08/10/19 Tofacitinib Citrate [Xeljanz] 10 mg PO DAILY 08/10/19 Albuterol Sulfate [Ventolin HFA] 1 - 2 puff INHALATION Q6H PRN 03/16/20 Aspirin 81 mg PO DAILY 03/16/20 Furosemide [Lasix] 20 mg PO DAILY 03/16/20 Ibuprofen 200 mg PO Q6H PRN 03/16/20 Terbinafine [LamISIL] 250 mg PO DAILY 12/22/20 Silver Sulfadiazine [SSD 1% Cream] 1 applic TOPICAL DAILY 06/13/21 Cyclobenzaprine [Flexeril] 10 mg PO TID PRN 30 Days #90 tab 03/27/22 Gabapentin [Neurontin] 300 mg PO TID 30 Days #90 cap 05/22/22 HYDROcodone/APAP 10-325MG [[place] 10-325] 1 tab PO Q6HR PRN 30 Days #120 tab 05/22/22 HYDROcodone/APAP 10-325MG [[place] 10-325] 1 tab PO Q6HR PRN 30 Days #120 tab 05/22/22 Controlled Substance Measures - Controlled Substance Measures Is patient prescribed a controlled substance at discharge?: Yes When asked, does pt state using other controlled substances?: No If prescribed controlled substance>3 days was MAPS reviewed?: Yes If Rx opioid, was Start Talking consent form obtained?: Yes Was information provided regarding opioid addiction?: Yes
== END | disposition home or self-care (01) ==
LOC: PNWHC3 07:31
PROVIDERS: ATTEND Specialist
DX: M47.896 Other spondylosis, lumbar region (principal); M51.36 Other intervertebral disc degeneration, lumbar region
CPT/HCPCS: 99211

== ENCOUNTER → 2022-07-17 | Outpatient (CLI) | payer MEDICARE, BC ==
[2022-07-17 14:56] LABS: Basophils # (A) 0.01 X 10*3/uL (0.00-0.10); Basophils % (A) 0.2 %; Eosinophils # (A) 0.03 X 10*3/uL (0.04-0.35); Eosinophils % (A) 0.5 %; HCT 35.5 % (39.6-50.0); HGB 11.8 g/dL (13.0-17.0); Immature Grans, Automated 0.4 %; MCH 34.3 pg (27.0-32.0); MCHC 33.2 g/dL (32.0-37.0); MCV 103.2 fL (80.0-97.0); Mean Platelet Volume 9.8 fL (9.5-12.2); Monocytes # (A) 0.72 X 10*3/uL (0.20-1.00); Monocytes % (A) 12.6 %; NRBC Per 100 WBC 0 /100 WBCS (0.0-0.0); Neutrophils # (A) 3.33 X 10*3/uL (1.80-7.70); Neutrophils % (A) 58.3 %; Platelet Count 231 X 10*3/uL (140-440); RBC 3.44 X 10*6/uL (4.40-5.60); RDW 14.3 % (11.5-14.5); WBC 5.71 X 10*3/uL (4.50-10.00)
[2022-07-17 15:48] LABS: Erythrocyte Sedimentation Rate 27 mm/Hr (0-20)
[2022-07-17 16:29] LABS: ALT 38 U/L (10-49); AST 32 U/L (14-35); African American GFR (CKD) 103.5 (60.0-200.0); C Reactive Protein <0.30 mg/dL (0.00-0.80); Non-African American GFR(CKD) 89.3 (60.0-200.0)
== END | disposition home or self-care (01) ==
LOC: LABWHC1 08:06
PROVIDERS: ATTEND Internal Medicine Rheumatology
DX: M06.9 Rheumatoid arthritis, unspecified (principal)
CPT/HCPCS: 36415; 82565; 84450; 84460; 85025; 85652; 86140

== ENCOUNTER → 2022-07-17 | Outpatient (CLI) | payer MEDICARE, BC ==
[2022-07-17 07:51] VITALS: BP 162/82; PULSE 101; RESP 16; TEMP 98.2
--- NOTE | 2022-07-17 14:31 | P.PAINPG ---
PQRS Measure Charge Sheet Comment: A 66 yr old male with a history of severe and chronic low back pain secondary to lumbar DDD and spondylosis with facet arthropathy without myelopathy presents today for medication refills. Pain level is currently at 6/10 in intensity, constant, localized in the lumbar spine, stabbing/ sharp in character w shooting towards the BLEs, L>R. Pain is provoked by bending, twisting, lifting. Pain is alleviated with medications, injections in the past, heat, ice, PT which ended June 27, he massage therapy integrated with PT, use of cane for ambulation, daily exercise regimen as tolerated, repositioning and rest. Interventional pain procedures completed include Caudal BREONNA Patient is currently on [place] 10/325mg, Neurontin 300mg, Flexeril 10mg #90 Patient denies any side effects of the medication(s), denies excessive drowsiness or sleepiness, denies suicidal ideation and reports that the current pain medication is helping to control the pain and improve activities of daily living. Patient denies any motor or sensory deficits. Patient denies any fever or night sweats, denies any change in the bowel movements or urination. Physical Examination: -Constitutional: Cooperative. Not in acute distress . - Neurologic: Cranial nerve II to XII intact. No focal neurological deficits. - Psychatric: Alert & oriented x 3. Matching mood & appropriate affect. Judgment and insight intact. - Musculoskeletal: Cervical spine: Muscle bulk/ tone/ strength in the bilateral upper extremities normal Vertebral body tenderness to palpation over Spurling test positive Distraction test positive Facet loading test positive Thoracic spine Muscle bulk / tone/ strength in the bilateral paraspinal muscles normal Vertebral body tender to palpation over Facet loading test positive Lumbar spine: Motor bulk/ tone/ strength lower extremities , thigh and legs : 5/5 Deep tendon reflexes : Normal Knee Jerk. Normal Ankle Jerk . Vertebral body tenderness to palpation over L4, L5 Lumbar Facet Loading Test positive Straight Leg Raise: positive at 30 degrees right side/ left side Gaenslen's Test positive Sacral spine : Severe tenderness over the Sacroiliac joint: right side / left side Range of motion: Flexion of the lumbar spine <60 degrees Range of motion: Extension of the lumbar spine <20 degrees Gaenslen's Test positive Pedro Luis test: positive right side / left side Thigh Thrust Test Sacral Thrust Test Assessment and plan: Chronic low back pain secondary to lumbar degenerative disc disease, spondylosis with facet arthropathy without myelopathy Chronic and current use of high-risk medication (Opioids). The patient was counseled about risk of opioid use, psychological risk associated with opioids and was orally counseled to not overuse , divert or sell medications. Pt is to store medication in a safe location. The patient is counseled against driving while using narcotic medications and also not to use alcohol or any illicit recreational drugs. Patient verbalized understanding that the lack of compliance will result in failure to renew narcotic prescription(s) as well as possible discharge from the clinic Diagnoses, prognosis and treatment options including but not limited to physical therapy, surgical interventions, interventional therapies and medication management including narcotics and adjuvant medication were discussed. All patient questions answered MAPS reviewed and it was appropriate. Prescription refill for [place] 10 /325 mg, Neurontin, Flexeril w 1 RF I have spent less than 30 minutes on patient care today. Dr Stevenson was available by phone for the evaluation of this patient. The time was used to review the medical records including relevant urine studies and Prescription history (MAPs), review of the available imaging, evaluation and examination of the patient, coordination of care with the medical staff and if applicable referring physicians, as well as creation of the medical record - Pain Location Lower Back Non-Pharmacological Interventions: Heat, Home Exercise, Ice, Inactivity, Massage, Physical Therapy, Position/Reposition, Sitting, Stretching Pharmacological Interventions: Epidural, PRN Medication, Scheduled Medication PQRS Narrative: Smoking Status Former smoker Narcotic Agreement Date Signed 05/22/22 Hx Alcohol Use (MH) No Home Medications: Ambulatory Orders Timolol 0.5% Ophth Soln [Timoptic 0.5% Ophth Soln] 1 drop BOTH EYES BID 11/12/13 Folic Acid 1 mg PO DAILY 06/14/19 Losartan Potassium 50 mg PO 1200 06/14/19 hydroCHLOROthiazide 12.5 mg PO DAILY 06/14/19 metHOTREXate sodium [Methotrexate] 10 mg PO MO 06/14/19 Atorvastatin [Lipitor] 40 mg PO DAILY 08/10/19 Tofacitinib Citrate [Xeljanz] 10 mg PO DAILY 08/10/19 Albuterol Sulfate [Ventolin HFA] 1 - 2 puff INHALATION Q6H PRN 03/16/20 Aspirin 81 mg PO DAILY 03/16/20 Furosemide [Lasix] 20 mg PO DAILY 03/16/20 Ibuprofen 200 mg PO Q6H PRN 03/16/20 Terbinafine [LamISIL] 250 mg PO DAILY 12/22/20 Silver Sulfadiazine [SSD 1% Cream] 1 applic TOPICAL DAILY 06/13/21 Cyclobenzaprine [Flexeril] 10 mg PO TID PRN 30 Days #90 tab 07/17/22 Gabapentin [Neurontin] 300 mg PO TID 30 Days #90 cap 07/17/22 HYDROcodone/APAP 10-325MG [[place] 10-325] 1 tab PO Q6HR PRN 30 Days #120 tab 07/17/22 HYDROcodone/APAP 10-325MG [[place] 10-325] 1 tab PO Q6HR PRN 30 Days #120 tab 07/17/22 Controlled Substance Measures - Controlled Substance Measures Is patient prescribed a controlled substance at discharge?: Yes When asked, does pt state using other controlled substances?: No If prescribed controlled substance>3 days was MAPS reviewed?: Yes If Rx opioid, was Start Talking consent form obtained?: Yes Was information provided regarding opioid addiction?: Yes
== END ==
LOC: PNWHC3 07:23
PROVIDERS: ATTEND Specialist
DX: M47.816 Spondylosis without myelopathy or radiculopathy, lumbar region (principal); M51.36 Other intervertebral disc degeneration, lumbar region; Z79.891 Long term (current) use of opiate analgesic; Z88.1 Allergy status to other antibiotic agents; Z87.891 Personal history of nicotine dependence
CPT/HCPCS: 99211

== ENCOUNTER → 2022-11-04 | Outpatient (CLI) | payer MEDICARE, BC ==
[2022-11-04 11:39] LABS: ALT 24 U/L (10-49); AST 28 U/L (14-35); African American GFR (CKD) 102.8 (60.0-200.0); Albumin 4.2 g/dL (3.8-4.9); Alkaline Phosphatase 124 U/L (41-126); BUN/Creat Ratio 16.89 Ratio (12.00-20.00); Blood Urea Nitrogen 15.2 mg/dL (9.0-27.0); Calcium 9.2 mg/dL (8.7-10.3); Carbon Dioxide 30.1 mmol/L (20.0-27.5); Chloride 104 mmol/L (96-109); Chol/HDL Ratio 2.88 Ratio; Glucose 121 mg/dL (70-110); LDL Cholesterol,Calculated 53.2 mg/dL (0.0-131.0); Non-African American GFR(CKD) 88.7 (60.0-200.0); Potassium 4.9 mmol/L (3.5-5.5); Sodium 142 mmol/L (135-145); Total Protein 7.2 g/dL (6.2-8.2)
[2022-11-05 10:46] LABS: Erythrocyte Sedimentation Rate 30 mm/Hr (0-20)
[2022-11-05 15:09] LABS: Basophils # (A) 0.01 X 10*3/uL (0.00-0.10); Basophils % (A) 0.2 %; Eosinophils # (A) 0.08 X 10*3/uL (0.04-0.35); Eosinophils % (A) 1.4 %; HCT 36.9 % (39.6-50.0); HGB 12.4 g/dL (13.0-17.0); Immature Grans, Automated 0.5 %; Lymphocytes # (A) 1.34 X 10*3/uL (0.90-5.00); Lymphocytes % (A) 24.2 %; MCHC 33.6 g/dL (32.0-37.0); MCV 104.2 fL (80.0-97.0); Mean Platelet Volume 10.1 fL (9.5-12.2); Monocytes # (A) 0.69 X 10*3/uL (0.20-1.00); Monocytes % (A) 12.5 %; NRBC Per 100 WBC 0 /100 WBCS (0.0-0.0); Neutrophils # (A) 3.38 X 10*3/uL (1.80-7.70); Neutrophils % (A) 61.2 %; Platelet Count 244 X 10*3/uL (140-440); RBC 3.54 X 10*6/uL (4.40-5.60); RDW 13.3 % (11.5-14.5); WBC 5.53 X 10*3/uL (4.50-10.00)
== END | disposition home or self-care (01) ==
LOC: LABWHC1 07:40
PROVIDERS: ATTEND Family Medicine
DX: M06.9 Rheumatoid arthritis, unspecified (principal); I10 Essential (primary) hypertension; E78.5 Hyperlipidemia, unspecified; N40.0 Benign prostatic hyperplasia without lower urinary tract symptoms
CPT/HCPCS: 36415; 80053; 80061; 83036; 84153; 85025; 85652; 86140

== ENCOUNTER → 2022-11-06 | Outpatient (CLI) | payer MEDICARE, BC ==
[2022-11-06 08:06] VITALS: BP 131/87; PULSE 74; RESP 18; TEMP 97.8
--- NOTE | 2022-11-06 14:31 | P.PAINPG ---
PQRS Measure Charge Sheet Comment: A 67 yr old male with a history of severe and chronic LBP secondary to lumbar DDD and spondylosis with facet arthropathy without myelopathy presents today for medication refills. Pain level is provoked at 8/10 in intensity, constant, localized in the lumbar spine, sharp in character w shooting towards the BLEs. Pain is provoked by standing/ walking for periods of 5 min or more. Pain is alleviated with PT integrated w massage x 6 wks 5 mo ago, heat, ice, medications, laying supine, repositioning and rest. Interventional pain procedures completed include Patient is currently on [place] 10/325mg #120, Neurontin 300mg #90, Flexeril, Ibu Patient denies any side effects of the medication(s), denies excessive drowsiness or sleepiness, denies suicidal ideation and reports that the current pain medication is helping to control the pain and improve activities of daily living. Patient denies any motor or sensory deficits. Patient denies any fever or night sweats, denies any change in the bowel movements or urination. Physical Examination: -Constitutional: Cooperative. Not in acute distress . - Neurologic: Cranial nerve II to XII intact. No focal neurological deficits. - Psychatric: Alert & oriented x 3. Matching mood & appropriate affect. Judgment and insight intact. - Musculoskeletal: Cervical spine: Muscle bulk/ tone/ strength in the bilateral upper extremities normal Vertebral body tenderness to palpation over Spurling test positive Distraction test positive Facet loading test positive TTP Thoracic spine Muscle bulk / tone/ strength in the bilateral paraspinal muscles normal Vertebral body tender to palpation over Facet loading test positive TTP Lumbar spine: Motor bulk/ tone/ strength lower extremities , thigh and legs : 5/5 Deep tendon reflexes : Normal Knee Jerk. Normal Ankle Jerk . Vertebral body tenderness to palpation over L4, L5 Lumbar Facet Loading Test positive Straight Leg Raise: positive at 30 degrees right side/ left side Gaenslen's Test positive Sacral spine : Severe tenderness over the Sacroiliac joint: right side / left side Range of motion: Flexion of the lumbar spine <60 degrees Range of motion: Extension of the lumbar spine <20 degrees Gaenslen's Test positive right side / left side Pedro Luis test: positive right side / left side Thigh Thrust Test positive right side / left side Sacral Thrust Test positive right side / left side Assessment and plan: Chronic LBP secondary to lumbar DDD, spondylosis with facet arthropathy without myelopathy Chronic and current use of high-risk medication (Opioids). The patient was counseled about risk of opioid use, psychological risk associated with opioids and was orally counseled to not overuse , divert or sell medications. Pt is to store medication in a safe location. The patient is counseled against driving while using narcotic medications and also not to use alcohol or any illicit recreational drugs. Patient verbalized understanding that the lack of compliance will result in failure to renew narcotic prescription(s) as well as possible discharge from the clinic Diagnoses, prognosis and treatment options including but not limited to physical therapy, surgical interventions, interventional therapies and medication management including narcotics and adjuvant medication were discussed. All patient questions answered MAPS reviewed and it was appropriate. UDS collected today 11/06/22. Prescription refill for [place] 10/325mg #120, Neurontin 300mg #90, Flexeril w 1 RF I have spent less than 30 minutes on patient care today. Dr Stevenson was available by phone for the evaluation of this patient. The time was used to review the medical records including relevant urine studies and Prescription history (MAPs), review of the available imaging, evaluation and examination of the patient, coordination of care with the medical staff and if applicable referring physicians, as well as creation of the medical record PQRS Narrative: Smoking Status Former smoker Narcotic Agreement Date Signed 05/22/22 Hx Alcohol Use (MH) No Home Medications: Ambulatory Orders Timolol 0.5% Ophth Soln [Timoptic 0.5% Ophth Soln] 1 drop BOTH EYES BID 11/12/13 Folic Acid 1 mg PO DAILY 06/14/19 Losartan Potassium 50 mg PO 1200 06/14/19 hydroCHLOROthiazide 12.5 mg PO DAILY 06/14/19 metHOTREXate sodium [Methotrexate] 10 mg PO MO 06/14/19 Atorvastatin [Lipitor] 40 mg PO DAILY 08/10/19 Tofacitinib Citrate [Xeljanz] 10 mg PO DAILY 08/10/19 Albuterol Sulfate [Ventolin HFA] 1 - 2 puff INHALATION Q6H PRN 03/16/20 Aspirin 81 mg PO DAILY 03/16/20 Furosemide [Lasix] 20 mg PO DAILY 03/16/20 Ibuprofen 200 mg PO Q6H PRN 03/16/20 Terbinafine [LamISIL] 250 mg PO DAILY 12/22/20 Silver Sulfadiazine [SSD 1% Cream] 1 applic TOPICAL DAILY 06/13/21 Cyclobenzaprine [Flexeril] 10 mg PO TID PRN 30 Days #90 tab 11/06/22 Gabapentin [Neurontin] 300 mg PO TID 30 Days #90 cap 11/06/22 HYDROcodone/APAP 10-325MG [[place] 10-325] 1 tab PO Q6HR PRN 30 Days #120 tab 11/06/22 HYDROcodone/APAP 10-325MG [[place] 10-325] 1 tab PO Q6HR PRN 30 Days #120 tab 11/06/22 Controlled Substance Measures - Controlled Substance Measures Is patient prescribed a controlled substance at discharge?: Yes
== END ==
LOC: PNWHC3 07:21
PROVIDERS: ATTEND Specialist
DX: M51.36 Other intervertebral disc degeneration, lumbar region (principal); G89.29 Other chronic pain; M47.816 Spondylosis without myelopathy or radiculopathy, lumbar region; Z79.891 Long term (current) use of opiate analgesic; Z87.891 Personal history of nicotine dependence; Z79.82 Long term (current) use of aspirin; Z88.1 Allergy status to other antibiotic agents
CPT/HCPCS: 99212

== ENCOUNTER → 2023-01-01 | Outpatient (CLI) | payer MEDICARE, BC ==
[2023-01-01 08:14] VITALS: BP 162/95; PULSE 83; RESP 18; TEMP 98.3
--- NOTE | 2023-01-01 14:15 | P.PAINPG ---
Objective - Vital Signs Vital signs: Intake & Output 12/31/22 01/01/23 01/01/23 18:59 06:59 18:59 Weight 121.109 kg PQRS Measure Charge Sheet Comment: A 67 yr old male with a history of severe and chronic LBP secondary to lumbar DDD and spondylosis with facet arthropathy without myelopathy presents today for medication refills. Pain level is provoked at 7/10 in intensity, constant, localized in the lumbar spine, sharp in character w shooting towards the BLEs. Pain is provoked by standing/ walking for periods of 5 min or more. Pain is alleviated with PT integrated w massage x 6 wks in Jun 2022, heat, ice, medications, laying supine, use of a cane for ambulatory assistance, sequential compression device use at home, compression hose use, repositioning and rest. Interventional pain procedures completed include DENIES Patient is currently on [place] 10/325mg #120, Neurontin 300mg #90, Flexeril, Ibu Patient denies any side effects of the medication(s), denies excessive drowsiness or sleepiness, denies suicidal ideation and reports that the current pain medication is helping to control the pain and improve activities of daily living. Patient denies any motor or sensory deficits. Patient denies any fever or night sweats, denies any change in the bowel movements or urination. Physical Examination: -Constitutional: Cooperative. Not in acute distress . - Neurologic: Cranial nerve II to XII intact. No focal neurological deficits. - Psychatric: Alert & oriented x 3. Matching mood & appropriate affect. Judgment and insight intact. - Musculoskeletal: Cervical spine: Muscle bulk/ tone/ strength in the bilateral upper extremities normal Vertebral body tenderness to palpation over Spurling test positive Distraction test positive Facet loading test positive TTP Thoracic spine Muscle bulk / tone/ strength in the bilateral paraspinal muscles normal Vertebral body tender to palpation over Facet loading test positive TTP Lumbar spine: Motor bulk/ tone/ strength lower extremities , thigh and legs : 5/5 Deep tendon reflexes : Normal Knee Jerk. Normal Ankle Jerk . Vertebral body tenderness to palpation over L4, L5 Lumbar Facet Loading Test positive Straight Leg Raise: positive at 30 degrees right side/ left side Gaenslen's Test positive Sacral spine : Severe tenderness over the Sacroiliac joint: right side / left side Range of motion: Flexion of the lumbar spine <60 degrees Range of motion: Extension of the lumbar spine <20 degrees Gaenslen's Test positive right side / left side Pedro Luis test: positive right side / left side Thigh Thrust Test positive right side / left side Sacral Thrust Test positive right side / left side Assessment and plan: Chronic LBP secondary to lumbar DDD, spondylosis with facet arthropathy without myelopathy Chronic and current use of high-risk medication (Opioids). The patient was counseled about risk of opioid use, psychological risk associated with opioids and was orally counseled to not overuse , divert or sell medications. Pt is to store medication in a safe location. The patient is counseled against driving while using narcotic medications and also not to use alcohol or any illicit recreational drugs. Patient verbalized understanding that the lack of compliance will result in failure to renew narcotic prescription(s) as well as possible discharge from the clinic Diagnoses, prognosis and treatment options including but not limited to physical therapy, surgical interventions, interventional therapies and medication management including narcotics and adjuvant medication were discussed. All patient questions answered MAPS reviewed and it was appropriate. UDS from 11/06/22 reviewed and consistent. Prescription refill for [place] 10/325mg #120, Neurontin 300mg #90, Flexeril w 1 RF I have spent less than 30 minutes on patient care today. Dr Stevenson was available by phone for the evaluation of this patient. The time was used to review the medical records including relevant urine studies and Prescription history (MAPs), review of the available imaging, evaluation and examination of the patient, coordination of care with the medical staff and if applicable referring physicians, as well as creation of the medical record PQRS Narrative: Smoking Status Former smoker Narcotic Agreement Date Signed 05/22/22 Hx Alcohol Use (MH) No Home Medications: Ambulatory Orders Timolol 0.5% Ophth Soln [Timoptic 0.5% Ophth Soln] 1 drop BOTH EYES BID 11/12/13 Folic Acid 1 mg PO DAILY 06/14/19 Losartan Potassium 50 mg PO 1200 06/14/19 hydroCHLOROthiazide 12.5 mg PO DAILY 06/14/19 metHOTREXate sodium [Methotrexate] 10 mg PO MO 06/14/19 Atorvastatin [Lipitor] 40 mg PO DAILY 08/10/19 Tofacitinib Citrate [Xeljanz] 10 mg PO DAILY 08/10/19 Albuterol Sulfate [Ventolin HFA] 1 - 2 puff INHALATION Q6H PRN 03/16/20 Aspirin 81 mg PO DAILY 03/16/20 Furosemide [Lasix] 20 mg PO DAILY 03/16/20 Ibuprofen 200 mg PO Q6H PRN 03/16/20 Terbinafine [LamISIL] 250 mg PO DAILY 12/22/20 Silver Sulfadiazine [SSD 1% Cream] 1 applic TOPICAL DAILY 06/13/21 Cyclobenzaprine [Flexeril] 10 mg PO TID PRN 30 Days #90 tab 01/01/23 Gabapentin [Neurontin] 300 mg PO TID 30 Days #90 cap 01/01/23 HYDROcodone/APAP 10-325MG [[place] 10-325] 1 tab PO Q6HR PRN 30 Days #120 tab 01/01/23 HYDROcodone/APAP 10-325MG [[place] 10-325] 1 tab PO Q6HR PRN 30 Days #120 tab 01/01/23 Controlled Substance Measures - Controlled Substance Measures Is patient prescribed a controlled substance at discharge?: Yes When asked, does pt state using other controlled substances?: Yes If prescribed controlled substance>3 days was MAPS reviewed?: Yes
== END ==
LOC: PNWHC3 07:41
PROVIDERS: ATTEND Specialist
DX: M51.36 Other intervertebral disc degeneration, lumbar region (principal); M47.816 Spondylosis without myelopathy or radiculopathy, lumbar region; G89.29 Other chronic pain; Z79.891 Long term (current) use of opiate analgesic; Z88.1 Allergy status to other antibiotic agents; Z79.82 Long term (current) use of aspirin; Z87.891 Personal history of nicotine dependence
CPT/HCPCS: 99211

== ENCOUNTER → 2023-02-26 | Outpatient (CLI) | payer MEDICARE, BC ==
[2023-02-26 12:04] VITALS: BP 194/95; PULSE 101; RESP 16; TEMP 98.2
--- NOTE | 2023-02-26 15:10 | P.PAINPG ---
PQRS Measure Charge Sheet Comment: A 67 yr old male with a history of severe and chronic LBP secondary to lumbar DDD and spondylosis with facet arthropathy without myelopathy presents today for medication refills. Pain level is provoked at 8/10 in intensity, constant, localized in the lumbar spine, sharp in character w shooting towards the BLEs. Pain is provoked by standing/ walking for periods of 5 min or more. Pain is alleviated with PT integrated w massage x 6 wks in Jul 2022, heat, ice, medications, laying supine, use of a cane for ambulatory assistance, sequential compression device use at home, compression hose use, repositioning and rest. Interventional pain procedures completed include DENIES Patient is currently on [place] 10/325mg #120, Neurontin 300mg #90, Flexeril, Ibu Patient denies any side effects of the medication(s), denies excessive drowsiness or sleepiness, denies suicidal ideation and reports that the current pain medication is helping to control the pain and improve activities of daily living. Patient denies any motor or sensory deficits. Patient denies any fever or night sweats, denies any change in the bowel movements or urination. Physical Examination: -Constitutional: Cooperative. Not in acute distress . - Neurologic: Cranial nerve II to XII intact. No focal neurological deficits. - Psychatric: Alert & oriented x 3. Matching mood & appropriate affect. Judgment and insight intact. - Musculoskeletal: Cervical spine: Muscle bulk/ tone/ strength in the bilateral upper extremities normal Vertebral body tenderness to palpation over Spurling test positive Distraction test positive Facet loading test positive TTP Thoracic spine Muscle bulk / tone/ strength in the bilateral paraspinal muscles normal Vertebral body tender to palpation over Facet loading test positive TTP Lumbar spine: Motor bulk/ tone/ strength lower extremities , thigh and legs : 5/5 Deep tendon reflexes : Normal Knee Jerk. Normal Ankle Jerk . Vertebral body tenderness to palpation over L4, L5 Lumbar Facet Loading Test positive Straight Leg Raise: positive at 30 degrees right side/ left side Gaenslen's Test positive Sacral spine : Severe tenderness over the Sacroiliac joint: right side / left side Range of motion: Flexion of the lumbar spine <60 degrees Range of motion: Extension of the lumbar spine <20 degrees Gaenslen's Test positive right side / left side Pedro Luis test: positive right side / left side Thigh Thrust Test positive right side / left side Sacral Thrust Test positive right side / left side Assessment and plan: Chronic LBP secondary to lumbar DDD, spondylosis with facet arthropathy without myelopathy Chronic and current use of high-risk medication (Opioids). The patient was counseled about risk of opioid use, psychological risk associated with opioids and was orally counseled to not overuse , divert or sell medications. Pt is to store medication in a safe location. The patient is counseled against driving while using narcotic medications and also not to use alcohol or any illicit recreational drugs. Patient verbalized understanding that the lack of compliance will result in failure to renew narcotic prescription(s) as well as possible discharge from the clinic Diagnoses, prognosis and treatment options including but not limited to physical therapy, surgical interventions, interventional therapies and medication management including narcotics and adjuvant medication were discussed. All patient questions answered MAPS reviewed and it was appropriate. UDS from 11/06/22 reviewed and consistent. Prescription refill for [place] 10/325mg #120, Neurontin 300mg #90, Flexeril w 1 RF I have spent less than 30 minutes on patient care today. Dr Stevenson was available by phone for the evaluation of this patient. The time was used to review the medical records including relevant urine studies and Prescription history (MAPs), review of the available imaging, evaluation and examination of the patient, coordination of care with the medical staff and if applicable referring physicians, as well as creation of the medical record PQRS Narrative: Smoking Status Former smoker Narcotic Agreement Date Signed 05/22/22 Hx Alcohol Use (MH) No Home Medications: Ambulatory Orders Timolol 0.5% Ophth Soln [Timoptic 0.5% Ophth Soln] 1 drop BOTH EYES BID 11/12/13 Folic Acid 1 mg PO DAILY 06/14/19 Losartan Potassium 50 mg PO 1200 06/14/19 hydroCHLOROthiazide 12.5 mg PO DAILY 06/14/19 metHOTREXate sodium [Methotrexate] 10 mg PO MO 06/14/19 Atorvastatin [Lipitor] 40 mg PO DAILY 08/10/19 Albuterol Sulfate [Ventolin HFA] 1 - 2 puff INHALATION Q6H PRN 03/16/20 Aspirin 81 mg PO DAILY 03/16/20 Furosemide [Lasix] 20 mg PO DAILY 03/16/20 Ibuprofen 200 mg PO Q6H PRN 03/16/20 Terbinafine [LamISIL] 250 mg PO DAILY 12/22/20 Silver Sulfadiazine [SSD 1% Cream] 1 applic TOPICAL DAILY 06/13/21 HYDROcodone/APAP 10-325MG [[place] 10-325] 1 tab PO Q6HR PRN 30 Days #120 tab 01/02/23 Cyclobenzaprine [Flexeril] 10 mg PO TID PRN 30 Days #90 tab 02/26/23 Gabapentin [Neurontin] 300 mg PO TID 30 Days #90 cap 02/26/23 HYDROcodone/APAP 10-325MG [[place] 10-325] 1 tab PO Q6HR PRN 30 Days #120 tab 02/26/23 HYDROcodone/APAP 10-325MG [[place] 10-325] 1 tab PO Q6HR PRN 30 Days #120 tab 02/26/23 Controlled Substance Measures - Controlled Substance Measures Is patient prescribed a controlled substance at discharge?: Yes When asked, does pt state using other controlled substances?: No If prescribed controlled substance>3 days was MAPS reviewed?: Yes
== END ==
LOC: PNWHC3 07:34
PROVIDERS: ATTEND Specialist
DX: M51.36 Other intervertebral disc degeneration, lumbar region (principal); M47.816 Spondylosis without myelopathy or radiculopathy, lumbar region; G89.29 Other chronic pain; Z79.891 Long term (current) use of opiate analgesic; Z88.1 Allergy status to other antibiotic agents; Z87.891 Personal history of nicotine dependence
CPT/HCPCS: 99211

== ENCOUNTER → 2023-04-23 | Outpatient (CLI) | payer MEDICARE, BC ==
[2023-04-23 07:56] VITALS: BP 161/106; PULSE 84; RESP 15; TEMP 98.2
--- NOTE | 2023-04-23 14:32 | P.PAINPG ---
PQRS Measure Charge Sheet Comment: A 67 yr old male with a history of severe and chronic LBP secondary to lumbar DDD and spondylosis with facet arthropathy without myelopathy presents today for medication refills. Pain level is provoked at 8/10 in intensity, constant, localized in the lumbar spine, sharp in character w shooting towards the BLEs. Pain is provoked by standing/ walking for periods of 5 min or more. Pain is alleviated with PT integrated w massage x 6 wks in Jul 2022, heat, ice, medications, laying supine, use of a cane for ambulatory assistance, sequential compression device use at home, compression hose use, repositioning and rest. Interventional pain procedures completed include DENIES Patient is currently on [place] 10/325mg #120, Neurontin 300mg #90, Flexeril, Ibu Patient denies any side effects of the medication(s), denies excessive drowsiness or sleepiness, denies suicidal ideation and reports that the current pain medication is helping to control the pain and improve activities of daily living. Patient denies any motor or sensory deficits. Patient denies any fever or night sweats, denies any change in the bowel movements or urination. Physical Examination: -Constitutional: Cooperative. Not in acute distress . - Neurologic: Cranial nerve II to XII intact. No focal neurological deficits. - Psychatric: Alert & oriented x 3. Matching mood & appropriate affect. Judgment and insight intact. - Musculoskeletal: Cervical spine: Muscle bulk/ tone/ strength in the bilateral upper extremities normal Vertebral body tenderness to palpation over Spurling test positive Distraction test positive Facet loading test positive TTP Thoracic spine Muscle bulk / tone/ strength in the bilateral paraspinal muscles normal Vertebral body tender to palpation over Facet loading test positive TTP Lumbar spine: Motor bulk/ tone/ strength lower extremities , thigh and legs : 5/5 Deep tendon reflexes : Normal Knee Jerk. Normal Ankle Jerk . Vertebral body tenderness to palpation over L4, L5 Lumbar Facet Loading Test positive Straight Leg Raise: positive at 30 degrees right side/ left side Gaenslen's Test positive Sacral spine : Severe tenderness over the Sacroiliac joint: right side / left side Range of motion: Flexion of the lumbar spine <60 degrees Range of motion: Extension of the lumbar spine <20 degrees Gaenslen's Test positive right side / left side Pedro Luis test: positive right side / left side Thigh Thrust Test positive right side / left side Sacral Thrust Test positive right side / left side Assessment and plan: Chronic LBP secondary to lumbar DDD, spondylosis with facet arthropathy without myelopathy Chronic and current use of high-risk medication (Opioids). The patient was counseled about risk of opioid use, psychological risk associated with opioids and was orally counseled to not overuse , divert or sell medications. Pt is to store medication in a safe location. The patient is counseled against driving while using narcotic medications and also not to use alcohol or any illicit recreational drugs. Patient verbalized understanding that the lack of compliance will result in failure to renew narcotic prescription(s) as well as possible discharge from the clinic Diagnoses, prognosis and treatment options including but not limited to physical therapy, surgical interventions, interventional therapies and medication management including narcotics and adjuvant medication were discussed. All patient questions answered . Opiate/ narcotic agreement signed 04/23/23. MAPS reviewed and it was appropriate. UDS from 11/06/22 reviewed and consistent. Prescription refill for [place] 10/325mg #120, Neurontin 300mg #90, Flexeril w 1 RF PQRS Narrative: Smoking Status Former smoker Narcotic Agreement Date Signed 05/22/22 Hx Alcohol Use (MH) No Home Medications: Ambulatory Orders Timolol 0.5% Ophth Soln [Timoptic 0.5% Ophth Soln] 1 drop BOTH EYES BID 11/12/13 Folic Acid 1 mg PO DAILY 06/14/19 Losartan Potassium 50 mg PO 1200 06/14/19 hydroCHLOROthiazide 12.5 mg PO DAILY 06/14/19 metHOTREXate sodium 10 mg PO MO 06/14/19 Atorvastatin [Lipitor] 40 mg PO DAILY 08/10/19 Albuterol Sulfate [Ventolin HFA] 1 - 2 puff INHALATION Q6H PRN 03/16/20 Aspirin 81 mg PO DAILY 03/16/20 Furosemide [Lasix] 20 mg PO DAILY 03/16/20 Ibuprofen 200 mg PO Q6H PRN 03/16/20 Terbinafine [LamISIL] 250 mg PO DAILY 12/22/20 Silver Sulfadiazine [SSD 1% Cream] 1 applic TOPICAL DAILY 06/13/21 HYDROcodone/APAP 10-325MG [[place] 10-325] 1 tab PO Q6HR PRN 30 Days #120 tab 01/02/23 Cyclobenzaprine [Flexeril] 10 mg PO TID PRN 30 Days #90 tab 02/26/23 Gabapentin [Neurontin] 300 mg PO TID 30 Days #90 cap 02/26/23 HYDROcodone/APAP 10-325MG [[place] 10-325] 1 tab PO Q6HR PRN 30 Days #120 tab 02/26/23 HYDROcodone/APAP 10-325MG [[place] 10-325] 1 tab PO Q6HR PRN 30 Days #120 tab 02/26/23 Controlled Substance Measures - Controlled Substance Measures Is patient prescribed a controlled substance at discharge?: Yes When asked, does pt state using other controlled substances?: No If prescribed controlled substance>3 days was MAPS reviewed?: Yes
== END ==
LOC: PNWHC3 07:39
PROVIDERS: ATTEND Specialist
DX: M51.36 Other intervertebral disc degeneration, lumbar region (principal); M47.816 Spondylosis without myelopathy or radiculopathy, lumbar region; G89.29 Other chronic pain; Z79.891 Long term (current) use of opiate analgesic; Z87.891 Personal history of nicotine dependence; Z79.82 Long term (current) use of aspirin; Z88.1 Allergy status to other antibiotic agents
CPT/HCPCS: 99211

== ENCOUNTER → 2023-06-18 | Outpatient (CLI) | payer MEDICARE, BC ==
[2023-06-18 08:04] VITALS: BP 162/102; PULSE 87; RESP 16; TEMP 98
--- NOTE | 2023-06-18 12:45 | P.PAINPG ---
Objective - Vital Signs Vital signs: Intake & Output 06/17/23 06/18/23 06/18/23 18:59 06:59 18:59 Weight 120.202 kg PQRS Measure Charge Sheet Comment: A 67 yr old male with a history of severe and chronic LBP secondary to lumbar DDD and spondylosis with facet arthropathy without myelopathy presents today for medication refills. Pain level is provoked at 8/10 in intensity, constant, predominantly axial, localized in the lumbar spine, sharp in character w occ asional shooting towards the BLEs. Pain is provoked by standing/ walking for periods of 5 min or more. Pain is alleviated with PT integrated w massage x 6 wks in Jul 2022, heat, ice, medications, laying supine, use of a cane for ambulatory assistance, sequential compression device use at home, compression hose use, repositioning and rest. Interventional pain procedures completed include DENIES Patient is currently on [place] 10/325mg #120, Neurontin 300mg #90, Flexeril, Ibu Patient denies any side effects of the medication(s), denies excessive drowsiness or sleepiness, denies suicidal ideation and reports that the current pain medication is helping to control the pain and improve activities of daily living. Patient denies any motor or sensory deficits. Patient denies any fever or night sweats, denies any change in the bowel movements or urination. Physical Examination: -Constitutional: Cooperative. Not in acute distress . - Neurologic: Cranial nerve II to XII intact. No focal neurological deficits. - Psychatric: Alert & oriented x 3. Matching mood & appropriate affect. Judgment and insight intact. - Musculoskeletal: Cervical spine: Muscle bulk/ tone/ strength in the bilateral upper extremities normal Vertebral body tenderness to palpation over Spurling test positive Distraction test positive Facet loading test positive TTP Thoracic spine Muscle bulk / tone/ strength in the bilateral paraspinal muscles normal Vertebral body tender to palpation over Facet loading test positive TTP Lumbar spine: Motor bulk/ tone/ strength lower extremities , thigh and legs : 5/5 Deep tendon reflexes : Normal Knee Jerk. Normal Ankle Jerk . Vertebral body tenderness to palpation over L4, L5 Lumbar Facet Loading Test positive Straight Leg Raise: positive at 30 degrees right side/ left side Gaenslen's Test positive Sacral spine : Severe tenderness over the Sacroiliac joint: right side / left side Range of motion: Flexion of the lumbar spine <60 degrees Range of motion: Extension of the lumbar spine <20 degrees Gaenslen's Test positive right side / left side Pedro Luis test: positive right side / left side Thigh Thrust Test positive right side / left side Sacral Thrust Test positive right side / left side Assessment and plan: Chronic LBP secondary to lumbar DDD, spondylosis with facet arthropathy without myelopathy Chronic and current use of high-risk medication (Opioids). The patient was counseled about risk of opioid use, psychological risk associated with opioids and was orally counseled to not overuse , divert or sell medications. Pt is to store medication in a safe location. The patient is counseled against driving while using narcotic medications and also not to use alcohol or any illicit recreational drugs. Patient verbalized understanding that the lack of compliance will result in failure to renew narcotic prescription(s) as well as possible discharge from the clinic Diagnoses, prognosis and treatment options including but not limited to physical therapy, surgical interventions, interventional therapies and medication management including narcotics and adjuvant medication were discu ssed. All patient questions answered . Opiate/ narcotic agreement signed 04/23/23. MAPS reviewed and it was appropriate. UDS collected 06/18/23. Prescription refill for [place] 10/325mg #120, Neurontin 300mg #90, Flexeril w 1 RF - Pain Location Bilateral Lower Back Non-Pharmacological Interventions: Heat, Ice, Inactivity, Physical Therapy, Position/Reposition, Sitting Pharmacological Interventions: PRN Medication, Scheduled Medication PQRS Narrative: Smoking Status Former smoker Narcotic Agreement Date Signed 04/23/23 Hx Alcohol Use (MH) No Home Medications: Ambulatory Orders Timolol 0.5% Ophth Soln [Timoptic 0.5% Ophth Soln] 1 drop BOTH EYES BID 11/12/13 Folic Acid 1 mg PO DAILY 06/14/19 Losartan Potassium 50 mg PO 1200 06/14/19 hydroCHLOROthiazide 12.5 mg PO DAILY 06/14/19 metHOTREXate sodium [Methotrexate] 10 mg PO MO 06/14/19 Atorvastatin [Lipitor] 40 mg PO DAILY 08/10/19 Albuterol Sulfate [Ventolin HFA] 1 - 2 puff INHALATION Q6H PRN 03/16/20 Aspirin 81 mg PO DAILY 03/16/20 Furosemide [Lasix] 20 mg PO DAILY 03/16/20 Ibuprofen 200 mg PO Q6H PRN 03/16/20 Terbinafine [LamISIL] 250 mg PO DAILY 12/22/20 Silver Sulfadiazine [SSD 1% Cream] 1 applic TOPICAL DAILY 06/13/21 HYDROcodone/APAP 10-325MG [[place] 10-325] 1 tab PO Q6HR PRN 30 Days #120 tab 02/26/23 Cyclobenzaprine [Flexeril] 10 mg PO TID PRN 30 Days #90 tab 06/18/23 Gabapentin [Neurontin] 300 mg PO TID 30 Days #90 cap 06/18/23 HYDROcodone/APAP 10-325MG [[place] 10-325] 1 tab PO Q6HR PRN 30 Days #120 tab 06/18/23 HYDROcodone/APAP 10-325MG [[place] 10-325] 1 tab PO Q6HR PRN 30 Days #120 tab 06/18/23 Controlled Substance Measures - Controlled Substance Measures Is patient prescribed a controlled substance at discharge?: Yes When asked, does pt state using other controlled substances?: No If prescribed controlled substance>3 days was MAPS reviewed?: Yes
[2023-06-19 08:47] LABS: Serum Amphetamine Negative; Serum Barbiturates Negative; Serum Benzodiazepine Negative; Serum Cocaine Negative; Serum Methadone Negative; Serum Opiates Negative; Serum Phencyclidine Negative; Serum Propoxyphene Negative; Serum THC (Cannabis) Negative
== END ==
LOC: PNWHC3 07:23
PROVIDERS: ATTEND Specialist
DX: Z02.83 Encounter for blood-alcohol and blood-drug test (principal); M51.36 Other intervertebral disc degeneration, lumbar region; M47.816 Spondylosis without myelopathy or radiculopathy, lumbar region; G89.29 Other chronic pain; Z79.891 Long term (current) use of opiate analgesic; Z87.891 Personal history of nicotine dependence; Z79.82 Long term (current) use of aspirin; Z88.1 Allergy status to other antibiotic agents
CPT/HCPCS: 80307; G0463; 99211

== ENCOUNTER → 2023-06-18 | Outpatient (CLI) | payer MEDICARE, BC ==
[2023-06-18 15:03] LABS: Basophils # (A) 0.01 X 10*3/uL (0.00-0.10); Basophils % (A) 0.2 %; Eosinophils # (A) 0.04 X 10*3/uL (0.04-0.35); Eosinophils % (A) 0.8 %; HCT 33.5 % (39.6-50.0); HGB 11.3 g/dL (13.0-17.0); MCH 34.5 pg (27.0-32.0); MCHC 33.7 g/dL (32.0-37.0); MCV 102.1 FL (80.0-97.0); Mean Platelet Volume 9.6 FL (9.5-12.2); Monocytes # (A) 0.68 X 10*3/uL (0.20-1.00); NRBC Per 100 WBC 0 X 10*3/uL (0.00-0.01); Neutrophils % (A) 66.6 %; Platelet Count 237 X 10*3/uL (140-440); RBC 3.28 X 10*6/uL (4.40-5.60); RDW 13.7 % (11.5-14.5); WBC 5.25 X 10*3/uL (4.50-10.00)
[2023-06-18 15:44] LABS: ALT 27 U/L (10-49); AST 34 U/L (14-35); C Reactive Protein <0.30 mg/dL (0.00-0.80)
[2023-06-18 16:59] LABS: Erythrocyte Sedimentation Rate 14 mm/Hr (0-20)
== END | disposition home or self-care (01) ==
LOC: LABWHC1 08:18
PROVIDERS: ATTEND Family Medicine
DX: Z02.83 Encounter for blood-alcohol and blood-drug test (principal); M06.9 Rheumatoid arthritis, unspecified
CPT/HCPCS: 36415; 82565; 84450; 84460; 85025; 85652; 86140

== ENCOUNTER → 2023-08-13 | Outpatient (CLI) | payer MEDICARE, BC ==
[2023-08-14 07:06] LABS: Serum Amphetamine Negative; Serum Barbiturates Negative; Serum Benzodiazepine Negative; Serum Cocaine Negative; Serum Methadone Negative; Serum Opiates Negative; Serum Phencyclidine Negative; Serum Propoxyphene Negative; Serum THC (Cannabis) Negative
== END | disposition home or self-care (01) ==
LOC: LABWHC1 08:09
PROVIDERS: ATTEND Physician Assistant Medical
DX: Z02.83 Encounter for blood-alcohol and blood-drug test (principal)
CPT/HCPCS: 36415; 80307

== ENCOUNTER → 2023-08-13 | Outpatient (CLI) | payer MEDICARE, BC ==
[2023-08-13 08:07] VITALS: BP 142/76; PULSE 89; RESP 15; TEMP 98.6
--- NOTE | 2023-08-13 09:12 | P.PAINPG ---
Objective - Vital Signs Vital signs: Intake & Output 08/12/23 08/13/23 08/13/23 18:59 06:59 18:59 Weight 101.151 kg PQRS Measure Charge Sheet Comment: A 68 yr old male with a history of severe and chronic LBP secondary to lumbar DDD and spondylosis with facet arthropathy without myelopathy presents today for medication refills. Pain level is provoked at 8/10 in intensity, constant, predominantly axial, localized in the lumbar spine, sharp in character w occ asional shooting towards the BLEs. Pain is provoked by standing/ walking for periods of 5 min or more. Pain is alleviated with PT integrated w massage x 6 wks in Jul 2022, heat, ice, medications, laying supine, use of a cane for ambulatory assistance, sequential compression device use at home, compression hose use, repositioning and rest. UDS from 06/18/23 reviewed and NEG for medications prescribed. Will recheck UDS or Blood Tox Screen 08/13/23. Interventional pain procedures completed include DENIES Patient is currently on [place] 10/325mg #120, Neurontin 300mg #90, Flexeril, Ibu Patient denies any side effects of the medication(s), denies excessive drowsiness or sleepiness, denies suicidal ideation and reports that the current pain medication is helping to control the pain and improve activities of daily living. Patient denies any motor or sensory deficits. Patient denies any fever or night sweats, denies any change in the bowel movements or urination. Physical Examination: -Constitutional: Cooperative. Not in acute distress . - Neurologic: Cranial nerve II to XII intact. No focal neurological deficits. - Psychatric: Alert & oriented x 3. Matching mood & appropriate affect. Judgm ent and insight intact. - Musculoskeletal: Cervical spine: Muscle bulk/ tone/ strength in the bilateral upper extremities normal Vertebral body tenderness to palpation over Spurling test positive Distraction test positive Facet loading test positive TTP Thoracic spine Muscle bulk / tone/ strength in the bilateral paraspinal muscles normal Vertebral body tender to palpation over Facet loading test positive TTP Lumbar spine: Motor bulk/ tone/ strength lower extremities , thigh and legs : 5/5 Deep tendon reflexes : Normal Knee Jerk. Normal Ankle Jerk . Vertebral body tenderness to palpation over L4, L5 Lumbar Facet Loading Test positive Straight Leg Raise: positive at 30 degrees right side/ left side Gaenslen's Test positive Sacral spine : Severe tenderness over the Sacroiliac joint: right side / left side Range of motion: Flexion of the lumbar spine <60 degrees Range of motion: Extension of the lumbar spine <20 degrees Gaenslen's Test positive right side / left side Pedro Luis test: positive right side / left side Thigh Thrust Test positive right side / left side Sacral Thrust Test positive right side / left side Assessment and plan: Chronic LBP secondary to lumbar DDD, spondylosis with facet arthropathy without myelopathy Chronic and current use of high-risk medication (Opioids). The patient was counseled about risk of opioid use, psychological risk associated with opioids and was orally counseled to not overuse , divert or sell medications. Pt is to store medication in a safe location. The patient is counseled against driving while using narcotic medications and also not to use alcohol or any illicit recreational drugs. Patient verbalized understanding that the lack of compliance will result in failure to renew narcotic prescription(s) as well as possible discharge from the clinic Diagnoses, prognosis and treatment options including but not limited to physical therapy, surgical interventions, interventional therapies and medication management including narcotics and adjuvant medication were discussed. All patient questions answered . Opiate/ narcotic agreement signed 04/23/23. MAPS reviewed and it was appropriate. UDS fr 06/18/23 reviewed and inconsistent (Negative for medications). Prescription refill for [place] 10/325mg #120, Neurontin 300mg #90, Flexeril w 1 RF PQRS Narrative: Smoking Status Former smoker Narcotic Agreement Date Signed 04/23/23 Hx Alcohol Use (MH) No Home Medications: Ambulatory Orders Timolol 0.5% Ophth Soln [Timoptic 0.5% Ophth Soln] 1 drop BOTH EYES BID 11/12/13 Folic Acid 1 mg PO DAILY 06/14/19 Losartan Potassium 50 mg PO 1200 06/14/19 hydroCHLOROthiazide 12.5 mg PO DAILY 06/14/19 metHOTREXate sodium 10 mg PO MO 06/14/19 Atorvastatin [Lipitor] 40 mg PO DAILY 08/10/19 Albuterol Sulfate [Ventolin HFA] 1 - 2 puff INHALATION Q6H PRN 03/16/20 Aspirin 81 mg PO DAILY 03/16/20 Furosemide [Lasix] 20 mg PO DAILY 03/16/20 Ibuprofen 200 mg PO Q6H PRN 09/10/20 Terbinafine [LamISIL] 250 mg PO DAILY 12/22/20 Silver Sulfadiazine [SSD 1% Cream] 1 applic TOPICAL DAILY 06/13/21 HYDROcodone/APAP 10-325MG [[place] 10-325] 1 tab PO Q6HR PRN 30 Days #120 tab 02/26/23 HYDROcodone/APAP 10-325MG [[place] 10-325] 1 tab PO Q6HR PRN 30 Days #120 tab 06/18/23 Cyclobenzaprine [Flexeril] 10 mg PO TID PRN 30 Days #90 tab 08/13/23 Gabapentin [Neurontin] 300 mg PO TID 30 Days #90 cap 08/13/23 HYDROcodone/APAP 10-325MG [[place] 10-325] 1 tab PO Q6HR PRN 30 Days #120 tab 08/13/23 Controlled Substance Measures - Controlled Substance Measures Is patient prescribed a controlled substance at discharge?: Yes When asked, does pt state using other controlled substances?: No If prescribed controlled substance>3 days was MAPS reviewed?: Yes
== END ==
LOC: PNWHC3 07:38
PROVIDERS: ATTEND Anesthesiology
DX: M51.36 Other intervertebral disc degeneration, lumbar region (principal); M47.816 Spondylosis without myelopathy or radiculopathy, lumbar region; G89.29 Other chronic pain; Z79.891 Long term (current) use of opiate analgesic; Z87.891 Personal history of nicotine dependence; Z79.82 Long term (current) use of aspirin; Z88.1 Allergy status to other antibiotic agents
CPT/HCPCS: 99211

== ENCOUNTER 2023-10-07 02:57 | Observation (INO) | payer MEDICARE, BC ==
[2023-10-07 03:45] LABS: Basophils % (A) 0 %; Eosinophils # (A) 0.1 k/uL (0-0.7); Eosinophils % (A) 1 %; HCT 35.6 % (39.0-53.0); HGB 11.5 gm/dL (13.0-17.5); Lymphocytes # (A) 2.2 k/uL (1.0-4.8); Lymphocytes % (A) 29 %; MCH 33.2 pg (25.0-35.0); MCHC 32.4 g/dL (31.0-37.0); MCV 102.5 fL (80.0-100.0); Macrocytosis Slight; Mean Platelet Volume 7.6; Monocytes # (A) 0.6 k/uL (0-1.0); Monocytes % (A) 8 %; Neutrophils # (A) 4.4 k/uL (1.3-7.7); Neutrophils % (A) 59 %; Platelet Count 225 k/uL (150-450); RBC 3.47 m/uL (4.30-5.90); RDW 14.2 % (11.5-15.5); WBC 7.5 k/uL (3.8-10.6)
[2023-10-07 03:55] LABS: ALT 26 U/L (4-49); AST 34 U/L (17-59); African American GFR (CKD) >90 (>60 ml/min/1.73 sqM); Albumin 3.8 g/dL (3.5-5.0); Alkaline Phosphatase 110 U/L (38-126); Anion Gap 7 mmol/L; Blood Urea Nitrogen 19 mg/dL (9-20); Calcium 8.6 mg/dL (8.4-10.2); Carbon Dioxide 27 mmol/L (22-30); Chloride 103 mmol/L (98-107); Glucose 135 mg/dL (74-99); Non-African American GFR(CKD) >90 (>60 ml/min/1.73 sqM); Potassium 3.3 mmol/L (3.5-5.1); Sodium 137 mmol/L (137-145); Total Bilirubin 0.7 mg/dL (0.2-1.3); Total Protein 7.4 g/dL (6.3-8.2)
--- NOTE | 2023-10-07 04:25 | ED ---
Arrhythmia/Palpitations HPI - General Chief Complaint: Arrhythmia/Palpitations Stated Complaint: Irregular heartbeat, check heart monitor Time Seen by Provider: 10/07/23 03:04 Source: patient Mode of arrival: ambulatory Limitations: no limitations - History of Present Illness Initial Comments: 68-year-old male who presents to the emergency department under the direction of Dr. Fox. He states that he was sleeping and received a call around 2:30 AM. He was told to go to the emergency department. Patient is currently wearing a heart monitor. He had gone for an eye exam and was told that he was not getting good vascular flow to the back of his eye. He was subsequently referred to a vascular doctor and a mining helper. States that he has been wearing the heart monitor as part of his workup. Patient did have a stress test but does not know the results. He is awaiting an echo. Patient denies that he is having any symptoms. He reports no shortness of breath or chest pain. No history of irregular heart rhythms. No other alleviating, precipitating modifying factors - Related Data Home Medications Medication Instructions Recorded Confirmed Timolol 0.5% Ophth Soln [Timoptic 1 drop BOTH EYES BID 11/12/13 06/18/23 0.5% Ophth Soln] Folic Acid 1 mg PO DAILY 06/14/19 06/18/23 Losartan Potassium 50 mg PO 1200 06/14/19 06/18/23 hydroCHLOROthiazide 12.5 mg PO DAILY 06/14/19 06/18/23 metHOTREXate sodium 10 mg PO MO 06/14/19 06/18/23 Atorvastatin [Lipitor] 40 mg PO DAILY 08/10/19 06/18/23 Albuterol Sulfate [Ventolin HFA] 1 - 2 puff INHALATION Q6H PRN 03/16/20 06/18/23 Aspirin 81 mg PO DAILY 03/16/20 06/18/23 Furosemide [Lasix] 20 mg PO DAILY 03/16/20 06/18/23 Ibuprofen 200 mg PO Q6H PRN 03/16/20 06/18/23 Terbinafine [LamISIL] 250 mg PO DAILY 12/22/20 06/18/23 Silver Sulfadiazine [SSD 1% Cream] 1 applic TOPICAL DAILY 06/13/21 06/18/23 Previous Rx's Medication Instructions Recorded HYDROcodone/APAP 10-325MG [[place] 1 tab PO Q6HR PRN 30 Days #120 tab 02/26/23 10-325] HYDROcodone/APAP 10-325MG [[place] 1 tab PO Q6HR PRN 30 Days #120 tab 06/18/23 10-325] Cyclobenzaprine [Flexeril] 10 mg PO TID PRN 30 Days #90 tab 08/13/23 Gabapentin [Neurontin] 300 mg PO TID 30 Days #90 cap 08/13/23 HYDROcodone/APAP 10-325MG [[place] 1 tab PO Q6HR PRN 30 Days #120 tab 08/13/23 10-325] Allergies Allergy/AdvReac Type Severity Reaction Status Date / Time cephalexin monohydrate Allergy Rash/Hives Verified 10/07/23 03:03 [From Remotium] Review of Systems ROS Statement: Those systems with pertinent positive or pertinent negative responses have been documented in the HPI. ROS Other: All systems not noted in ROS Statement are negative. Past Medical History Past Medical History: Asthma, Eye Disorder, Hypertension, Rheumatoid Arthritis (RA) Additional Past Medical History / Comment(s): GLAUCOMA, shingles on back of head and neck 07/15/19, DDD, low back pain with radiation and numbness to legs and feet, hx falls, using cane, walker and wheel chair prn., states right leg shorter., received 2 doses of phizer covid vaccine-2nd dose 11/02/20. History of Any Multi-Drug Resistant Organisms: None Reported Past Surgical History: Appendectomy, Back Surgery, Cholecystectomy, Orthopedic Surgery Additional Past Surgical History / Comment(s): NATHANAEL ROTATOR CUFF surgery, DISC SURG X3, TITANIUM PLATE IN NECK, fusion of S1, PAIN CLINIC PROCEDURE, arthroscopy rt knee Past Anesthesia/Blood Transfusion Reactions: No Reported Reaction Past Psychological History: No Psychological Hx Reported Smoking Status: Former smoker Past Alcohol Use History: None Reported Past Drug Use History: None Reported - Past Family History Mother Family Medical History: No Reported History Father Family Medical History: Coronary Artery Disease (CAD) Additional Family Medical History / Comment(s): FATHER HAD 3 VESSEL CABG-HAD POST OP INFECTION AND PNEUMONIA AND AT THE AGE OF 80YRS. General Exam Limitations: no limitations General appearance: alert, in no apparent distress Head exam: Present: atraumatic, normocephalic, normal inspection Eye exam: Present: normal appearance, PERRL, EOMI. Absent: scleral icterus, conjunctival injection, periorbital swelling ENT exam: Present: normal exam, mucous membranes moist Neck exam: Present: normal inspection. Absent: tenderness, meningismus, lymphadenopathy Respiratory exam: Present: normal lung sounds bilaterally. Absent: respiratory distress, wheezes, rales, rhonchi, stridor Cardiovascular Exam: Present: regular rate, normal rhythm, normal heart sounds. Absent: systolic murmur, diastolic murmur, rubs, gallop, clicks GI/Abdominal exam: Present: soft, normal bowel sounds. Absent: distended, tenderness, guarding, rebound, rigid Extremities exam: Present: normal inspection, full ROM, normal capillary refill. Absent: tenderness, pedal edema, joint swelling, calf tenderness Back exam: Present: normal inspection Neurological exam: Present: alert, oriented X3, CN II-XII intact Psychiatric exam: Present: normal affect, normal mood Skin exam: Present: warm, dry, intact, normal color. Absent: rash Course Vital Signs 10/07/23 10/07/23 02:58 05:10 Temperature 97.5 F L Pulse Rate 96 87 Respiratory 20 18 Rate Blood Pressure 164/100 127/86 O2 Sat by Pulse 95 98 Oximetry Medical Decision Making - Medical Decision Making Was pt. sent in by a medical professional or institution (ELIANE Mccauley, STERILIZER OPERATOR, urgent care, hospital, or long term...) When possible be specific @ -[No] Did you speak to anyone other than the patient for history (EMS, parent, family, police, friend...)? What history was obtained from this source @ -[No] Did you review nursing and triage notes (agree or disagree)? Why? @ -[I reviewed and agree with nursing and triage notes] Were old charts reviewed (outside hosp., previous admission, EMS record, old E KG, old radiological studies, urgent care reports/EKG's, long term records)? Report findings @ -[No old charts were reviewed] Differential Diagnosis (chest pain, altered mental status, abdominal pain women, abdominal pain men, vaginal bleeding, weakness, fever, dyspnea, syncope, headache, dizziness, GI bleed, back pain, seizure, CVA, palpatations, mental health, musculoskeletal)? @ -[not applicable] EKG interpreted by me (3pts min.). @ -Yes and demonstrates sinus rhythm with a rate of 92. ID interval 194. QRS 94. QTc of 429. No acute ST segment elevations or depressions X-rays interpreted by me (1pt min.). @ -[None done] CT interpreted by me (1pt min.). @ -[None done] U/S interpreted by me (1pt. min.). @ -[None done] What testing was considered but not performed or refused? (CT, X-rays, U/S, labs)? Why? @ -[None] What meds were considered but not given or refused? Why? @ -[None] Did you discuss the management of the patient with other professionals (professionals i.e. , PA, STERILIZER OPERATOR, lab, RT, psych nurse, social service director, road consultant, teacher, electrical engineering drafting officer, block and case maker)? Give summary @ -[No] Was smoking cessation discussed for >3mins.? @ -[No] Was critical care preformed (if so, how long)? @ -[No] Were there social determinants of health that impacted care today? How? (Homelessness, low income, unemployed, alcoholism, drug addiction, transportation, low edu. Level, literacy, decrease access to med. care, correction, rehab)? @ -[No] Was there de-escalation of care discussed even if they declined (Discuss DNR or withdrawal of care, Hospice)? DNR status @ -[No] What co-morbidities impacted this encounter? (DM, HTN, Smoking, COPD, CAD, Cancer, CVA, ARF, Chemo, Hep., AIDS, mental health diagnosis, sleep apnea, morbid obesity)? @ -[None] Was patient admitted / discharged? Hospital course, mention meds given and route, prescriptions, significant lab abnormalities, going to OR and other pertinent info. @ -[hospital course] Undiagnosed new problem with uncertain prognosis? @ -[No] Drug Therapy requiring intensive monitoring for toxicity (Heparin, Nitro, Insuli n, Cardizem)? @ -[No] Were any procedures done? @ -[No] Diagnosis/symptom? @ -[default] Acute, or Chronic, or Acute on Chronic? @ -[default] Uncomplicated (without systemic symptoms) or Complicated (systemic symptoms)? @ -[default] Side effects of treatment? @ -[No] Exacerbation, Progression, or Severe Exacerbation? @ -[No] Poses a threat to life or bodily function? How? (Chest pain, [place], HI, pneumonia, PE, COPD, DKA, ARF, appy, cholecystitis, CVA, Diverticulitis, Homicidal, Suicidal, threat to staff... and all critical care pts) @ -[No] - Lab Data Result diagrams: 10/07/23 03:39 10/07/23 03:39 Lab Results 10/07/23 10/07/23 10/07/23 Range/Units 03:39 03:39 03:39 WBC 7.5 (3.8-10.6) k/uL RBC 3.47 L (4.30-5.90) m/uL Hgb 11.5 L (13.0-17.5) gm/dL Hct 35.6 L (39.0-53.0) % MCV 102.5 H (80.0-100.0) fL MCH 33.2 (25.0-35.0) pg MCHC 32.4 (31.0-37.0) g/dL RDW 14.2 (11.5-15.5) % Plt Count 225 (150-450) k/uL MPV 7.6 Neutrophils % 59 % Lymphocytes % 29 % Monocytes % 8 % Eosinophils % 1 % Basophils % 0 % Neutrophils # 4.4 (1.3-7.7) k/uL Lymphocytes # 2.2 (1.0-4.8) k/uL Monocytes # 0.6 (0-1.0) k/uL Eosinophils # 0.1 (0-0.7) k/uL Basophils # 0.0 (0-0.2) k/uL Macrocytosis Slight PT 10.0 (10.0-12.5) sec INR 0.9 (<1.2) APTT 25.1 (22.0-30.0) sec Sodium 137 (137-145) mmol/L Potassium 3.3 L (3.5-5.1) mmol/L Chloride 103 (98-107) mmol/L Carbon Dioxide 27 (22-30) mmol/L Anion Gap 7 mmol/L BUN 19 (9-20) mg/dL Creatinine 0.70 (0.66-1.25) mg/dL Est GFR (CKD-EPI)AfAm >90 (>60 ml/min/1.73 sqM) Est GFR (CKD-EPI)NonAf >90 (>60 ml/min/1.73 sqM) Glucose 135 H (74-99) mg/dL Calcium 8.6 (8.4-10.2) mg/dL Magnesium 2.0 (1.6-2.3) mg/dL Total Bilirubin 0.7 (0.2-1.3) mg/dL AST 34 (17-59) U/L ALT 26 (4-49) U/L Alkaline Phosphatase 110 (38-126) U/L Troponin I (0.000-0.034) ng/mL Total Protein 7.4 (6.3-8.2) g/dL Albumin 3.8 (3.5-5.0) g/dL TSH 3.840 (0.465-4.680) mIU/L 10/07/23 Range/Units 03:39 WBC (3.8-10.6) k/uL RBC (4.30-5.90) m/uL Hgb (13.0-17.5) gm/dL Hct (39.0-53.0) % MCV (80.0-100.0) fL MCH (25.0-35.0) pg MCHC (31.0-37.0) g/dL RDW (11.5-15.5) % Plt Count (150-450) k/uL MPV Neutrophils % % Lymphocytes % % Monocytes % % Eosinophils % % Basophils % % Neutrophils # (1.3-7.7) k/uL Lymphocytes # (1.0-4.8) k/uL Monocytes # (0-1.0) k/uL Eosinophils # (0-0.7) k/uL Basophils # (0-0.2) k/uL Macrocytosis PT (10.0-12.5) sec INR (<1.2) APTT (22.0-30.0) sec Sodium (137-145) mmol/L Potassium (3.5-5.1) mmol/L Chloride (98-107) mmol/L Carbon Dioxide (22-30) mmol/L Anion Gap mmol/L BUN (9-20) mg/dL Creatinine (0.66-1.25) mg/dL Est GFR (CKD-EPI)AfAm (>60 ml/min/1.73 sqM) Est GFR (CKD-EPI)NonAf (>60 ml/min/1.73 sqM) Glucose (74-99) mg/dL Calcium (8.4-10.2) mg/dL Magnesium (1.6-2.3) mg/dL Total Bilirubin (0.2-1.3) mg/dL AST (17-59) U/L ALT (4-49) U/L Alkaline Phosphatase (38-126) U/L Troponin I <0.012 (0.000-0.034) ng/mL Total Protein (6.3-8.2) g/dL Albumin (3.5-5.0) g/dL TSH (0.465-4.680) mIU/L Disposition Clinical Impression: Nonsustained ventricular tachycardia Disposition: ADMITTED IP TO THIS [facility] Condition: Stable Is patient prescribed a controlled substance at d/c from ED?: No Referrals: Noel Liao DO [Primary Care Provider] - 1-2 days Time of Disposition: 05:16 Decision to Admit Reason: Admit from EC Decision Date: 10/07/23 Decision Time: 05:16
[2023-10-07 04:45] LABS: INR 0.9 (<1.2); Partial Thromboplastin Time 25.1 sec (22.0-30.0)
[2023-10-07] MEDS: POTASSIUM CHLORIDE ER 20 MEQ TAB.ER PO STA (05:10)
[2023-10-07] MEDS ORDERED: NALOXONE 0.4 MG/ML 1 ML VIAL IV PRN (05:20)
--- NOTE | 2023-10-07 07:37 | XR ---
EXAM: XR Chest, 2 Views CLINICAL HISTORY: ITS.REASON XR Reason: dysrhythmia TECHNIQUE: Frontal and lateral views of the chest. COMPARISON: 02/20/22 FINDINGS: Lungs: Unremarkable. No consolidation. Pleural space: Unremarkable. Mediastinum: Unremarkable. Normal mediastinal contour. Bones/joints: No acute findings. Lower cervical ACDF IMPRESSION: No acute findings or substantial change.
[2023-10-07] MEDS: ASPIRIN 81 MG PO SCH (09:00)
[2023-10-07] MEDS: FUROSEMIDE 20 MG TAB PO SCH (09:00)
[2023-10-07] MEDS: METOPROLOL SUCCINATE (ER) 25 MG TAB.ER.24H PO SCH (09:00)
[2023-10-07] MEDS: ATORVASTATIN 40 MG TAB PO SCH (09:04)
--- NOTE | 2023-10-07 09:29 | P.CRDCN ---
History of Present Illness History of present illness: HISTORY OF PRESENT ILLNESS: This is a 68-year-old male with a past medical history significant for hypertension, hyperlipidemia, mild nonobstructive CAD, and chronic lower extremity edema. Patient follows in the office with Dr. Ledesma. We have been asked to see the patient in consultation for nonsustained VT. Patient examined at the bedside in the emergency room. Patient states he was recently diagnosed with a retinal vascular occlusion by his eye doctor. He states he was referred to see a vascular surgeon and underwent a carotid ultrasound which was negative to his knowledge. He saw Dr. Ledesma in the office recently and a heart monitor was placed to rule out atrial fibrillation. The patient was called overnight and was told he was having an arrhythmia and was directed to come to the emergency room. The patient denies having any chest pain or pressure. He denies any shortness of breath. Denies any dizziness or lightheadedness. Denies any episodes of syncope. DIAGNOSTICS: - EKG reveals sinus mechanism with nonspecific ST-T wave changes. - Chest xray negative for acute findings. - Laboratory data: WBC 7.5. Hemoglobin 11.5. Platelet count 225. Sodium 137. Potassium 3.3. BUN 19. Creatinine 0.70. Troponin negative x 1. TSH 3.840. - Current home cardiac medications include aspirin 81 mg daily, Lipitor 40 mg daily, Lasix 20 mg daily, hydrochlorothiazide 12.5 mg daily, losartan 50 mg daily. - Most recent echocardiogram obtained in 2017 revealed ejection fraction 55 to 60%, mild concentric LVH - Cardiac catheterization history: 2017 revealing right dominant system. No significant disease in the RCA. LAD has a 35% smooth narrowing in the midporti on after a small septal branch with calcification. The ramus intermedius as well as circumflex are free of significant disease and filling pressures are normal. -Patient underwent Lexiscan stress test in the office on 09/24/2023 which was negative for ischemia with normal left ventricular EF of 60% REVIEW OF SYSTEMS: At the time of my exam: CONSTITUTIONAL: Denies fever or chills. HEENT: Denies blurred vision, vision changes, or eye pain. Denies hemoptysis CARDIOVASCULAR: Denies chest pain. Denies orthopnea. Denies PND. Denies palpitations RESPIRATORY: Denies shortness of breath. GASTROINTESTINAL: Denies abdominal pain. Denies nausea or vomiting. HEMATOLOGIC: Denies bleeding disorders. GENITOURINARY: Denies any blood in urine. SKIN: Denies pruitis. Denies rash. PHYSICAL EXAM: VITAL SIGNS: Reviewed. GENERAL: Well-developed in no acute distress. HEENT: Head is normocephalic. Pupils are equal, round. Sclerae anicteric. Mucous membranes of the mouth are moist. Neck supple. No JVD or thyromegaly LUNGS: Respirations even and unlabored. Lungs essentially clear to auscultation bilaterally. HEART: Regular rate and rhythm. S1 and S2 heard. ABDOMEN: Soft. Nondistended. Nontender. EXTREMITIES: Normal range of motion. No clubbing or cyanosis. Peripheral pulses intact. Chronic bilateral lower extremity edema, likely venous insufficiency NEUROLOGIC: Awake and alert. Oriented x 3. ASSESSMENT: Nonsustained ventricular tachycardia Recent diagnosis of retinal vascular occlusion Hypertension Hyperlipidemia Mild nonobstructive CAD Chronic lower extremity edema, likely venous insufficiency Hypokalemia PLAN: Obtain 2D echo to assess cardiac structure and function Patient had a recent stress test in the office last month which was negative for ischemia Discontinue hydrochlorothiazide Increase losartan to 100 mg daily Check TSH Continue to monitor electrolytes Obtain telemetry strips from event monitor from cardiology office Add metoprolol succinate 25 mg daily Continue telemetry monitoring Further recommendations pending patient course Nurse practitioner note has been reviewed by physician. Signing provider agrees with the documented findings, assessment, and plan of care documented by ISOTOPE HYDROLOGIST as a scribe. Past Medical History Past Medical History: Asthma, Eye Disorder, Hypertension, Rheumatoid Arthritis (RA) Additional Past Medical History / Comment(s): GLAUCOMA, shingles on back of head and neck 07/15/19, DDD, low back pain with radiation and numbness to legs and feet, hx falls, using cane, walker and wheel chair prn., states right leg shorter., received 2 doses of phizer covid vaccine-2nd dose 11/02/20. History of Any Multi-Drug Resistant Organisms: None Reported Past Surgical History: Appendectomy, Back Surgery, Cholecystectomy, Orthopedic S urgery Additional Past Surgical History / Comment(s): NATHANAEL ROTATOR CUFF surgery, DISC SURG X3, TITANIUM PLATE IN NECK, fusion of S1, PAIN CLINIC PROCEDURE, arthroscopy rt knee Past Anesthesia/Blood Transfusion Reactions: No Reported Reaction Past Psychological History: No Psychological Hx Reported Smoking Status: Former smoker Past Alcohol Use History: None Reported Past Drug Use History: None Reported - Past Family History Mother Family Medical History: No Reported History Father Family Medical History: Coronary Artery Disease (CAD) Additional Family Medical History / Comment(s): FATHER HAD 3 VESSEL CABG-HAD POST OP INFECTION AND PNEUMONIA AND AT THE AGE OF 80YRS. Medications and Allergies Home Medications Medication Instructions Recorded Confirmed Type Timolol 0.5% Ophth Soln [Timoptic 1 drop BOTH EYES BID 11/12/13 10/07/23 History 0.5% Ophth Soln] Folic Acid 1 mg PO DAILY 06/14/19 10/07/23 History Losartan Potassium 50 mg PO W/LUNCH 06/14/19 10/07/23 History hydroCHLOROthiazide 12.5 mg PO W/LUNCH 06/14/19 10/07/23 History metHOTREXate sodium 10 mg PO MO 06/14/19 10/07/23 History Atorvastatin [Lipitor] 40 mg PO W/LUNCH 08/10/19 10/07/23 History Albuterol Sulfate [Ventolin HFA] 2 puff INHALATION RT-Q6H PRN 03/16/20 10/07/23 History Aspirin 81 mg PO DAILY 03/16/20 10/07/23 History Furosemide [Lasix] 20 mg PO DAILY 03/16/20 10/07/23 History Cyclobenzaprine [Flexeril] 10 mg PO TID PRN 30 Days #90 tab 08/13/23 10/07/23 Rx Ibuprofen [Motrin] 800 mg PO TID PRN 10/07/23 10/07/23 History Tofacitinib Citrate [Xeljanz Xr] 11 mg PO W/SUPPER 10/07/23 10/07/23 History Allergies Allergy/AdvReac Type Severity Reaction Status Date / Time cephalexin monohydrate Allergy Rash/Hives Verified 10/07/23 08:05 [From Keflex] Physical Exam Vitals: Vital Signs Temp Pulse Resp BP Pulse Ox 10/07/23 06:37 98.2 F 87 18 171/87 94 L 10/07/23 05:10 87 18 127/86 98 10/07/23 02:58 97.5 F L 96 20 164/100 95 Intake and Output 10/06/23 10/07/23 10/07/23 22:59 06:59 14:59 Other: Weight 121.563 kg Results 10/07/23 03:39 10/07/23 03:39 Cardiac Enzymes 10/07/23 10/07/23 Range/Units 03:39 03:39 AST 34 (17-59) U/L Troponin I <0.012 (0.000-0.034) ng/mL Coagulation 10/07/23 Range/Units 03:39 PT 10.0 (10.0-12.5) sec APTT 25.1 (22.0-30.0) sec CBC 10/07/23 Range/Units 03:39 WBC 7.5 (3.8-10.6) k/uL RBC 3.47 L (4.30-5.90) m/uL Hgb 11.5 L (13.0-17.5) gm/dL Hct 35.6 L (39.0-53.0) % Plt Count 225 (150-450) k/uL Comprehensive Metabolic Panel 10/07/23 Range/Units 03:39 Sodium 137 (137-145) mmol/L Potassium 3.3 L (3.5-5.1) mmol/L Chloride 103 (98-107) mmol/L Carbon Dioxide 27 (22-30) mmol/L BUN 19 (9-20) mg/dL Creatinine 0.70 (0.66-1.25) mg/dL Glucose 135 H (74-99) mg/dL Calcium 8.6 (8.4-10.2) mg/dL AST 34 (17-59) U/L ALT 26 (4-49) U/L Alkaline Phosphatase 110 (38-126) U/L Total Protein 7.4 (6.3-8.2) g/dL Albumin 3.8 (3.5-5.0) g/dL Current Medications Generic Name Dose Route Start Last Admin Trade Name Freq PRN Reason Stop Dose Admin Aspirin 81 mg 10/07/23 09:00 10/07/23 09:00 Aspirin 81 Mg PO 81 mg DAILY FIREDA Administration Atorvastatin Calcium 40 mg 10/07/23 09:00 10/07/23 09:04 Atorvastatin 40 Mg Tab PO 40 mg DAILY FRIEDA Administration Furosemide 20 mg 10/07/23 09:00 10/07/23 09:00 Furosemide 20 Mg Tab PO 20 mg DAILY FRIEDA Administration Hydrochlorothiazide 12.5 mg 10/07/23 09:00 Hydrochlorothiazide 12.5 Mg Cap PO DAILY [facility] Losartan Potassium 50 mg 10/07/23 12:30 Losartan 50 Mg Tab PO W/LUNCH [facility] Metoprolol Succinate 25 mg 10/07/23 09:00 10/07/23 09:00 Metoprolol Succinate (Er) 25 Mg Tab.Er.24h PO 25 mg DAILY FRIEDA Administration Naloxone HCl 0.2 mg 10/07/23 05:20 Naloxone 0.4 Mg/Ml 1 Ml Vial IV Q2M PRN Opioid Reversal Intake and Output 10/06/23 10/07/23 10/07/23 22:59 06:59 14:59 Other: Weight 121.563 kg 10/07/23 03:39 10/07/23 03:39
[2023-10-07] MEDS: hydroCHLOROthiazide 12.5 MG CAP PO SCH (09:55)
[2023-10-07] MEDS ORDERED: NITROGLYCERIN SL TABS 0.4 MG TAB SUBLINGUAL PRN (11:23)
[2023-10-07] MEDS ORDERED: ALPRAZolam 0.25 MG TAB PO PRN (11:23)
[2023-10-07] MEDS ORDERED: ASPIRIN 325 MG TAB PO STA (11:23)
[2023-10-07] MEDS ORDERED: ATORVASTATIN 80 MG TAB PO STA (11:23)
[2023-10-07] MEDS ORDERED: ALPRAZolam 0.5 MG TAB PO PRN (11:23)
[2023-10-07] MEDS: ATORVASTATIN 40 MG TAB PO STA (11:30)
[2023-10-07] MEDS: ASPIRIN 325 MG TAB PO STA (11:30)
[2023-10-07] MEDS: SODIUM CHLORIDE 0.9% 1,000 ML in EMPTY BAG 1 BAG IV SCH (11:40)
[2023-10-07] MEDS: LOSARTAN 50 MG TAB PO SCH (11:51)
[2023-10-07] MEDS ORDERED: LOSARTAN 50 MG TAB PO SCH (12:30)
[2023-10-07] MEDS ORDERED: hydroCHLOROthiazide 12.5 MG CAP PO SCH (12:30)
[2023-10-07] MEDS ORDERED: ATORVASTATIN 40 MG TAB PO SCH (12:30)
--- NOTE | 2023-10-07 12:51 | CA ---
Transthoracic Echo Report Name: Eder Garrett Age: 68 Gender: M : 1955 Exam Date: 10/07/2023 10:40 Exam Location: [facility] Ht (in): 70 Wt (lb): 268 Ordering Physician: Jenifer Harding DO Attending/Referring Phys: [id number], Meaghan Assembler Seat Nimco Leung, DARIO Procedure CPT: Indications: nonsustained vtach Cardiac Hx: pacemaker Technical Quality: Technically difficult study Contrast 1: Definity Total Dose (mL): 2 Contrast 2: Total Dose (mL): MEASUREMENTS (Male / Female) Normal Values 2D ECHO LV Diastolic Diameter PLAX 5.1 cm 4.2 - 5.9 / 3.9 - 5.3 cm LV Systolic Diameter PLAX 3.0 cm IVS Diastolic Thickness 1.3 cm 0.6 - 1.0 / 0.6 - 0.9 cm LVPW Diastolic Thickness 1.3 cm 0.6 - 1.0 / 0.6 - 0.9 cm LV Relative Wall Thickness 0.5 RV Internal Dim ED PLAX 3.4 cm LA Systolic Diameter LX 4.3 cm 3.0 - 4.0 / 2.7 - 3.8 cm LA Volume 55.8 cm??? 18 - 58 / 22 - 52 cm??? LA Volume Index 22.3 cm???/m??? 16 - 28 cm???/m??? M-MODE Aortic Root Diameter MM 3.6 cm DOPPLER AV Peak Velocity 144.8 cm/s AV Peak Gradient 8.4 mmHg MV Area PHT 3.8 cm??? Mitral E Point Velocity 78.2 cm/s Mitral A Point Velocity 90.4 cm/s Mitral E to A Ratio 0.9 MV Deceleration Time 197.5 ms FINDINGS Left Ventricle Left ventricular ejection fraction is estimated at 60-65 %. Left ventricular cavity size normal. Mildly increased septal wall thickness. No obvious regional wall motion abnormalities. Right Ventricle Mild right ventricular dilatation. Unable to estimate the right ventricular systolic pressure. Right Atrium Right atrium not well visualized. Left Atrium Mildly increased left atrial diameter. Mitral Valve Structurally normal mitral valve. No mitral stenosis, regurgitation or prolapse. Aortic Valve Aortic valve not well visualized. No aortic valve stenosis or regurgitation. Tricuspid Valve Tricuspid valve not well visualized. No tricuspid stenosis, regurgitation or prolapse. Pulmonic Valve Structurally normal pulmonic valve. No pulmonic regurgitation. Pericardium No pericardial effusion. Aorta Normal size aortic root and proximal ascending aorta. CONCLUSIONS Normal left ventricular EF 60-65% Mildly increased left ventricular wall thickness Mildly dilated left atrium No mitral regurgitation No pericardial effusion Previewed by: Dr. Jairo Ledesma DO (Electronically Signed) Final Date: 07 October 2023 12:51
--- NOTE | 2023-10-07 14:54 | P.HPIM ---
History of Present Illness H&P Date: 10/07/23 Chief Complaint: Event monitor/arrhythmia This is a 68-year-old gentleman with past medical history significant for nonobstructive CAD, hypertension, rheumatoid arthritis, shingles, prior nicotine dependence, chronic lower extremity edema asthma, glaucoma, recent retinal vasc ular occlusion-follows with Dr. Rodriguez, who subsequently referred him for further workup with both vascular surgery and cardiology. Reports recent negative carotid ultrasound with Dr. Pierre-vascular surgeon, recent stress test nearly 2 weeks ago - not yet received results. Placed on event monitor. Early this morning around 2:30 AM received a call from cardiology, Dr. Comer , instructing him to proceed to the ER as an arrhythmia had been detected. Patient states he was asymptomatic, did not have any chest pain, palpitations or shortness of breath. Denied any lightheadedness dizziness or focal deficits. Denied any syncope. Denied any nausea vomiting or diarrhea. Chest x-ray reported non acute. Troponins negative x 2 ,EKG reported sinus rhythm with nonspecific ST-T wave changes. Afebrile, WBC 7.5. Hemoglobin 11.5, platelets 225, sodium 137, potassium 3.3-supplemented, bicarb 27, BUN 19, creatinine 0.7, glucose 135, magnesium [address] Echo ordered. Review of Systems ROS Statement: Those systems with pertinent positive or pertinent negative responses have been documented in the HPI. ROS Other: All systems not noted in ROS Statement are negative. Past Medical History Past Medical History: Asthma, Eye Disorder, Hypertension, Rheumatoid Arthritis (RA) Additional Past Medical History / Comment(s): GLAUCOMA, shingles on back of head and neck 07/15/19, DDD, low back pain with radiation and numbness to legs and feet, hx falls, using cane, walker and wheel chair prn., states right leg shorter., received 2 doses of phizer covid vaccine-2nd dose 11/02/20. History of Any Multi-Drug Resistant Organisms: None Reported Past Surgical History: Appendectomy, Back Surgery, Cholecystectomy, Orthopedic Surgery Additional Past Surgical History / Comment(s): NATHANAEL ROTATOR CUFF surgery, DISC SURG X3, TITANIUM PLATE IN NECK, fusion of S1, PAIN CLINIC PROCEDURE, arthroscopy rt knee Past Anesthesia/Blood Transfusion Reactions: No Reported Reaction Past Psychological History: No Psychological Hx Reported Smoking Status: Former smoker Past Alcohol Use History: None Reported Past Drug Use History: None Reported - Past Family History Mother Family Medical History: No Reported History Father Family Medical History: Coronary Artery Disease (CAD) Additional Family Medical History / Comment(s): FATHER HAD 3 VESSEL CABG-HAD POST OP INFECTION AND PNEUMONIA AND AT THE AGE OF 80YRS. Medications and Allergies Home Medications Medication Instructions Recorded Confirmed Type Timolol 0.5% Ophth Soln [Timoptic 1 drop BOTH EYES BID 11/12/13 10/07/23 History 0.5% Ophth Soln] Folic Acid 1 mg PO DAILY 06/14/19 10/07/23 History Losartan Potassium 50 mg PO W/LUNCH 06/14/19 10/07/23 History hydroCHLOROthiazide 12.5 mg PO W/LUNCH 06/14/19 10/07/23 History metHOTREXate sodium 10 mg PO MO 06/14/19 10/07/23 History Atorvastatin [Lipitor] 40 mg PO W/LUNCH 08/10/19 10/07/23 History Albuterol Sulfate [Ventolin HFA] 2 puff INHALATION RT-Q6H PRN 03/16/20 10/07/23 History Aspirin 81 mg PO DAILY 03/16/20 10/07/23 History Furosemide [Lasix] 20 mg PO DAILY 03/16/20 10/07/23 History Cyclobenzaprine [Flexeril] 10 mg PO TID PRN 30 Days #90 tab 08/13/23 10/07/23 Rx Ibuprofen [Motrin] 800 mg PO TID PRN 10/07/23 10/07/23 History Tofacitinib Citrate [Xeljanz Xr] 11 mg PO W/SUPPER 10/07/23 10/07/23 History Allergies Allergy/AdvReac Type Severity Reaction Status Date / Time cephalexin monohydrate Allergy Rash/Hives Verified 10/07/23 08:05 [From Keflex] Physical Exam Vitals: Vital Signs Temp Pulse Resp BP Pulse Ox 10/07/23 11:48 72 18 136/83 96 10/07/23 09:35 75 18 134/80 96 10/07/23 06:37 98.2 F 87 18 171/87 94 L 10/07/23 05:10 87 18 127/86 98 10/07/23 02:58 97.5 F L 96 20 164/100 95 Intake and Output 10/06/23 10/07/23 10/07/23 22:59 06:59 14:59 Other: Weight 121.563 kg PHYSICAL EXAM: VITAL SIGNS: [As above] GENERAL: Alert and oriented x 3, sitting up on stretcher, no acute distress HEENT: Normocephalic ,conjunctivae normal. eyes normal. NECK: Supple, no JVD. No thyroid enlargement. No LNs CARDIOVASCULAR: S1, S2 regular. No murmur RESPIRATION: Unlabored, equal air entry, essentially clear breath sounds diminished in the bases. No rhonchi or crackles. No bronchial breathing. ABDOMEN: Soft, nontender . No guarding. no masses palpable. No ascites, No hep atosplenomegaly.Bowel sounds heard. LEGS: No edema. no swelling PSYCHIATRY: Alert and oriented X3, mood and affect normal. NERVOUS SYSTEM: Cranial N 2-12 grossly normal. Moves all 4 limbs. Diffuse weakness No focal deficits. Strength and sensation grossly intact. Skin:Warm and dry, no rash Results CBC & Chem 7: 10/07/23 03:39 10/07/23 03:39 Labs: Abnormal Lab Results - Last 24 Hours (Table) 10/07/23 10/07/23 Range/Units 03:39 03:39 RBC 3.47 L (4.30-5.90) m/uL Hgb 11.5 L (13.0-17.5) gm/dL Hct 35.6 L (39.0-53.0) % MCV 102.5 H (80.0-100.0) fL Potassium 3.3 L (3.5-5.1) mmol/L Glucose 135 H (74-99) mg/dL Assessment and Plan Assessment: Nonsustained V. tach, third-degree heart block, sinus pause of 4.8 seconds per event monitor tracings as per cardiology Glaucoma with recent retinal vascular occlusion, follows with Dr. Rodriguez Hypokalemia, supplemented Hypertension Hyperlipidemia Rheumatoid arthritis Chronic bilateral lower extremity edema History of shingles Former nicotine dependence Plan: Continue on current medication regimen ,monitoring and symptomatic treatment. Echo pending. evaluated by cardiology. Recent stress test reported as negative, event monitor tracings reported nonsustained V. tach, third-degree heart block as well as a sinus pause of 4.8 seconds as per cardiology's review. Patient is scheduled for cardiac catheterization tomorrow. Metoprolol discontinued. Follow closely with cardiology. The impression and plan of care has been dictated as directed. : I performed a history and examination of this patient, discussed the same with the dictator. I agree with the dictator's note ,documented as a scribe. Any additional findings or plans will be noted.
[2023-10-07] MEDS: ASPIRIN 81 MG PO ONE (16:24)
[2023-10-07] MEDS: SODIUM CHLORIDE 0.9% 1,000 ML IV ONE (16:25)
[2023-10-07] MEDS ORDERED: VERAPAMIL 2.5 MG/ML 2 ML AMP ONE (16:35)
[2023-10-07] MEDS ORDERED: HEPARIN SODIUM 1,000 UN/ML (10ML VL) ONE (16:35)
[2023-10-07] MEDS ORDERED: fentaNYL (PF) 50 MCG/ML 2 ML AMP ONE (16:35)
[2023-10-07] MEDS ORDERED: LIDOCAINE 1% INJ 10MG/ML (20 ML MDV) ONE (16:35)
[2023-10-07] MEDS: MIDAZOLAM 2 MG/2 ML VIAL IVP ONE (16:39)
[2023-10-07] MEDS: fentaNYL (PF) 50 MCG/1 ML VIAL IVP ONE (16:40)
[2023-10-07] MEDS: LIDOCAINE 1% INJ 10MG/ML (20 ML MDV) SQ ONE (16:41)
[2023-10-07] MEDS: VERAPAMIL SYRINGE (5 MG/10 ML) INTRAARTER ONE (16:42)
[2023-10-07] MEDS: HEPARIN SODIUM 1,000 UN/ML (10ML VL) IVP ONE (16:47)
[2023-10-07] MEDS: IOPAMIDOL-370 100ML BTL INJ ONE (16:51)
--- NOTE | 2023-10-07 17:01 | P.CARDCATH ---
Description of Procedure: PROCEDURES PERFORMED: Left heart catheterization, bilateral coronary angiography, ultrasound guided arterial access INDICATION: nonsustained ventricular tachycardia CONSENT:I have discussed the risks, benefits and alternative therapies for the above-mentioned procedure and for both sedation/analgesia as well as necessary blood product administration, if indicated, as they pertain to this patient. The patient has indicated understanding and acceptance of the risks and procedures discussed. PROCEDURE: After the risks, benefits and alternatives of the above mentioned procedure explained in detail with the patient, informed consent was obtained. Patient was taken to the catheterization lab and prepped and draped in usual fas hion. Ultrasound guidance was used to assess for arterial access. 1% lidocaine was used to anesthetize the right radial artery. A 6-Chadian sheath was placed in the right radial artery using modified Seldinger technique and ultrasound guidance. Left coronary angiography was performed with a 5-Chadian JL 3.5 catheter and right coronary angiography was performed with a 5-Chadian FR5 catheter in various views. A 5-Chadian FR5 catheter was inserted into the left ventricle and pressure measurements were obtained. The right radial sheath was removed and a TR band was placed with hemostasis achieved. The patient tolerated the procedure well. Patient was transported back to the post catheterization holding area in stable condition. Conscious Sedation: Patient was monitored under the direct supervision of myself for conscious sedation using Versed and fentanyl for a total duration of 10 minutes HEMODYNAMICS: aorta: 141/78 LV: 140/15, LVEDP is 27 SELECTIVE CORONARY ARTERIOGRAPHY: LEFT MAIN: The left main is a large caliber vessel which bifurcates into the LAD and circumflex. There is no significant stenosis. LEFT ANTERIOR DESCENDING CORONARY ARTERY: LAD is a large caliber vessel which wraps around to the apex. There is proximal LAD 40-50% stenosis and otherwise mild luminal irregularities of the mid to distal LAD LEFT CIRCUMFLEX CORONARY ARTERY: Left circumflex is a moderate caliber vessel with ostial circumflex 20% stenosis and otherwise mild luminal irregularities. RIGHT CORONARY ARTERY: The right coronary artery is a large caliber vessel which gives off a PDA and PLV branch and is the dominant vessel. There is no significant stenosis. FINAL IMPRESSION: 1. Mild to moderate CAD as described above including circumflex 20% stenosis and proximal LAD 40-50% stenosis 2. Elevated left sided filling pressures PLAN: 1. Aggressive risk factor modification per most recent ACC/AHA guidelines. 2. Follow-up in the office in 1-2 weeks.
[2023-10-07] MEDS: ACETAMINOPHEN TAB 500 MG TAB PO PRN (18:15)
[2023-10-08] MEDS ORDERED: HEPARIN SODIUM,PORCINE 10,000 UNIT in SODIUM CHLORIDE 0.9% 1,000 ML IRRIGATION PRN (07:00)
[2023-10-08] MEDS ORDERED: HEPARIN SODIUM,PORCINE (1 ML) 2,500 UNIT in SODIUM CHLORIDE 0.9% 250 ML IRRIGATION PRN (07:00)
[2023-10-08 10:04] LABS: Basophils % (A) 0 %; Eosinophils % (A) 1 %; HCT 35.5 % (39.0-53.0); HGB 11.3 gm/dL (13.0-17.5); Lymphocytes # (A) 0.6 k/uL (1.0-4.8); Lymphocytes % (A) 9 %; MCH 33.2 pg (25.0-35.0); MCHC 31.8 g/dL (31.0-37.0); MCV 104.4 fL (80.0-100.0); Macrocytosis Moderate; Monocytes # (A) 0.3 k/uL (0-1.0); Monocytes % (A) 5 %; Neutrophils # (A) 5.5 k/uL (1.3-7.7); Neutrophils % (A) 84 %; Platelet Count 232 k/uL (150-450); RDW 14.4 % (11.5-15.5); WBC 6.6 k/uL (3.8-10.6)
[2023-10-08 10:31] LABS: African American GFR (CKD) >90 (>60 ml/min/1.73 sqM); Anion Gap 9 mmol/L; Blood Urea Nitrogen 13 mg/dL (9-20); Calcium 8.6 mg/dL (8.4-10.2); Carbon Dioxide 25 mmol/L (22-30); Chloride 106 mmol/L (98-107); Glucose 133 mg/dL (74-99); Non-African American GFR(CKD) >90 (>60 ml/min/1.73 sqM); Potassium 3.7 mmol/L (3.5-5.1); Sodium 140 mmol/L (137-145)
--- NOTE | 2023-10-08 10:54 | P.PN ---
Subjective HISTORY OF PRESENT ILLNESS: This is a 68-year-old male with a past medical history significant for hypertension, hyperlipidemia, mild nonobstructive CAD, and chronic lower extremity edema. Patient follows in the office with Dr. Ledesma. We have been asked to see the patient in consultation for nonsustained VT. Patient examined at the bedside in the emergency room. Patient states he was recently diagnosed with a retinal vascular occlusion by his eye doctor. He states he was referred to see a vascular surgeon and underwent a carotid ultrasound which was negative to his knowledge. He saw Dr. Ledesma in the office recently and a heart m onitor was placed to rule out atrial fibrillation. The patient was called overnight and was told he was having an arrhythmia and was directed to come to the emergency room. The patient denies having any chest pain or pressure. He denies any shortness of breath. Denies any dizziness or lightheadedness. Denies any episodes of syncope. DIAGNOSTICS: - EKG reveals sinus mechanism with nonspecific ST-T wave changes. - Chest xray negative for acute findings. - Laboratory data: WBC 7.5. Hemoglobin 11.5. Platelet count 225. Sodium 137. Potassium 3.3. BUN 19. Creatinine 0.70. Troponin negative x 1. TSH 3.840. - Current home cardiac medications include aspirin 81 mg daily, Lipitor 40 mg d aily, Lasix 20 mg daily, hydrochlorothiazide 12.5 mg daily, losartan 50 mg daily. - Most recent echocardiogram obtained in 2016 revealed ejection fraction 55 to 60%, mild concentric LVH - Cardiac catheterization history: 2017 revealing right dominant system. No significant disease in the RCA. LAD has a 35% smooth narrowing in the midportion after a small septal branch with calcification. The ramus intermedius as well as circumflex are free of significant disease and filling pressures are normal. -Patient underwent Lexiscan stress test in the office on 09/24/2023 which was negative for ischemia with normal left ventricular EF of 60% Addendum entered and electronically signed by Kaitlin Stallworth NP-C 10/07/23 13:58: Event monitor tracings obtained from cardiology office Patient did have a run of nonsustained ventricular tachycardia yesterday. Additionally at the end of September he had third-degree heart block with an episode of sinus pause of 4.8 seconds Will discontinue metoprolol Patient will undergo cardiac catheterization today with Dr. Ledesma Further recommendations pending patient course 10/08/2023 Patient examined this morning at the bedside. Patient is status postcardiac catheterization revealing mild to moderate CAD including circumflex 20% stenosis and proximal LAD 40 to 50% stenosis. Echocardiogram completed revealing ejection fraction 60 to 65% with no obvious regional wall motion abnormalities. PHYSICAL EXAM: VITAL SIGNS: Reviewed. GENERAL: Well-developed in no acute distress. HEENT: Head is normocephalic. Pupils are equal, round. Sclerae anicteric. Mucous membranes of the mouth are moist. Neck supple. No JVD or thyromegaly LUNGS: Respirations even and unlabored. Lungs essentially clear to auscultation bilaterally. HEART: Regular rate and rhythm. S1 and S2 heard. ABDOMEN: Soft. Nondistended. Nontender. EXTREMITIES: Normal range of motion. No clubbing or cyanosis. Peripheral pulses intact. Chronic bilateral lower extremity edema, likely venous insufficiency NEUROLOGIC: Awake and alert. Oriented x 3. ASSESSMENT: Nonsustained ventricular tachycardia Recent diagnosis of retinal vascular occlusion Hypertension Hyperlipidemia Mild nonobstructive CAD Chronic lower extremity edema, likely venous insufficiency Hypokalemia Intermittent third-degree heart block with episode of sinus pause of 4.8 seconds on outpatient event monitor PLAN: Continue current cardiac medications No beta-elyssa upon discharge Recommend outpatient sleep study evaluation. Will defer to primary medicine Patient is stable for discharge home today from a cardiac standpoint He is to follow-up on an outpatient basis with Dr. Ledesma Nurse practitioner note has been reviewed by physician. Signing provider agrees with the documented findings, assessment, and plan of care documented by [employer] as a scribe. Objective - Vital Signs Vital signs: Vital Signs Temp 97.7 F 10/08/23 08:00 Pulse 90 10/08/23 08:15 Resp 16 10/08/23 08:15 BP 139/81 10/08/23 08:00 Pulse Ox 98 10/08/23 08:00 FiO2 Intake & Output 10/07/23 10/08/23 10/08/23 18:59 06:59 18:59 Intake Total 500 358 Balance 500 358 Weight 121.5 kg Intake: IV 500 Oral 358 Other: Voiding Method Toilet Urinal # Voids 1 - Labs CBC & Chem 7: 10/08/23 08:45 10/08/23 08:45 Labs: Abnormal Lab Results - Last 24 Hours (Table) 10/08/23 10/08/23 Range/Units 08:45 08:45 RBC 3.40 L (4.30-5.90) m/uL Hgb 11.3 L (13.0-17.5) gm/dL Hct 35.5 L (39.0-53.0) % MCV 104.4 H (80.0-100.0) fL Lymphocytes # 0.6 L (1.0-4.8) k/uL Creatinine 0.58 L (0.66-1.25) mg/dL Glucose 133 H (74-99) mg/dL
[2023-10-08 11:56] VITALS: BP 144/77; PULSE 84; RESP 14; TEMP 97.8
== END 2023-10-08 13:54 | disposition home or self-care (01) ==
LOC: EC 02:57 → 3SCARD 05:21
PROVIDERS: ADMIT Family Medicine; ATTEND Family Medicine
DX: I47.20 Ventricular tachycardia, unspecified (principal); I48.92 Unspecified atrial flutter; I10 Essential (primary) hypertension; E78.5 Hyperlipidemia, unspecified; I25.10 Atherosclerotic heart disease of native coronary artery without angina pectoris; E87.6 Hypokalemia; I44.2 Atrioventricular block, complete; M06.9 Rheumatoid arthritis, unspecified; H40.9 Unspecified glaucoma; R60.0 Localized edema; Z98.61 Coronary angioplasty status; Z79.899 Other long term (current) drug therapy; Z79.82 Long term (current) use of aspirin; Z87.891 Personal history of nicotine dependence; Z82.49 Family history of ischemic heart disease and other diseases of the circulatory system; Z88.1 Allergy status to other antibiotic agents; Z86.19 Personal history of other infectious and parasitic diseases
CPT/HCPCS: 96374; 96375; 99285; 36415; 93005; 93458; 76937; 80053; 80048; 84443; 83735; 84484; 85025 ×2; 85610; 85730; 71046; G0378 ×2; C8929; C1769; C1894; J2250; J2001; Q9957; J1644; Q9967; J3010; 93306

== ENCOUNTER → 2024-01-26 | Outpatient (CLI) | payer MEDICARE, BC ==
[2024-01-26 10:23] LABS: Basophils # (A) 0.02 X 10*3/uL (0.00-0.10); Basophils % (A) 0.3 %; Eosinophils # (A) 0.07 X 10*3/uL (0.04-0.35); Eosinophils % (A) 1.1 %; HCT 39.2 % (39.6-50.0); HGB 12.9 g/dL (13.0-17.0); Lymphocytes # (A) 1.66 X 10*3/uL (0.90-5.00); Lymphocytes % (A) 27.2 %; MCH 34.1 pg (27.0-32.0); MCHC 32.9 g/dL (32.0-37.0); MCV 103.7 FL (80.0-97.0); Mean Platelet Volume 9.6 FL (9.5-12.2); Monocytes # (A) 0.75 X 10*3/uL (0.20-1.00); Monocytes % (A) 12.3 %; NRBC Per 100 WBC 0 X 10*3/uL (0.00-0.01); Neutrophils # (A) 3.58 X 10*3/uL (1.80-7.70); Neutrophils % (A) 58.8 %; Platelet Count 260 X 10*3/uL (140-440); RBC 3.78 X 10*6/uL (4.40-5.60); RDW 13.4 % (11.5-14.5)
[2024-01-26 10:30] LABS: ALT 26 U/L (10-49); AST 28 U/L (14-35); C Reactive Protein <0.30 mg/dL (0.00-0.80)
[2024-01-26 10:38] LABS: Erythrocyte Sedimentation Rate 25 mm/Hr (0-20)
== END | disposition home or self-care (01) ==
LOC: LABWHC1 07:25
PROVIDERS: ATTEND Internal Medicine Rheumatology
DX: M06.9 Rheumatoid arthritis, unspecified (principal)
CPT/HCPCS: 36415; 82565; 84450; 84460; 85025; 85652; 86140

== ENCOUNTER → 2024-05-04 | Outpatient (CLI) | payer MEDICARE, BC ==
[2024-05-04 14:37] VITALS: BP 181/83; PULSE 124; RESP 16; TEMP 98.1
--- NOTE | 2024-05-04 14:56 | P.SLEEP ---
History of Present Illness H&P Date: 05/04/24 This is a 68-year-old male patient was referred to me for sleep apnea evaluation. The patient was undergoing recent cardiac evaluations with Dr. Ledesma. The patient had a quality assurance monitor final that showed nonsustained ventricular tachycardia. This is occurred overnight captured on a heart monitor. Based on that, the patient was given a cardiac catheterization which showed mild to moderate coronary artery disease with 20% circumflex stenosis and proximal LAD stenosis in the order of 40 to 50%. His left ventricular diastolic pressure was elevated. The patient was offered medical treatment. The patient is also known to me from previous office visits. He has mild intermittent bronchial asthma. He has an extensive 0 and rheumatoid arthritis and is followed by rheumatology maintained on a combination of Xeljanz, methotrexate and Flexeril for pain control. He is also known to have hypertension hyperlipidemia. He follows up with ophthalmology regarding glaucoma. He admits to snore. No major hypersomnia or sleepiness during the day. He goes to bed around 11 PM and wakes up at 6 AM in the morning. He breathes through his nose and mouth and he has dry mouth in the morning. He is a side sleeper. He has extensive arthritis and chronic pain issues as the patient has undergone prev ious neck and back surgery addition to knee and bilateral shoulder surgeries. Does not take any naps during the day. He has gained around 20 pounds over the past 4 years. Does not fall asleep while driving or while performing routine day-to-day activities. His current [place] score is at 2. Body mass index is currently at 41.9. No sleepwalking. No sleep talking. No nocturnal seizures. Wakes up 2 times in middle of the night to urinate. Mostly paralysis. No hallucinations. No cataplexy. Review of Systems Constitutional: Reports fatigue, Reports weakness Eyes: denies as per HPI, denies blurred vision, denies bulging eye, denies decreased vision, denies diplopia, denies discharge, denies dry eye, denies irritation, denies itching, denies pain, denies photophobia, denies loss of peripheral vision, denies loss of vision, denies tunnel vision/blind spots Ears: deny: decreased hearing, ear discharge, earache, tinnitus Ears, nose, mouth and throat: Reports as per HPI Breasts: absent: as per HPI, gynecomastia Cardiovascular: Reports as per HPI Respiratory: Reports snoring Gastrointestinal: Reports as per HPI Genitourinary: Reports as per HPI Musculoskeletal: Reports as per HPI, Reports gait dysfunction, Reports hot joints, Reports low back pain, Reports morning stiffness, Reports myalgias, Reports neck pain, Reports neck stiffness, Reports shooting arm pain, Reports shooting leg pain Musculoskeletal: bilateral: ankle swelling, absent: ankle pain, ankle stiffness, as per HPI, elbow pain, elbow stiffness, elbow swelling, foot pain, foot stiffness, foot swelling, hand pain, hand stiffness, hand swelling, hip pain, hip stiffness, hip swelling, knee pain, knee stiffness, knee swelling, shoulder pain, shoulder stiffness, shoulder swelling, wrist pain, wrist stiffness, wrist swelling Integumentary: Reports as per HPI Neurological: Reports as per HPI Psychiatric: Reports as per HPI Endocrine: Reports as per HPI, Reports fatigue Allergic/Immunologic: Reports as per HPI Past Medical History Past Medical History: Asthma, Coronary Artery Disease (CAD), Eye Disorder, Hypertension, Rheumatoid Arthritis (RA) Additional Past Medical History / Comment(s): GLAUCOMA, shingles on back of head and neck 07/15/19, DDD, low back pain with radiation and numbness to legs and feet, hx falls, using cane, walker and wheel chair prn., states right leg shorter., received 2 doses of phizer covid vaccine-2nd dose 11/02/20. History of Any Multi-Drug Resistant Organisms: None Reported Past Surgical History: Appendectomy, Back Surgery, Cholecystectomy, Orthopedic Surgery Additional Past Surgical History / Comment(s): NATHANAEL ROTATOR CUFF surgery, DISC SURG X3, TITANIUM PLATE IN NECK, fusion of S1, PAIN CLINIC PROCEDURE, arthroscopy rt knee Past Anesthesia/Blood Transfusion Reactions: No Reported Reaction Past Psychological History: No Psychological Hx Reported Additional Psychological History / Comment(s): . Smoking Status: Former smoker Past Alcohol Use History: None Reported Additional Past Alcohol Use History / Comment(s): STARTED SMOKING AT AGE 17 QUIT AT AGE 20 SMOKED 1/2PPD Past Drug Use History: None Reported - Past Family History Mother Family Medical History: No Reported History Father Family Medical History: Coronary Artery Disease (CAD) Additional Family Medical History / Comment(s): FATHER HAD 3 VESSEL CABG-HAD POST OP INFECTION AND PNEUMONIA AND AT THE AGE OF 80YRS. Sister(s) Family Medical History: Rheumatoid Arthritis (RA) Brother(s) Family Medical History: Osteoarthritis (OA) Son(s) Family Medical History: Asthma Medications and Allergies Home Medications Medication Instructions Recorded Confirmed Type Timolol 0.5% Ophth Soln [Timoptic 1 drop BOTH EYES BID 11/12/13 05/04/24 History 0.5% Ophth Soln] Folic Acid 1 mg PO DAILY 06/14/19 05/04/24 History Losartan Potassium 50 mg PO W/LUNCH 06/14/19 05/04/24 History hydroCHLOROthiazide 12.5 mg PO W/LUNCH 06/14/19 05/04/24 History metHOTREXate sodium [Methotrexate] 10 mg PO MO 06/14/19 05/04/24 History Atorvastatin [Lipitor] 40 mg PO W/LUNCH 08/10/19 05/04/24 History Albuterol Sulfate [Ventolin HFA] 2 puff INHALATION RT-Q6H PRN 03/16/20 05/04/24 History Aspirin 81 mg PO DAILY 03/16/20 05/04/24 History Furosemide [Lasix] 20 mg PO DAILY 03/16/20 05/04/24 History Cyclobenzaprine [Flexeril] 10 mg PO TID PRN 30 Days #90 tab 08/13/23 05/04/24 Rx Ibuprofen [Motrin] 800 mg PO TID PRN 10/07/23 10/07/23 History Tofacitinib Citrate [Xeljanz Xr] 11 mg PO W/SUPPER 10/07/23 05/04/24 History Allergies Allergy/AdvReac Type Severity Reaction Status Date / Time cephalexin monohydrate Allergy Rash/Hives Verified 10/07/23 08:05 [From Keflex] Physical Exam Vitals: Vital Signs Temp Pulse Resp BP Pulse Ox 05/04/24 14:35 98.1 F 124 H 16 181/83 96 Intake and Output 05/03/24 05/04/24 05/04/24 22:59 06:59 14:59 Other: Weight 128.82 kg The patient appeared well nourished and normally developed. Vital signs as documented. Head exam is unremarkable. No scleral icterus or corneal arcus noted. Neck is without jugular venous distension, thyromegaly, or carotid bruits. Carotid upstrokes are brisk bilaterally. Patient has a Mallampati class IV with crowding in the posterior pharynx Lungs are clear to auscultation and percussion. Cardiac exam reveals the PMI to be normally sized and situated. Rhythm is regular. First and second heart sounds normal. No murmurs, rubs or gallops. Abdominal exam reveals normal bowel sounds, no masses, no organomegaly and no aortic enlargement. Extremities are nonedematous and both femoral and pedal pulses are normal. Extensive arthritic changes in his hands related to osteo and rheumatoid arthritis. Chronic edema lower extremities along with joint deformities and the patient is walking with the help of a cane. Examination of the skin revealed no evidence of significant rashes, suspicious appearing nevi or other concerning lesions. Neurologically, the patient is awake and alert and the patient does not have any focal neurological deficit. Cranial nerves are essentially intact. Assessment and Plan Plan: Snoring with limited hypersomnia. Suffers from chronic fatigue and sleep fragmentation. [place] score is currently at 2. Patient is a Mallampati class IV with a body mass index of 41.9. Despite this presentation, the overall clinical suspicion for obstructive sleep apnea is low. Will undergo further evaluation Nonsustained ventricular tachycardia, captured by.. This was a nighttime cardiac arrhythmia. Nonocclusive coronary artery disease, please refer to the results of the cardiac catheterization and the patient was offered medical management Glucoma Rheumatoid arthritis maintained on a combination of methotrexate, Xeljanz and Flexeril Osteoarthritis Previous history of cervical spine and back surgery in addition to orthopedic surgeries involving the shoulders and the knee, affecting overall mobility. The patient suffers from chronic pain. Hypertension Hyperlipidemia Obesity with a BMI of 41.9 Plan Patient was referred to me for sleep apnea evaluation. Of concern is the nighttime cardiac arrhythmia that has been noted on a quality assurance monitor final. The patient has undergone further cardiac testing including a cardiac catheter ization and was found to have nonocclusive CAD. Based on his snoring and obesity, sleep apnea was suspected and the patient was referred to me for sleep apnea evaluation. As Stated, my overall clinical suspicion is low and the patient is not having any extensive sleep fragmentation or daytime hypersomnia or sleepiness. Will do a screening polysomnography, evaluate for any nocturnal arrhythmias and decide if further treatment is needed. Will continue to follow. Sleep Note - Sleep Data ESS Total: 2 - Sleep Note Sleep Note: Temperature: 98.1 F Pulse Rate: 124 Respiratory Rate: 16 Blood Pressure: 181/83 SpO2: 96 Height: 5 ft 9 in Weight: 128.82 kg BMI: Neck Circumference: 20
== END ==
LOC: 3 N SLEEP 13:37
PROVIDERS: ATTEND Internal Medicine Critical Care Medicine
CPT/HCPCS: 99211

== ENCOUNTER 2024-05-17 19:36 | Outpatient (CLI) | payer MEDICARE, BC ==
--- NOTE | 2024-06-01 00:42 | P.PCN ---
Date of Procedure: 05/17/24 Operative Findings: Polysomnography report Date of service is 05/17/2024 History This is a 68-year-old male patient was referred to me for sleep apnea evaluation. The patient was undergoing recent cardiac evaluations with Dr. Ledesma. The patient had a campus monitor that showed nonsustained ventric ular tachycardia. This is occurred overnight captured on a heart monitor. Based on that, the patient was given a cardiac catheterization which showed mild to moderate coronary artery disease with 20% circumflex stenosis and proximal LAD stenosis in the order of 40 to 50%. His left ventricular diastolic pressure was elevated. The patient was offered medical treatment. The patient is also known to me from previous office visits. He has mild intermittent bronchial asthma. He has an extensive 0 and rheumatoid arthritis and is followed by rheumatology maintained on a combination of Xeljanz, methotrexate and Flexeril for pain control. He is also known to have hypertension hyperlipidemia. He follows up with ophthalmology regarding glaucoma. He admits to snore. No major hypersomnia or sleepiness during the day. He goes to bed around 11 PM and wakes up at 6 AM in the morning. He breathes through his nose and mouth and he has dry mouth in the morning. He is a side sleeper. He has extensive arthritis and chronic pain issues as the patient has undergone previous neck and back surgery addition to knee and bilateral shoulder surgeries. Does not take any naps during the day. He has gained around 20 pounds over the past 4 years. Does not fall asleep while driving or while performing routine day-to-day activities. His current [place] score is at 2. Body mass index is currently at 41.9. No sleepwalking. No sleep talking. No nocturnal seizures. Wakes up 2 times in middle of the night to urinate. M no sleep paralysis. No hallucinations. No cataplexy. Pertinent physical findings Weight is 284 pounds with a body mass index of 41.9 Technical description The patient was studied using a standard complex polysomnography protocol that included recording of the Lead II EKG, Central, occipital and frontal EEG, right and left outer canthus EOG, submental EMG, right and left anterior tibialis EMG, respiratory airflow by thermocouple and or pressure/flow transducer, respiratory efforts by abdominal and thoracic PVDF belts, oxygen saturation by cable oximetry. Position by observation synchronized the PSG. Equipment used: [email or web address]. Sleep architecture The total recording duration was 378.5 minutes. The total sleep time was 251.5 minutes. The overall sleep efficiency was 66.4%. The latency to sleep onset was 8 minutes. The latency to REM sleep was 204 minutes. The sleep architecture was catheterized by 41.7% stage I, 57.5% stage II, 0.2% stage III and 0 0.6% REM sleep. The total arousal index was 31.0. The wake after sleep onset time was 118.5 minutes Results The respiratory analysis showed a total of 208 obstructive events of which 72 were obstructive apneas, 44 were mixed apneas and 92 obstructive hypopneas. The resulting apnea-hypopnea index was 51.8. The patient also encountered a total of 24 central apneas with a central apnea index of 5.7. Oxygenation analysis The patient had a baseline pulse ox of 96% on room air while awake. The minimum pulse ox was 78% and the patient spent approximately 3 hours and 24 minutes of sleep time below pulse ox of 89%. Sleep continuity summary The patient had a total of 130 arousals with an index of 31.0. The respiratory arousal index was 11.7 Periodic movement events A total of 52 periodic limb movement activity with an index of 12.4. There was a total of 5 periodic limb movement activity with arousals with an index of 1.2 Cardiac summary Average heart rate was 61 with a minimum heart rate of 54 and a maximum heart rate of 72, the cardiac rhythm was sinus Assessment Severe obstructive sleep apnea with an AHI of 51.8. The respiratory events were predominantly obstructive and the patient had a mild central apnea component with a central apnea index of 5.7 Nocturnal oxygen desaturations with a minimum pulse ox of 78% Abnormal sleep architecture with diminished delta wave and REM sleep and over representation of stage I sleep Sleep fragmentation with a high arousal index Poor sleep efficiency calculated to be at 66.4 Snoring with limited hypersomnia. Suffers from chronic fatigue and sleep fragmentation. [place] score is currently at 2. Patient is a Mallampati class IV Body mass index of 41.9. Nonsustained ventricular tachycardia Nonocclusive coronary artery disease, please refer to the results of the cardiac catheterization and the patient was offered medical management [place] Rheumatoid arthritis maintained on a combination of methotrexate, Xeljanz and Flexeril Osteoarthritis Previous history of cervical spine and back surgery in addition to orthopedic surgeries involving the shoulders and the knee, affecting overall mobility. The patient suffers from chronic pain. Hypertension Hyperlipidemia Obesity with a BMI of 41.9 Plan Proceed with CPAP titration regarding severe symptomatic obstructive sleep apnea. The patient has undergone further cardiac testing including a cardiac catheterization and was found to have nonocclusive CAD. Optimize comorbidities Maintain good sleep hygiene measures Maintain regular sleep schedule Encourage weight loss Will continue to follow
== END 2024-05-18 05:20 | disposition home or self-care (01) ==
LOC: 3 N SLEEP 19:36
PROVIDERS: ATTEND Internal Medicine Critical Care Medicine
DX: G47.33 Obstructive sleep apnea (adult) (pediatric) (principal); G47.36 Sleep related hypoventilation in conditions classified elsewhere; G47.52 REM sleep behavior disorder; G47.8 Other sleep disorders; G47.10 Hypersomnia, unspecified; R53.82 Chronic fatigue, unspecified; I47.20 Ventricular tachycardia, unspecified; I25.10 Atherosclerotic heart disease of native coronary artery without angina pectoris; H40.9 Unspecified glaucoma; M06.9 Rheumatoid arthritis, unspecified; M19.90 Unspecified osteoarthritis, unspecified site; G89.29 Other chronic pain; I10 Essential (primary) hypertension; E78.5 Hyperlipidemia, unspecified; E66.9 Obesity, unspecified; Z68.41 Body mass index [BMI] 40.0-44.9, adult; Z99.89 Dependence on other enabling machines and devices; Z95.9 Presence of cardiac and vascular implant and graft, unspecified; Z88.1 Allergy status to other antibiotic agents; Z87.891 Personal history of nicotine dependence
CPT/HCPCS: 95810

== ENCOUNTER → 2024-09-01 | Outpatient (CLI) | payer MEDICARE, BC ==
[2024-09-01 15:32] LABS: ALT 35 U/L (10-49); AST 38 U/L (14-35); Albumin 4.2 g/dL (3.8-4.9); Albumin/Globulin Ratio 1.35 Ratio (1.60-3.17); Alkaline Phosphatase 106 U/L (41-126); Blood Urea Nitrogen 14.4 mg/dL (9.0-27.0); Calcium 9.3 mg/dL (8.7-10.3); Carbon Dioxide 26.6 mmol/L (21.6-31.8); Chloride 104 mmol/L (96-109); Globulin 3.1 g/dL (1.6-3.3); Glucose 132 mg/dL (70-110); LDL Cholesterol,Calculated 44.6 mg/dL (0.0-131.0); Potassium 4.1 mmol/L (3.5-5.5); Prostate Specific Antigen 0.68 ng/mL (0.000-4.500); Sodium 142 mmol/L (135-145); Total Bilirubin 0.5 mg/dL (0.3-1.2); Total Protein 7.3 g/dL (6.2-8.2)
== END | disposition home or self-care (01) ==
LOC: LABWHC1 08:03
PROVIDERS: ATTEND Family Medicine
DX: E78.5 Hyperlipidemia, unspecified (principal); N40.0 Benign prostatic hyperplasia without lower urinary tract symptoms
CPT/HCPCS: 36415; 80053; 80061; 84153